=== PATIENT | female | born 1975 | race Caucasian/White ===

== ENCOUNTER → 2018-01-11 12:01 | Outpatient (REF) | payer MEDICAID, SELFPAY ==
[2018-01-11 17:59] LABS: Basophils % 0.4 % (0.1-2.0); Eosinophils # 0.1 K/mm3 (0.0-0.4); Eosinophils % 1.4 % (0.1-12.0); Hemoglobin 12.2 g/dL (12.2-16.2); Lymphocytes # 2.8 K/mm3 (0.7-4.5); Lymphocytes % 34.8 K/mm3 (10-50); Mean Corpuscular HGB Conc 31.4 g/dL (31.8-35.4); Mean Corpuscular Hemoglobin 28.7 pg (27.0-31.2); Mean Corpuscular Volume 91.4 fl (81-99); Mean Platelet Volume 9.5 fl (7.4-10.4); Monocytes # 0.4 K/mm3 (0.1-1.0); Monocytes % 4.5 % (1.7-9.3); Neutrophils # 4.8 K/mm3 (1.8-7.8); Platelet Count 293 K/mm3 (142-424); Red Blood Count 4.26 M/mm3 (4.20-5.40); Red Cell Distribution Width 12.8 % (11.5-17.5); White Blood Count 8.1 K/mm3 (4.8-10.8)
[2018-01-11 19:20] LABS: Alanine Aminotransferase 18 U/L (12-78); Albumin Level 3.9 gm/dL (3.4-5.0); Albumin/Globulin Ratio 1.2 (1.1-1.8); Alkaline Phosphatase 91 U/L (46-116); Anion Gap 12.3 mEq/L (5-15); Aspartate Amino Transferase 7 U/L (15-37); Bilirubin,Total 0.1 mg/dL (0.2-1.0); Blood Urea Nitrogen 18 mg/dL (7-18); Calcium 9.1 mg/dL (8.5-10.1); Carbon Dioxide 27 mmol/L (21.0-32.0); Chloride 105 mmol/L (98-107); Cholesterol 160 mg/dL (140-200); Creatinine,Serum 1.02 mg/dL (0.55-1.02); Estimated Glomerular Filt Rate 60 ml/min (>60); Free T4 (Free Thyroxine) 0.92 ng/dl (0.76-1.46); GFR (African American) 73 ML/MIN (>60); Globulin 3.3 gm/dl (1.3-3.2); Glucose 83 mg/dL (74-106); HDL Cholesterol 40 mg/dL (29-89); LDL Cholesterol 86 mg/dL (0-130); Potassium 4.3 mmoL/L (3.5-5.1); Sodium 140 mmol/L (136-145); Thyroid Stimulating Hormone 2.49 uIU/ml (0.358-3.740); Total Protein,Serum 7.2 gm/dL (6.4-8.2); Triglycerides 172 mg/dL (30-200); VLDL Cholesterol 34 mg/dL (0-40)
[2018-01-14 11:57] LABS: Vitamin D 25 Hydroxy 20.9 ng/mL (30.0-100.0)
== END ==
LOC: LAB 12:01
PROVIDERS: Visit Provider Emergency Medicine
DX: I10 Essential (primary) hypertension (principal)
CPT/HCPCS: 80053; 80061; 82652; 84439; 84443; 85025

== ENCOUNTER → 2018-04-18 08:48 | Outpatient (REF) | payer MEDICAID, SELFPAY ==
[2018-04-18 14:46] LABS: Amphetamine/Metha Screen,Urine Negative ng/mL (<1000); Barbiturates Screen,Urine Negative ng/mL (<200); Benzodiazepines Screen,Urine Negative ng/mL (<200); Cannabinoid Screen,Urine Positive ng/mL (<50); Cocaine Screen,Urine Negative ng/mL (<300); Methadone Screen,Urine Negative ng/mL (<300); Opiate Screen,Urine Negative ng/mL (<300); Phencyclidine Screen,Urine Negative ng/mL (<25)
== END ==
LOC: LAB 08:48
PROVIDERS: Visit Provider Nurse Practitioner Family
DX: Z79.899 Other long term (current) drug therapy (principal)
CPT/HCPCS: 80305

== ENCOUNTER → 2018-07-15 14:05 | Outpatient (CLI) | payer MEDICAID, SELFPAY ==
[2018-07-15 14:49] LABS: Amphetamine/Metha Screen,Urine Negative ng/mL (<1000); Barbiturates Screen,Urine Negative ng/mL (<200); Benzodiazepines Screen,Urine Negative ng/mL (<200); Cannabinoid Screen,Urine Positive ng/mL (<50); Cocaine Screen,Urine Negative ng/mL (<300); Methadone Screen,Urine Negative ng/mL (<300); Opiate Screen,Urine Positive ng/mL (<300); Phencyclidine Screen,Urine Negative ng/mL (<25)
[2018-07-22 12:20] LABS: Codeine Negative (Cutoff=100); Hydrocodone Positive (.); Hydromorphone Positive (.); Morphine Negative (Cutoff=100)
[2018-07-22 17:12] LABS: Hydrocodone Confirm 1539 ng/mL (Cutoff=100); Hydromorphone Confirm 130 ng/mL (Cutoff=100); Opiates Positive (.)
== END ==
PROVIDERS: Visit Provider Nurse Practitioner Family
DX: Z79.899 Other long term (current) drug therapy (principal)
CPT/HCPCS: 80305; 80361; G0480

== ENCOUNTER → 2019-01-23 16:56 | Outpatient (CLI) | payer MEDICAID, SELFPAY ==
[2019-01-23 18:04] LABS: Amphetamine/Metha Screen,Urine Negative ng/mL (<1000); Barbiturates Screen,Urine Negative ng/mL (<200); Benzodiazepines Screen,Urine Negative ng/mL (<200); Cannabinoid Screen,Urine Positive ng/mL (<50); Cocaine Screen,Urine Negative ng/mL (<300); Methadone Screen,Urine Negative ng/mL (<300); Opiate Screen,Urine Negative ng/mL (<300); Phencyclidine Screen,Urine Negative ng/mL (<25)
== END ==
PROVIDERS: Visit Provider Emergency Medicine
DX: Z79.899 Other long term (current) drug therapy (principal)
CPT/HCPCS: 80305

== ENCOUNTER → 2019-07-10 12:48 | Outpatient (CLI) | payer MEDICAID, SELFPAY ==
[2019-07-10 13:50] VITALS: PULSE 72; PULSE 77
== END ==
PROVIDERS: PCP Emergency Medicine; Visit Provider Emergency Medicine
DX: R06.02 Shortness of breath (principal)
CPT/HCPCS: 94060; 94618; 94640; 94726; 94729

== ENCOUNTER → 2020-01-19 16:46 | Outpatient (CLI) | payer MEDICAID, SELFPAY ==
[2020-01-19 17:01] LABS: Basophils % 0.4 % (0.1-2.0); Eosinophils # 0.2 K/mm3 (0.0-0.4); Hematocrit 39.5 % (37.0-47.0); Hemoglobin 13.1 g/dL (12.2-16.2); Lymphocytes % 26.9 % (10-50); Mean Corpuscular HGB Conc 33.3 g/dL (31.8-35.4); Mean Corpuscular Hemoglobin 30.6 pg (27.0-31.2); Mean Corpuscular Volume 91.8 fl (81-99); Mean Platelet Volume 9.2 fl (7.4-10.4); Monocytes # 0.5 K/mm3 (0.1-1.0); Monocytes % 6.8 % (1.7-9.3); Neutrophils # 4.7 K/mm3 (1.8-7.8); Neutrophils % 63.9 % (37.0-80.0); Platelet Count 309 K/mm3 (142-424); Red Cell Distribution Width 13.4 % (11.5-17.5); White Blood Count 7.3 K/mm3 (4.8-10.8)
[2020-01-19 18:52] LABS: Alanine Aminotransferase 18 U/L (12-78); Albumin Level 4.6 g/dl (3.5-5.0); Albumin/Globulin Ratio 1.5 (1.1-1.8); Alkaline Phosphatase 101 U/L (38-126); Anion Gap 16.7 mEq/L (5-15); Aspartate Amino Transferase 31 U/L (14-36); Bilirubin,Total 0.5 mg/dl (0.2-1.3); Blood Urea Nitrogen 30 mg/dl (7-17); Calcium 9.8 mg/dl (8.4-10.2); Carbon Dioxide 23 mmol/L (22.0-30.0); Chloride 103 mmol/L (98-107); Chol/HDL Ratio 3.7 (1-3.5); Cholesterol 190 mg/dl (140-200); Estimated Glomerular Filt Rate 45 ml/min (>60); GFR (African American) 54 ML/MIN (>60); Glucose 113 mg/dl (74-100); HDL Cholesterol 52 mg/dl (40-60); Potassium 3.7 mmoL/L (3.5-5.1); Sodium 139 mmol/L (136-145); Total Protein,Serum 7.6 g/dl (6.3-8.2); Triglycerides 97 mg/dl (30-150); VLDL Cholesterol 19 mg/dL (0-40)
[2020-01-19 19:04] LABS: Direct LDL Cholesterol 120.65 mg/dL (100-129)
[2020-01-19 19:11] LABS: T4 (Thyroxine) 11.9 ug/dl (5.53-11.0)
[2020-01-19 19:15] LABS: 25-OH Vitamin D, Total 28.4 ng/mL (30-100)
[2020-01-19 19:25] LABS: Thyroid Stimulating Hormone 2.91 uIU/mL (0.465-4.68)
== END ==
PROVIDERS: Visit Provider Emergency Medicine
DX: M79.2 Neuralgia and neuritis, unspecified (principal); E55.9 Vitamin D deficiency, unspecified; Z79.899 Other long term (current) drug therapy
CPT/HCPCS: 80053; 80061; 82306; 84436; 84443; 85025

== ENCOUNTER → 2020-02-02 10:15 | Outpatient (CLI) | payer MEDICAID, SELFPAY ==
--- NOTE | 2020-02-02 10:15 | MM_ITS ---
PROCEDURE: MM DIG SCREENING MAMM BI W/CAD Digital Breast Tomosynthesis Included CLINICAL INDICATION: screening There is no personal or family history of breast cancer. COMPARISON: This is a baseline screening exam TECHNIQUE: Standard CC and MLO images and 3D Tomosynthesis was obtained. R2 CAD reviewed. FINDINGS: Moderate scattered fibroglandular densities are seen throughout both breasts. There is a asymmetric benign-appearing nodular density subareolar region left breast. This likely is a small cyst or possibly fibroadenoma however since this is a baseline study recommend the patient return for ultrasound left breast for baseline evaluation. There are no suspicious microcalcifications. IMPRESSION: Fibrofatty parenchyma with benign-appearing asymmetric density left breast BI-RAD Category: 0 Need Additional Imaging Evaluation FOLLOW-UP: IMM Immediate Follow-up Recommended (A letter has been sent to the patient regarding results of the study.) Dictated Dr. Matthieu Fallon MD 02/05/2020 08:54 Dr. Matthieu Aguirre MD in [place] 02/05/2020 08:54
== END ==
PROVIDERS: PCP Emergency Medicine; Visit Provider Emergency Medicine
DX: Z12.31 Encounter for screening mammogram for malignant neoplasm of breast (principal)
CPT/HCPCS: 77063; 77067

== ENCOUNTER → 2020-02-02 11:25 | Outpatient (CLI) | payer MEDICAID, SELFPAY ==
[2020-02-02 12:08] LABS: Hemoglobin A1C 5.3 % (4.0-6.0)
== END ==
PROVIDERS: Visit Provider Emergency Medicine
DX: R73.9 Hyperglycemia, unspecified (principal)
CPT/HCPCS: 36415; 83036

== ENCOUNTER → 2020-04-23 17:00 | Outpatient (CLI) | payer MEDICAID, SELFPAY ==
[2020-04-23 17:39] LABS: Anion Gap 15.2 mEq/L (5-15); Blood Urea Nitrogen 15 mg/dl (7-17); Carbon Dioxide 25 mmol/L (22.0-30.0); Chloride 105 mmol/L (98-107); Estimated Glomerular Filt Rate 61 ml/min (>60); GFR (African American) 74 ML/MIN (>60); Glucose 116 mg/dl (74-100); Potassium 4.2 mmoL/L (3.5-5.1); Sodium 141 mmol/L (136-145)
[2020-04-23 19:34] LABS: Free T4 (Free Thyroxine) 1.61 ng/dl (0.78-2.19)
[2020-04-23 19:49] LABS: Thyroid Stimulating Hormone 2.42 uIU/mL (0.465-4.68)
== END ==
PROVIDERS: Visit Provider Emergency Medicine
DX: E66.3 Overweight (principal); I10 Essential (primary) hypertension; M79.2 Neuralgia and neuritis, unspecified; Z72.0 Tobacco use; Z68.25 Body mass index [BMI] 25.0-25.9, adult
CPT/HCPCS: 80048; 84439; 84443

== ENCOUNTER → 2020-11-01 10:40 | Outpatient (CLI) | payer MEDICAID, SELFPAY ==
--- NOTE | 2020-11-01 10:40 | US_ITS ---
PROCEDURE: US TRANSVAGINAL CLINICAL INDICATION: pelvic pain COMPARISON: No exams were available for comparison FINDINGS: UTERUS: 10cm x 5cmx 4cm with a combined endometrial thickness of 8.3mm. Small area of decreased echogenicity is present within the uterus on the left measuring 1.3 cm consistent with a small fibroid. scar is noted anteriorly. LEFT OVARY: [id number] with a volume of 21.1ml. RIGHT OVARY: [id number] with a volume of 2.7ml. There is a 3 cm benign-appearing left ovarian cyst. No cul-de-sac fluid. IMPRESSION: Enlarged uterus with small fibroid. 3 cm left ovarian cyst Dictated by: Ramana Dominguez MD 11/01/2020 17:22 Ramana Dominguez MD in [place] 11/01/2020 17:22
--- NOTE | 2020-11-01 11:10 | US_ITS ---
Accession No. : [id number] Patient Name / ID : Odessa Peirce / [id number] Exam Date : 11/01/2020 11:10:55 ( Addendum_Approved ) PROCEDURE: MM DIG MAMM DX UNILAT LT CAD Digital Breast Tomosynthesis Included Left breast ultrasound complete CLINICAL INDICATION: abnormal mammogram COMPARISON: MG MM DIG SCREENING MAMM BI W/CAD from 02/02/2020 US US BREAST LT COMPLETE from 11/01/2020 TECHNIQUE: Problem solving views performed of the left breast along left breast. FINDINGS: There is average fibroglandular tissue. The previously noted nodular opacity in the medial aspect of the left breast is once again noted measuring approximately 4 mm not significantly changed. Left breast ultrasound: 4 x 2 mm hypoechoic nodule 1 o'clock, 5 x 4 mm complex hypoechoic nodule at 2 o'clock with internal septations and may represent a complicated cyst. 4 mm hypoechoic nodule at 9 o'clock, 5 mm hypoechoic nodule at 10 o'clock. IMPRESSION: Previously noted nodular density in the medial aspect of the left breast is once again noted and not significantly changed. There are multiple hypoechoic nodules noted on the ultrasound 1 of which at the tear o'clock region may correspond to the nodule. Probably benign findings. Recommend 3 follow-up to confirm 1 year stability and to get patient back on schedule for the right breast.. BI-RAD Category: 3 Probably Benign Finding Short Term Follow-up FOLLOW-UP: 3M 3Month Follow-up (A letter has been sent to the patient regarding results of the study.) Dictated by: Ramana Dominguez MD 11/03/2020 06:52 Ramana Dominguez MD in [place] 11/03/2020 06:52 [ Addendum Report Added by Ramana Dominguez MD at 11/03/2020 06:52:24 ] [facility]
--- NOTE | 2020-11-01 11:45 | MM_ITS ---
PROCEDURE: MM DIG MAMM DX UNILAT LT CAD Digital Breast Tomosynthesis Included CLINICAL INDICATION: abnormal mammogram COMPARISON: No exams were available for comparison TECHNIQUE: Standard CC and MLO images and 3D Tomosynthesis was obtained. R2 CAD reviewed. FINDINGS: IMPRESSION: BI-RAD Category: FOLLOW-UP: (A letter has been sent to the patient regarding results of the study.) Dictated by: Ramana Dominguez MD 11/02/2020 11:19 Ramana Dominguez MD in [place] 11/02/2020 11:19
== END ==
PROVIDERS: PCP Emergency Medicine; Visit Provider Obstetrics & Gynecology
DX: R10.2 Pelvic and perineal pain (principal); R92.8 Other abnormal and inconclusive findings on diagnostic imaging of breast; N63.20 Unspecified lump in the left breast, unspecified quadrant
CPT/HCPCS: 76641; 76830; 77061; 77065; G0279

== ENCOUNTER 2020-12-19 00:26 | Emergency (ER) | payer MEDICAID, SELFPAY ==
[2020-12-19 00:28] VITALS: BP 122/106; PULSE 93; RESP 20; TEMP 36.7; O2SAT 98; BMI 24.9
[2020-12-19 00:46] VITALS: BP 122/106; PULSE 78; RESP 18; TEMP 36.7; O2SAT 98
--- NOTE | 2020-12-19 01:11 | HMH.EDGENADL ---
ED Disposition Clinical Impression: Abnormal uterine bleeding Disposition: Home, Self-Care Condition on Discharge: Fair Additional Instructions: May take tylenol and ibuprofen as needed for pain relief. please follow up with the injection press operator for further evaluation If you soak through more than 1 pad an hour, please return to the ED for further evaluation. Prescriptions: Acetaminophen [Tylenol 500mg tablet] 1,000 mg PO Q6H PRN 5 Days #40 tab PRN Reason: Mild To Moderate Pain Prescription Printed Referrals: Nilo Osorio MD [Primary Care Provider] - Ally Horta MD [Staff Physician] - Forms: Work/School Release - Critical Care Critical Care Time: No Attestation: On 12/19/20, the high probability of a clinically significant, sudden or life threatening deterioration of the following system(s) required my full and direct attention, intervention and personal management. The time I documented below is in addition to time spent performing reported procedures but includes the following listed in this critical care notation. Medical Decision Making - Medical Records Medical records reviewed: Yes: I reviewed the patient's medical records. - Fernando Inquiry Pt receiving controlled substance: No Vital Signs: 12/19/20 00:28 12/19/20 00:46 12/19/20 02:04 Temperature 98.0 F 98.0 F Temperature Source Oral Oral Pulse Rate 78 Pulse Rate [Right] 93 H Respiratory Rate 20 18 Blood Pressure 122/106 H Blood Pressure [Right Arm] 122/106 H Blood Pressure Mean [Right Arm] 111 Blood Pressure Source Automatic Cuff Blood Pressure Source [Right Arm] Automatic Cuff Blood Pressure Position Sitting Blood Pressure Position [Right Arm] Sitting 02 Sat by Pulse Oximetry 98 98 Oxygen Delivery Method Room Air Room Air Room Air - Lab Data Lab Results 12/19/20 00:27: Urine Color Red, Urine Appearance Sl cloudy, Urine pH 7.0, Ur Specific Dalton 1.015, Urine Protein Negative, Urine Glucose (UA) Negative, Urine Ketones Negative, Urine Blood 3+, Urine Nitrate Negative, Urine Bilirubin Negative, Urine Urobilinogen 0.2, Ur Leukocyte Esterase Trace, Urine RBC Tntc, Urine WBC 3-5, Urine Bacteria 1+ Orders (Tests/Meds): ED MEDICATIONS Discontinued Medications Generic Name Dose Route Start Last Admin Trade Name Freq PRN Reason Stop Dose Admin Acetaminophen 1,000 mg 12/19/20 01:22 12/19/20 01:25 Acetaminophen 500mg Tab PO 12/19/20 01:23 1,000 mg ONCE ONE Administration Ibuprofen 600 mg 12/19/20 01:22 12/19/20 01:25 Ibuprofen 600 Mg Tablet PO 12/19/20 01:23 600 mg ONCE ONE Administration ORDERS Category Date Time Status US transvaginal Stat Exams 12/19/20 01:48 Taken Medical Decision Narrative: Patient patient is hemodynamically stable and nontoxic-appearing. Patient presents with vaginal bleeding after fall onto her vulva. Differential diagnosis includes but not limited to abnormal uterine bleeding secondary to premenopause state, vaginal trauma from fall, hematuria from urethral injury. UA obtained. On speculum exam, patient does not have any signs of trauma to the vulva or vagina. Patient's bleeding appears to be coming from the cervix. Transvaginal ultrasound was obtained. She was discharged stable condition to follow-up with gynecology tomorrow. General Adult HPI - General Chief complaint: Fall Stated complaint: AO 12/18/20 fell down steps now has vaginal bleedi Time Seen by Provider: 12/19/20 00:45 Mode of Arrival: Family Vehicle Source of Information: Patient Limitations: No Limitations Description of Symptoms (Recalled from ER Triage Doc. by RN): Pt fell down her stairs this am, 3-6 steps that pt recalls. She c/o of falling on her left knee and left hip/side. She denies any LOC, headache, dizziness, nausea, or open areas to skin. She states that within 10min of falling, she noticied bright red vaginal bleeding with small clots. Pt states it is similar to a
[2020-12-19 01:15] LABS: Microscopic, Urine URINE MICROSCOPIC (MICROSCOPIC)
[2020-12-19 01:18] LABS: Appearance,Urine SL CLOUDY (Clear); Bilirubin,Urine Negative (Negative); Blood, Urine 3+ (Negative); Color,Urine RED (Yellow); Glucose,Urine (UA) Negative (Negative); Ketones,Urine Negative (Negative); Leukocyte Esterase,Urine TRACE (Negative); Nitrate,Urine Negative (Negative); Protein,Urine Negative (Negative); Specific Gravity, Urine 1.015 (1.005-1.030); Urobilinogen,Urine 0.2 EU/dl (0.2)
[2020-12-19 01:25] LABS: Bacteria,Urine 1+ /lpf; RBC,Urine TNTC #/hpf (0-3)
--- NOTE | 2020-12-19 01:30 | PC.NURSE ---
This RN assisted Dr. Phillips with pelvic exam.
--- NOTE | 2020-12-19 01:48 | US_ITS ---
PROCEDURE INFORMATION: Exam: US Pelvis, Transvaginal Exam date and time: 12/19/2020 1:48 AM Age: 45 years old Clinical indication: Vaginal pain; Prior surgery; Surgery date: 6+ months; Surgery type: 2 c sections; Patient HX: PT fell yesterday and legs split apart on landing. Then she stated having some vaginal bleeding. Lmp was December 10 2020; Additional info: Abnormal uterine bleeding TECHNIQUE: Imaging protocol: Real-time transvaginal pelvic ultrasound with image documentation. Transvaginal imaging was used for better evaluation of the endometrium, adnexa, and/or cervix. COMPARISON: 1. US TRANSVAGINAL 11/01/2020 10:57 AM 2. VENOUS LOWER EXT LT 02/02/2017 11:34 AM FINDINGS: Uterus/cervix: The cervix is closed and appears normal. The uterus has normal homogeneous echotexture and measures 8.4 x 4.0 x 4.5 cm. The endometrium measures roughly 3 mm. Right adnexa: The right ovary measures 2.4 x 1.8 x 2.8 cm and contains small follicles. In addition, there is a dominant 1.3 cm right ovarian cyst. Doppler evaluation of the right ovary demonstrates normal color flow and spectral analysis. Left adnexa: The left ovary measures 2.1 x 1.9 x 1.9 cm and contains small follicles. Doppler evaluation of the left ovary demonstrates normal color flow and spectral analysis. Intraperitoneal space: There is a trace amount of free fluid in the pelvic cul-de-sac which may be physiologic. IMPRESSION: 1. Right ovarian cyst. 2. No ovarian torsion. 3. Sonographically normal uterus. 4. Small amount of nonspecific free fluid within the pelvic cul-de-sac which may be physiologic.
[2020-12-19 02:33] VITALS: BP 111/78; PULSE 80; RESP 20; TEMP 36.7; O2SAT 100
== END 2020-12-19 02:39 | disposition home or self-care (01) ==
PROVIDERS: Emergency Provider Emergency Medicine; PCP Emergency Medicine
DX: J44.9 Chronic obstructive pulmonary disease, unspecified; I10 Essential (primary) hypertension; F17.210 Nicotine dependence, cigarettes, uncomplicated; Z88.0 Allergy status to penicillin
CPT/HCPCS: 76830; 81001; 99282

== ENCOUNTER 2021-07-06 23:55 | Emergency (ER) | payer MEDICAID, SELFPAY ==
[2021-07-06 23:57] VITALS: BP 140/85; PULSE 84; RESP 20; TEMP 36.8; O2SAT 99; BMI 25.3
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
[2021-07-07 01:01] VITALS: BP 124/81; PULSE 98; RESP 20; TEMP 36.9; O2SAT 99
== END 2021-07-07 01:36 | disposition home or self-care (01) ==
PROVIDERS: Emergency Provider Emergency Medicine; PCP Emergency Medicine
DX: T23.252A Burn of second degree of left palm, initial encounter (principal); Y27.3XXA Contact with hot household appliance, undetermined intent, initial encounter; Y92.010 Kitchen of single-family (private) house as the place of occurrence of the external cause; I10 Essential (primary) hypertension; J45.909 Unspecified asthma, uncomplicated; J44.9 Chronic obstructive pulmonary disease, unspecified; F17.210 Nicotine dependence, cigarettes, uncomplicated
CPT/HCPCS: 99281

== ENCOUNTER → 2021-07-10 16:32 | Outpatient (CLI) | payer MEDICAID, SELFPAY ==
[2021-07-14 15:33] LABS: Neisseria gonorrhoeae, NAA Negative (Negative)
== END ==
PROVIDERS: Visit Provider Obstetrics & Gynecology
DX: N92.6 Irregular menstruation, unspecified (principal)
CPT/HCPCS: 87491; 87591

== ENCOUNTER → 2021-07-15 14:18 | Outpatient (CLI) | payer MEDICAID, SELFPAY ==
--- NOTE | 2021-07-15 14:22 | US_ITS ---
FINAL REPORT CLINICAL HISTORY: DUB COMPARISON: November 01, 2020 FINDINGS: Transvaginal sonographic images of the pelvis were obtained. The uterus measures 9.2 x 3.7 x 5.6 cm which is at the upper limits of normal. The endometrium measures 11 mm, which is within normal limits. There is a possible small anterior fibroid. The right ovary measures 2.8 cm in length and left ovary measures 3.4 cm in length. Normal blood flow seen to the ovaries. There is a 10 mm left ovarian follicle. There is no evidence of free fluid. IMPRESSION: possible small anterior uterine fibroid. 10 mm left ovarian follicle. Reviewed, Interpreted and Dictated by Robby Claros III, MD Transcribed by Alysha Marino Authenticated by Robby Claros III, MD on 07/15/2021 04:47:01 PM [facility]
== END ==
PROVIDERS: PCP Emergency Medicine; Visit Provider Obstetrics & Gynecology
DX: N93.8 Other specified abnormal uterine and vaginal bleeding (principal)
CPT/HCPCS: 76830

== ENCOUNTER 2022-01-08 17:03 | Emergency (ER) | payer MEDICAID, SELFPAY ==
--- NOTE | 2022-01-08 17:03 | ECG_ITS ---
APPROVED REPORT Exam: Resting ECG HR:94 bpm ECG Measurements Heart Rate 94 AXES AL 145 P 30 QRSd 84 QRS 72 QT 334 T 47 QTc 386 Conclusion SINUS RHYTHM POSSIBLE RIGHT VENTRICULAR CONDUCTION DELAY [RSR (QR) IN V1/V2] BORDERLINE ECG UNCONFIRMED REPORT Electronically signed by : Mike Rodrigues MD 01/11/2022 16:29:58
[2022-01-08 17:30] VITALS: BP 170/90; PULSE 83; RESP 16; O2SAT 98
[2022-01-08 17:32] VITALS: BP 146/91; PULSE 91; RESP 18; TEMP 36.8; O2SAT 99; BMI 26.5
--- NOTE | 2022-01-08 17:40 | HMH.EDCP ---
ED Disposition Clinical Impression: Chest wall pain, Costochondral chest pain Disposition: Home, Self-Care Condition on Discharge: Good Instructions: Costochondritis Referrals: Provider,Referral, [Referring] - Time of Disposition: 19:53 - Critical Care Critical Care Time: No Attestation: On 01/08/22, the high probability of a clinically significant, sudden or life threatening deterioration of the following system(s) required my full and direct attention, intervention and personal management. The time I documented below is in addition to time spent performing reported procedures but includes the following listed in this critical care notation. Medical Decision Making - Medical Records Medical records reviewed: Yes: I reviewed the patient's medical records. - Fernando Inquiry Pt receiving controlled substance: No Vital Signs: 01/08/22 17:30 01/08/22 17:32 01/08/22 18:30 Temperature 98.3 F Temperature Source Oral Pulse Rate 83 90 Pulse Rate [Left Radial] 91 H Respiratory Rate 16 18 17 Blood Pressure 170/90 H 137/93 H Blood Pressure [Right Arm] 146/91 H Blood Pressure Mean 116 Blood Pressure Mean [Right Arm] 109 02 Sat by Pulse Oximetry 98 99 100 Oxygen Delivery Method Room Air - Lab Data Lab results reviewed: Yes: I reviewed the patient's lab results. Lab Results 01/08/22 19:10: WBC 9.6, RBC 4.02 L, Hgb 12.0 L, Hct 37.7, MCV 93.7, MCH 29.9, MCHC 31.9, RDW 14.6, Plt Count 293, MPV 9.2, Neut % (Auto) 68.4, Lymph % (Auto) 23.4, [place] % (Auto) 3.9, Eos % (Auto) 2.7, Baso % (Auto) 1.6, Neut # (Auto) 6.6, Lymph # (Auto) 2.3, [place] # (Auto) 0.4, Eos # (Auto) 0.3, Baso # (Auto) 0.2 01/08/22 19:10: Sodium 138, Potassium 3.8, Chloride 105, Carbon Dioxide 25, Anion Gap 11.8, BUN 22 H, Creatinine 0.90, Estimated Creat Clear 86, Estimated GFR 68, Est GFR ( Amer) 82, Glucose 105 H, Calcium 9.7, Total Bilirubin 0.3, AST 23, ALT 18, Alkaline Phosphatase 76, Troponin I < 0.01, Total Protein 7.7, Albumin 4.6, Globulin 3.1, Albumin/Globulin Ratio 1.5 01/08/22 19:10: SARS-CoV-2 (PCR) Not detected, Influenza A Untype (PCR) Not detected, Influenza Type B (PCR) Not detected Result diagrams: 01/08/22 19:10 01/08/22 19:10 - ECG Data Tracing #1 Normal sinus rhythm at a rate of 94 Normal axis IL 145 QRS [address]/T wave changes Chest Pain HPI - General Stated Complaint: pain Time Seen by Provider: 01/08/22 17:40 Mode of Arrival: Ambulatory Source of Information: Patient Limitations: No Limitations - History of Present Illness HPI narrative: 46-year-old female, denies any significant past medical history, specifically no cardiac history. Presents with about 1 week of right upper chest wall pain, worse with movement or palpation of the area, states it feels like there is a knot in the subclavicular region. Denies any shortness of breath, leg swelling, palpitations, denies any history of DVT or PE. No nausea, vomiting, or diaphoresis. She has not attempted any treatments thus far for this - Related Data Previous Rx's Medication Instructions Recorded umeclidinium 62.5 mcg-vilanterol See Rx Instructions .ROUTE 01/08/21 25 mcg/actuation powdr for .COMPLEX #60 each inhalation ergocalciferol (vitamin D2) 1,250 See Rx Instructions .ROUTE 03/17/21 mcg (50,000 unit) capsule .COMPLEX #12 cap albuterol sulfate 90 mcg/actuation 2 puff INHALATION Q6H PRN #8.5 g 07/02/21 aerosol inhaler lisinopril 10 See Rx Instructions .ROUTE 10/02/21 mg-hydrochlorothiazide 12.5 mg .COMPLEX #90 tab tablet cyclobenzaprine 10 mg tablet See Rx Instructions .ROUTE 11/20/21 .COMPLEX #180 tab ibuprofen 800 mg tablet See Rx Instructions .ROUTE 12/18/21 .COMPLEX #30 tab Allergies Allergy/AdvReac Type Severity Reaction Status Date / Time codeine Allergy Intermediate SOB Verified 10/22/21 16:08 aspirin Allergy Mild Hives Verified 10/22/21 16:08 Penicillins Allergy Unknown Hives Verified
--- NOTE | 2022-01-08 18:25 | PC.NURSE ---
checked on room 4 was able to get her something to drink
[2022-01-08 18:30] VITALS: BP 137/93; PULSE 90; RESP 17; O2SAT 100
--- NOTE | 2022-01-08 18:55 | XR_ITS ---
PROCEDURE INFORMATION: Exam: XR Chest Exam date and time: 01/08/2022 7:17 PM Age: 46 years old Clinical indication: Right-sided; Patient HX: Pain over right proximal clavicle. No known injury. Smoker. ; Additional info: Sob/cp TECHNIQUE: Imaging protocol: Radiologic exam of the chest. Views: 1 view. COMPARISON: No relevant prior studies available. FINDINGS: Lungs: Unremarkable. No consolidation. Pleural spaces: Unremarkable. No pleural effusion. No pneumothorax. Heart/Mediastinum: Unremarkable. No cardiomegaly. Bones/joints: Unremarkable. IMPRESSION: No acute findings.
[2022-01-08 19:14] LABS: Coronavirus 19, PCR Not Detected (NotDetected); Influenza A, PCR Not Detected (NotDetected); Influenza B, PCR Not Detected (NotDetected)
[2022-01-08 19:18] LABS: Basophils # 0.2 K/mm3 (0-0.2); Basophils % 1.6 % (0.1-2.0); Eosinophils # 0.3 K/mm3 (0.0-0.4); Eosinophils % 2.7 % (0.1-12.0); Hematocrit 37.7 % (37.0-47.0); Lymphocytes # 2.3 K/mm3 (0.7-4.5); Lymphocytes % 23.4 % (10-50); Mean Corpuscular HGB Conc 31.9 g/dL (31.8-35.4); Mean Corpuscular Hemoglobin 29.9 pg (27.0-31.2); Mean Corpuscular Volume 93.7 fl (81-99); Mean Platelet Volume 9.2 fl (7.4-10.4); Monocytes # 0.4 K/mm3 (0.1-1.0); Monocytes % 3.9 % (1.7-9.3); Neutrophils # 6.6 K/mm3 (1.8-7.8); Neutrophils % 68.4 % (37.0-80.0); Platelet Count 293 K/mm3 (142-424); Red Blood Count 4.02 M/mm3 (4.20-5.40); Red Cell Distribution Width 14.6 % (11.5-17.5); White Blood Count 9.6 K/mm3 (4.8-10.8)
[2022-01-08 19:23] LABS: Chloride 105 mmol/L (98-107); Potassium 3.8 mmoL/L (3.5-5.1); Sodium 138 mmol/L (136-145)
[2022-01-08 19:25] LABS: Blood Urea Nitrogen 22 mg/dl (7-17); Creatinine Clearance Estimated 86 mL/min (50-200); Estimated Glomerular Filt Rate 68 ml/min (>60); GFR (African American) 82 ML/MIN (>60)
[2022-01-08 19:26] LABS: Alanine Aminotransferase 18 U/L (12-78); Albumin Level 4.6 g/dl (3.5-5.0); Albumin/Globulin Ratio 1.5 (1.1-1.8); Alkaline Phosphatase 76 U/L (38-126); Anion Gap 11.8 mEq/L (5-15); Aspartate Amino Transferase 23 U/L (14-36); Bilirubin,Total 0.3 mg/dl (0.2-1.3); Calcium 9.7 mg/dl (8.4-10.2); Carbon Dioxide 25 mmol/L (22.0-30.0); Globulin 3.1 g/dL (1.3-3.2); Glucose 105 mg/dl (74-100); Total Protein,Serum 7.7 g/dl (6.3-8.2)
[2022-01-08 19:38] LABS: Troponin I < 0.01 ng/ml (0.00-0.034)
[2022-01-08 20:22] VITALS: BP 124/74; PULSE 90; RESP 16; TEMP 36.8; O2SAT 97
== END 2022-01-08 20:22 | disposition home or self-care (01) ==
PROVIDERS: Emergency Provider Emergency Medicine; PCP Nurse Practitioner Family
DX: R07.89 Other chest pain (principal); M94.0 Chondrocostal junction syndrome [Tietze]; F17.210 Nicotine dependence, cigarettes, uncomplicated; J44.9 Chronic obstructive pulmonary disease, unspecified; I10 Essential (primary) hypertension
CPT/HCPCS: 71045; 80053; 84484; 85025; 93005; 96374; 99284; C9803; U0003; U0005

== ENCOUNTER → 2022-01-09 13:05 | Outpatient (CLI) | payer MEDICAID, SELFPAY ==
[2022-01-09 13:49] LABS: Alanine Aminotransferase 15 U/L (12-78); Albumin Level 4.4 g/dl (3.5-5.0); Albumin/Globulin Ratio 1.6 (1.1-1.8); Alkaline Phosphatase 77 U/L (38-126); Anion Gap 12.1 mEq/L (5-15); Aspartate Amino Transferase 19 U/L (14-36); Blood Urea Nitrogen 19 mg/dl (7-17); Calcium 9.6 mg/dl (8.4-10.2); Carbon Dioxide 28 mmol/L (22.0-30.0); Chloride 106 mmol/L (98-107); Chol/HDL Ratio 2.9 (1-3.5); Cholesterol 171 mg/dl (140-200); Estimated Glomerular Filt Rate 68 ml/min (>60); GFR (African American) 82 ML/MIN (>60); Globulin 2.7 g/dL (1.3-3.2); Glucose 102 mg/dl (74-100); HDL Cholesterol 60 mg/dl (40-60); Potassium 5.1 mmoL/L (3.5-5.1); Sodium 141 mmol/L (136-145); Total Protein,Serum 7.1 g/dl (6.3-8.2); Triglycerides 75 mg/dl (30-150); VLDL Cholesterol 15 mg/dL (0-40)
[2022-01-09 13:52] LABS: Bilirubin,Total < 0.1 mg/dl (0.2-1.3)
[2022-01-09 14:00] LABS: Direct LDL Cholesterol 80.47 mg/dL (100-129)
== END ==
PROVIDERS: PCP Nurse Practitioner Family; Visit Provider Nurse Practitioner Family
DX: Z00.00 Encounter for general adult medical examination without abnormal findings (principal); I10 Essential (primary) hypertension
CPT/HCPCS: 36415; 80053; 80061

== ENCOUNTER → 2022-02-04 16:43 | Outpatient (CLI) | payer MEDICAID, SELFPAY ==
--- NOTE | 2022-02-04 16:48 | MM_ITS ---
PROCEDURE INFORMATION: Exam: MG Bilateral Screening 3D Mammography Exam date and time: 02/04/2022 4:42 PM Age: 46 years old Clinical indication: Screening examination TECHNIQUE: Imaging protocol: Bilateral Screening tomosynthesis and 2D mammography including computer-aided detection (CAD) when performed. COMPARISON: 1. MG MM DIG MAMM DX UNILAT LT CAD 11/01/2020 11:36 AM 2. MG MM DIG SCREENING MAMM BI W/CAD 02/02/2020 10:46 AM FINDINGS: MAMMOGRAPHY: Breast composition: There are scattered areas of fibroglandular density. Mass: 0.7 cm mass in the posterior third of the right upper inner quadrant Architectural distortion: None. Calcifications: No suspicious calcifications. Asymmetric density: None. Skin thickening: None. Axillary adenopathy: None. IMPRESSION: Patient to be recalled for right breast ultrasound for further evaluation of a right breast mass. ASSESSMENT: BI-RADS Category 0: Incomplete- Need Additional Imaging Evaluation and/or Prior Mammograms for Comparison
== END ==
PROVIDERS: PCP Nurse Practitioner Family; Visit Provider Nurse Practitioner Family
DX: Z12.31 Encounter for screening mammogram for malignant neoplasm of breast (principal)
CPT/HCPCS: 77063; 77067

== ENCOUNTER → 2022-02-23 15:01 | Outpatient (CLI) | payer MEDICAID, SELFPAY ==
--- NOTE | 2022-02-23 15:04 | US_ITS ---
PROCEDURE INFORMATION: Exam: US Right Breast, Complete Exam date and time: 02/23/2022 3:18 PM Age: 46 years old Clinical indication: Patient recalled for further evaluation of a questionable subcentimeter right upper inner quadrant breast mass TECHNIQUE: Imaging protocol: Complete ultrasound of all four quadrants of the Right breast and the retroareolar regions, including ultrasound of the axilla when performed. COMPARISON: MG MM DIG SCREENING MAMM BI W/CAD 02/04/2022 4:42 PM FINDINGS: Breast: Sonographic images of the right breast including the retroareolar region, all 4 quadrants and the axilla do not demonstrate any solid masses. Minimal subcentimeter cystic changes noted in the right 10 o'clock axis. No focal findings in the upper inner quadrant. No architectural distortion or acoustical shadowing. No skin thickening or axillary adenopathy. IMPRESSION: Subcentimeter mass in the posterior third of the right upper inner quadrant on screening mammography is sonographically occult. The finding is probably benign in etiology. A six-month follow-up diagnostic right mammogram is recommended to ensure stability of the parenchymal pattern identified unless otherwise clinically indicated. ASSESSMENT: BI-RADS Category 3: Probably benign
== END ==
PROVIDERS: PCP Nurse Practitioner Family; Visit Provider Nurse Practitioner Family
DX: R92.8 Other abnormal and inconclusive findings on diagnostic imaging of breast (principal)
CPT/HCPCS: 76641

== ENCOUNTER → 2022-03-30 16:50 | Outpatient (CLI) | payer MEDICAID, SELFPAY ==
[2022-03-30 16:58] LABS: Microscopic, Urine URINE MICROSCOPIC (MICROSCOPIC)
[2022-03-30 17:54] LABS: Appearance,Urine SL CLOUDY (Clear); Bilirubin,Urine Negative (Negative); Blood, Urine Negative (Negative); Color,Urine YELLOW (Yellow); Glucose,Urine (UA) Negative (Negative); Ketones,Urine Negative (Negative); Leukocyte Esterase,Urine Negative (Negative); Nitrate,Urine Negative (Negative); PH,Urine 5.5 (5.0-8.5); Protein,Urine Negative (Negative); Specific Gravity, Urine 1.025 (1.005-1.030); Urobilinogen,Urine 0.2 EU/dl (0.2)
[2022-03-30 17:57] LABS: Urine Pregnancy, HCG Qual. Negative (Negative)
[2022-03-30 18:14] LABS: Bacteria,Urine 1+ /lpf; RBC,Urine Occasional #/hpf (0-3)
[2022-03-30 18:23] LABS: Chloride 103 mmol/L (98-107); Potassium 4.8 mmoL/L (3.5-5.1); Sodium 139 mmol/L (136-145)
[2022-03-30 18:26] LABS: Alanine Aminotransferase 15 U/L (12-78); Albumin Level 4.6 g/dl (3.5-5.0); Albumin/Globulin Ratio 1.4 (1.1-1.8); Alkaline Phosphatase 115 U/L (38-126); Anion Gap 12.8 mEq/L (5-15); Aspartate Amino Transferase 23 U/L (14-36); Bilirubin,Total 0.2 mg/dl (0.2-1.3); Blood Urea Nitrogen 13 mg/dl (7-17); Calcium 9.8 mg/dl (8.4-10.2); Carbon Dioxide 28 mmol/L (22.0-30.0); Estimated Glomerular Filt Rate 78 ml/min (>60); GFR (African American) 94 ML/MIN (>60); Globulin 3.2 g/dL (1.3-3.2); Glucose 75 mg/dl (74-100); Total Protein,Serum 7.8 g/dl (6.3-8.2)
[2022-03-30 18:38] LABS: Basophils # 0.1 K/mm3 (0-0.2); Basophils % 1.7 % (0.1-2.0); Eosinophils # 0.1 K/mm3 (0.0-0.4); Hematocrit 42.4 % (37.0-47.0); Hemoglobin 13.7 g/dL (12.2-16.2); Lymphocytes # 2.2 K/mm3 (0.7-4.5); Lymphocytes % 28.3 % (10-50); Mean Corpuscular HGB Conc 32.4 g/dL (31.8-35.4); Mean Corpuscular Hemoglobin 29.8 pg (27.0-31.2); Mean Corpuscular Volume 92.1 fl (81-99); Mean Platelet Volume 8.9 fl (7.4-10.4); Monocytes # 0.3 K/mm3 (0.1-1.0); Monocytes % 4.4 % (1.7-9.3); Neutrophils # 4.9 K/mm3 (1.8-7.8); Neutrophils % 64.8 % (37.0-80.0); Platelet Count 308 K/mm3 (142-424); Red Cell Distribution Width 14.3 % (11.5-17.5); White Blood Count 7.6 K/mm3 (4.8-10.8)
[2022-03-30 18:57] LABS: Thyroid Stimulating Hormone 3.21 uIU/mL (0.465-4.68)
== END ==
PROVIDERS: PCP Nurse Practitioner Family; Visit Provider Nurse Practitioner Family
DX: R10.30 Lower abdominal pain, unspecified (principal); N91.2 Amenorrhea, unspecified
CPT/HCPCS: 36415; 80053; 81001; 81025; 84443; 85025

== ENCOUNTER → 2022-04-14 14:13 | Outpatient (CLI) | payer MEDICAID, SELFPAY ==
--- NOTE | 2022-04-14 14:16 | US_ITS ---
FINAL REPORT CLINICAL HISTORY: AMENORRHEA COMPARISON: 07/15/2021 FINDINGS: Transvaginal sonographic images of the pelvis were obtained. The uterus measures 9.3 x 4.1 x 4.9 cm. The endometrium measures 14 mm, which is somewhat thickened. No uterine mass is identified. The right ovary measures 3.19 cm in length and left ovary measures 3.7 seconds cm in length. Normal blood flow seen to the ovaries. There is a right ovarian cyst measuring 1.7 cm. Small amount of free fluid is seen in the cul-de-sac. IMPRESSION: Somewhat thickened endometrium. Right ovarian cyst. Small free fluid in the pelvic cul-de-sac. Reviewed, Interpreted and Dictated by Robby Claros III, MD Transcribed by Maritza Plaza Authenticated and [facility]
== END ==
PROVIDERS: PCP Nurse Practitioner Family; Visit Provider Nurse Practitioner Family
DX: N91.2 Amenorrhea, unspecified (principal)
CPT/HCPCS: 76830

== ENCOUNTER 2022-04-22 16:02 | Emergency (ER) | payer MEDICAID, SELFPAY ==
--- NOTE | 2022-04-22 16:22 | EXP.UTC ---
Discharge Plan Disposition Patient Disposition: Home, Self-Care Condition: Good Prescriptions Prescriptions: New ibuprofen [IBU] 800 mg tablet 800 mg PO Q8HP PRN (Reason: Moderate Pain) Qty: 30 0RF promethazine 25 mg Tablet 25 mg PO Q6H PRN (Reason: Nausea And Vomiting) Qty: 20 0RF No Action Anoro Ellipta 62.5-25 mcg/actuation blister with device See Rx Instructions .ROUTE .COMPLEX Qty: 60 1RF Dose Instruction: 1 PUFF ONCE DAILY Rx Instructions: 1 PUFF ONCE DAILY albuterol sulfate [Proventil HFA] 90 mcg/actuation HFA aerosol inhaler 2 puff INHALATION Q6H PRN (Reason: shortness of breath or wheezing) Qty: 8.5 2RF ergocalciferol (vitamin D2) [Vitamin D2] 1,250 mcg (50,000 unit) capsule See Rx Instructions .ROUTE .COMPLEX Qty: 12 0RF Dose Instruction: TAKE 1 CAPSULE 1 TIME EACH WEEK Rx Instructions: TAKE 1 CAPSULE 1 TIME EACH WEEK lisinopril-hydrochlorothiazide 10-12.5 mg tablet See Rx Instructions .ROUTE .COMPLEX Qty: 90 0RF Dose Instruction: Take 1 tablet by mouth once daily Rx Instructions: Take 1 tablet by mouth once daily cyclobenzaprine 10 mg tablet See Rx Instructions .ROUTE .COMPLEX Qty: 180 0RF Dose Instruction: Take 1 tablet by mouth twice daily Rx Instructions: Take 1 tablet by mouth twice daily ibuprofen 800 mg tablet See Rx Instructions .ROUTE .COMPLEX Qty: 30 0RF Dose Instruction: TAKE 1 TABLET BY MOUTH ONCE DAILY NEEDED FOR PAIN Rx Instructions: TAKE 1 TABLET BY MOUTH ONCE DAILY NEEDED FOR PAIN Referrals Follow up/Referrals: Mike Rodrigues MD [Primary Care Provider] - See instructions Activity Restrictions/Add. Instructions Additional Instructions/Restrictions: Drink plenty of fluids. Take the medications as directed. Follow up with your regular doctor. GO TO THE ER FOR ANY WORSENING SYMPTOMS Clinical Impressions Clinical Impression: Migraine Instructions Patient Instructions: Migraine -- Adult, DI for Migraine Discharge ED Provider: Prem Her [facility] General Stated complaint: headache and vomiting Time Seen by Provider: 04/22/22 16:29 History of Present Illness Provider Complaint: She states that she has a history of migraine headache. She states that for the past 2 days she has had headache that her normal ibuprofen at home has not broke. Related Data Previous Rx's Medication Instructions Recorded umeclidinium 62.5 mcg-vilanterol See Rx Instructions .Route 01/08/21 25 mcg/actuation powdr for .COMPLEX #60 ea inhalation (Anoro Ellipta) ergocalciferol (vitamin D2) 1,250 See Rx Instructions .Route 03/17/21 mcg (50,000 unit) capsule (Vitamin .COMPLEX #12 caps D2) albuterol sulfate 90 mcg/actuation 2 puff inhalation Q6H PRN 07/02/21 aerosol inhaler (Proventil HFA) shortness of breath or wheezing #8.5 grams lisinopril 10 See Rx Instructions .Route 10/02/21 mg-hydrochlorothiazide 12.5 mg .COMPLEX #90 tabs tablet cyclobenzaprine 10 mg tablet See Rx Instructions .Route 11/20/21 .COMPLEX #180 tabs ibuprofen 800 mg tablet See Rx Instructions .Route 12/18/21 .COMPLEX #30 tabs ibuprofen 800 mg tablet (IBU) 800 mg PO Q8HP PRN Moderate Pain 04/22/22 #30 tabs promethazine 25 mg tablet 25 mg PO Q6H PRN Nausea And 04/22/22 Vomiting #20 tabs Allergies Allergy/AdvReac Type Severity Reaction Status Date / Time codeine Allergy Intermediate SOB Verified 10/22/21 16:08 aspirin Allergy Mild Hives Verified 10/22/21 16:08 Penicillins Allergy Unknown Hives Verified 10/22/21 16:08 [facility] Medical History Vitamin D deficiency (~01/23/18) Social History Smoking Status: Current every day smoker tobacco type: cigarettes packs per day: 1 alcohol intake: current substance use type: denies use current occupational status: employed Travel in
[2022-04-22 16:40] VITALS: BP 177/94; PULSE 87; RESP 18; TEMP 36.5; O2SAT 98; BMI 24.7
[2022-04-22 18:32] VITALS: BP 154/78; PULSE 81; RESP 18; TEMP 36.7; O2SAT 99
== END 2022-04-22 18:34 | disposition home or self-care (01) ==
PROVIDERS: Emergency Provider Nurse Practitioner Family; PCP Internal Medicine Adolescent Medicine
DX: G43.909 Migraine, unspecified, not intractable, without status migrainosus (principal)
CPT/HCPCS: 96365; 96375; 99284

== ENCOUNTER → 2022-07-07 13:48 | Outpatient (CLI) | payer MEDICAID, SELFPAY ==
[2022-07-07 14:49] LABS: Basophils # 0.1 K/mm3 (0-0.2); Basophils % 0.9 % (0.1-2.0); Eosinophils # 0.1 K/mm3 (0.0-0.4); Eosinophils % 1.1 % (0.1-12.0); Hematocrit 38.4 % (37.0-47.0); Hemoglobin 12.3 g/dL (12.2-16.2); Lymphocytes # 1.8 K/mm3 (0.7-4.5); Lymphocytes % 24.2 % (10-50); Mean Corpuscular HGB Conc 32.1 g/dL (31.8-35.4); Mean Corpuscular Hemoglobin 30.3 pg (27.0-31.2); Mean Corpuscular Volume 94.6 fl (81-99); Mean Platelet Volume 8.4 fl (7.4-10.4); Monocytes # 0.3 K/mm3 (0.1-1.0); Neutrophils # 5.2 K/mm3 (1.8-7.8); Neutrophils % 69.7 % (37.0-80.0); Platelet Count 312 K/mm3 (142-424); Red Blood Count 4.06 M/mm3 (4.20-5.40); Red Cell Distribution Width 13.6 % (11.5-17.5); White Blood Count 7.4 K/mm3 (4.8-10.8)
[2022-07-07 14:59] LABS: Chloride 106 mmol/L (98-107); Potassium 4.9 mmoL/L (3.5-5.1); Sodium 141 mmol/L (136-145)
[2022-07-07 15:01] LABS: Alanine Aminotransferase 14 U/L (12-78); Aspartate Amino Transferase 19 U/L (14-36); Blood Urea Nitrogen 17 mg/dl (7-17); Estimated Glomerular Filt Rate 68 ml/min (>60); GFR (African American) 82 ML/MIN (>60)
[2022-07-07 15:02] LABS: Albumin Level 4.3 g/dl (3.5-5.0); Albumin/Globulin Ratio 1.5 (1.1-1.8); Alkaline Phosphatase 93 U/L (38-126); Anion Gap 13.9 mEq/L (5-15); Bilirubin,Total 0.2 mg/dl (0.2-1.3); Calcium 9.4 mg/dl (8.4-10.2); Carbon Dioxide 26 mmol/L (22.0-30.0); Globulin 2.9 g/dL (1.3-3.2); Glucose 112 mg/dl (74-100); Total Protein,Serum 7.2 g/dl (6.3-8.2)
[2022-07-07 15:42] LABS: HCG,Quantitative < 2 mIU/ml (0-5.42)
== END ==
PROVIDERS: PCP Internal Medicine Adolescent Medicine; Visit Provider Obstetrics & Gynecology
DX: Z01.812 Encounter for preprocedural laboratory examination (principal); N92.1 Excessive and frequent menstruation with irregular cycle
CPT/HCPCS: 36415; 80053; 84702; 85025

== ENCOUNTER 2022-07-13 06:01 | Day surgery (SDC) | payer MEDICAID, SELFPAY ==
[2022-07-13 06:40] VITALS: BP 123/88; PULSE 82; RESP 20; TEMP 36.6; O2SAT 100; BMI 29.0
--- NOTE | 2022-07-13 07:20 | EXP.ANES.CKL ---
[facility] Disclaimer: The information contained in this section may have been updated after the patient was seen, as this information can be updated by other users. Medical History History of chlamydia Hypertension Menorrhagia with irregular cycle Neuropathic pain Tobacco use Trichomonal vaginitis Vitamin D deficiency (~01/23/18) Surgical History History of dental surgery History of tubal ligation Hx of section Family History Other Family history of COPD (chronic obstructive pulmonary disease) Family history of cancer Family history of diabetes mellitus type II Family history of myocardial infarction Social History Smoking Status: Current every day smoker tobacco type: cigarettes packs per day: 1 years smoked: 30 alcohol intake: never substance use type: former substance user current occupational status: unemployed Travel in the last 8 weeks: None household members: significant other housing: apartment marital status: single caffeine: Yes special sharron needs: No agree to transfusion: No do you feel safe at home: Yes victim of physical abuse: No victim of emotional abuse: No victim of sexual abuse: No would you like helpful sources: No [facility] Anesthesia Checklist Patient Identification Patient Identification: Arm Band and Verbal (Name & ) Structural Data Admitted From: Home Planned Operative Procedure/s: Hyst/D& C/Novasure Consent for Planned Operative Procedure(s) Verified: Yes NPO Status Verified Time NPO: 00:00 Chart Verification Results Verified: CBC and BMP Additional verifications Anesthesia Reactions: No Hx Blood Transfusions: No Blood Transfusion Reaction: No Airway Assessment C-Spine Mobility Assessed: Yes TMJ Mobility Assessed: Yes Dentition: Dentures-good fit Neurological Assessment Level of Consciousness: Awake Hx Seizures: No Numbness or tingling in extremities: No Anesthesia Plan Anesthesia Risk discussed: Yes Anesthesia Plan: Verified ASA Class: II Anesthesia Type: MAC
[2022-07-13 09:00] VITALS: BP 132/90; PULSE 65; RESP 17; TEMP 36.3; O2SAT 96
[2022-07-13 09:10] VITALS: BP 123/86; PULSE 79; RESP 16; O2SAT 95
[2022-07-13 09:20] VITALS: BP 136/80; PULSE 74; RESP 16; O2SAT 96
[2022-07-13 09:24] VITALS: RESP 16
--- NOTE | 2022-07-13 09:26 | EXP.OP.NOTE ---
Date of procedure: 07/13/22 Pre-op Diagnosis:: 1. Heavy Menstrual Bleeding 2. Dysfunctional Uterine Bleeding 3. Pelvic Pain 4. History of Cervicitis Post-op Diagnosis:: 1. Heavy Menstrual Bleeding 2. Dysfunctional Uterine Bleeding 3. Pelvic Pain 4. History of Cervicitis 5. Cervical Stenosis Procedure performed:: 1. Cervical Dilation 2. Diagnostic Hysteroscopy Surgeon:: Ally Horta MD MOTION PICTURE OPERATOR:: Cody Raymond Anesthesia: MAC Estimated blood loss (mL): 5 Operative findings:: Extensive scarring and stenosis of cervix Operative note:: The patient was taken to the OR and general anesthesia administered without difficulty. She was prepped/draped in lithotomy position. Nelson retractors were used to visualize the cervix and a single tooth tenaculum was placed on the anterior lip of the cervix. The cervix was scarred extensively and the regular sized dilators would not pass. Pediatric dilators were also unsuccessful at dilation. Lacrimal duct probes were used to dilate the cervix, which also did not pass easily. The hysteroscope was used for attempted hydrodilation of the cervical canal, but the anatomic location of the hysteroscope was unclear in terms of the endometrial cavity versus a false passage into myometrium. Tubal ostia were not visualized for reference points. Tissue sampling was not performed because the anatomic location could not be verified. The hysteroscope and all instruments were removed from her vagina. She was taken out of lithotomy position, awakened from anesthesia and taken to the PACU in stable condition. All sponge, needle & instrument counts correct. EBL 5cc. Condition: stable Disposition: PACU Specimens:: None Complications:: None
[2022-07-13 09:55] VITALS: BP 146/65; PULSE 76; RESP 17; O2SAT 96
== END 2022-07-13 09:55 | disposition home or self-care (01) ==
PROVIDERS: PCP Internal Medicine Adolescent Medicine; Visit Provider Obstetrics & Gynecology
PROC: (CPT 57800; principal; 2022-07-13 07:30)
DX: N93.8 Other specified abnormal uterine and vaginal bleeding (principal); N92.0 Excessive and frequent menstruation with regular cycle; R10.2 Pelvic and perineal pain; N88.2 Stricture and stenosis of cervix uteri; Z72.0 Tobacco use
CPT/HCPCS: 57800; 58555; 96374; J2405

== ENCOUNTER → 2022-08-14 15:25 | Outpatient (CLI) | payer MEDICAID, SELFPAY ==
--- NOTE | 2022-08-14 15:25 | US_ITS ---
FINAL REPORT CLINICAL HISTORY: pelvic pain FINDINGS: Transvaginal sonographic images of the pelvis were obtained. The uterus measures 9.7 x 4.9 x 3.4 cm. The endometrium measures 7 mm, which is within normal limits. No uterine mass is identified. The right ovary measures 2.3 cm in length and left ovary measures 3.3 cm in length. Normal blood flow seen to the ovaries. Small follicles or cysts are present in both ovaries. There is a small amount of free fluid in the cul-de-sac which may be physiologic or reactive. IMPRESSION: Small amount of free fluid in the cul-de-sac, may be physiologic or reactive. Reviewed, Interpreted and Dictated by Robby Claros III, MD Transcribed by Alysha Marino Authenticated and . [facility]
== END ==
PROVIDERS: PCP Internal Medicine Adolescent Medicine; Visit Provider Obstetrics & Gynecology
DX: R10.2 Pelvic and perineal pain (principal)
CPT/HCPCS: 76830

== ENCOUNTER 2022-12-01 00:06 | Emergency (ER) | payer MEDICAID, SELFPAY ==
[2022-12-01] VITALS (7 sets, daily range): BP systolic 138–173; BP diastolic 76–102; PULSE 69–89; RESP 17–18; TEMP 36.8; O2SAT 96–100; BMI 28.7
--- NOTE | 2022-12-01 00:22 | CT_ITS ---
PROCEDURE INFORMATION: Exam: CT Right Lower Extremity With Contrast, Hip Exam date and time: 12/01/2022 12:47 AM Age: 46 years old Clinical indication: Patient HX: C/O right hip pain for a couple weeks; Additional info: Hip pain, unknown etiology TECHNIQUE: Imaging protocol: CT of the right lower extremity with intravenous contrast was performed. Exam focused on the hip. Radiation optimization: All CT scans at this facility use at least one of these dose optimization techniques: automated exposure control; mA and/or kV adjustment per patient size (includes targeted exams where dose is matched to clinical indication); or iterative reconstruction. Contrast material: ISOVUE; Contrast volume: 75 ml; Contrast route: IV; REPORTING DATA: Count of CT and Cardiac NM exams in prior 12 months: This patient has received 0 known CTs and 0 known cardiac nuclear medicine studies in the 12 months prior to the current study. COMPARISON: US TRANSVAGINAL 08/14/2022 3:46 PM FINDINGS: Bones/joints: Subtle right sacroiliac joint degeneration. Soft tissues: Normal. Vasculature: No evidence of arterial or venous abnormality. No suspected venous thrombosis. Intraperitoneal space: A small volume of free pelvic fluid is nonspecific but likely physiologic. Reproductive: Collapsing right ovarian physiologic follicle suspected. Other findings: Urinary contrast material present at the time of imaging. Incidental pelvic phlebolith formation. IMPRESSION: 1. No apparent musculoskeletal abnormality to explain right hip pain. If symptoms persist over time, consider followup MRI to further evaluate. 2. Collapsing right ovarian physiologic follicle suspected. no follow-up imaging is recommended. 3. A small volume of free pelvic fluid is nonspecific but likely physiologic.
--- NOTE | 2022-12-01 00:28 | PC.NURSE ---
rounded on patient. patient was given a pillow at this time.
[2022-12-01 00:30] LABS: Basophils % 0.4 % (0.1-2.0); Eosinophils # 0.2 K/mm3 (0.0-0.4); Eosinophils % 1.7 % (0.1-12.0); Hematocrit 35.4 % (37.0-47.0); Hemoglobin 11.5 g/dL (12.2-16.2); Lymphocytes # 2.5 K/mm3 (0.7-4.5); Lymphocytes % 28.4 % (10-50); Mean Corpuscular HGB Conc 32.4 g/dL (31.8-35.4); Mean Corpuscular Hemoglobin 29.2 pg (27.0-31.2); Mean Platelet Volume 7.8 fl (7.4-10.4); Monocytes # 0.5 K/mm3 (0.1-1.0); Monocytes % 5.2 % (1.7-9.3); Neutrophils # 5.6 K/mm3 (1.8-7.8); Neutrophils % 64.3 % (37.0-80.0); Platelet Count 303 K/mm3 (142-424); Red Blood Count 3.93 M/mm3 (4.20-5.40); Red Cell Distribution Width 14.1 % (11.5-17.5); White Blood Count 8.8 K/mm3 (4.8-10.8)
[2022-12-01 00:36] LABS: Alanine Aminotransferase 19 U/L (12-78); Albumin Level 4.3 g/dl (3.5-5.0); Albumin/Globulin Ratio 1.3 (1.1-1.8); Alkaline Phosphatase 98 U/L (38-126); Anion Gap 14.6 mEq/L (5-15); Aspartate Amino Transferase 23 U/L (14-36); Blood Urea Nitrogen 17 mg/dl (7-17); Calcium 8.7 mg/dl (8.4-10.2); Carbon Dioxide 25 mmol/L (22.0-30.0); Chloride 106 mmol/L (98-107); Creatinine Clearance Estimated 93 mL/min (50-200); Estimated Glomerular Filt Rate 68 ml/min (>60); GFR (African American) 82 ML/MIN (>60); Globulin 3.2 g/dL (1.3-3.2); Glucose 97 mg/dl (74-100); Potassium 3.6 mmoL/L (3.5-5.1); Sodium 142 mmol/L (136-145); Total Protein,Serum 7.5 g/dl (6.3-8.2)
[2022-12-01 00:39] LABS: Bilirubin,Total 0.1 mg/dl (0.2-1.3)
--- NOTE | 2022-12-01 00:39 | HMH.EDGENADL ---
Discharge Plan Disposition Patient Disposition: Home, Self-Care Prescriptions Prescriptions: New prednisone [prednisone] 20 mg tablet 20 mg PO BID Qty: 10 0RF No Action propranolol 10 mg tablet 10 mg PO DAILY albuterol sulfate [Proventil HFA] 90 mcg/actuation HFA aerosol inhaler 2 puff INHALATION Q6H PRN (Reason: shortness of breath or wheezing) Qty: 8.5 2RF promethazine 25 mg Tablet 25 mg PO Q6H PRN (Reason: Nausea And Vomiting) Qty: 20 0RF cyclobenzaprine 10 mg tablet See Rx Instructions .ROUTE .COMPLEX Rx Instructions: Take 1 tablet by mouth twice daily ibuprofen 800 mg tablet See Rx Instructions .ROUTE .COMPLEX Rx Instructions: TAKE 1 TABLET BY MOUTH ONCE DAILY NEEDED FOR PAIN Anoro Ellipta 62.5-25 mcg/actuation blister with device See Rx Instructions .ROUTE .COMPLEX Rx Instructions: 1 PUFF ONCE DAILY Referrals Follow up/Referrals: Mike Rodrigues MD [Primary Care Provider] - See instructions Clinical Impressions Clinical Impression: Acute hip pain Instructions Patient Instructions: DI for Hip Pain Discharge ED Provider: Devon (ED)Nlio General Adult HPI General Chief complaint: PAIN Stated complaint: Right Hip Pain,no injury Time Seen by Provider: 12/01/22 00:10 Mode of Arrival: Family Vehicle Source of Information: Patient and Medical Record Limitations: No Limitations Description of Symptoms (Recalled from ER Triage Doc. by RN): 46 yo female presents with CC OF RT HIP PAIN X 2-3 WEEKS. According to the patient, she has seen Dr Rodrigues for the pain, and they are trying to get a CT scan ordered. Denies any injury. States she has attempted different forms of exercise therapy, hot/cold compresses and OTC meds without relief. No redness noted to area. States she 'feels like there is a 'knot'' in the area. History of Present Illness HPI narrative: progressive pain rt hip area over the last few weeks w/o fever/rash or trauma - has seen pcp - pain with rom - Onset (ago): week(s) Location: right and lower extremity Severity: moderate Associated symptoms: denies other symptoms Related Data Home Medications Medication Instructions Recorded Confirmed propranolol 10 mg tablet 10 mg PO DAILY HTN 04/30/22 07/27/22 cyclobenzaprine 10 mg tablet See Rx Instructions .Route 07/09/22 07/27/22 .COMPLEX migrianes ibuprofen 800 mg tablet See Rx Instructions .Route 07/09/22 07/27/22 .COMPLEX migrianes umeclidinium 62.5 mcg-vilanterol See Rx Instructions .Route 07/09/22 07/27/22 25 mcg/actuation powdr for .COMPLEX Asthma inhalation (Anoro Ellipta) Previous Rx's Medication Instructions Recorded albuterol sulfate 90 mcg/actuation 2 puff inhalation Q6H PRN 07/02/21 aerosol inhaler (Proventil HFA) shortness of breath or wheezing #8.5 grams promethazine 25 mg tablet 25 mg PO Q6H PRN Nausea And 04/22/22 Vomiting #20 tabs prednisone 20 mg tablet 20 mg PO BID #10 tabs 12/01/22 Allergies Allergy/AdvReac Type Severity Reaction Status Date / Time codeine Allergy Intermediate SOB Verified 07/27/22 14:23 aspirin Allergy Mild Hives Verified 07/27/22 14:23 Penicillins Allergy Unknown Hives Verified 07/27/22 14:23 [facility] Disclaimer: The information contained in this section may have been updated after the patient was seen, as this information can be updated by other users. Medical History (Updated 12/01/22 @ 01:38 by Nilo Osorio (SEYMOUR)MD) History of chlamydia Hypertension Menorrhagia with irregular cycle Neuropathic pain Stenosis of cervix Tobacco use Trichomonal vaginitis Vitamin D deficiency (~01/23/18) Surgical History History of dental surgery History of tubal ligation Hx of section Family History Other Family history of COPD (chronic obstructive pulmonary disease) Family history of cancer
[2022-12-01 00:41] LABS: C-Reactive Protein 10.7 mg/L (0-4)
--- NOTE | 2022-12-01 00:51 | PC.NURSE ---
patient back in room from [facility] at this time.
[2022-12-01 01:08] LABS: Erythrocyte Sedimentation Rate 89 mm/hr (0-20)
== END 2022-12-01 03:00 | disposition home or self-care (01) ==
PROVIDERS: Emergency Provider Emergency Medicine; PCP Internal Medicine Adolescent Medicine
DX: I10 Essential (primary) hypertension; F17.210 Nicotine dependence, cigarettes, uncomplicated; M25.551 Pain in right hip
CPT/HCPCS: 73701; 80053; 85025; 85651; 86140; 96374; 96375; 99284; 99285; Q9967

== ENCOUNTER 2023-02-07 18:34 | Emergency (ER) | payer MEDICAID, SELFPAY ==
[2023-02-07 19:00] VITALS: BP 155/85; PULSE 89; RESP 20; TEMP 36.6; O2SAT 99; BMI 28.3
--- NOTE | 2023-02-07 19:01 | EXP.UTC ---
Discharge Plan Disposition Patient Disposition: Home, Self-Care Condition: Good Prescriptions Prescriptions: New methylprednisolone 4 mg Tablets,Dose Pack 4 mg PO DIRECTED Qty: 21 0RF cyclobenzaprine 10 mg Tablet 10 mg PO BID PRN (Reason: Muscle Spasm) Qty: 20 0RF No Action propranolol 10 mg tablet 10 mg PO DAILY albuterol sulfate [Proventil HFA] 90 mcg/actuation HFA aerosol inhaler 2 puff INHALATION Q6H PRN (Reason: shortness of breath or wheezing) Qty: 8.5 2RF prednisone [prednisone] 20 mg tablet 20 mg PO BID Qty: 10 0RF promethazine 25 mg Tablet 25 mg PO Q6H PRN (Reason: Nausea And Vomiting) Qty: 20 0RF cyclobenzaprine 10 mg tablet See Rx Instructions .ROUTE .COMPLEX Rx Instructions: Take 1 tablet by mouth twice daily ibuprofen 800 mg tablet See Rx Instructions .ROUTE .COMPLEX Rx Instructions: TAKE 1 TABLET BY MOUTH ONCE DAILY NEEDED FOR PAIN Anoro Ellipta 62.5-25 mcg/actuation blister with device See Rx Instructions .ROUTE .COMPLEX Rx Instructions: 1 PUFF ONCE DAILY Referrals Follow up/Referrals: Chava Heredia DO [Staff Physician] - See instructions Mike Rodrigues MD [Primary Care Provider] - See instructions Activity Restrictions/Add. Instructions Additional Instructions/Restrictions: Rest the extremity for the next couple of days. Take the medications as directed. The muscle relaxer (cyclobenzaprine--Flexeril) will make you drowsy, so don't drive or operate heavy machinery after taking it. Follow up with Dr. Heredia (orthopedics). I put in a referral but you need to call his office and schedule an appointment. Follow up with your regular doctor. GO TO THE ER FOR ANY WORSENING SYMPTOMS Clinical Impressions Clinical Impression: Acute pain of right hip Stand Alone Forms Stand Alone Forms: Work/School Release Discharge ED Provider: Prem Her [facility] General Stated complaint: Right Hip Pain - NO known accident Time Seen by Provider: 02/07/23 19:01 History of Present Illness Provider Complaint: She has had a history of having right hip pain, but today she was playing volleyball when she felt a pop in the hip. Since then she has had right hip pain that radiates down her right leg. She denies any fall or other injury. Related Data Home Medications Medication Instructions Recorded Confirmed propranolol 10 mg tablet 10 mg PO DAILY HTN 04/30/22 07/27/22 cyclobenzaprine 10 mg tablet See Rx Instructions .Route 07/09/22 07/27/22 .COMPLEX migrianes ibuprofen 800 mg tablet See Rx Instructions .Route 07/09/22 07/27/22 .COMPLEX migrianes umeclidinium 62.5 mcg-vilanterol See Rx Instructions .Route 07/09/22 07/27/22 25 mcg/actuation powdr for .COMPLEX Asthma inhalation (Anoro Ellipta) Previous Rx's Medication Instructions Recorded albuterol sulfate 90 mcg/actuation 2 puff inhalation Q6H PRN 07/02/21 aerosol inhaler (Proventil HFA) shortness of breath or wheezing #8.5 grams promethazine 25 mg tablet 25 mg PO Q6H PRN Nausea And 04/22/22 Vomiting #20 tabs prednisone 20 mg tablet 20 mg PO BID #10 tabs 12/01/22 cyclobenzaprine 10 mg tablet 10 mg PO BID PRN Muscle Spasm #20 02/07/23 tabs methylprednisolone 4 mg tablets in 4 mg PO DIRECTED #21 tabs 02/07/23 a dose pack Allergies Allergy/AdvReac Type Severity Reaction Status Date / Time codeine Allergy Intermediate SOB Verified 07/27/22 14:23 aspirin Allergy Mild Hives Verified 07/27/22 14:23 Penicillins Allergy Unknown Hives Verified 07/27/22 14:23 PFSH PFSH Disclaimer: The information contained in this section may have been updated after the patient was seen, as this information can be updated by other users. Medical History (Updated 02/07/23 @ 19:13 by Prem Her APRN) History of chlamydia Hypertension Menorrhagia with irregular cycle Neuropathic pain Stenosis of cervix Tobacco use Trichomonal vaginitis Vitamin D
[2023-02-07 19:16] VITALS: BP 155/85; PULSE 89; RESP 20; TEMP 36.6; O2SAT 99
== END 2023-02-07 19:41 | disposition home or self-care (01) ==
PROVIDERS: Emergency Provider Nurse Practitioner Family; PCP Internal Medicine Adolescent Medicine
DX: M25.551 Pain in right hip (principal); F17.210 Nicotine dependence, cigarettes, uncomplicated; I10 Essential (primary) hypertension; E55.9 Vitamin D deficiency, unspecified
CPT/HCPCS: 99212; 99214; G0463

== ENCOUNTER 2023-02-16 16:30 | Outpatient (RCR) | payer MEDICAID, SELFPAY ==
--- NOTE | 2023-01-06 08:45 | HMH.PTOPEV ---
PT Outpatient Evaluation Rehab PT Outpatient Evaluation Start: 01/06/23 07:54 Freq: Status: Active Protocol: Document 01/06/23 07:54 MAGGIE (Rec: 01/06/23 08:44 MAGGIE [id number]) E-signed By Jacquelyn Mcneill, PT Outpatient Therapy Subjective History Subjective History Pt is a 47 y/o female who reports onset of R lateral hip pain about 1 month ago. Pt reports she was helping her neighbor pick up worker wood which may have caused onset of pain. Pt reports worsening of symptoms a couple weeks ago leading her to go to the ER. Pt had a hip CT with contrast on 12/01/22 at the ER with impression of No apparent musculoskeletal abnormality to explain right hip pain. Pt reports she was told she has degenerative disc disease. Pt denies paresthesia or distal symptoms of the RLE. Pt reports pain is aggravated by sitting for a prolonged period and performing sit to stand after sitting. Pt denies pain with walking, stairs or inclined surfaces. Pt reports she is taking an anti- inflammatory medication that was prescribed which doesn't help much. Medical History: History of chlamydia, Hypertension, Menorrhagia with irregular cycle, Neuropathic pain, Stenosis of cervix, Tobacco use, Trichomonal vaginitis, Vitamin D deficiency Chief Complaint Pain,Stiff,Catches/Locks Symptom Type Ache,Dull Symptoms Relieved By Rest/Positioning Prior Functional Limitations None Current Functional Limitations Sleeping,Sitting Symptom Description Intermittent Level of pain today (0-10) 0 Pain scale - at its best (0-10) 0 Pain scale - at its worst (0-10) 7 Lumbopelvic Eval Accessory Movement L-spine Vertebrae Accessory Movements [facility] [place] that Elicit Symptoms L4 bilateral L5 bilateral Range of
--- NOTE | 2023-02-08 18:28 | HMH.RHREAS ---
Rehab Reassessment Rehab OP Re-assessment Start: 01/06/23 07:54 Freq: Status: Active Protocol: Document 02/08/23 17:05 MAGGIE (Rec: 02/08/23 18:28 MAGGIE [id number]) E-signed By Jacquelyn Mcneill PT Rehab Re-assessment Subjective Subjective Pt reports she was playing tennis with her family yesterday and went to hit the ball and twisted her R hip. Pt reports she heard a pop and her right leg went numb for a couple minutes and she fell straight down to the ground. Pt reports she went to the ER but they did not take imaging and her doctor prescribed her lidocaine patches today. Pt reports 02/04 current low back and R hip pain. Pt reports she is scheduled to see Dr. Heredia on the . Pt reports she has not been compliant with her HEP and has not noticed much of a difference in her hip pain overall. Objective Objective Notes TTP: R greater trochanter, lumbar SP of L3-L5, piriformis Pt reported comparable sign with mobilization of L5 SP Assessment Progress Assessment Slower Than Expected Assessment Notes Pt has attended 3 PT sessions since the initial PT evaluation performed on . Pt reports she has not been compliant with her HEP and was educated on importance of compliance with PT POC to assist with overall progress. Pt reports she further injured her right hip playing tennis yesterday with comparable sign noted with mobilization of the lower lumbar segments and continued point tenderness to R greater trochanter. Pt would continue to benefit from skilled PT to improve subjective report of pain, hip /lumbar mobility, LE strength,
== END 2023-02-16 16:35 | disposition home or self-care (01) ==
LOC: PT 16:30
PROVIDERS: PCP Internal Medicine Adolescent Medicine; Visit Provider Physician Assistant
DX: M25.551 Pain in right hip (principal)
CPT/HCPCS: 97010; 97014; 97110; 97140; 97163; 97164; 97530; G0283

== ENCOUNTER → 2023-02-18 14:46 | Outpatient (CLI) | payer MEDICAID, SELFPAY ==
--- NOTE | 2023-02-18 14:48 | XR_ITS ---
FINAL REPORT CLINICAL HISTORY: rt hip pain after twisting and hearing a pop 2 weeks ago COMPARISON: None FINDINGS: RIGHT HIP Two views of the right hip demonstrate no acute fracture or dislocation. The joint spaces appear normal. The visualized bony structures are well aligned. No soft tissue abnormality is seen. IMPRESSION: No acute bony abnormality. Reviewed, Interpreted and Dictated by Wilian Esquivel MD Transcribed by April Perez Authenticated and [facility]
== END ==
PROVIDERS: PCP Internal Medicine Adolescent Medicine; Visit Provider Orthopaedic Surgery
DX: M25.551 Pain in right hip (principal)
CPT/HCPCS: 73502

== ENCOUNTER → 2023-03-20 10:36 | Outpatient (CLI) | payer MEDICAID, SELFPAY ==
--- NOTE | 2023-03-20 10:45 | XR_ITS ---
PROCEDURE INFORMATION: Exam: XR Chest Exam date and time: 03/20/2023 10:46 AM Age: 47 years old Clinical indication: Shortness of breath; Additional info: Copd, SOB TECHNIQUE: Imaging protocol: Radiologic exam of the chest. Views: 2 views. COMPARISON: CR XR CHEST PORTABLE 01/08/2022 7:17 PM FINDINGS: Lungs: Unremarkable. No consolidation. Pleural spaces: Unremarkable. No pleural effusion. No pneumothorax. Heart/Mediastinum: Unremarkable. No cardiomegaly. Bones/joints: Unremarkable. IMPRESSION: No acute findings.
== END ==
PROVIDERS: PCP Internal Medicine Adolescent Medicine; Visit Provider Internal Medicine Adolescent Medicine
DX: R06.09 Other forms of dyspnea (principal); J44.9 Chronic obstructive pulmonary disease, unspecified
CPT/HCPCS: 71046

== ENCOUNTER 2023-04-23 17:30 | Outpatient (RCR) | payer MEDICAID, SELFPAY ==
--- NOTE | 2023-03-17 09:39 | HMH.PTOPEV ---
PT Outpatient Evaluation Rehab PT Outpatient Evaluation Start: 03/17/23 08:44 Freq: Status: Active Protocol: Document 03/17/23 08:45 ESTIVEN (Rec: 03/17/23 09:39 ESTIVEN [id number]) E-signed By Juan Jackman, PT Outpatient Therapy Subjective History Subjective History Patient is a 47 year old female presenting to outpatient PT with reports of sub-acute radiates to R hip with intermittent radicular symptoms to R foot. 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 Most recent imaging negative for any bony abnormalities of the R hip. SI special tests indicate L upslip of the innominant. Relief noted with lumbar extension. Comorbidities include hx of LLE nerve pain and HTN. New diagnosis of cancer in past 12 No months? Chief Complaint Pain,Spasms,Stiff,Paresthesia Symptom Type Ache,Throb,Sharp Symptoms Relieved By Rest/Positioning,Heat,OTC Meds Symptoms Aggravated By Standing,Bending/Stooping, Physical Activity,Walking, Lifting Prior Functional Limitations None Current Functional Limitations Lifting,Housework,Standing, Walking,Stairs,Bending/ Stooping Symptom Description Intermittent Level of pain today (0-10) 0 Pain scale - at its best (0-10) 0 Pain scale - at its worst (0-10) 8 Lumbopelvic Eval Posture Thoracic Spine Posture Standing Position Increased Kyphosis Lumbar Spine Posture Standing Position Increased Lordosis Assistive device Assistive Devices None / NA Palapation tenderness right Lumbar/Sacral Palpation Findings Tenderness Lumbar/Sacral Palpation Overall Comment R SIJ 3/4 Accessory Movement L4 bilateral L5 bilateral S1 bilateral Range of Motion Lumbar Spine Active Flexion Range of 82 Motion (degrees) Lumbar Spine Active Extension Range of 8 Motion (degrees) Left Lumbar Spine Lateral Flexion Active 16 Range of Motion (degrees) Right Lumbar Spine Lateral Flexion 15 Active Range of Motion (degrees) Lumbar Spine
--- NOTE | 2023-04-15 09:38 | HMH.RHREAS ---
Rehab Reassessment Rehab OP Re-assessment Start: 03/17/23 08:44 Freq: Status: Active Protocol: Document 04/15/23 09:25 ESTIVEN (Rec: 04/15/23 09:38 ESTIVEN [id number]) E-signed By Juan Jackman, PT Oswestry Index Section 1 Pain Intensity The pain is moderate and does not vary much Section 2 Personal Care (Washing,Dresing) my way of washing or dressing even though it causes some pain Section 3 Lifting lifting heavy weights off the floor, but I can manage if they are Section 4 Walking I have some pain when walking but it does not increase with distance Section 5 Sitting Pain prevents me from sitting for more than one hour Section 6 Standing I cannot stand more than 1 hour without increasing pain Section 7 Sleeping Because of my pain, my normal night's sleep is less than 6 hours sleep Section 8 Social Life My social life is normal but increases the degree of pain Section 9 Traveling I get some pain when traveling , but none of my usual forms of travel m Section 10 Changing Degreee of Pain My pain seems to be getting better, but improvement is slow Score and Risk Level Oswestry Sc 18 Oswestry Risk Level Moderate Disability Rehab Re-assessment Subjective Subjective Patient reports 70% improvement since start of care. Objective Objective Notes AROM: flx WNl; ext 14; SBr 1; SBl 12 MMT: WNL all myotomes Pain: 4/10 today; 5/10 at worst over past week Neuro: no reports of neurological symptoms. Assessment Progress Assessment Progressing as Expected Assessment Notes Patient would benefit from continuing with skilled PT services in order to address functional limitations with prolonged standing, walking, bending and lifting activities .
== END 2023-04-23 18:30 | disposition home or self-care (01) ==
LOC: PT 17:30
PROVIDERS: PCP Internal Medicine Adolescent Medicine; Visit Provider Internal Medicine Adolescent Medicine
DX: M25.551 Pain in right hip (principal)
CPT/HCPCS: 97010; 97014; 97110; 97163; 97164; 97535; G0283

== ENCOUNTER → 2023-05-13 14:48 | Outpatient (CLI) | payer MEDICAID, SELFPAY ==
[2023-05-13 16:39] LABS: Alanine Aminotransferase 17 U/L (12-78); Albumin Level 4.5 g/dl (3.5-5.0); Albumin/Globulin Ratio 1.4 (1.1-1.8); Alkaline Phosphatase 98 U/L (38-126); Anion Gap 15.4 mEq/L (5-15); Aspartate Amino Transferase 31 U/L (14-36); Bilirubin,Total 0.4 mg/dl (0.2-1.3); Blood Urea Nitrogen 24 mg/dl (7-17); Calcium 9.5 mg/dl (8.4-10.2); Carbon Dioxide 24 mmol/L (22.0-30.0); Chloride 103 mmol/L (98-107); Estimated Glomerular Filt Rate 60 ml/min (>60); GFR (African American) 73 ML/MIN (>60); Globulin 3.2 g/dL (1.3-3.2); Glucose 97 mg/dl (74-100); Potassium 4.4 mmoL/L (3.5-5.1); Sodium 138 mmol/L (136-145); Total Protein,Serum 7.7 g/dl (6.3-8.2)
== END ==
PROVIDERS: PCP Internal Medicine Adolescent Medicine; Visit Provider Obstetrics & Gynecology
DX: Z13.1 Encounter for screening for diabetes mellitus (principal)
CPT/HCPCS: 36415; 80053

== ENCOUNTER → 2023-05-18 16:30 | Outpatient (CLI) | payer MEDICAID, SELFPAY ==
[2023-05-18 17:51] LABS: Hemoglobin A1C 5.4 % (4.0-6.0)
== END ==
LOC: LAB 16:31
PROVIDERS: PCP Internal Medicine Adolescent Medicine; Visit Provider Obstetrics & Gynecology
DX: Z13.1 Encounter for screening for diabetes mellitus (principal)
CPT/HCPCS: 36415; 83036

== ENCOUNTER 2023-05-25 10:16 | Day surgery (SDC) | payer MEDICAID, SELFPAY ==
[2023-05-19 14:11] VITALS: BMI 29.2
--- NOTE | 2023-05-25 10:31 | P.PCN_ITS ---
Procedure: Date: 05/25/23 Patient Date of :: 1975 Procedure Performed:: Colonoscopy Indications:: Screening Performing Provider:: Jung Banegas MD Referring Provider:: . Sedation:: Monitored anesthesia care Procedure:: After informed consent was obtained the patient was taken to the endoscopy suite. Sedation ensued after the patient was transferred to the left lateral decubitus position. Pulse, blood pressure, and oxygen saturation were monitored throughout the procedure. Digital rectal exam revealed no significant abnormality. The colonoscope was placed in position. The entire colon was eval uated. The colonoscope was carefully removed and the patient was transferred to recovery in stable condition. Please see findings and specimens below for detail. Findings:: Bowel preparation fair Fairly profound spasticity/lack of relaxation (particularly sigmoid colon) 8 mm sessile polyp at 50 cm Specimens:: 8 mm sessile polyp at 50 cm (cold snare) Recommendations:: Timing of repeat colonoscopy is pending pathology will likely be around 2-3 y ears secondary to size/nature of polyp and spasticity/lack of relaxation. Complications:: No immediate Estimated blood obtained (mL): 1 Colonoscopy Component Colonoscopy Component Was a colonoscopy performed during today's procedure?: Yes Recommended follow up colonoscopy of at least 10 years?: No If no, follow up colonoscopy recommended in ___ years?: (See above) Reason for not recommending >/= 10 yr follow-up interval?: (See above)
[2023-05-25 10:36] VITALS: BP 154/95; PULSE 94; RESP 18; TEMP 36.8; O2SAT 97
[2023-05-25 10:39] LABS: Urine Pregnancy, HCG Qual. Negative (Negative)
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
[2023-05-25 10:57] VITALS: O2SAT 99
[2023-05-25 11:19] VITALS: BP 122/76; PULSE 82; RESP 15; TEMP 36.4; O2SAT 97
[2023-05-25 11:29] VITALS: BP 126/81; PULSE 91; RESP 17; O2SAT 97
[2023-05-25 11:39] VITALS: BP 143/78; PULSE 82; RESP 17; O2SAT 100
[2023-05-25 11:49] VITALS: BP 120/73; PULSE 79; RESP 18; O2SAT 99
== END 2023-05-25 11:55 | disposition home or self-care (01) ==
PROVIDERS: PCP Internal Medicine Adolescent Medicine; Visit Provider Surgery
PROC: 0DJD8ZZ Inspection of Lower Intestinal Tract, Via Natural or Artificial Opening Endoscopic (ICD-10-PCS; CPT 45385; principal; 2023-05-25 11:30)
DX: Z12.11 Encounter for screening for malignant neoplasm of colon (principal); D12.5 Benign neoplasm of sigmoid colon
CPT/HCPCS: 45385; 81025

== ENCOUNTER → 2023-06-02 16:49 | Outpatient (CLI) | payer MEDICAID, SELFPAY ==
--- NOTE | 2023-06-02 16:52 | MM_ITS ---
PROCEDURE INFORMATION: Exam: MG Bilateral Diagnostic Breast Tomosynthesis Exam date and time: 06/02/2023 4:39 PM Age: 47 years old Clinical indication: Screening - recommended for six-month follow-up for sub cm mass in the posterior 3rd of the right upper inner quadrant o'clock from 02/04/2022. No family history of breast cancer. TECHNIQUE: Imaging protocol: Bilateral Diagnostic tomosynthesis and 2D mammography including computer-aided detection (CAD) when performed. Unilateral or bilateral exam. COMPARISON: 1. MG MM DIG SCREENING MAMM BI W/CAD 02/04/2022 4:42 PM 2. MG MM DIG MAMM DX UNILAT LT CAD 11/01/2020 11:36 AM 3. MG MM DIG SCREENING MAMM BI W/CAD 02/02/2020 10:46 AM 4. US BREAST RT COMPLETE 02/23/2022 3:18 PM FINDINGS: MAMMOGRAPHY: Breast composition: There are scattered areas of fibroglandular density. Mass: Oval sub cm mass/asymmetry with interspersed fat in the right upper inner quadrant posterior 3rd appears stable since 02/04/2022. Architectural distortion: None. Calcifications: No suspicious calcifications. Asymmetric density: None. Skin thickening: None. Axillary adenopathy: None. IMPRESSION: Stable probably benign oval mass in the right upper inner quadrant since 02/04/2022, suggest continued six-month follow-up right diagnostic mammography unless otherwise clinically indicated. ASSESSMENT: BI-RADS Category 3: Probably benign
== END ==
PROVIDERS: PCP Internal Medicine Adolescent Medicine; Visit Provider Obstetrics & Gynecology
DX: Z12.31 Encounter for screening mammogram for malignant neoplasm of breast (principal)
CPT/HCPCS: 77063; 77067

== ENCOUNTER 2023-06-22 16:39 | Emergency (ER) | payer MEDICAID, SELFPAY ==
[2023-06-22 17:09] VITALS: BP 166/105; PULSE 84; RESP 16; TEMP 36.6; O2SAT 99; BMI 28.7
--- NOTE | 2023-06-22 17:09 | XR_ITS ---
PROCEDURE INFORMATION: Exam: XR Chest Exam date and time: 06/22/2023 5:39 PM Age: 47 years old Clinical indication: Injury or trauma; Fall; Cough; Blunt trauma (contusions or hematomas) TECHNIQUE: Imaging protocol: Radiologic exam of the chest. Views: 2 views. COMPARISON: No relevant prior studies available. FINDINGS: Lungs: No evidence of acute pulmonary disease or infiltrates; lung lacey appear clear. Pleural spaces: No evidence of pleural effusion, pneumothorax, or pleural thickening in the visualized pleural spaces. Heart/Mediastinum: No evidence of mediastinal widening or cardiac silhouette enlargement; the mediastinum and heart appear within normal limits for contour and size. Bones/joints: No evidence of acute osseous abnormalities within the visualized portions of the thoracic spine and ribs. Osseous structures appear appropriate for patient age. IMPRESSION: Negative study. No acute cardiopulmonary abnormalities identified.
--- NOTE | 2023-06-22 17:12 | ED_ITS ---
Discharge Plan Disposition Patient Disposition: Home, Self-Care Condition: Good Prescriptions Prescriptions: New methylprednisolone 4 mg Tablets,Dose Pack 4 mg PO DIRECTED 6 Days Qty: 21 0RF Rx Instructions: Take 1 pack as directed for 6 days benzonatate [benzonatate] 100 mg capsule 100 mg PO TIDP PRN (Reason: Cough) Qty: 30 0RF azithromycin [Zithromax] 250 mg tablet 250 mg PO UD DOSE PK Qty: 6 0RF Rx Instructions: Take two (2) tablets today, then one (1) tablet days #2 thru #5 cyclobenzaprine 10 mg Tablet 10 mg PO BID PRN (Reason: Muscle Spasm) Qty: 20 0RF No Action diclofenac sodium 75 mg tablet,delayed release (DR/EC) PO Patient Comments: TAKE 1 TABLET BY MOUTH TWICE DAILY albuterol sulfate [Proventil HFA] 90 mcg/actuation HFA aerosol inhaler 2 puff INHALATION Q6H PRN (Reason: shortness of breath or wheezing) Qty: 8.5 2RF propranolol 20 mg tablet 20 mg PO DAILY lidocaine [Lidoderm] 5 % adhesive patch,medicated 1 patch topical DAILY paroxetine HCl [Paxil] 10 mg tablet 10 mg PO DAILY Qty: 30 2RF ibuprofen 800 mg tablet See Rx Instructions .ROUTE .COMPLEX Rx Instructions: TAKE 1 TABLET BY MOUTH ONCE DAILY NEEDED FOR PAIN Anoro Ellipta 62.5-25 mcg/actuation blister with device See Rx Instructions .ROUTE .COMPLEX Rx Instructions: 1 PUFF ONCE DAILY cyclobenzaprine 10 mg Tablet 10 mg PO BID PRN (Reason: Muscle Spasm) Qty: 20 0RF Referrals Follow up/Referrals: Mike Rodrigues MD [Primary Care Provider] - See instructions Activity Restrictions/Add. Instructions Additional Instructions/Restrictions: Go home and rest. It would be best if you rested tomorrow too. No heavy lifting and No twisting for the next few days. Take the medications as directed. The muscle relaxer (cyclobenzaprine--Flexeril) will make you drowsy, so don't drive or operate heavy machinery after taking it. Follow up with your regular doctor. GO TO THE ER FOR ANY WORSENING SYMPTOMS OR CONCERN, ESPECIALLY BOWEL OR BLADDER ISSUES, SADDLE AREA NUMBNESS, FEVER, ETC Clinical Impressions Clinical Impression: Pulled muscle, Bronchitis, Rib pain Stand Alone Forms Stand Alone Forms: Work/School Release Instructions Patient Instructions: Muscle Strain, DI for Acute Bronchitis, DI for Rib Contusion Discharge ED Provider: Prem Her [facility] General Stated complaint: chest pain poss. pulled muscles Time Seen by Provider: 06/22/23 17:12 History of Present Illness Provider Complaint: She states that she fell yesterday at work and came down on her chest/abdomen. She caught herself with her arms, but she states that she has pulled muscles in her chest because she has had pain with movement since then. Her pain is worse when she coughs. Related Data Home Medications Medication Instructions Recorded Confirmed ibuprofen 800 mg tablet See Rx Instructions .Route 07/09/22 06/14/23 .COMPLEX migrianes umeclidinium 62.5 mcg-vilanterol See Rx Instructions .Route 07/09/22 06/14/23 25 mcg/actuation powdr for .COMPLEX Asthma inhalation (Anoro Ellipta) lidocaine 5 % topical patch 1 patch topical DAILY 02/18/23 06/14/23 (Lidoderm) propranolol 20 mg tablet 20 mg PO DAILY 02/18/23 06/14/23 diclofenac sodium 75 mg mg PO 06/02/23 06/14/23 tablet,delayed release Previous Rx's Medication Instructions Recorded albuterol sulfate 90 mcg/actuation 2 puff inhalation Q6H PRN 07/02/21 aerosol inhaler (Proventil HFA) shortness of breath or wheezing #8.5 grams cyclobenzaprine 10 mg tablet 10 mg PO BID PRN Muscle Spasm #20 02/07/23 tabs paroxetine HCl 10 mg tablet (Paxil) 10 mg PO DAILY #30 tabs 03/24/23 azithromycin 250 mg tablet 250 mg PO UD DOSE PK #6 tabs 06/22/23 (Zithromax) benzonatate 100 mg capsule 100 mg PO TIDP PRN Cough #30 caps 06/22/23 cyclobenzaprine 10 mg tablet 10 mg PO BID PRN Muscle Spasm #20 06/22/23 tabs methylprednisolone 4 mg tablets in 4 mg PO DIRECTED 6 days #21 tabs 06/22/23 a dose pack Allergies Allergy/AdvReac Type Severity Reaction Status Date / Time codeine Allergy Intermediate SOB Verified 06/14/23 09:21 aspirin Allergy Mild Hives Verified 06/14/23 09:21 Penicillins Allergy Unknown Hives Verified 06/14/23 09:21 [facility] Disclaimer: The information contained in this section may have been updated after the patient was seen, as this information can be updated by other users. Medical History Costochondral chest pain History of chlamydia Hypertension Leg pain Menorrhagia with irregular cycle Migraine Neuropathic pain Second degree burn Stenosis of cervix Tobacco use Trichomonal vaginitis Vitamin D deficiency (~01/23/18) Surgical History History of colonoscopy History of dental surgery History of tubal ligation Hx of section Family History Other Family history of COPD (chronic obstructive pulmonary disease) Family history of cancer Family history of diabetes mellitus type II Family history of myocardial infarction Social History Smoking Status: Current every day smoker tobacco type: cigarettes packs per day: 1 years smoked: 30 alcohol intake: never substance use type: former substance user current occupational status: unemployed Travel in the last 8 weeks: None household members: significant other housing: apartment marital status: single caffeine: Yes special sharron needs: No agree to transfusion: No do you feel safe at home: Yes victim of physical abuse: No victim of emotional abuse: No victim of sexual abuse: No would you like helpful sources: No ROS Obtained: Yes All systems reviewed & no additional complaints except as documented Constitutional Constitutional: Denies chills and Denies fever(s) Eyes Eyes: Denies eye discharge ENT Ears, Nose, Mouth, and Throat: Denies dizziness, Denies otalgia and Denies sore throat Cardiovascular Cardiovascular: Denies chest pain Respiratory Respiratory: Denies shortness of breath, Denies chest congestion, Denies cough, Denies stridor and Denies wheezing Gastrointestinal Gastrointestingal: Denies nausea or vomiting Musculoskeletal Musculoskeletal: Reports as per HPI Integumentary/Breasts Skin/Breast: Denies rash Neurologic Neurologic: Denies dizziness and Denies paresthesias Allergic/Immunologic Allergic/Immunologic: Denies wheezing Physical Exam General General appearance: alert and in no apparent distress Head Head exam: atraumatic, normocephalic and normal inspection Eye Eye exam: Present normal appearance, PERRL and EOMI ENT ENT exam: Present normal exam, normal oropharynx, mucous membranes moist, TM's normal bilaterally and normal external ear exam Neck Neck exam: Present normal inspection, full ROM and trachea midline; Absent meningismus or lymphadenopathy Chest Chest inspection: Present normal inspection and symmetric chest wall rise; Absent tenderness Respiratory Respiratory exam: Present normal lung sounds bilaterally; Absent respiratory distress Cardiovascular Cardiovascular exam: Present regular rate and normal rhythm; Absent JVD Abdominal Exam Abdominal exam: Present soft and normal bowel sounds; Absent distention, tenderness or guarding Extremities Exam Extremities exam: Present normal inspection, full ROM and normal capillary refill; Absent calf tenderness Back Exam Back exam: Present normal inspection; Absent tenderness Neurological Exam Neurological exam: Present alert and oriented X3 Psychiatric Psychiatric exam: Present normal affect and normal mood Skin Skin exam: Present warm, dry, intact and normal color Lymphatic Lymphatic Findings: no adenopathy Medical Decision Making Medical Records Medical records reviewed: No I reviewed the patient's medical records. Fernando Inquiry Pt receiving controlled substance: No Orders (Tests/Meds): ORDERS Category Date Time Status Chest XR 2 view (NOT portable) [XR chest 2V] Stat Exams 06/22/23 17:09 Ordered Radiology Data #1: Image(s): Chest Image Reviewed: Yes I reviewed the patient's radiology image and Yes I have reviewed radiologist's interpretation Preliminary Findings: Normal/NAD and No Fracture Seen PROCEDURE INFORMATION: Exam: XR Chest Exam date and time: 06/22/2023 5:39 PM Age: 47 years old Clinical indication: Injury or trauma; Fall; Cough; Blunt trauma (contusions or hematomas) TECHNIQUE: Imaging protocol: Radiologic exam of the chest. Views: 2 views. COMPARISON: No relevant prior studies available. FINDINGS: Lungs: No evidence of acute pulmonary disease or infiltrates; lung lacey appear clear. Pleural spaces: No evidence of pleural effusion, pneumothorax, or pleural thickening in the visualized pleural spaces. Heart/Mediastinum: No evidence of mediastinal widening or cardiac silhouette enlargement; the mediastinum and heart appear within normal limits for contour and size. Bones/joints: No evidence of acute osseous abnormalities within the visualized portions of the thoracic spine and ribs. Osseous structures appear appropriate for patient age. IMPRESSION: Negative study. No acute cardiopulmonary abnormalities identified.
[2023-06-22 18:19] VITALS: BP 166/105; PULSE 84; RESP 16; TEMP 36.6; O2SAT 99
== END 2023-06-22 18:24 | disposition home or self-care (01) ==
PROVIDERS: Emergency Provider Nurse Practitioner Family; PCP Internal Medicine Adolescent Medicine
DX: J20.9 Acute bronchitis, unspecified (principal); R07.81 Pleurodynia; S29.011A Strain of muscle and tendon of front wall of thorax, initial encounter; W19.XXXA Unspecified fall, initial encounter; F17.210 Nicotine dependence, cigarettes, uncomplicated; I10 Essential (primary) hypertension
CPT/HCPCS: 71046; 99212; 99214; G0463

== ENCOUNTER 2023-07-05 09:51 | Emergency (ER) | payer MEDICAID, SELFPAY ==
[2023-07-05 10:15] VITALS: BP 154/95; PULSE 106; RESP 18; TEMP 37.1; O2SAT 99; BMI 28.7
--- NOTE | 2023-07-05 10:35 | EXP.UTC ---
Discharge Plan Disposition Patient Disposition: Home, Self-Care Condition: Good Prescriptions Prescriptions: New prednisone [prednisone] 20 mg tablet 20 mg PO BID 4 Days Qty: 8 0RF benzonatate [benzonatate] 100 mg capsule 100 mg PO TIDP PRN (Reason: Cough) Qty: 30 0RF cefdinir 300 mg capsule 300 mg PO BID Qty: 20 0RF No Action albuterol sulfate [Proventil HFA] 90 mcg/actuation HFA aerosol inhaler 2 puff INHALATION Q6H PRN (Reason: shortness of breath or wheezing) Qty: 8.5 2RF propranolol 20 mg tablet 20 mg PO DAILY paroxetine HCl [Paxil] 10 mg tablet 10 mg PO DAILY Qty: 30 2RF Anoro Ellipta 62.5-25 mcg/actuation blister with device See Rx Instructions .ROUTE .COMPLEX Rx Instructions: 1 PUFF ONCE DAILY benzonatate [benzonatate] 100 mg capsule 100 mg PO TIDP PRN (Reason: Cough) Qty: 30 0RF cyclobenzaprine 10 mg Tablet 10 mg PO BID PRN (Reason: Muscle Spasm) Qty: 20 0RF pantoprazole 40 mg tablet,delayed release (DR/EC) 40 mg PO DAILY Patient Comments: TAKE 1 TABLET BY MOUTH EVERY DAY Referrals Follow up/Referrals: Mike Rodrigues MD [Primary Care Provider] - See instructions Activity Restrictions/Add. Instructions Additional Instructions/Restrictions: Drink plenty of fluids. Take tylenol or ibuprofen for pain or fever. Take the medications as directed. Follow up with your regular doctor. GO TO THE ER FOR ANY WORSENING SYMPTOMS Don't start the oral steroids until tomorrow, since you had the shot here today. Clinical Impressions Clinical Impression: COPD exacerbation, Acute viral syndrome Stand Alone Forms Stand Alone Forms: Work/School Release Instructions Patient Instructions: DI for Chronic Obstructive Pulmonary Disease, Methylprednisolone Injection Discharge ED Provider: Prem Her [facility] [place] General Stated complaint: cough, soa, congestion, givens Time Seen by Provider: 07/05/23 10:35 History of Present Illness Provider Complaint: She states that she has had chest and sinus congestion for the past 4 days. She has chills and malaise, but no documented fever. Her son has similar symptoms. Related Data Home Medications Medication Instructions Recorded Confirmed umeclidinium 62.5 mcg-vilanterol See Rx Instructions .Route 07/09/22 07/05/23 25 mcg/actuation powdr for .COMPLEX Asthma inhalation (Anoro Ellipta) propranolol 20 mg tablet 20 mg PO DAILY 02/18/23 07/05/23 pantoprazole 40 mg tablet,delayed 40 mg PO DAILY 07/05/23 07/05/23 release Previous Rx's Medication Instructions Recorded albuterol sulfate 90 mcg/actuation 2 puff inhalation Q6H PRN 07/02/21 aerosol inhaler (Proventil HFA) shortness of breath or wheezing #8.5 grams paroxetine HCl 10 mg tablet (Paxil) 10 mg PO DAILY #30 tabs 03/24/23 benzonatate 100 mg capsule 100 mg PO TIDP PRN Cough #30 caps 06/22/23 cyclobenzaprine 10 mg tablet 10 mg PO BID PRN Muscle Spasm #20 06/22/23 tabs benzonatate 100 mg capsule 100 mg PO TIDP PRN Cough #30 caps 07/05/23 cefdinir 300 mg capsule 300 mg PO BID #20 caps 07/05/23 prednisone 20 mg tablet 20 mg PO BID 4 days #8 tabs 07/05/23 Allergies Allergy/AdvReac Type Severity Reaction Status Date / Time codeine Allergy Intermediate SOB Verified 07/05/23 10:50 aspirin Allergy Mild Hives Verified 07/05/23 10:50 Penicillins Allergy Unknown Hives Verified 07/05/23 10:50 PFSH PFS Disclaimer: The information contained in this section may have been updated after the patient was seen, as this information can be updated by other users. Medical History Costochondral chest pain History of chlamydia Hypertension Leg pain Menorrhagia with irregular cycle Migraine Neuropathic pain Second degree burn Stenosis of cervix Tobacco use Trichomonal vaginitis Vitamin D deficiency (~01/23/18) Surgical History History of colonoscopy History of dental surgery History of tubal ligation Hx of section Family History Other Family history of COPD (chronic obstructive pulmonary disease) Family history of cancer Family history of diabetes mellitus type II Family history of myocardial infarction Social History Smoking Status: Current every day smoker tobacco type: cigarettes packs per day: 1 years smoked: 30 alcohol intake: never substance use type: former substance user current occupational status: unemployed Travel in the last 8 weeks: None household members: significant other housing: apartment marital status: single caffeine: Yes special sharron needs: No agree to transfusion: No do you feel safe at home: Yes victim of physical abuse: No victim of emotional abuse: No victim of sexual abuse: No would you like helpful sources: No ROS Obtained: Yes All systems reviewed & no additional complaints except as documented Constitutional Constitutional: Reports chills and Denies fever(s) Eyes Eyes: Denies eye discharge ENT Ears, Nose, Mouth, and Throat: Reports as per HPI Cardiovascular Cardiovascular: Denies chest pain Respiratory Respiratory: Denies chest congestion and Reports cough Gastrointestinal Gastrointestingal: Reports nausea; Denies abdominal pain, constipation, cramping, diarrhea or vomiting Musculoskeletal Musculoskeletal: Denies arthralgias Integumentary/Breasts Skin/Breast: Denies rash Neurologic Neurologic: Denies paresthesias Physical Exam General General appearance: alert and in no apparent distress Eye Eye exam: Present normal appearance, PERRL and EOMI ENT ENT exam: Present mucous membranes moist and normal external ear exam Expanded ENT Exam External ear exam: Present normal external inspection TM/Canal exam: Bilateral TM: erythema and bulging Nose exam: Absent sinus tenderness Nasal speculum exam: Bilateral: normal Mouth exam: Present normal external inspection; Absent drooling Teeth exam: Present normal inspection Throat exam: Present tonsillar erythema and tonsillomegaly Neck Neck exam: Present normal inspection, full ROM and trachea midline; Absent tenderness, lymphadenopathy or thyromegaly Chest Chest inspection: Present normal inspection and symmetric chest wall rise; Absent tenderness or rash Respiratory Respiratory exam: Present normal lung sounds bilaterally; Absent respiratory distress, wheezes, stridor or accessory muscle use Cardiovascular Cardiovascular exam: Present regular rate, normal rhythm and normal heart sounds Abdominal Exam Abdominal exam: Present soft; Absent distention, tenderness, guarding, rebound or rigidity Extremities Exam Extremities exam: Present normal inspection, full ROM and normal capillary refill; Absent tenderness or calf tenderness Back Exam Back exam: Present normal inspection and full ROM; Absent tenderness Neurological Exam Neurological exam: Present alert and oriented X3 Psychiatric Psychiatric exam: Present normal affect and normal mood Skin Skin exam: Present warm, dry, intact and normal color Lymphatic Lymphatic Findings: no adenopathy Medical Decision Making Medical Records Medical records reviewed: No I reviewed the patient's medical records. Fernando Inquiry Pt receiving controlled substance: No
--- NOTE | 2023-07-05 10:53 | XR_ITS ---
FINAL REPORT CLINICAL HISTORY: cough, congestion COMPARISON: 06/22/2023 FINDINGS: 2 views of the chest were obtained . The heart is normal in size. The mediastinum is within normal limits. The lungs are clear. There is no pneumothorax. Osseous structures are unremarkable. IMPRESSION: No acute cardiopulmonary process. Reviewed, Interpreted and Dictated by Robby Claros III, MD Transcribed by Maritza Plaza Authenticated and [facility]
[2023-07-05] MEDS: METHYLPREDNISOLONE SOD SUCC 125MG VIAL 125 MG IM (12:13)
[2023-07-05 12:43] VITALS: BP 154/95; PULSE 106; RESP 18; TEMP 37.1; O2SAT 99
[2023-07-05 12:43] LABS: UTC Influenza A Antigen Negative (Negative)
[2023-07-05 12:44] LABS: UTC Influenza B Antigen Negative (Negative)
== END 2023-07-05 12:35 | disposition home or self-care (01) ==
PROVIDERS: Emergency Provider Nurse Practitioner Family; PCP Internal Medicine Adolescent Medicine
DX: J44.1 Chronic obstructive pulmonary disease with (acute) exacerbation (principal); R06.02 Shortness of breath; R51.9 Headache, unspecified; R05.9 Cough, unspecified; R09.81 Nasal congestion; R09.89 Other specified symptoms and signs involving the circulatory and respiratory systems; R53.81 Other malaise; R68.83 Chills (without fever); F17.210 Nicotine dependence, cigarettes, uncomplicated; I10 Essential (primary) hypertension
CPT/HCPCS: 71046; 87635; 87804; 96372; 99212; 99214; G0463

== ENCOUNTER 2023-07-27 13:18 | Emergency (ER) | payer MEDICAID, SELFPAY ==
[2023-07-27] VITALS (7 sets, daily range): BP systolic 146–180; BP diastolic 62–112; PULSE 77–92; RESP 17–20; TEMP 36.7–37.1; O2SAT 98–100; BMI 28.2; BMI 29.5
--- NOTE | 2023-07-27 14:17 | EXP.UTC ---
Discharge Plan Disposition Patient Disposition: Still a Patient Condition: Good Prescriptions Prescriptions: No Action albuterol sulfate [Proventil HFA] 90 mcg/actuation HFA aerosol inhaler 2 puff INHALATION Q6H PRN (Reason: shortness of breath or wheezing) Qty: 8.5 2RF propranolol 20 mg tablet 20 mg PO DAILY paroxetine HCl [Paxil] 10 mg tablet 10 mg PO DAILY Qty: 30 2RF Anoro Ellipta 62.5-25 mcg/actuation blister with device See Rx Instructions .ROUTE .COMPLEX Rx Instructions: 1 PUFF ONCE DAILY benzonatate [benzonatate] 100 mg capsule 100 mg PO TIDP PRN (Reason: Cough) Qty: 30 0RF cyclobenzaprine 10 mg Tablet 10 mg PO BID PRN (Reason: Muscle Spasm) Qty: 20 0RF pantoprazole 40 mg tablet,delayed release (DR/EC) 40 mg PO DAILY Patient Comments: TAKE 1 TABLET BY MOUTH EVERY DAY prednisone [prednisone] 20 mg tablet 20 mg PO BID 4 Days Qty: 8 0RF benzonatate [benzonatate] 100 mg capsule 100 mg PO TIDP PRN (Reason: Cough) Qty: 30 0RF cefdinir 300 mg capsule 300 mg PO BID Qty: 20 0RF Referrals Follow up/Referrals: Mike Rodrigues MD [Primary Care Provider] - See instructions Clinical Impressions Clinical Impression: Abnormal uterine bleeding Instructions Patient Instructions: DI for Vaginal Bleeding Discharge ED Provider: Silverio Gale [facility] General Chief complaint: Vaginal Bleeding Stated complaint: heavy period Mode of Arrival: Ambulatory Source of Information: Patient Limitations: No Limitations Time Seen by Provider: 07/27/23 14:17 Description of Symptoms (Recalled from Triage Doc. by RN): PATIENT C/O PELVIC PAIN AND HEAVY VAGINAL BLEEDING SINCE YESTERDAY. HEENT Symptoms (Recalled from RN notes): No Resp Symptoms (Recalled from RN notes): No Skin Symptoms (Recalled from RN notes): No MS Symptoms (Recalled from RN notes): No Functional Status (Recalled from RN notes): WNL History of Present Illness Provider Complaint: Patient states that she hasnt had a period in over a year and woke up yesterday with pelvic pain and vaginal bleeding that continued to get worse States that she woke up this morning and she and her bed was covered States that she tried to go to work but she has continued to bleed heavily and already bleed through 4-5 large pads and still having the pain in her lower abdomen/pelvic area States that she has appointment with OBGYN tomorrow but when she was still bleeding heavily and having the pain she came in Related Data Home Medications Medication Instructions Recorded Confirmed umeclidinium 62.5 mcg-vilanterol See Rx Instructions .Route 07/09/22 07/05/23 25 mcg/actuation powdr for .COMPLEX Asthma inhalation (Anoro Ellipta) propranolol 20 mg tablet 20 mg PO DAILY 02/18/23 07/05/23 pantoprazole 40 mg tablet,delayed 40 mg PO DAILY 07/05/23 07/05/23 release Previous Rx's Medication Instructions Recorded albuterol sulfate 90 mcg/actuation 2 puff inhalation Q6H PRN 07/02/21 aerosol inhaler (Proventil HFA) shortness of breath or wheezing #8.5 grams paroxetine HCl 10 mg tablet (Paxil) 10 mg PO DAILY #30 tabs 03/24/23 benzonatate 100 mg capsule 100 mg PO TIDP PRN Cough #30 caps 06/22/23 cyclobenzaprine 10 mg tablet 10 mg PO BID PRN Muscle Spasm #20 06/22/23 tabs benzonatate 100 mg capsule 100 mg PO TIDP PRN Cough #30 caps 07/05/23 cefdinir 300 mg capsule 300 mg PO BID #20 caps 07/05/23 prednisone 20 mg tablet 20 mg PO BID 4 days #8 tabs 07/05/23 Allergies Allergy/AdvReac Type Severity Reaction Status Date / Time codeine Allergy Intermediate SOB Verified 07/05/23 10:50 aspirin Allergy Mild Hives Verified 07/05/23 10:50 Penicillins Allergy Unknown Hives Verified 07/05/23 10:50 Worker's Comp Is this a Worker's Comp case?: No [facility] Disclaimer: The information contained in this section may have been updated after the patient was seen, as this information can be updated by other users. Medical History Costochondral chest pain History of chlamydia Hypertension Leg pain Menorrhagia with irregular cycle Migraine Neuropathic pain Second degree burn Stenosis of cervix Tobacco use Trichomonal vaginitis Vitamin D deficiency (~07/29/18) Surgical History History of colonoscopy History of dental surgery History of tubal ligation Hx of section Family History Other Family history of COPD (chronic obstructive pulmonary disease) Family history of cancer Family history of diabetes mellitus type II Family history of myocardial infarction Social History Smoking Status: Current every day smoker tobacco type: cigarettes packs per day: 1 years smoked: 30 alcohol intake: never substance use type: former substance user current occupational status: unemployed Travel in the last 8 weeks: None household members: significant other housing: apartment marital status: single caffeine: Yes special sharron needs: No agree to transfusion: No do you feel safe at home: Yes victim of physical abuse: No victim of emotional abuse: No victim of sexual abuse: No would you like helpful sources: No ROS Obtained: Yes All systems reviewed & no additional complaints except as documented and Yes Systems reviewed as appropriate & no additional complaints except as documented Constitutional Constitutional: Reports system reviewed and no additional complaints, except as documented and Reports as per HPI ENT Ears, Nose, Mouth, and Throat: Reports system reviewed and no additional complaints, except as documented and Reports as per HPI Cardiovascular Cardiovascular: Reports system reviewed and no additional complaints, except as documented and Reports as per HPI Respiratory Respiratory: Reports system reviewed and no additional complaints, except as documented and Reports as per HPI Gastrointestinal Gastrointestingal: Reports system reviewed and no additional complaints, except as documented, as per HPI and abdominal pain (lower abdomen/pelvic area) Genitourinary Female Genitourinary: Reports system reviewed and no additional complaints, except as documented, Reports as per HPI, Reports abnormal menses, Reports abnormal vaginal bleeding and Reports pelvic pain Musculoskeletal Musculoskeletal: Reports system reviewed and no additional complaints, except as documented and Reports as per HPI Physical Exam General General appearance: alert and in no apparent distress Respiratory Respiratory exam: Present normal lung sounds bilaterally; Absent respiratory distress or wheezes Cardiovascular Cardiovascular exam: Present regular rate, normal rhythm and normal heart sounds Abdominal Exam Abdominal exam: Present soft and tenderness (reports tenderness with palpation in lower abdomen/suprapubic area) Neurological Exam Neurological exam: Present alert, oriented X3 and normal gait Medical Decision Making Fernando Inquiry Pt receiving controlled substance: No Fernando was queried for this patient: No Vital Signs: 07/27/23 14:05 Temperature 98.1 F Temperature Source Oral Pulse Rate [Right Brachial] 81 Respiratory Rate 17 Blood Pressure [Right Arm] 146/96 H Blood Pressure Mean [Right Arm] 112 Blood Pressure Source [Right Arm] Automatic Cuff Blood Pressure Position [Right Arm] Sitting 02 Sat by Pulse Oximetry 98 Oxygen Delivery Method Room Air Lab Data 07/27/23 14:33 Medical Decision Narrative: Patient states that she is having pelvic pain/discomfort and abnormal heavy vaginal bleeding after not having a period for over a year and has bleed through 4-5 large pads since around 7am this morning Spoke with OBGYN clinic and informed them that patient was in the UTC and her complaints of bleeding through 4-5 pads since this am and recommended transfer to the ED for further work up and testing Discussed with patient and will transfer to the ED for further work up and evaluation and patient agreed Called ED and patient was moved to ED for further work up and evaluation
--- NOTE | 2023-07-27 14:25 | PC.NURSE ---
PT ARRIVED TO ED FROM [facility]
--- NOTE | 2023-07-27 14:29 | US_ITS ---
PROCEDURE INFORMATION: Exam: US Pelvis, Transvaginal Exam date and time: 07/27/2023 4:00 PM Age: 47 years old Clinical indication: Other: Vaginal bleeding; Additional info: Heavy vaginal bleeding TECHNIQUE: Imaging protocol: Real-time transvaginal pelvic ultrasound with image documentation. Transvaginal imaging was used for better evaluation of the endometrium, adnexa, and/or cervix. COMPARISON: US TRANSVAGINAL 08/14/2022 3:46 PM FINDINGS: Uterus: Uterus measures 9.45 cm x 4.94 cm x 4.53 cm. Anterior fibroid measures 1.5 x 1.7 x 2.0 cm. Endometrium 1 cm. Right ovary/adnexa: Right ovary measures 2.98 cm x 1.71 cm x 1.89 cm. Right ovarian volume is 5.04 mL. Left ovary/adnexa: Left ovary measures 1.76 cm x 2.19 cm x 2.76 cm. Left ovarian volume is 5.57 mL. Intraperitoneal space: No free fluid. IMPRESSION: Small uterine fibroid. Otherwise normal pelvic sonogram.
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
[2023-07-27] MEDS: KETOROLAC 30MG/ML VIAL 15 MG IV (14:38)
[2023-07-27] MEDS: ACETAMINOPHEN 500MG TAB 1000 MG PO (14:38)
[2023-07-27 14:39] LABS: Microscopic, Urine URINE MICROSCOPIC (MICROSCOPIC)
[2023-07-27] MEDS: LACTATED RINGERS 1000ML 1,000 ML 999 ML IV (14:39)
[2023-07-27 14:44] LABS: Basophils # 0.1 K/mm3 (0-0.2); Basophils % 0.7 % (0.1-2.0); Eosinophils # 0.1 K/mm3 (0.0-0.4); Eosinophils % 1.7 % (0.1-12.0); Hematocrit 33.7 % (37.0-47.0); Hemoglobin 13.2 g/dL (12.2-16.2); Lymphocytes % 29.7 % (10-50); Mean Corpuscular HGB Conc 39.2 g/dL (31.8-35.4); Mean Corpuscular Hemoglobin 35.8 pg (27.0-31.2); Mean Corpuscular Volume 91.3 fl (81-99); Mean Platelet Volume 8.5 fl (7.4-10.4); Monocytes # 0.3 K/mm3 (0.1-1.0); Monocytes % 4.4 % (1.7-9.3); Neutrophils # 4.4 K/mm3 (1.8-7.8); Neutrophils % 63.5 % (37.0-80.0); Platelet Count 257 K/mm3 (142-424); Red Cell Distribution Width 14.5 % (11.5-17.5); White Blood Count 6.9 K/mm3 (4.8-10.8)
[2023-07-27 14:45] LABS: Appearance,Urine CLEAR (Clear); Bilirubin,Urine Negative (Negative); Blood, Urine 3+ (Negative); Color,Urine YELLOW (Yellow); Glucose,Urine (UA) Negative (Negative); Ketones,Urine Negative (Negative); Leukocyte Esterase,Urine Negative (Negative); Nitrate,Urine Negative (Negative); Protein,Urine Negative (Negative); Specific Gravity, Urine >= 1.030 (1.005-1.030); Urobilinogen,Urine 0.2 EU/dl (0.2)
[2023-07-27 14:55] LABS: Chloride 106 mmol/L (98-107)
[2023-07-27 14:56] LABS: Potassium 4.3 mmoL/L (3.5-5.1); Sodium 139 mmol/L (136-145)
[2023-07-27 14:57] LABS: Apearance,Urine Clear (Clear); Bilirubin,Urine Negative (Negative); Blood, Urine 3+ (Negative); Color,Urine Red (Yellow); Glucose,Urine (UA) Negative (Negative); Ketones,Urine Negative (Negative); PH,Urine 5.5 (5.0-8.5); Protein,Urine Negative (Negative); Specific Gravity, Urine 1.025 (1.005-1.030); UTC Leukocyte Esterase,Urine Negative (Negative); UTC Nitrate,Urine Negative (Negative); UTC Pregnancy Test, Urine Negative (Negative); Urobilinogen,Urine 0.2 EU/dl (0.2)
[2023-07-27 14:58] LABS: Alanine Aminotransferase 16 U/L (12-78); Aspartate Amino Transferase 23 U/L (14-36); Blood Urea Nitrogen 18 mg/dl (7-17); Creatinine Clearance Estimated 85 mL/min (50-200); Estimated Glomerular Filt Rate 60 ml/min (>60); GFR (African American) 73 ML/MIN (>60)
[2023-07-27 14:59] LABS: Albumin Level 4.2 g/dl (3.5-5.0); Albumin/Globulin Ratio 1.2 (1.1-1.8); Alkaline Phosphatase 113 U/L (38-126); Anion Gap 9.3 mEq/L (5-15); Bilirubin,Total 0.5 mg/dl (0.2-1.3); Calcium 8.9 mg/dl (8.4-10.2); Carbon Dioxide 28 mmol/L (22.0-30.0); Globulin 3.4 g/dL (1.3-3.2); Glucose 90 mg/dl (74-100); Total Protein,Serum 7.6 g/dl (6.3-8.2)
[2023-07-27 15:02] LABS: RBC,Urine TNTC #/hpf (0-3); Squamous Epithelial Cell,Urine Occasional #/hpf (0-5)
[2023-07-27 15:26] LABS: Lactic Acid < 0.5 mmol/L (0.7-2.1)
[2023-07-27 15:30] LABS: HCG Qualitative, Serum Negative (Negative)
--- NOTE | 2023-07-27 15:49 | PC.NURSE ---
PT to ultrasound at this time
--- NOTE | 2023-07-27 16:28 | PC.NURSE ---
Patient back from ultrasound
== END 2023-07-27 17:18 | disposition home or self-care (01) ==
LOC: UTC 14:22 → ER 14:22
PROVIDERS: Nurse Practitioner; Emergency Provider Emergency Medicine; PCP Internal Medicine Adolescent Medicine
DX: N93.9 Abnormal uterine and vaginal bleeding, unspecified (principal); R10.2 Pelvic and perineal pain; D25.9 Leiomyoma of uterus, unspecified; I10 Essential (primary) hypertension; F17.210 Nicotine dependence, cigarettes, uncomplicated
CPT/HCPCS: 76830; 80053; 81001; 81003; 81025; 83605; 84703; 85025; 99285

== ENCOUNTER 2023-08-23 11:06 | Emergency (ER) | payer MEDICAID, SELFPAY ==
[2023-08-23 11:07] VITALS: BP 155/104; PULSE 76; RESP 15; TEMP 36.7; O2SAT 98; BMI 30.1
--- NOTE | 2023-08-23 11:15 | HMH.EDGENADL ---
Discharge Plan Prescriptions Prescriptions: No Action misoprostol 200 mcg tablet 600 mcg PO .q8 Rx Instructions: Please take three tablets (600mcg total) every 8hours for the 24 hours prior to your surgery on . You last dose should be taken a minimum of 6hours prior to procedure paroxetine HCl 10 mg tablet 10 mg PO DAILY ibuprofen 800 mg tablet 800 mg PO BID albuterol sulfate [Proventil HFA] 90 mcg/actuation HFA aerosol inhaler 2 puff INHALATION Q6H PRN (Reason: shortness of breath or wheezing) Qty: 8.5 2RF propranolol 20 mg tablet 20 mg PO DAILY Anoro Ellipta 62.5-25 mcg/actuation blister with device See Rx Instructions .ROUTE .COMPLEX Rx Instructions: 1 PUFF ONCE DAILY cyclobenzaprine 10 mg Tablet 10 mg PO BID PRN (Reason: Muscle Spasm) Qty: 20 0RF pantoprazole 40 mg tablet,delayed release (DR/EC) 40 mg PO DAILY Patient Comments: TAKE 1 TABLET BY MOUTH EVERY DAY Referrals Follow up/Referrals: Mike Rodrigues MD [Primary Care Provider] - See instructions Discharge ED Provider: Bakari López Adult HPI General Stated complaint: pain in Lt hip, no accident Time Seen by Provider: 08/23/23 11:12 Related Data Home Medications Medication Instructions Recorded Confirmed umeclidinium 62.5 mcg-vilanterol See Rx Instructions .Route 07/09/22 08/04/23 25 mcg/actuation powdr for .COMPLEX Asthma inhalation (Anoro Ellipta) propranolol 20 mg tablet 20 mg PO DAILY 02/18/23 08/04/23 pantoprazole 40 mg tablet,delayed 40 mg PO DAILY 07/05/23 08/04/23 release ibuprofen 800 mg tablet 800 mg PO BID 07/28/23 08/04/23 misoprostol 200 mcg tablet 600 mcg PO .q8 08/04/23 paroxetine HCl 10 mg tablet 10 mg PO DAILY 08/04/23 08/04/23 Previous Rx's Medication Instructions Recorded albuterol sulfate 90 mcg/actuation 2 puff inhalation Q6H PRN 07/02/21 aerosol inhaler (Proventil HFA) shortness of breath or wheezing #8.5 grams cyclobenzaprine 10 mg tablet 10 mg PO BID PRN Muscle Spasm #20 06/22/23 tabs Allergies Allergy/AdvReac Type Severity Reaction Status Date / Time codeine Allergy Intermediate SOB Verified 08/04/23 13:51 aspirin Allergy Mild Hives Verified 08/04/23 13:51 Penicillins Allergy Unknown Hives Verified 08/04/23 13:51 PFSH [facility] Disclaimer: The information contained in this section may have been updated after the patient was seen, as this information can be updated by other users. Medical History Costochondral chest pain History of chlamydia Hypertension Leg pain Menorrhagia with irregular cycle Migraine Neuropathic pain Second degree burn Stenosis of cervix Tobacco use Trichomonal vaginitis Vitamin D deficiency (~01/23/18) Surgical History History of colonoscopy History of dental surgery History of tubal ligation Hx of section Family History (Updated 08/04/23 @ 14:18 by Judie Quinones) Other Asthma Cancer Coronary artery disease Family history of COPD (chronic obstructive pulmonary disease) Family history of cancer Family history of diabetes mellitus type II Family history of myocardial infarction Heart attack Hyperlipidemia Hypertension Social History (Updated 08/04/23 @ 14:20 by Judie Quinones) Smoking Status: Current every day smoker tobacco type: cigarettes packs per day: 1 years smoked: 30 alcohol intake: former substance use type: former substance user and painkillers current occupational status: employed Travel in the last 8 weeks: None household members: significant other housing: house marital status: single number of children: 3 caffeine: Yes special sharron needs: No agree to transfusion: No do you feel safe at home: Yes victim of physical abuse: No victim of emotional abuse: No victim of sexual abuse: No would you like helpful sources: No ROS Obtained: Yes Systems reviewed as appropriate & no additional complaints except as documented As per HPI Physical Exam General General appearance: alert and in no apparent distress Head Head exam: atraumatic and normocephalic Eye Eye exam: Present normal appearance Neck Neck exam: Present normal inspection Chest Chest inspection: Present normal inspection and symmetric chest wall rise Respiratory Respiratory exam: Present normal lung sounds bilaterally; Absent respiratory distress Cardiovascular Cardiovascular exam: Present regular rate and normal rhythm Abdominal Exam Abdominal exam: Present soft Neurological Exam Neurological exam: Present alert and oriented X3 Psychiatric Psychiatric exam: Present normal affect and normal mood Skin Skin exam: Present warm and dry Medical Decision Making Medical Records Medical records reviewed: Yes I reviewed the patient's medical records. Fernando Inquiry Pt receiving controlled substance: No Medical Decision Narrative: Patient with history and exam per above presenting for evaluation of Diagnoses considered include ED workup and treatment included: Labs were independently interpreted by me, significant for Imaging was independently visualized and interpreted by me, significant for . Please refer to radiology report for full details. My clinical impression at this time is most consistent with I discussed my clinical impression with patient and answered all questions. At this time, the evidence for any other entities in the differential is insufficient to warrant any further testing or ED observation. This was explained to the patient. The patient was advised that persistent or worsening symptoms require further evaluation. I confirmed the patient's understanding of this discussion. Critical Care Critical Care Time Critical Care Time: No
[2023-08-23 11:24] VITALS: BP 189/99; PULSE 86; RESP 18; O2SAT 100
--- NOTE | 2023-08-23 12:00 | PC.NURSE ---
TAlked with pt who wanted to leave, wondering how much longer before a provider will be to see her, explained that he will be to see her as soon as he is available. Discussed symptoms with who at this time time gave medicine orders (see MAR) to be given to pt.
[2023-08-23] MEDS: METHOCARBAMOL 500MG TABLET 1000 MG PO (12:10)
[2023-08-23] MEDS: KETOROLAC 30MG/ML VIAL 30 MG IM (12:14)
--- NOTE | 2023-08-23 14:03 | PC.NURSE ---
MD aware that pt wants to sign out AMA, PT states that she will go see her PCP .
[2023-08-23 14:04] VITALS: BP 167/100; PULSE 85; RESP 19; TEMP 36.7; O2SAT 100
--- NOTE | 2023-08-24 09:28 | HMH.EDGENADL ---
Discharge Plan Disposition Patient Disposition: Left Without Being Seen Clinical Impressions Clinical Impression: Pain Discharge ED Provider: Bakari López General Adult HPI General Chief complaint: PAIN Stated complaint: pain in Lt hip, no accident Time Seen by Provider: 08/23/23 11:12 Mode of Arrival: Ambulatory Source of Information: Patient Limitations: No Limitations Description of Symptoms (Recalled from ER Triage Doc. by RN): pt reports to ED with c/o left hip pain. pt rpeorts pain intermittent over the past year and has seen her pcp for issue. pt reports she has been to PT. pain worsening yesterday. History of Present Illness HPI narrative: Patient left without being seen. I was therefore unable to assess patient and form a clinical impression. Please note that first provider time was documented solely for the purposes of chart completion. Electronic medical record will not allow me to file a note for the purposes of documenting this encounter in the emergency department without first provider time but again, I did not evaluate the patient. Related Data Home Medications Medication Instructions Recorded Confirmed umeclidinium 62.5 mcg-vilanterol See Rx Instructions .Route 07/09/22 08/04/23 25 mcg/actuation powdr for .COMPLEX Asthma inhalation (Anoro Ellipta) propranolol 20 mg tablet 20 mg PO DAILY 02/18/23 08/04/23 pantoprazole 40 mg tablet,delayed 40 mg PO DAILY 07/05/23 08/04/23 release ibuprofen 800 mg tablet 800 mg PO BID 07/28/23 08/04/23 misoprostol 200 mcg tablet 600 mcg PO .q8 08/04/23 paroxetine HCl 10 mg tablet 10 mg PO DAILY 08/04/23 08/04/23 Previous Rx's Medication Instructions Recorded albuterol sulfate 90 mcg/actuation 2 puff inhalation Q6H PRN 07/02/21 aerosol inhaler (Proventil HFA) shortness of breath or wheezing #8.5 grams cyclobenzaprine 10 mg tablet 10 mg PO BID PRN Muscle Spasm #20 06/22/23 tabs Allergies Allergy/AdvReac Type Severity Reaction Status Date / Time codeine Allergy Intermediate SOB Verified 08/04/23 13:51 aspirin Allergy Mild Hives Verified 08/04/23 13:51 Penicillins Allergy Unknown Hives Verified 08/04/23 13:51 PFSH [facility] Disclaimer: The information contained in this section may have been updated after the patient was seen, as this information can be updated by other users. Medical History Costochondral chest pain History of chlamydia Hypertension Leg pain Menorrhagia with irregular cycle Migraine Neuropathic pain Second degree burn Stenosis of cervix Tobacco use Trichomonal vaginitis Vitamin D deficiency (~01/23/18) Surgical History History of colonoscopy History of dental surgery History of tubal ligation Hx of section Family History (Updated 08/04/23 @ 14:18 by Judie Quinones) Other Asthma Cancer Coronary artery disease Family history of COPD (chronic obstructive pulmonary disease) Family history of cancer Family history of diabetes mellitus type II Family history of myocardial infarction Heart attack Hyperlipidemia Hypertension Social History (Updated 08/04/23 @ 14:20 by Judie Quinones) Smoking Status: Current every day smoker tobacco type: cigarettes packs per day: 1 years smoked: 30 alcohol intake: former substance use type: former substance user and painkillers current occupational status: employed Travel in the last 8 weeks: None household members: significant other housing: house marital status: single number of children: 3 caffeine: Yes special sharron needs: No agree to transfusion: No do you feel safe at home: Yes victim of physical abuse: No victim of emotional abuse: No victim of sexual abuse: No would you like helpful sources: No ROS Obtained: Yes other (Unobtainable) Physical Exam General General appearance: other (Unobtainable) Head Head exam: other (Unobtainable) ENT ENT exam: Present other (Unobtainable) Neck Neck exam: Present other (Unobtainable) Chest Chest inspection: Present other (Unobtainable) Respiratory Respiratory exam: Present other (Unobtainable) Cardiovascular Cardiovascular exam: Present other (Unobtainable) Abdominal Exam Abdominal exam: Present other (Unobtainable) Extremities Exam Extremities exam: Present other (Unobtainable) Back Exam Back exam: Present other (Unobtainable) Neurological Exam Neurological exam: Present other (Unobtainable) Psychiatric Psychiatric exam: Present other (Unobtainable) Medical Decision Making Fernando Inquiry Pt receiving controlled substance: No Vital Signs: 08/23/23 11:07 08/23/23 11:24 08/23/23 14:04 Temperature 98.1 F 98.1 F Temperature Source Oral Pulse Rate 86 85 Pulse Rate [Left Radial] 76 Respiratory Rate 15 18 19 Blood Pressure 189/99 H 167/100 H Blood Pressure [Right Arm] 155/104 H Blood Pressure Mean [Right Arm] 121 02 Sat by Pulse Oximetry 98 100 Oxygen Delivery Method Room Air Room Air Room Air Orders (Tests/Meds): ED MEDICATIONS Discontinued Medications Generic Name Dose Route Start Last Admin Trade Name Freq PRN Reason Stop Dose Admin Ketorolac Tromethamine 15 mg 08/23/23 12:01 08/23/23 12:14 Ketorolac 30mg/Ml Vial IV 08/23/23 12:02 Not Given ONCE ONE Ketorolac Tromethamine 30 mg 08/23/23 12:13 08/23/23 12:14 Ketorolac 30mg/Ml Vial IM 08/23/23 12:14 30 mg ONCE ONE Administration Methocarbamol 1,000 mg 08/23/23 12:15 Methocarbamol 500mg Tablet PO 09/22/23 12:14 BID SIRISHA Methocarbamol 1,000 mg 08/23/23 12:03 08/23/23 12:10 Methocarbamol 500mg Tablet PO 08/23/23 12:04 1,000 mg ONCE ONE Administration Medical Decision Narrative: Patient left without being seen. I was therefore unable to assess patient and form a clinical impression.Please note that first provider time was documented solely for the purposes of chart completion.Electronic medical record will not allow me to file a note for the purposes of documenting this encounter in the emergency department without first provider time but again I did not see patient. Critical Care Critical Care Time Critical Care Time: No
== END 2023-08-23 14:07 | disposition left against medical advice (07) ==
PROVIDERS: Emergency Provider Emergency Medicine; PCP Internal Medicine Adolescent Medicine
DX: Z53.21 Procedure and treatment not carried out due to patient leaving prior to being seen by health care provider (principal)
CPT/HCPCS: 99211

== ENCOUNTER 2023-08-26 07:17 | Day surgery (SDC) | payer MEDICAID, SELFPAY ==
[2023-08-24 15:30] VITALS: BMI 30.1
[2023-08-26] VITALS (9 sets, daily range): BP systolic 139–183; BP diastolic 81–92; PULSE 77–93; RESP 16–20; TEMP 36.3–36.7; O2SAT 95–98
[2023-08-26] MEDS: LACTATED RINGERS 1000ML 1,000 ML 25 ML IV (07:44)
[2023-08-26 07:52] LABS: Urine Pregnancy, HCG Qual. Negative (Negative)
--- NOTE | 2023-08-26 08:05 | P.PNANES_ITS ---
[facility] Disclaimer: The information contained in this section may have been updated after the patient was seen, as this information can be updated by other users. Medical History Costochondral chest pain History of chlamydia Hypertension Leg pain Menorrhagia with irregular cycle Migraine Neuropathic pain Second degree burn Stenosis of cervix Tobacco use Trichomonal vaginitis Vitamin D deficiency (~01/23/18) Surgical History History of colonoscopy History of dental surgery History of tubal ligation Hx of section Family History Other Asthma Cancer Coronary artery disease Family history of COPD (chronic obstructive pulmonary disease) Family history of cancer Family history of diabetes mellitus type II Family history of myocardial infarction Heart attack Hyperlipidemia Hypertension Social History Smoking Status: Current every day smoker tobacco type: cigarettes packs per day: 1 years smoked: 30 alcohol intake: former substance use type: former substance user and painkillers current occupational status: employed Travel in the last 8 weeks: None household members: significant other housing: house marital status: single number of children: 3 caffeine: Yes special sharron needs: No agree to transfusion: No do you feel safe at home: Yes victim of physical abuse: No victim of emotional abuse: No victim of sexual abuse: No would you like helpful sources: No [facility] Anesthesia Checklist Patient Identification Patient Identification: Verbal (Name & ) Structural Data Admitted From: Home Planned Operative Procedure/s: d/c hyst Consent for Planned Operative Procedure(s) Verified: Yes NPO Status Verified Time NPO: 00:00 Additional verifications Anesthesia Reactions: No Hx Blood Transfusions: No Blood Transfusion Reaction: No Airway Assessment Mallampati Score:: Class III C-Spine Mobility Assessed: Yes TMJ Mobility Assessed: Yes Dentition: Partials Neurological Assessment Level of Consciousness: Awake, Alert and Appropriate Anesthesia Plan Anesthesia Risk discussed: Yes Anesthesia Plan: Verified ASA Class: II Anesthesia Type: General
[2023-08-26 08:21] LABS: Alanine Aminotransferase 18 U/L (12-78); Albumin Level 4.1 g/dl (3.5-5.0); Albumin/Globulin Ratio 1.4 (1.1-1.8); Alkaline Phosphatase 101 U/L (38-126); Aspartate Amino Transferase 23 U/L (14-36); Bilirubin,Total 0.3 mg/dl (0.2-1.3); Blood Urea Nitrogen 17 mg/dl (7-17); Calcium 8.8 mg/dl (8.4-10.2); Carbon Dioxide 25 mmol/L (22.0-30.0); Chloride 107 mmol/L (98-107); Creatinine Clearance Estimated 96 mL/min (50-200); Estimated Glomerular Filt Rate 68 ml/min (>60); GFR (African American) 82 ML/MIN (>60); Globulin 2.9 g/dL (1.3-3.2); Glucose 91 mg/dl (74-100); Sodium 137 mmol/L (136-145)
[2023-08-26 08:25] LABS: Basophils # 0.1 K/mm3 (0-0.2); Basophils % 0.5 % (0.1-2.0); Eosinophils # 0.1 K/mm3 (0.0-0.4); Eosinophils % 0.7 % (0.1-12.0); Hematocrit 38.6 % (37.0-47.0); Hemoglobin 12.8 g/dL (12.2-16.2); Lymphocytes # 3.1 K/mm3 (0.7-4.5); Lymphocytes % 31.2 % (10-50); Mean Corpuscular Hemoglobin 31.7 pg (27.0-31.2); Mean Corpuscular Volume 96.1 fl (81-99); Mean Platelet Volume 7.7 fl (7.4-10.4); Monocytes # 0.4 K/mm3 (0.1-1.0); Neutrophils # 6.2 K/mm3 (1.8-7.8); Neutrophils % 63.5 % (37.0-80.0); Platelet Count 302 K/mm3 (142-424); Red Blood Count 4.02 M/mm3 (4.20-5.40); Red Cell Distribution Width 14.1 % (11.5-17.5); White Blood Count 9.8 K/mm3 (4.8-10.8)
--- NOTE | 2023-08-26 10:54 | EXP.ANES.I ---
[facility] Anesthesia Record Part I Anesthesia Record I Intake, IV Amount: 1,000 Hydration: Adequate Estimated blood loss (mL): 5 Urine output (mL): 150 Blood Products used (#): none Blood Pressure: 144/88 SaO2: 95 Pulse Rate: 77 Airway Patency: Patent Respiratory Rate: 16 Temperature: 97.6 F Patient is:: Drowsy and Stable Stable to PACU at:: 10:55
[2023-08-26] MEDS: HYDROMORPHONE 2MG/ML SYRINGE 0.5 MG IV ×2 (11:10→11:15)
--- NOTE | 2023-08-26 11:16 | EXP.OP.NOTE ---
Date of procedure: 08/26/23 Pre-op Diagnosis:: 1. Abnormal uterine bleeding 2. Heavy uterine bleeding 3. Fibroid uterus Post-op Diagnosis:: 1. Abnormal uterine bleeding 2. Heavy uterine bleeding 3. Fibroid uterus Procedure performed:: Hysteroscopy, dilation, and MyoSure polypectomy and NovaSure endometrial ablation Surgeon:: Regi Martinez DO INSTRUMENT LENS GENERATOR:: Parviz Cunha Anesthesia: GETA Estimated blood loss (mL): 10 Operative findings:: Findings: -EUA revealed an 8-week anteverted uterus with regular contour. Normal vaginal introidus. no significant prolapse or support defects noted. Very well supported vaginal apex/cervix -Hysteroscopy revealed thin normal endometrial lining. Well-visualized tubal ostia Operative note:: The patient was taken back to the OR where general anesthesia was obtained.? She was placed in the dorsal lithotomy position using yellow fin stirrups and sterilely prepped and draped in the usual fashion.? A weighted speculum was used to visualize this cervix, a single-tooth tenaculum was applied to the anterior lip of the cervix. The cervix was only slightly dilated to allow entry to the ectocervix and hydrodisection was used to get the scope the rest of the way into the cavity. The hysterscope was inserted images were obtained of the above described uterine lining. Decision was made to proceed with the MyoSure to collect endometrial curettings. Device set up, primed and zeroed. Device inserted to the fundus and used to curette the outer gonzalez of the endometrium. The uterus sounded to 7.5cm, with a cervical length, 3cm. The Novasure device was opened, deployed, and noted to be functioning properly. The device was inserted to the fundus, set to a length of 4.5cm, and deployed to a width of 3.5cm. Cavity integrity was assessed and adequate. The ablation was started and a power of 87W was noted. Total ablation time was 1:00 minutes. The Novasure device was removed from the cervical os and the hysterscope was reinserted. The endometrium was noted to be successfully ablated. All instruments were removed from the vagina. Hemostasis was noted at the tenaculum sites. All counts were correct, per nursing. This concluded the procedure, the pt was awakened from anesthesia and transferred to the PACU in stable condition. At the conclusion of the procedure there was a fluid deficit of 125mLs. Total myosure cutting time was 5minutes 20seconds. The single-tooth tenaculum was removed and hemostasis was noted at the tenaculum sites.? All instruments were removed from the vagina.? All counts were correct, per nursing.? This concluded the procedure, the patient was awakened from anesthesia, and transferred to the PACU in stable condition. The pt will be given 30mg IV Toradol postoperatively for pain control. Follow-up in 2 weeks Condition: stable Disposition: PACU Specimens:: Endometrial curettings Complications:: None
--- NOTE | 2023-08-27 10:08 | P.PNANES_ITS ---
[facility] Anesthesia Record Part II Anesthesia Record Part II Discharge Time: 11:26 Destination: Surgical Day Care (OP Surgery) PACU nurse assessment reviewed?: Yes Patient Condition:: Good Anesthesia Complications:: None Swallowing reflex intact?: Yes Airway Patency: Patent Cyanosis?: No Blood Pressure: 155/92 SaO2: 98 Respiratory Rate: 20 Pulse Rate: 80 Temperature: 97.4 F Mental Status: Alert & Oriented Pain level:: 3 Nausea and/or vomitting:: None Intake, IV Amount: 0 Hydration: Adequate
[2023-08-27 10:10] VITALS: BP 155/92; PULSE 80; RESP 20; TEMP 36.3; O2SAT 98
== END 2023-08-26 11:55 | disposition home or self-care (01) ==
PROVIDERS: PCP Internal Medicine Adolescent Medicine; Visit Provider Obstetrics & Gynecology
PROC: (CPT 58563; principal; 2023-08-26 08:45)
DX: N93.9 Abnormal uterine and vaginal bleeding, unspecified (principal); D25.9 Leiomyoma of uterus, unspecified
CPT/HCPCS: 58563; 36415; 80053; 81025; 85025; J2405

== ENCOUNTER 2023-09-02 16:44 | Outpatient (CLI) | payer MEDICAID, SELFPAY ==
--- NOTE | 2023-09-02 16:50 | XR_ITS ---
PROCEDURE INFORMATION: Exam: XR Bilateral Sacroiliac Joints Exam date and time: 09/02/2023 4:59 PM Age: 47 years old Clinical indication: Pain; Lumbago; With sciatica; Bilateral; Additional info: Left hip pain TECHNIQUE: Imaging protocol: XR bilateral XR of the sacroiliac joints. Views: 3 or more views. COMPARISON: CR XR HIP LT 2-3V W/PELVIS 09/02/2023 4:59 PM FINDINGS: Bones/joints: The sacroiliac joints appear overall within range of normal. No evidence for significant sclerosis. No ankylosis or bony erosive change. Para no evidence for acute fracture. Remaining visualized osseous structures are within range of normal. Soft tissues: A few phleboliths are present in the pelvis. IMPRESSION: No acute findings.
--- NOTE | 2023-09-02 16:50 | XR_ITS ---
PROCEDURE INFORMATION: Exam: XR Left Hip Exam date and time: 09/02/2023 4:59 PM Age: 47 years old Clinical indication: Hip pain; Left hip; Additional info: Left hip pain TECHNIQUE: Imaging protocol: Radiologic exam of the left hip. Views: 2 or 3 views hip with pelvis when performed. COMPARISON: CR XR LUMBAR SPINE MIN 4V 09/02/2023 4:59 PM FINDINGS: Bones/joints: There is no evidence of acute fracture or dislocation. Joint spaces appear preserved. Soft tissues: No significant soft tissue edema. No subcutaneous emphysema or radiopaque foreign bodies. IMPRESSION: No acute posttraumatic osseous injury.
--- NOTE | 2023-09-02 16:50 | XR_ITS ---
PROCEDURE INFORMATION: Exam: XR Lumbosacral Spine Exam date and time: 09/02/2023 4:59 PM Age: 47 years old Clinical indication: Low back pain; Additional info: Left hip pain TECHNIQUE: Imaging protocol: Radiologic exam of the lumbosacral spine. Views: 4 or 5 views. COMPARISON: CR XR HIP LT 2-3V W/PELVIS 09/02/2023 4:59 PM FINDINGS: Bones/joints: Vertebral body heights appear preserved without compression fractures. The pedicles are intact. No acute fracture. There is very slight retrolisthesis of L5 on S1. Alignment is otherwise within range of normal. No significant intervertebral disc space narrowing. No significant degenerative changes. Soft tissues: Paraspinal soft tissues are within range of normal. IMPRESSION: 1. No acute findings. 2. Minimal retrolisthesis of L5 on S1.
== END 2023-09-02 23:59 ==
LOC: RAD 16:44
PROVIDERS: PCP Internal Medicine Adolescent Medicine; Visit Provider Physician Assistant
DX: M54.50 Low back pain, unspecified (principal); M53.3 Sacrococcygeal disorders, not elsewhere classified; M25.552 Pain in left hip
CPT/HCPCS: 72110; 72202; 73502

== ENCOUNTER 2023-09-06 12:49 | Outpatient (POV) | payer MEDICAID, SELFPAY ==
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
[2023-09-06 13:19] VITALS: BP 168/92; PULSE 88; BMI 37.2
== END 2023-09-06 23:59 ==
LOC: SC.PAIN 12:49
PROVIDERS: PCP Internal Medicine Adolescent Medicine; Visit Provider Nurse Practitioner Family
DX: M54.42 Lumbago with sciatica, left side (principal); G89.29 Other chronic pain; M25.552 Pain in left hip; M46.1 Sacroiliitis, not elsewhere classified
CPT/HCPCS: 99202; G0463

== ENCOUNTER 2023-10-29 15:33 | Outpatient (CLI) | payer MEDICAID, SELFPAY | END 2023-10-29 23:59 | disposition home or self-care (01) | LOC: LAB 15:35 | PROVIDERS: PCP Physician Assistant; Visit Provider Physician Assistant | DX: I10 Essential (primary) hypertension (principal) | CPT/HCPCS: 36415 ==

== ENCOUNTER 2023-11-04 14:58 | Outpatient (CLI) | payer MEDICAID, SELFPAY ==
[2023-11-04 16:26] LABS: Chloride 105 mmol/L (98-107); Sodium 140 mmol/L (136-145)
[2023-11-04 16:29] LABS: Blood Urea Nitrogen 29 mg/dl (7-17); Calcium 9.9 mg/dl (8.4-10.2); Carbon Dioxide 26 mmol/L (22.0-30.0); Estimated Glomerular Filt Rate 41 ml/min (>60); GFR (African American) 49 ML/MIN (>60); Glucose 58 mg/dl (74-100)
== END 2023-11-04 23:59 | disposition home or self-care (01) ==
LOC: LAB 14:58
PROVIDERS: PCP Internal Medicine Adolescent Medicine; Visit Provider Physician Assistant
DX: I10 Essential (primary) hypertension (principal)
CPT/HCPCS: 36415; 80048

== ENCOUNTER 2023-11-11 15:10 | Emergency (ER) | payer MEDICAID, SELFPAY ==
[2023-11-11 15:30] VITALS: BP 150/90; PULSE 83; RESP 18; TEMP 36.8; O2SAT 98; BMI 30.7
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
--- NOTE | 2023-11-11 15:52 | XR_ITS ---
FINAL REPORT CLINICAL HISTORY: pain with deep breath and movement FINDINGS: LEFT RIBS WITH CHEST A single PA view of the chest and three views of the left ribs were obtained. The heart and mediastinum within normal limits. The lungs are clear. There is no pneumothorax. There is no acute displaced rib fracture. IMPRESSION: No acute cardiopulmonary process or displaced rib fracture. Reviewed, Interpreted and Dictated by Robby Claros III, MD Transcribed by Vida Tirado Authenticated and [facility]
[2023-11-11 17:13] VITALS: BP 150/90; PULSE 83; RESP 18; TEMP 36.8; O2SAT 98
== END 2023-11-11 17:18 | disposition home or self-care (01) ==
PROVIDERS: Emergency Provider Nurse Practitioner; PCP Internal Medicine Adolescent Medicine
DX: R07.1 Chest pain on breathing (principal); R07.81 Pleurodynia; F17.210 Nicotine dependence, cigarettes, uncomplicated
CPT/HCPCS: 71101; 99212; 99214; G0463

== ENCOUNTER 2023-11-17 15:00 | Outpatient (CLI) | payer MEDICAID, SELFPAY ==
--- NOTE | 2023-11-17 15:04 | CA_ITS ---
APPROVED REPORT EXAM: Comprehensive 2D, Doppler, and color-flow Echocardiogram [employer]ge: Bernarda Santos RVT Ht: 5 ft 3 in Wt: 174lbs BSA: 1.82 BP: 150/90 mmHg Indications: MURMUR,MIGUE,HTN,SMOKER 2D Dimensions LA Volume 49.00 mL LA Volume Index 26.92 mL/m2 (M/F) 16-34 M-Mode Dimensions RVDd 3.19 cm (0.9-2.6) LA Diam 3.68 cm (1.9-4.0) LVDd 3.72 cm (3.5-5.7) LVDs 2.50 cm (3.5-5.7) IVSd 1.06 cm (0.6-1.1) PWd 0.95 cm (0.6-1.1) EF (Teich) 62.10% FS 32.80% EDV (Teich) 58.90 mL TAPSE 2.46 (<1.7) ESV (Teich) 22.30 mL LV Diastology E Decel Time 150 (160-240 msec) E/A Ratio 1.7 Aortic Valve JANESSA Index 1.34 cm2/m2 AoV Peak Giancarlo. 164.0 (50-130 cm/s) AI PHT 346.00 ms AO Peak GR. 10.70 mmHg AO Mean GR. 5.80 (<5 mmHg) AO VTI 30.9 (18-25 cm) JANESSA (VTI) 2.50 (2.5-4.5 cm2) Mitral Valve MV E Max Giancarlo. 114.0 (40-130 cm/s) MV A Velocity 69.0 (40-130 cm/s) E/A Ratio 1.66 MV PHT 44.0 ms Pulmonary Valve PV Peak Velocity 113.0 (50-150 cm/s) Tricuspid Valve TR P. Velocity 327.00 cm/s RAP Estimate 10.00 mmHg RVSP 52.80 mmHg Left Ventricle The left ventricle is normal size. The left ventricular systolic function is normal. The left ventricular ejection fraction is within the normal range. There is increased LV wall thickness. There is normal LV segmental wall motion. The left ventricular diastolic function is normal. LVEF is 60%. Right Ventricle The right ventricle is normal size. The right ventricular systolic function is normal. Atria The left atrium is mildly dilated. The right atrium size is normal. There is no Doppler evidence of interatrial shunt. Aortic Valve The aortic valve is mildly thickened. There is no aortic valvular stenosis. Mild aortic regurgitation. Mitral Valve The mitral valve is normal in structure. No evidence of mitral valve stenosis. Mild mitral regurgitation. Tricuspid Valve The tricuspid valve leaflets are thin and pliable. Mild tricuspid regurgitation. RVSP is 30-35 mmHg. Pulmonic Valve The pulmonary valve is normal in structure. Trace pulmonic regurgitation. Great Vessels The aortic root is normal in size. The ascending aorta is not well visualized. IVC is normal in size and collapses >50% with inspiration. Pericardium There is no pericardial effusion. Other Information Study Quality: Fair Conclusion Normal biventricular systolic function. Mild LA dilation. Mild AI, mild MR, mild TR. RVSP 30-35 mmHg. Electronically signed by : Sonja Clifford MD 11/17/2023 23:17:43
== END 2023-11-17 23:59 | disposition home or self-care (01) ==
LOC: RT 15:00
PROVIDERS: PCP Internal Medicine Adolescent Medicine; Visit Provider Physician Assistant
DX: R06.09 Other forms of dyspnea (principal); R01.1 Cardiac murmur, unspecified; I10 Essential (primary) hypertension
CPT/HCPCS: 93306

== ENCOUNTER 2023-11-17 16:00 | Outpatient (RCR) | payer MEDICAID, SELFPAY | END 2023-11-17 17:30 | disposition home or self-care (01) | LOC: PT 16:00 | PROVIDERS: Visit Provider Physician Assistant | DX: M54.42 Lumbago with sciatica, left side (principal) | CPT/HCPCS: 97010; 97012; 97014; 97035; 97110; 97112; 97163; 97164; G0283 ==

== ENCOUNTER 2023-11-29 12:06 | Emergency (ER) | payer MEDICAID, SELFPAY ==
[2023-11-29 12:35] VITALS: BP 155/106; PULSE 97; RESP 23; TEMP 36.6; O2SAT 98; BMI 30.6
--- NOTE | 2023-11-29 12:50 | XR_ITS ---
FINAL REPORT CLINICAL HISTORY: COUGH, SOA x 3 days smoker x 20+ yrs COMPARISON: 07/05/2023 FINDINGS: 2 views of the chest were obtained . The heart is normal in size. The mediastinum is within normal limits. There are right midlung opacities worrisome for pneumonia. There is no pneumothorax. Osseous structures are unremarkable. IMPRESSION: Right midlung opacities worrisome for pneumonia. Reviewed, Interpreted and Dictated by Robby Claros III, MD Transcribed by Maritza Plaza Authenticated and [facility]
--- NOTE | 2023-11-29 13:51 | ED_ITS ---
Discharge Plan Disposition Patient Disposition: Home, Self-Care Condition: Good Prescriptions Prescriptions: New albuterol sulfate 1.25 mg/3 mL solution for nebulization 1.25 mg inhalation QID PRN (Reason: shortness of breath or wheezing) Qty: 90 0RF benzonatate 100 mg capsule 100 mg PO TID PRN (Reason: cough) Qty: 30 0RF azithromycin 250 mg tablet See Rx Instructions .ROUTE .COMPLEX Qty: 6 0RF Rx Instructions: For 250 mg dose pack: take 500 mg today (day 1), then 250 mg for 4 days (days 2-5). Stop cholesterol medication while taking this antibiotic. methylprednisolone [Medrol (Obdulio)] 4 mg tablets,dose pack See Rx Instructions .ROUTE .COMPLEX 6 Days Qty: 21 0RF Rx Instructions: 4 mg orally ;Medrol dose taper obdulio No Action paroxetine HCl 10 mg tablet 10 mg PO DAILY oxybutynin chloride 10 mg tablet extended release 24hr 10 mg PO DAILY Patient Comments: TAKE 1 TABLET BY MOUTH DAILY losartan 100 mg tablet 100 mg PO DAILY nifedipine [Procardia XL] 30 mg tablet extended release 24hr 30 mg PO DAILY albuterol sulfate [Proventil HFA] 90 mcg/actuation HFA aerosol inhaler 2 puff INHALATION Q6H PRN (Reason: shortness of breath or wheezing) Qty: 8.5 2RF propranolol 20 mg tablet 20 mg PO DAILY Anoro Ellipta 62.5-25 mcg/actuation blister with device See Rx Instructions .ROUTE .COMPLEX Rx Instructions: 1 PUFF ONCE DAILY pantoprazole 40 mg tablet,delayed release (DR/EC) 40 mg PO DAILY Patient Comments: TAKE 1 TABLET BY MOUTH EVERY DAY Referrals Follow up/Referrals: Mike Rodrigues MD [Primary Care Provider] - See instructions Activity Restrictions/Add. Instructions Additional Instructions/Restrictions: Make follow up appointment with primary care provider. Clinical Impressions Clinical Impression: Right middle lobe pneumonia Qualifiers: Pneumonia type: due to unspecified organism Qualified Code(s): J18.9 - Pn eumonia, unspecified organism Stand Alone Forms Stand Alone Forms: Work/School Release Instructions Patient Instructions: Pneumonia-Adult Discharge ED Provider: Sera Montes De [facility] General Stated complaint: possible inhaled a chemical in lungs Mode of Arrival: Ambulatory Source of Information: Patient Limitations: No Limitations Time Seen by Provider: 11/29/23 12:42 Description of Symptoms (Recalled from Triage Doc. 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 SHE REPORTS HAVING A SCRATCHY THROAT A FEW DAYS PRIOR. 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 Pt reports that the scratchy throa t started a few days prior. Pt states that she had to use her nebulizer on Wednesday and Wednesday night for relief of chest tightness/cough. Related Data Home Medications Medication Instructions Recorded Confirmed umeclidinium 62.5 mcg-vilanterol See Rx Instructions .Route 07/09/22 11/29/23 25 mcg/actuation powdr for .COMPLEX Asthma inhalation (Anoro Ellipta) propranolol 20 mg tablet 20 mg PO DAILY 02/18/23 11/29/23 pantoprazole 40 mg tablet,delayed 40 mg PO DAILY 07/05/23 11/29/23 release paroxetine HCl 10 mg tablet 10 mg PO DAILY 08/31/23 11/29/23 losartan 100 mg tablet 100 mg PO DAILY 11/11/23 11/29/23 nifedipine 30 mg tablet,extended 30 mg PO DAILY 11/11/23 11/29/23 release 24 hr (Procardia XL) oxybutynin chloride 10 mg 10 mg PO DAILY 11/11/23 11/29/23 tablet,extended release 24 hr Previous Rx's Medication Instructions Recorded albuterol sulfate 90 mcg/actuation 2 puff inhalation Q6H PRN 07/02/21 aerosol inhaler (Proventil HFA) shortness of breath or wheezing #8.5 grams albuterol sulfate 1.25 mg/3 mL 1.25 mg (3 mL) inhalation QID PRN 11/29/23 solution for nebulization shortness of breath or wheezing #90 mL azithromycin 250 mg tablet See Rx Instructions PO .COMPLEX #6 11/29/23 tabs benzonatate 100 mg capsule 100 mg PO TID PRN cough #30 caps 11/29/23 methylprednisolone 4 mg tablets in See Rx Instructions .Route 11/29/23 a dose pack (Medrol (Obdulio)) .COMPLEX 6 days #21 tabs Allergies Allergy/AdvReac Type Severity Reaction Status Date / Time codeine Allergy Intermediate SOB Verified 08/31/23 15:07 aspirin Allergy Mild Hives Verified 08/31/23 15:07 Penicillins Allergy Unknown Hives Verified 08/31/23 15:07 Worker's Comp Is this a Worker's Comp case?: No PFS PFS Disclaimer: The information contained in this section may have been updated after the patient was seen, as this information can be updated by other users. Medical History MIGUE (obstructive sleep apnea) Stenosis of cervix Menorrhagia with irregular cycle Migraine Costochondral chest pain Second degree burn Trichomonal vaginitis History of chlamydia Neuropathic pain Tobacco use Vitamin D deficiency (~01/23/18) Leg pain Hypertension Surgical History History of endometrial ablation H/O cervical polypectomy History of hysteroscopy History of colonoscopy History of dental surgery Hx of section History of tubal ligation Family History Other Asthma Cancer Coronary artery disease Family history of COPD (chronic obstructive pulmonary disease) Family history of cancer Family history of diabetes mellitus type II Family history of myocardial infarction Heart attack Hyperlipidemia Hypertension Social History Smoking Status: Current every day smoker tobacco type: cigarettes packs per day: 1 years smoked: 30 alcohol intake: former substance use type: former substance user and painkillers current occupational status: other Travel in the last 8 weeks: None household members: significant other housing: house marital status: single number of children: 3 caffeine: Yes special sharron needs: No agree to transfusion: No do you feel safe at home: Yes victim of physical abuse: No victim of emotional abuse: No victim of sexual abuse: No would you like helpful sources: No ROS Obtained: Yes All systems reviewed & no additional complaints except as documented Constitutional Constitutional: Reports system reviewed and no additional complaints, except as documented Eyes Eyes: Reports system reviewed and no additional complaints, except as documented ENT Ears, Nose, Mouth, and Throat: Reports system reviewed and no additional complaints, except as documented Cardiovascular Cardiovascular: Reports system reviewed and no additional complaints, except as documented Respiratory Respiratory: Reports shortness of breath, Reports chest congestion, Reports non- productive cough and Reports wheezing Gastrointestinal Gastrointestingal: Reports system reviewed and no additional complaints, except as documented Genitourinary Female Genitourinary: Reports system reviewed and no additional complaints, except as documented Musculoskeletal Musculoskeletal: Reports system reviewed and no additional complaints, except as documented Integumentary/Breasts Skin/Breast: Reports system reviewed and no additional complaints, except as documented Neurologic Neurologic: Reports system reviewed and no additional complaints, except as documented Endocrine Endocrine: Reports system reviewed and no additional complaints, except as documented Hematologic/Lymphatic Henatologic/Lymphatic: Reports system reviewed and no additional complaints, except as documented Allergic/Immunologic Allergic/Immunologic: Reports system reviewed and no additional complaints, except as documented and Reports wheezing Physical Exam General General appearance: alert and in no apparent distress Head Head exam: atraumatic and normocephalic Eye Eye exam: Present normal appearance ENT ENT exam: Present normal oropharynx and mucous membranes moist Expanded ENT Exam External ear exam: Present normal external inspection Nasal speculum exam: Bilateral: normal Mouth exam: Present normal external inspection Teeth exam: Present normal inspection Throat exam: Present normal inspection Neck Neck exam: Present normal inspection Chest Chest inspection: Present normal inspection and symmetric chest wall rise Respiratory Respiratory exam: Present wheezes Expanded Respiratory Exam Location: Right: wheezes, Upper: wheezes and Lower: wheezes Cardiovascular Cardiovascular exam: Present regular rate and normal rhythm Abdominal Exam Abdominal exam: Present soft and normal bowel sounds Extremities Exam Extremities exam: Present normal inspection Back Exam Back exam: Present normal inspection Neurological Exam Neurological exam: Present alert and oriented X3 Psychiatric Psychiatric exam: Present normal affect and normal mood Skin Skin exam: Present warm, dry and intact Lymphatic Lymphatic Findings: no adenopathy Medical Decision Making Fernando Inquiry Pt receiving controlled substance: No Fernando was queried for this patient: No Vital Signs: 11/29/23 12:35 Temperature 97.9 F Temperature Source Oral Pulse Rate [Left Brachial] 97 H Respiratory Rate 23 Blood Pressure [Left Arm] 155/106 H Blood Pressure Mean [Left Arm] 122 Blood Pressure Source [Left Arm] Automatic Cuff Blood Pressure Position [Left Arm] Sitting 02 Sat by Pulse Oximetry 98 Oxygen Delivery Method Room Air Orders (Tests/Meds): ORDERS Category Date Time Status Chest XR 2 view (NOT portable) [XR chest 2V] Stat Exams 11/29/23 12:50 Taken Radiology Data #1: Image(s): Chest Image Reviewed: Yes I reviewed the patient's radiology results and Yes I have reviewed radiologist's interpretation INDINGS: 2 views of the chest were obtained . The heart is normal in size. The mediastinum is within normal limits. There are right midlung opacities worrisome for pneumonia. There is no pneumothorax. Osseous structures are unremarkable. IMPRESSION: Right midlung opacities worrisome for pneumonia.
[2023-11-29 14:36] VITALS: BP 155/106; PULSE 97; RESP 23; TEMP 36.6; O2SAT 98
[2023-11-29 14:59] LABS: COC Drug Screen Collection Only
== END 2023-11-29 15:00 | disposition home or self-care (01) ==
PROVIDERS: Emergency Provider Nurse Practitioner Family; PCP Internal Medicine Adolescent Medicine
DX: J18.9 Pneumonia, unspecified organism (principal); R06.02 Shortness of breath; R05.9 Cough, unspecified; F17.210 Nicotine dependence, cigarettes, uncomplicated
CPT/HCPCS: 71046; 99212; 99214; G0463

== ENCOUNTER 2023-12-02 14:34 | Outpatient (CLI) | payer MEDICAID, SELFPAY ==
[2023-12-02 15:45] LABS: Anion Gap 15.8 mEq/L (5-15); Blood Urea Nitrogen 18 mg/dl (7-17); Calcium 9.8 mg/dl (8.4-10.2); Carbon Dioxide 26 mmol/L (22.0-30.0); Chloride 102 mmol/L (98-107); Estimated Glomerular Filt Rate 68 ml/min (>60); GFR (African American) 82 ML/MIN (>60); Glucose 85 mg/dl (74-100); Potassium 3.8 mmoL/L (3.5-5.1); Sodium 140 mmol/L (136-145)
== END 2023-12-02 23:59 | disposition home or self-care (01) ==
LOC: LAB 14:36
PROVIDERS: PCP Internal Medicine Adolescent Medicine; Visit Provider Physician Assistant
DX: N17.9 Acute kidney failure, unspecified (principal)
CPT/HCPCS: 36415; 80048

== ENCOUNTER 2023-12-08 14:31 | Outpatient (CLI) | payer MEDICAID, SELFPAY ==
--- NOTE | 2023-12-08 14:36 | MM_ITS ---
PROCEDURE INFORMATION: Exam: MG Right Diagnostic Breast Tomosynthesis Exam date and time: 12/08/2023 2:22 PM Age: 47 years old Clinical indication: Short-term radiographic followup; Right breast TECHNIQUE: Imaging protocol: Right Diagnostic tomosynthesis and 2D mammography including computer-aided detection (CAD) when performed. Unilateral or bilateral exam. COMPARISON: 1. MG MM DIG SCREENING MAMM BI W/CAD 06/02/2023 4:39 PM 2. MG MM DIG SCREENING MAMM BI W/CAD 02/04/2022 4:42 PM FINDINGS: MAMMOGRAPHY: Breast composition: There are scattered areas of fibroglandular density. Breast mammogram findings: There is no stellate mass, architectural distortion or suspicious microcalcifications in either breast to suggest malignancy. No persistent focal suspicious mass on routine or spot compression views of the right upper inner quadrant. No skin thickening or axillary adenopathy. IMPRESSION: No mammographic evidence of malignancy. Annual bilateral mammographic screening is recommended unless otherwise clinically indicated. ASSESSMENT: BI-RADS Category 1: Negative
== END 2023-12-08 23:59 | disposition home or self-care (01) ==
LOC: RAD 14:32
PROVIDERS: PCP Physician Assistant; Visit Provider Obstetrics & Gynecology
DX: N60.11 Diffuse cystic mastopathy of right breast (principal)
CPT/HCPCS: 77061; 77065; G0279

== ENCOUNTER 2023-12-16 18:52 | Emergency (ER) | payer MEDICAID, SELFPAY ==
[2023-12-16 18:53] VITALS: BP 151/101; PULSE 87; RESP 18; TEMP 36.6; O2SAT 100
--- NOTE | 2023-12-16 19:41 | XR_ITS ---
PROCEDURE INFORMATION: Exam: XR Chest Exam date and time: 12/16/2023 8:09 PM Age: 48 years old Clinical indication: Dyspnea TECHNIQUE: Imaging protocol: Radiologic exam of the chest. Views: 1 view. Total images: 1 COMPARISON: CR XR CHEST 2V 11/29/2023 1:01 PM FINDINGS: Lungs: Unremarkable. No consolidation. No pulmonary vascular congestion or edema. Pleural spaces: Unremarkable. No pleural effusion. No pneumothorax. Heart/Mediastinum: Unremarkable. No cardiomegaly. No mediastinal widening or hilar enlargement. Bones/joints: Unremarkable. IMPRESSION: No radiographically acute cardiopulmonary process.
--- NOTE | 2023-12-16 19:43 | HMH.EDGENADL ---
Discharge Plan Disposition Patient Disposition: Home, Self-Care Prescriptions Prescriptions: New clindamycin HCl 150 mg capsule 450 mg PO Q8H 7 Days Qty: 63 0RF No Action paroxetine HCl 10 mg tablet 10 mg PO DAILY oxybutynin chloride 10 mg tablet extended release 24hr 10 mg PO DAILY Patient Comments: TAKE 1 TABLET BY MOUTH DAILY losartan 100 mg tablet 100 mg PO DAILY nifedipine [Procardia XL] 30 mg tablet extended release 24hr 30 mg PO DAILY albuterol sulfate [Proventil HFA] 90 mcg/actuation HFA aerosol inhaler 2 puff INHALATION Q6H PRN (Reason: shortness of breath or wheezing) Qty: 8.5 2RF propranolol 20 mg tablet 20 mg PO DAILY albuterol sulfate 1.25 mg/3 mL solution for nebulization 1.25 mg inhalation QID PRN (Reason: shortness of breath or wheezing) Qty: 90 0RF benzonatate 100 mg capsule 100 mg PO TID PRN (Reason: cough) Qty: 30 0RF azithromycin 250 mg tablet See Rx Instructions .ROUTE .COMPLEX Qty: 6 0RF Rx Instructions: For 250 mg dose pack: take 500 mg today (day 1), then 250 mg for 4 days (days 2-5). Stop cholesterol medication while taking this antibiotic. methylprednisolone [Medrol (Obdulio)] 4 mg tablets,dose pack See Rx Instructions .ROUTE .COMPLEX 6 Days Qty: 21 0RF Rx Instructions: 4 mg orally ;Medrol dose taper obdulio Anoro Ellipta 62.5-25 mcg/actuation blister with device See Rx Instructions .ROUTE .COMPLEX Rx Instructions: 1 PUFF ONCE DAILY pantoprazole 40 mg tablet,delayed release (DR/EC) 40 mg PO DAILY Patient Comments: TAKE 1 TABLET BY MOUTH EVERY DAY Referrals Follow up/Referrals: Mary Walters APRN [Primary Care Provider] - See instructions Activity Restrictions/Add. Instructions Additional Instructions/Restrictions: You have swelling in both of your legs but no evidence of emergent medical condition associated with this today. Your pain and redness and tenderness in your left lower extremity is most likely secondary to a soft tissue infection. Please take antibiotics as prescribed. This should improve in 48 to 72 hours please return with any significant spreading or redness high fevers or other concerns. Clinical Impressions Clinical Impression: Bilateral lower extremity edema, Cellulitis of left leg Discharge ED Provider: Savanah Horta General Adult HPI General Chief complaint: Extremity Problem,Nontraumatic Stated complaint: LT leg swollen Time Seen by Provider: 12/16/23 19:31 Mode of Arrival: Ambulatory Source of Information: Patient Limitations: No Limitations Description of Symptoms (Recalled from ER Triage Doc. by RN): 48 F presents from home with c/o left lower leg pain, tightness, and swelling. She reports this started yesterday after she left work. 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 Patient denies history of this. Ambulatory on arrival. Pulses are intact bilaterally. Patient adds that she is getting over recent pneumonia. History of Present Illness HPI narrative: Patient is a 48-year-old female presents today with left lower extremity swelling. States has been ongoing for the last several days has not noticed the swelling in the other extremity. Also states she has had some shortness of breath and cough no fever and was recently diagnosed with pneumonia regarding that. No history of heart failure that she is aware of. Also states that her left lower extremity has been a little bit more erythematous than normal and is having some pain. Still no fevers or chills. She has a history of COPD states she is having some ongoing shortness of breath but that her symptoms from recent diagnosis of pneumonia have improved. Denies any chest pain right now. Denies any changes in urination kidney failure liver dysfunction etc. Related Data Home Medications Medication Instructions Recorded Confirmed umeclidinium 62.5 mcg-vilanterol See Rx Instructions .Route 07/09/22 11/29/23 25 mcg/actuation powdr for .COMPLEX Asthma inhalation (Anoro Ellipta) propranolol 20 mg tablet 20 mg PO DAILY 02/18/23 11/29/23 pantoprazole 40 mg tablet,delayed 40 mg PO DAILY 07/05/23 11/29/23 release paroxetine HCl 10 mg tablet 10 mg PO DAILY 08/31/23 11/29/23 losartan 100 mg tablet 100 mg PO DAILY 11/11/23 11/29/23 nifedipine 30 mg tablet,extended 30 mg PO DAILY 11/11/23 11/29/23 release 24 hr (Procardia XL) oxybutynin chloride 10 mg 10 mg PO DAILY 11/11/23 11/29/23 tablet,extended release 24 hr Previous Rx's Medication Instructions Recorded albuterol sulfate 90 mcg/actuation 2 puff inhalation Q6H PRN 07/02/21 aerosol inhaler (Proventil HFA) shortness of breath or wheezing #8.5 grams albuterol sulfate 1.25 mg/3 mL 1.25 mg (3 mL) inhalation QID PRN 11/29/23 solution for nebulization shortness of breath or wheezing #90 mL azithromycin 250 mg tablet See Rx Instructions PO .COMPLEX #6 11/29/23 tabs benzonatate 100 mg capsule 100 mg PO TID PRN cough #30 caps 11/29/23 methylprednisolone 4 mg tablets in See Rx Instructions .Route 11/29/23 a dose pack (Medrol (Obdulio)) .COMPLEX 6 days #21 tabs clindamycin HCl 150 mg capsule 450 mg (3 x 150 mg) PO Q8H 7 days 12/16/23 #63 caps Allergies Allergy/AdvReac Type Severity Reaction Status Date / Time codeine Allergy Intermediate SOB Verified 08/31/23 15:07 aspirin Allergy Mild Hives Verified 08/31/23 15:07 Penicillins Allergy Unknown Hives Verified 08/31/23 15:07 PFSH PFS Disclaimer: The information contained in this section may have been updated after the patient was seen, as this information can be updated by other users. Medical History MIGUE (obstructive sleep apnea) Stenosis of cervix Menorrhagia with irregular cycle Migraine Costochondral chest pain Second degree burn Trichomonal vaginitis History of chlamydia Neuropathic pain Tobacco use Vitamin D deficiency (~01/23/18) Leg pain Hypertension Surgical History History of endometrial ablation H/O cervical polypectomy History of hysteroscopy History of colonoscopy History of dental surgery Hx of section History of tubal ligation Family History Other Asthma Cancer Coronary artery disease Family history of COPD (chronic obstructive pulmonary disease) Family history of cancer Family history of diabetes mellitus type II Family history of myocardial infarction Heart attack Hyperlipidemia Hypertension Social History Smoking Status: Current every day smoker tobacco type: cigarettes packs per day: 1 years smoked: 30 alcohol intake: former substance use type: former substance user and painkillers current occupational status: other Travel in the last 8 weeks: None household members: significant other housing: house marital status: single number of children: 3 caffeine: Yes special sharron needs: No agree to transfusion: No do you feel safe at home: Yes victim of physical abuse: No victim of emotional abuse: No victim of sexual abuse: No would you like helpful sources: No ROS Obtained: Yes All systems reviewed & no additional complaints except as documented Physical Exam General General appearance: alert and in no apparent distress Respiratory Respiratory exam: Present normal lung sounds bilaterally Cardiovascular Cardiovascular exam: Present regular rate and normal rhythm Extremities Exam Extremities exam: Present other (2+ bilateral lower extremity edema symmetric there is some erythema and slight tenderness in the left lower extremity but not warm to the touch pulses are good throughout 2+ DP and PT pulses) Neurological Exam Neurological exam: Present alert and oriented X3 Medical Decision Making Fernando Inquiry Pt receiving controlled substance: No Vital Signs: 12/16/23 18:53 Temperature 98 F Temperature Source Oral Pulse Rate [Left] 87 Respiratory Rate 18 Blood Pressure [Right Arm] 151/101 H Blood Pressure Mean [Right Arm] 117 Blood Pressure Source [Right Arm] Automatic Cuff Blood Pressure Position [Right Arm] Sitting 02 Sat by Pulse Oximetry 100 Oxygen Delivery Method Room Air Lab Data Lab results reviewed: Yes I reviewed the patient's lab results. Lab Results 12/16/23 20:25: WBC 8.2, RBC 3.90 L, Hgb 11.7 L, Hct 36.2 L, MCV 92.8, MCH 30.1, MCHC 32.4, RDW 14.7, Plt Count 308, MPV 8.8, Neut % (Auto) 64.8, Lymph % (Auto) 27.5, [place] % (Auto) 5.7, Eos % (Auto) 1.3, Baso % (Auto) 0.6, Neut # (Auto) 5.3, Lymph # (Auto) 2.3, [place] # (Auto) 0.5, Eos # (Auto) 0.1, Baso # (Auto) 0.1, PT 9.8 L, INR 0.90, D-Dimer 0.47, Sodium 140, Potassium 3.9, Chloride 107, Carbon Dioxide 28, Anion Gap 8.9, BUN 20 H, Creatinine 1.30 H, Estimated Creat Clear 68, Estimated GFR 44 L, Est GFR ( Amer) 53 L, Glucose 82, Calcium 9.1, Total Bilirubin 0.2, AST 23, ALT 14, Alkaline Phosphatase 108, Troponin I < 0.01, NT-Pro-B Natriuret Pep 105, Total Protein 7.6, Albumin 4.3, Globulin 3.3 H, Albumin/Globulin Ratio 1.3, Urine Color Yellow, Urine Appearance Clear, Urine pH 6.0, Ur Specific [place] >= 1.030, Urine Protein Negative, Urine Glucose (UA) Negative, Urine Ketones Negative, Urine Blood Negative, Urine Nitrate Negative, Urine Bilirubin Negative, Urine Urobilinogen 0.2, Ur Leukocyte Esterase Negative, Urine RBC None, Urine WBC None, Ur Squamous Epith Cells 3-5, Urine Bacteria None 12/16/23 20:25 12/16/23 20:25 Orders (Tests/Meds): ED MEDICATIONS Generic Name Dose Route Start Last Admin Trade Name Freq PRN Reason Stop Dose Admin Clindamycin HCl 450 mg 12/16/23 21:19 Clindamycin 150mg Capsule PO 12/16/23 21:20 ONCE ONE ORDERS Category Date Time Status CXR --portable [XR chest portable] Stat Exams 12/16/23 19:41 Taken POCUS Point of Care (ER Only) Stat Exams 12/16/23 20:53 Ordered BNP [NT Pro Brain Natriuretic Pep.] Stat Lab 12/16/23 20:25 Completed CBC w/Auto Diff [Complete Blood Count Auto Diff] Stat Lab 12/16/23 20:25 Completed CMP [Comprehensive Metabolic Panel] Stat Lab 12/16/23 20:25 Completed D-Dimer Stat Lab 12/16/23 20:25 Completed PT INR [Prothrombin Time INR] Stat Lab 12/16/23 20:25 Completed Trop I [Troponin I] Stat Lab 12/16/23 20:25 Completed Troponin I Q3H Lab 12/16/23 22:45 Ordered Troponin I Q3H Lab 12/17/23 01:45 Ordered UA [Urinalysis and Microscopic] Stat Lab 12/16/23 20:25 Completed Medical Decision Narrative: 48-year-old female present today with bilateral lower extremity edema she was unaware of the fact that her right leg was also edematous but primarily complained of the left lower extremity. On my exam it is essentially symmetric. There is some erythema and tenderness of left lower extremity she may have a superimposed cellulitis on this but differential is broad including nephrotic syndrome cirrhosis protein-losing enteropathy heart failure DVT etc. Will get a D-dimer basic blood work chest x-ray and reassess. Chest x-ray performed to person interpreted shows no pulmonary edema or other cardiopulmonary emergency labs otherwise unremarkable limited bedside ultrasound from a DVT standpoint was unremarkable there is soft tissue swelling and cobblestoning in the left lower extremity consistent with cellulitis. Patient was given first dose of clindamycin as she has a penicillin allergy and prescription was sent with outpatient follow-up instructions return precautions emphasized. Procedures Miscellaneous Procedure Procedure Performed: Structures identified Common femoral veins and popliteal veins on the left Findings complete compression of bilateral common femoral veins and left popliteal veins with normal augmentation Impression no evidence of left-sided DVT The study was performed by me and I personally interpreted all images and videos based on my clinical judgment these images were adequate and did not necessitate further imaging Limited soft tissue ultrasound Indication: Soft tissue swelling and pain Identified structures: Location: Left lower extremity Findings: Edema tracking consistent with cobblestoning and cellulitis Impression: Left lower extremity cellulitis Images were saved to permanent archive The study was technically adequate Soft Tissue CPT Codes: CPT Lower Extremity: 94760-13 CPT Other Soft Tissue: 33032-30 This study was performed by me, and I personally interpreted all images/videos. Based on my clinical judgement, these images were adequate and did not necessitate further imaging. Critical Care Critical Care Time Critical Care Time: No
--- NOTE | 2023-12-16 20:00 | ECG_ITS ---
APPROVED REPORT Exam: Resting ECG HR:76 bpm ECG Measurements Heart Rate 76 AXES RI 157 P 63 QRSd 89 QRS 48 QT 358 T 70 QTc 388 Conclusion SINUS RHYTHM POSSIBLE RIGHT VENTRICULAR CONDUCTION DELAY [RSR (QR) IN V1/V2] NONSPECIFIC T-WAVE ABNORMALITY BORDERLINE ECG UNCONFIRMED REPORT Electronically signed by : Prem Horta, 12/16/2023 23:15:11
[2023-12-16 20:31] LABS: Microscopic, Urine URINE MICROSCOPIC (MICROSCOPIC)
[2023-12-16 20:32] LABS: Appearance,Urine CLEAR (Clear); Bilirubin,Urine Negative (Negative); Blood, Urine Negative (Negative); Color,Urine YELLOW (Yellow); Glucose,Urine (UA) Negative (Negative); Ketones,Urine Negative (Negative); Leukocyte Esterase,Urine Negative (Negative); Nitrate,Urine Negative (Negative); Protein,Urine Negative (Negative); Specific Gravity, Urine >= 1.030 (1.005-1.030); Urobilinogen,Urine 0.2 EU/dl (0.2)
[2023-12-16 20:35] LABS: Basophils # 0.1 K/mm3 (0-0.2); Basophils % 0.6 % (0.1-2.0); Eosinophils # 0.1 K/mm3 (0.0-0.4); Eosinophils % 1.3 % (0.1-12.0); Hematocrit 36.2 % (37.0-47.0); Hemoglobin 11.7 g/dL (12.2-16.2); Lymphocytes # 2.3 K/mm3 (0.7-4.5); Lymphocytes % 27.5 % (10-50); Mean Corpuscular HGB Conc 32.4 g/dL (31.8-35.4); Mean Corpuscular Hemoglobin 30.1 pg (27.0-31.2); Mean Corpuscular Volume 92.8 fl (81-99); Mean Platelet Volume 8.8 fl (7.4-10.4); Monocytes # 0.5 K/mm3 (0.1-1.0); Monocytes % 5.7 % (1.7-9.3); Neutrophils # 5.3 K/mm3 (1.8-7.8); Neutrophils % 64.8 % (37.0-80.0); Platelet Count 308 K/mm3 (142-424); Red Cell Distribution Width 14.7 % (11.5-17.5); White Blood Count 8.2 K/mm3 (4.8-10.8)
[2023-12-16 20:46] LABS: Chloride 107 mmol/L (98-107); Potassium 3.9 mmoL/L (3.5-5.1); Sodium 140 mmol/L (136-145)
[2023-12-16 20:49] LABS: Alanine Aminotransferase 14 U/L (12-78); Albumin Level 4.3 g/dl (3.5-5.0); Albumin/Globulin Ratio 1.3 (1.1-1.8); Alkaline Phosphatase 108 U/L (38-126); Anion Gap 8.9 mEq/L (5-15); Aspartate Amino Transferase 23 U/L (14-36); Bilirubin,Total 0.2 mg/dl (0.2-1.3); Blood Urea Nitrogen 20 mg/dl (7-17); Carbon Dioxide 28 mmol/L (22.0-30.0); Creatinine Clearance Estimated 68 mL/min (50-200); Estimated Glomerular Filt Rate 44 ml/min (>60); GFR (African American) 53 ML/MIN (>60); Globulin 3.3 g/dL (1.3-3.2); Total Protein,Serum 7.6 g/dl (6.3-8.2)
[2023-12-16 20:50] LABS: Calcium 9.1 mg/dl (8.4-10.2); Glucose 82 mg/dl (74-100); Prothrombin Time 9.8 seconds (10.1-12.5)
--- NOTE | 2023-12-16 20:57 | PC.NURSE ---
Assisted the patient into a gown for further evaluation by Dr. Horta
[2023-12-16 21:01] LABS: NT Pro Brain Natriuretic Pep. 105 pg/mL (0-125)
[2023-12-16 21:04] LABS: Troponin I < 0.01 ng/ml (0.00-0.034)
[2023-12-16 21:08] LABS: D-Dimer 0.47 ug/mL (0.0-0.5)
[2023-12-16] MEDS: CLINDAMYCIN 150MG CAPSULE 450 MG PO (21:28)
[2023-12-16 21:30] VITALS: BP 148/86; PULSE 89; RESP 19; TEMP 36.6; O2SAT 97
== END 2023-12-16 21:30 | disposition home or self-care (01) ==
PROVIDERS: Emergency Provider Student in an Organized Health Care Education/Training Program; PCP Nurse Practitioner Family
DX: L03.116 Cellulitis of left lower limb (principal); R22.43 Localized swelling, mass and lump, lower limb, bilateral; R06.02 Shortness of breath; J44.9 Chronic obstructive pulmonary disease, unspecified; F17.210 Nicotine dependence, cigarettes, uncomplicated; I10 Essential (primary) hypertension
CPT/HCPCS: 71045; 80053; 81001; 83880; 84484; 85025; 85378; 85610; 93005; 99285

== ENCOUNTER 2023-12-23 15:22 | Outpatient (POV) | payer MEDICAID, SELFPAY ==
--- NOTE | 2023-12-23 15:28 | EXP.PAIN.SOA ---
[facility] Disclaimer: The information contained in this section may have been updated after the patient was seen, as this information can be updated by other users. Medical History MGIUE (obstructive sleep apnea) Stenosis of cervix Menorrhagia with irregular cycle Migraine Costochondral chest pain Second degree burn Trichomonal vaginitis History of chlamydia Neuropathic pain Tobacco use Vitamin D deficiency (~01/23/18) Leg pain Hypertension Surgical History History of endometrial ablation H/O cervical polypectomy History of hysteroscopy History of colonoscopy History of dental surgery Hx of section History of tubal ligation Family History Other Asthma Cancer Coronary artery disease Family history of COPD (chronic obstructive pulmonary disease) Family history of cancer Family history of diabetes mellitus type II Family history of myocardial infarction Heart attack Hyperlipidemia Hypertension Social History Smoking Status: Current every day smoker tobacco type: cigarettes packs per day: 1 years smoked: 30 alcohol intake: former substance use type: former substance user and painkillers current occupational status: other Travel in the last 8 weeks: None household members: significant other housing: house marital status: single number of children: 3 caffeine: Yes special sharron needs: No agree to transfusion: No do you feel safe at home: Yes victim of physical abuse: No victim of emotional abuse: No victim of sexual abuse: No would you like helpful sources: No PM Subjective & Objective Subjective Subjective:: Patient is a pleasant 48-year-old female who presents today for insurance denial. Today she rates her pain a 6 out of 10. Patient does state from her last visit she ended up getting sick with pneumonia and had to be put on antibiotics. 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 Patient does state that she has been having more left leg swelling and that did get checked for a blood clot in the ER. She states that her primary care nail has changed her blood pressure medication and did I had a combination medication of hydrochlorothiazide. Patient is scheduled to follow-up with primary care soon. Patient was previously denied a left SI injection as well as MRI due to not having updated physical therapy. Patient has now officially completed her physical therapy of 6 weeks and has continued still to do at home exercising and stretching that was physician guided from the PT. Patient does use [id number] Tylenol and ibuprofen along with heat and ice and topical however states it still only does minimal. Her Fernando has been reviewed and is appropriate. Review of Systems: General: No recent weight changes, no fever, no sleep disturbances Respiratory: No cough, no shortness of air, no recurring pulmonary infections Cardiovascular/peripheral vascular: No chest pain, no palpitations, no edema, no shortness of breath Gastrointestinal: No new onset incontinence, normal bowel movements reported Genitourinary: No new onset incontinence Musculoskeletal: Low back pain left-sided Psychiatric: [Normal mood/affect] Neurological: [Denies weakness in extremities], [denies balance issues] Pain at rest (0-10 scale): 6 Objective Objective:: Physical Exam: General: Alert and oriented x3, no acute distress, pleasant and cooperative Lungs: Respirations even and unlabored, symmetrical chest expansion Eyes: PERRL Musculoskeletal: Flexion and extension of lumbar [spine] somewhat guarded secondary to pain, [antalgic gait noted] point tenderness along left SI with positive left Jemal's, Swapna's, Gaenslen's, compression and distraction exam Neurological: Speech clear, no gross sensory deficit Has patient had previous pain injection?: No Conservative treatment options previously tried: NSAIDS Length of treatment: Longer than 6 weeks, Home exercise plan Length of treatment: Longer than 6 weeks and Physical Therapy Length of treatment: Longer than 6 weeks Meds Home Medications and Allergies Home Medications Medication Instructions Recorded Confirmed Type albuterol sulfate 90 mcg/actuation 2 puff inhalation Q6H PRN 07/02/21 11/29/23 Rx aerosol inhaler (Proventil HFA) shortness of breath or wheezing #8.5 grams umeclidinium 62.5 mcg-vilanterol See Rx Instructions .Route 07/09/22 11/29/23 History 25 mcg/actuation powdr for .COMPLEX Asthma inhalation (Anoro Ellipta) propranolol 20 mg tablet 20 mg PO DAILY 02/18/23 11/29/23 History pantoprazole 40 mg tablet,delayed 40 mg PO DAILY 07/05/23 11/29/23 History release paroxetine HCl 10 mg tablet 10 mg PO DAILY 08/31/23 11/29/23 History losartan 100 mg tablet 100 mg PO DAILY 11/11/23 11/29/23 History nifedipine 30 mg tablet,extended 30 mg PO DAILY 11/11/23 11/29/23 History release 24 hr (Procardia XL) oxybutynin chloride 10 mg 10 mg PO DAILY 11/11/23 11/29/23 History tablet,extended release 24 hr albuterol sulfate 1.25 mg/3 mL 1.25 mg (3 mL) inhalation QID PRN 11/29/23 Rx solution for nebulization shortness of breath or wheezing #90 mL azithromycin 250 mg tablet See Rx Instructions PO .COMPLEX #6 11/29/23 Rx tabs benzonatate 100 mg capsule 100 mg PO TID PRN cough #30 caps 11/29/23 Rx methylprednisolone 4 mg tablets in See Rx Instructions .Route 11/29/23 Rx a dose pack (Medrol (Obdulio)) .COMPLEX 6 days #21 tabs clindamycin HCl 150 mg capsule 450 mg (3 x 150 mg) PO Q8H 7 days 12/16/23 Rx #63 caps New Prescriptions to Start Prescriptions: Allergies Allergy/AdvReac Type Severity Reaction Status Date / Time codeine Allergy Intermediate SOB Verified 08/31/23 15:07 aspirin Allergy Mild Hives Verified 08/31/23 15:07 Penicillins Allergy Unknown Hives Verified 08/31/23 15:07 Assessment and Plan *Assessment and plan (1) Left hip pain: Status: Acute Category: Medical Code(s): M25.552 - Pain in left hip (2) Sacroiliitis: Status: Acute Category: Medical Code(s): M46.1 - Sacroiliitis, not elsewhere classified (3) Low back pain: Status: Acute Qualifiers: Chronicity: chronic Back pain laterality: left Sciatica presence: with sciatica Sciatica laterality: sciatica of left side Qualified Code(s): M54.42 - Lumbago with sciatica, left side; G89.29 - Other chronic pain Category: Medical Code(s): M54.50 - Low back pain, unspecified Plan Patient continues to have significant pain in and around her low back with new symptoms of leg swelling and soreness going down her left extremity. We will resubmit to insurance for the MRI of her lumbar spine. Patient has tried and failed conservative therapy including completing 6 weeks of physical therapy and continued at home exercise and stretching. Patient will return to clinic in 1 month following her imaging for reevaluation of symptoms and plan of care. I did also discussed with patient in future she still may benefit from SI joint injection. We will follow-up with this at future visits. \ Patient has been instructed to contact the clinic with any concerns before the next appointment. Dr. Green has reviewed this note and agrees with this plan of care. This note was dictated using voice recognition software and make contain errors or omissions.
[2023-12-23 15:37] VITALS: BP 169/67; BP 185/98; PULSE 78; RESP 16; O2SAT 98; BMI 31.5
== END 2023-12-23 23:59 | disposition home or self-care (01) ==
LOC: SC.PAIN 15:22
PROVIDERS: PCP Internal Medicine Adolescent Medicine; Visit Provider Nurse Practitioner Family
DX: G89.29 Other chronic pain (principal); M25.552 Pain in left hip
CPT/HCPCS: 99212; G0463

== ENCOUNTER 2023-12-24 15:28 | Emergency (ER) | payer MEDICAID, SELFPAY ==
[2023-12-24 15:29] VITALS: BP 137/95; PULSE 81; RESP 16; TEMP 36.7; O2SAT 98; BMI 31.5
[2023-12-24 15:37] VITALS: PULSE 84; O2SAT 98
[2023-12-24 15:39] VITALS: PULSE 84; RESP 13; TEMP 36.7; O2SAT 98
--- NOTE | 2023-12-24 15:43 | PC.NURSE ---
CV LAB NOTIFIED OF DOPPLER
--- NOTE | 2023-12-24 15:44 | XR_ITS ---
PROCEDURE INFORMATION: Exam: XR Chest Exam date and time: 12/24/2023 4:20 PM Age: 48 years old Clinical indication: Other: Swelling TECHNIQUE: Imaging protocol: Radiologic exam of the chest. Views: 1 view. COMPARISON: CR XR CHEST PORTABLE 12/16/2023 8:09 PM FINDINGS: Lungs: Unremarkable. No consolidation. Pleural spaces: Unremarkable. No pleural effusion. No pneumothorax. Heart/Mediastinum: Unremarkable. No cardiomegaly. Bones/joints: Unremarkable. IMPRESSION: No acute findings.
--- NOTE | 2023-12-24 15:47 | HMH.EDGENADL ---
Discharge Plan Disposition Patient Disposition: Home, Self-Care Chief Complaint: Recheck/Abnormal Lab/Rx Prescriptions Prescriptions: No Action paroxetine HCl 10 mg tablet 10 mg PO DAILY oxybutynin chloride 10 mg tablet extended release 24hr 10 mg PO DAILY Patient Comments: TAKE 1 TABLET BY MOUTH DAILY losartan 100 mg tablet 100 mg PO DAILY nifedipine [Procardia XL] 30 mg tablet extended release 24hr 30 mg PO DAILY albuterol sulfate [Proventil HFA] 90 mcg/actuation HFA aerosol inhaler 2 puff INHALATION Q6H PRN (Reason: shortness of breath or wheezing) Qty: 8.5 2RF propranolol 20 mg tablet 20 mg PO DAILY albuterol sulfate 1.25 mg/3 mL solution for nebulization 1.25 mg inhalation QID PRN (Reason: shortness of breath or wheezing) Qty: 90 0RF benzonatate 100 mg capsule 100 mg PO TID PRN (Reason: cough) Qty: 30 0RF azithromycin 250 mg tablet See Rx Instructions .ROUTE .COMPLEX Qty: 6 0RF Rx Instructions: For 250 mg dose pack: take 500 mg today (day 1), then 250 mg for 4 days (days 2-5). Stop cholesterol medication while taking this antibiotic. methylprednisolone [Medrol (Obdulio)] 4 mg tablets,dose pack See Rx Instructions .ROUTE .COMPLEX 6 Days Qty: 21 0RF Rx Instructions: 4 mg orally ;Medrol dose taper obdulio clindamycin HCl 150 mg capsule 450 mg PO Q8H 7 Days Qty: 63 0RF Anoro Ellipta 62.5-25 mcg/actuation blister with device See Rx Instructions .ROUTE .COMPLEX Rx Instructions: 1 PUFF ONCE DAILY pantoprazole 40 mg tablet,delayed release (DR/EC) 40 mg PO DAILY Patient Comments: TAKE 1 TABLET BY MOUTH EVERY DAY Referrals Follow up/Referrals: Mary Hager PA [Primary Care Provider] - See instructions Activity Restrictions/Add. Instructions Additional Instructions/Restrictions: Call your family doctor to establish care for this visit to the emergency department and schedule follow-up within 48 hours to ensure improvement. If you have any worsening of your condition or any other concerning signs or symptoms, return to the emergency department or your primary care doctor for further evaluation. Clinical Impressions Clinical Impression: Dependent edema Discharge ED Provider: Daniel Farias General Adult HPI General Chief complaint: Recheck/Abnormal Lab/Rx Stated complaint: left foot/leg pain/swelling, no accident Time Seen by Provider: 12/24/23 15:30 Mode of Arrival: Ambulatory Source of Information: Patient Limitations: No Limitations Description of Symptoms (Recalled from ER Triage Doc. by RN): pt presents to ED with c/o left lower leg swelling. pt reports symptoms have been ongoing for the past couple of weeks . pt reports she began to notices redness and more pain. pt has been seen for this issue recently. History of Present Illness HPI narrative: Please note that above description of symptoms, in this electronic medical record under categorization of recalled from ER triage doctor by RN are reflective of an initial nursing assessment, however, is not reflective of my full history and physical exam that was personally taken and clarified. Consequentially, this preceding description of symptoms, which may include the patient's categorized chief complaint in the EMR, do not reflect my personal clinical impression, and the ultimate description of history of present illness and patient stated complaints should be deferred to this section of the note. Unless stated otherwise or congruent with this section of the note, additional signs, symptoms, or incongruence should be interpreted as inaccurate with my clinical impression. Related Data Home Medications Medication Instructions Recorded Confirmed umeclidinium 62.5 mcg-vilanterol See Rx Instructions .Route 07/09/22 12/23/23 25 mcg/actuation powdr for .COMPLEX Asthma inhalation (Anoro Ellipta) propranolol 20 mg tablet 20 mg PO DAILY 02/18/23 12/23/23 pantoprazole 40 mg tablet,delayed 40 mg PO DAILY 07/05/23 12/23/23 release paroxetine HCl 10 mg tablet 10 mg PO DAILY 08/31/23 12/23/23 losartan 100 mg tablet 100 mg PO DAILY 11/11/23 12/23/23 nifedipine 30 mg tablet,extended 30 mg PO DAILY 11/11/23 12/23/23 release 24 hr (Procardia XL) oxybutynin chloride 10 mg 10 mg PO DAILY 11/11/23 12/23/23 tablet,extended release 24 hr Previous Rx's Medication Instructions Recorded albuterol sulfate 90 mcg/actuation 2 puff inhalation Q6H PRN 07/02/21 aerosol inhaler (Proventil HFA) shortness of breath or wheezing #8.5 grams albuterol sulfate 1.25 mg/3 mL 1.25 mg (3 mL) inhalation QID PRN 11/29/23 solution for nebulization shortness of breath or wheezing #90 mL azithromycin 250 mg tablet See Rx Instructions PO .COMPLEX #6 11/29/23 tabs benzonatate 100 mg capsule 100 mg PO TID PRN cough #30 caps 11/29/23 methylprednisolone 4 mg tablets in See Rx Instructions .Route 11/29/23 a dose pack (Medrol (Obdulio)) .COMPLEX 6 days #21 tabs clindamycin HCl 150 mg capsule 450 mg (3 x 150 mg) PO Q8H 7 days 12/16/23 #63 caps Allergies Allergy/AdvReac Type Severity Reaction Status Date / Time codeine Allergy Intermediate SOB Verified 08/31/23 15:07 aspirin Allergy Mild Hives Verified 08/31/23 15:07 Penicillins Allergy Unknown Hives Verified 08/31/23 15:07 PFSH PFS Disclaimer: The information contained in this section may have been updated after the patient was seen, as this information can be updated by other users. Medical History MIGUE (obstructive sleep apnea) Stenosis of cervix Menorrhagia with irregular cycle Migraine Costochondral chest pain Second degree burn Trichomonal vaginitis History of chlamydia Neuropathic pain Tobacco use Vitamin D deficiency (~01/23/18) Leg pain Hypertension Surgical History History of endometrial ablation H/O cervical polypectomy History of hysteroscopy History of colonoscopy History of dental surgery Hx of section History of tubal ligation Family History Other Asthma Cancer Coronary artery disease Family history of COPD (chronic obstructive pulmonary disease) Family history of cancer Family history of diabetes mellitus type II Family history of myocardial infarction Heart attack Hyperlipidemia Hypertension Social History Smoking Status: Current every day smoker tobacco type: cigarettes packs per day: 1 years smoked: 30 alcohol intake: former substance use type: former substance user and painkillers current occupational status: other Travel in the last 8 weeks: None household members: significant other housing: house marital status: single number of children: 3 caffeine: Yes special sharron needs: No agree to transfusion: No do you feel safe at home: Yes victim of physical abuse: No victim of emotional abuse: No victim of sexual abuse: No would you like helpful sources: No ROS Obtained: Yes All systems reviewed & no additional complaints except as documented Physical Exam General General appearance: alert and in no apparent distress Head Head exam: atraumatic and normocephalic Eye Eye exam: Present normal appearance, PERRL and EOMI ENT ENT exam: Present mucous membranes moist Neck Neck exam: Present normal inspection, full ROM and trachea midline Respiratory Respiratory exam: Absent respiratory distress, wheezes, stridor, accessory muscle use or prolonged expiratory phase Cardiovascular Cardiovascular exam: Present normal rhythm Abdominal Exam Abdominal exam: Present soft; Absent distention, tenderness, guarding, rebound or rigidity Extremities Exam Extremities exam: Present tenderness, edema and other (Tenderness, fusiform edema with scant erythema laterally left lower extremity. Right lower extremity much less swollen visibly and palpably. Pitting edema in left lower extremity, not right lower extremity.) Neurological Exam Neurological exam: Present alert, oriented X3, CN II-XII intact and normal gait; Absent motor sensory deficit Skin Skin exam: Present warm and dry; Absent diaphoresis or erythema Medical Decision Making Medical Records Medical records reviewed: Yes I reviewed the patient's medical records. Fernando Inquiry Pt receiving controlled substance: No Fernando was queried for this patient: No Vital Signs: 12/24/23 15:29 12/24/23 15:37 12/24/23 15:39 Temperature 98.0 F 98.0 F Temperature Source Oral Pulse Rate 84 Pulse Rate [Left Radial] 81 84 Respiratory Rate 16 13 Blood Pressure [Right Arm] 137/95 H Blood Pressure Mean [Right Arm] 109 02 Sat by Pulse Oximetry 98 98 98 Oxygen Delivery Method Room Air Room Air Room Air Lab Data Lab Results 12/24/23 15:50: WBC 7.5, RBC 3.87 L, Hgb 11.9 L, Hct 35.0 L, MCV 90.5, MCH 30.8, MCHC 34.0, RDW 14.6, Plt Count 317, MPV 7.6, Neut % (Auto) 68.9, Lymph % (Auto) 24.4, Dixon % (Auto) 4.5, Eos % (Auto) 1.7, Baso % (Auto) 0.5, Neut # (Auto) 5.2, Lymph # (Auto) 1.8, Dixon # (Auto) 0.3, Eos # (Auto) 0.1, Baso # (Auto) 0.0, Sodium 140, Potassium 3.6, Chloride 104, Carbon Dioxide 27, Anion Gap 12.6, BUN 21 H, Creatinine 0.90, Estimated Creat Clear 100, Estimated GFR 67, Est GFR ( Amer) 82, Glucose 106 H, Uric Acid 5.9, Calcium 9.4, Total Bilirubin 0.3, AST 23, ALT 16, Alkaline Phosphatase 102, Total Creatine Kinase 85, NT-Pro-B Natriuret Pep 152 H, Total Protein 7.8, Albumin 4.5, Globulin 3.3 H, Albumin/Globulin Ratio 1.4 12/24/23 15:50 12/24/23 15:50 Orders (Tests/Meds): ORDERS Category Date Time Status CXR --portable [XR chest portable] Stat Exams 12/24/23 15:44 Taken BNP [NT Pro Brain Natriuretic Pep.] Stat Lab 12/24/23 15:50 Completed CBC w/Auto Diff [Complete Blood Count Auto Diff] Stat Lab 12/24/23 15:50 Completed CK [Creatine Kinase] Stat Lab 12/24/23 15:50 Completed CMP [Comprehensive Metabolic Panel] Stat Lab 12/24/23 15:50 Completed Uric Acid Stat Lab 12/24/23 15:50 Completed CA venous doppler LE LT Stat Y 12/24/23 15:42 Completed Medical Decision Narrative: 48-year-old female history of hypertension and COPD currently on hydrochlorothiazide and carvedilol presenting with left lower extremity swelling. Patient states that she swells in her legs after long days at work, primarily in right and left together, generally worse in the right, but for the past few days it has been worse in her left lower extremity. Was seen previously, ultrasound was negative for DVT and [id number] patient sent home with hydrochlorothiazide. Today, patient states this got significantly worse and is now red. No swelling in her right lower extremity, only her left lower extremity and pain with bearing weight. No chest pain, shortness of breath,, nausea, vomiting, fevers, chills, diarrhea, constipation, recent outdoor activities, bug bites, ticks, injury to the extremity, or any other concerns. No DVT or PE risk factors otherwise. History was obtained via conversation with patient and . On arrival, patient hemodynamically stable, alert, oriented x4, appropriate, GCS 15, moving all extremities spontaneously, pupils equal and reactive to light. Full physical exam performed and significant for pitting edema and erythema left lower extremity from knee onward. Visibly and palpably differently on the right. Neurovascular intact with range of motion intact, patient is ambulatory, but appears to be limping on that side. Knee is structurally intact. Differential includes dependent edema, CHF, DVT, cellulitis, compartment syndrome, gout, among others. Workup independently interpreted and significant for nonactionable CBC or chemistry, BNP negative. Chest x-ray without acute cardiopulmonary airspace disease. Left lower extremity DVT ultrasound without acute pathology. See radiology read for full review of final results.Given patient presentation, workup, history, this most likely represents dependent edema. I also feel this is less likely to be cellulitis given no warmth, tenderness, or systemic symptoms because patient at baseline without signs or symptoms of clinical decompensation, deemed appropriate for discharge. Results were relayed to patient who voiced understanding and were agreeable to outpatient management and follow up. I discussed my clinical impression with patient and answered all questions. At this time, the evidence for any other entities in the differential is insufficient to warrant any further testing or ED observation. This was explained as well. Advisory was given that persistent or worsening symptoms require further evaluation. I confirmed the understanding of this discussion. Line Painting Machine Operator disclaimer Much of this encounter note is an electronic commercial lending assistant spoken language to printed text. Electronic commercial lending assistant of the spoken language may permit errors. Although I have reviewed the note, some errors may still exist. Critical Care Critical Care Time Critical Care Time: No
[2023-12-24 16:19] LABS: Basophils % 0.5 % (0.1-2.0); Eosinophils # 0.1 K/mm3 (0.0-0.4); Eosinophils % 1.7 % (0.1-12.0); Hemoglobin 11.9 g/dL (12.2-16.2); Lymphocytes # 1.8 K/mm3 (0.7-4.5); Lymphocytes % 24.4 % (10-50); Mean Corpuscular Hemoglobin 30.8 pg (27.0-31.2); Mean Corpuscular Volume 90.5 fl (81-99); Mean Platelet Volume 7.6 fl (7.4-10.4); Monocytes # 0.3 K/mm3 (0.1-1.0); Monocytes % 4.5 % (1.7-9.3); Neutrophils # 5.2 K/mm3 (1.8-7.8); Neutrophils % 68.9 % (37.0-80.0); Platelet Count 317 K/mm3 (142-424); Red Blood Count 3.87 M/mm3 (4.20-5.40); Red Cell Distribution Width 14.6 % (11.5-17.5); White Blood Count 7.5 K/mm3 (4.8-10.8)
[2023-12-24 16:22] LABS: Uric Acid 5.9 mg/dl (2.5-6.2)
[2023-12-24 16:23] LABS: Alanine Aminotransferase 16 U/L (12-78); Albumin Level 4.5 g/dl (3.5-5.0); Albumin/Globulin Ratio 1.4 (1.1-1.8); Alkaline Phosphatase 102 U/L (38-126); Anion Gap 12.6 mEq/L (5-15); Aspartate Amino Transferase 23 U/L (14-36); Bilirubin,Total 0.3 mg/dl (0.2-1.3); Blood Urea Nitrogen 21 mg/dl (7-17); Calcium 9.4 mg/dl (8.4-10.2); Carbon Dioxide 27 mmol/L (22.0-30.0); Chloride 104 mmol/L (98-107); Creatine Kinase 85 U/L (30-135); Creatinine Clearance Estimated 100 mL/min (50-200); Estimated Glomerular Filt Rate 67 ml/min (>60); GFR (African American) 82 ML/MIN (>60); Globulin 3.3 g/dL (1.3-3.2); Glucose 106 mg/dl (74-100); Potassium 3.6 mmoL/L (3.5-5.1); Sodium 140 mmol/L (136-145); Total Protein,Serum 7.8 g/dl (6.3-8.2)
--- NOTE | 2023-12-24 16:25 | PC.NURSE ---
XR AT BEDSIDE
[2023-12-24 16:32] LABS: NT Pro Brain Natriuretic Pep. 152 pg/mL (0-125)
[2023-12-24 16:56] VITALS: BP 161/108; PULSE 71; O2SAT 100
[2023-12-24 17:04] VITALS: BP 158/100; PULSE 72; RESP 13; TEMP 36.7; O2SAT 100
== END 2023-12-24 17:05 | disposition home or self-care (01) ==
PROVIDERS: Emergency Provider Emergency Medicine; PCP Physician Assistant
DX: M79.605 Pain in left leg (principal); R60.0 Localized edema; F17.210 Nicotine dependence, cigarettes, uncomplicated; J44.9 Chronic obstructive pulmonary disease, unspecified; I10 Essential (primary) hypertension
CPT/HCPCS: 71045; 80053; 82550; 83880; 84550; 85025; 93971; 99284

== ENCOUNTER 2024-01-06 17:39 | Outpatient (CLI) | payer MEDICAID, SELFPAY ==
--- NOTE | 2024-01-06 17:41 | MR_ITS ---
FINAL REPORT CLINICAL HISTORY: LOW BACK PAIN FINDINGS: Multiplanar MR imaging of the lumbar spine was performed without contrast. On the sagittal T2-weighted images, mild disc degeneration is seen at several levels. The vertebral alignment is normal. There is no evidence of fracture. The conus has an unremarkable appearance. L1-2: A mild annular bulge is present. No significant neural foraminal narrowing is seen. L2-3: A mild annular bulge is present. There is no evidence of neural foraminal narrowing or significant central canal stenosis. L3-4: A mild annular bulge is present. No significant neural foraminal narrowing is seen. L4-5: An annular bulge is present. No significant neural foraminal narrowing is seen. L5-S1: An annular bulge is present. No significant neural foraminal narrowing is seen. IMPRESSION: Multilevel mild annular bulges. No focal disc protrusion or significant central canal stenosis. Authenticated and ERN
== END 2024-01-06 23:59 | disposition home or self-care (01) ==
LOC: RAD 17:39
PROVIDERS: PCP Internal Medicine Adolescent Medicine; Visit Provider Nurse Practitioner Family
DX: M54.50 Low back pain, unspecified (principal)
CPT/HCPCS: 72148

== ENCOUNTER 2024-01-08 10:44 | Outpatient (CLI) | payer MEDICAID, SELFPAY ==
[2024-01-08 11:15] LABS: Basophils # 0.1 K/mm3 (0-0.2); Basophils % 0.8 % (0.1-2.0); Eosinophils # 0.1 K/mm3 (0.0-0.4); Eosinophils % 1.3 % (0.1-12.0); Hemoglobin 12.5 g/dL (12.2-16.2); Lymphocytes # 1.7 K/mm3 (0.7-4.5); Lymphocytes % 28.8 % (10-50); Mean Corpuscular HGB Conc 32.8 g/dL (31.8-35.4); Mean Corpuscular Hemoglobin 29.9 pg (27.0-31.2); Mean Corpuscular Volume 91.2 fl (81-99); Mean Platelet Volume 8.8 fl (7.4-10.4); Monocytes # 0.2 K/mm3 (0.1-1.0); Monocytes % 3.7 % (1.7-9.3); Neutrophils # 3.9 K/mm3 (1.8-7.8); Neutrophils % 65.4 % (37.0-80.0); Platelet Count 290 K/mm3 (142-424); Red Blood Count 4.17 M/mm3 (4.20-5.40); Red Cell Distribution Width 14.6 % (11.5-17.5)
[2024-01-08 11:27] LABS: Alanine Aminotransferase 16 U/L (12-78); Albumin Level 4.3 g/dl (3.5-5.0); Albumin/Globulin Ratio 1.4 (1.1-1.8); Alkaline Phosphatase 102 U/L (38-126); Anion Gap 7.9 mEq/L (5-15); Aspartate Amino Transferase 22 U/L (14-36); Bilirubin,Total 0.6 mg/dl (0.2-1.3); Blood Urea Nitrogen 23 mg/dl (7-17); Calcium 9.1 mg/dl (8.4-10.2); Carbon Dioxide 28 mmol/L (22.0-30.0); Chloride 108 mmol/L (98-107); Cholesterol 202 mg/dl (140-200); Estimated Glomerular Filt Rate 60 ml/min (>60); GFR (African American) 72 ML/MIN (>60); Glucose 106 mg/dl (74-100); HDL Cholesterol 51 mg/dl (40-60); Magnesium 2.1 mg/dl (1.6-2.3); Potassium 3.9 mmoL/L (3.5-5.1); Sodium 140 mmol/L (136-145); Total Protein,Serum 7.3 g/dl (6.3-8.2); Triglycerides 123 mg/dl (30-150); VLDL Cholesterol 25 mg/dL (0-40)
[2024-01-08 11:37] LABS: Direct LDL Cholesterol 103.47 mg/dL (100-129)
[2024-01-08 11:57] LABS: Thyroid Stimulating Hormone 1.22 uIU/mL (0.465-4.68)
[2024-01-08 12:16] LABS: Hemoglobin A1C 5.2 % (4.0-6.0); Vitamin B12 728 pg/mL (239-931)
[2024-01-08 12:58] LABS: 25-OH Vitamin D, Total 30.3 ng/mL (30-100)
== END 2024-01-08 23:59 | disposition home or self-care (01) ==
LOC: LAB 10:46
PROVIDERS: PCP Physician Assistant; Visit Provider Physician Assistant
DX: Z00.00 Encounter for general adult medical examination without abnormal findings (principal); R53.83 Other fatigue; F17.200 Nicotine dependence, unspecified, uncomplicated; R20.0 Anesthesia of skin; I10 Essential (primary) hypertension; J44.9 Chronic obstructive pulmonary disease, unspecified; F41.9 Anxiety disorder, unspecified; M79.605 Pain in left leg; M46.1 Sacroiliitis, not elsewhere classified; Z82.49 Family history of ischemic heart disease and other diseases of the circulatory system; Z83.3 Family history of diabetes mellitus
CPT/HCPCS: 80050; 80053; 80061; 82306; 82607; 83036; 83735; 84443; 85025

== ENCOUNTER 2024-01-20 15:21 | Outpatient (POV) | payer MEDICAID, SELFPAY ==
--- NOTE | 2024-01-20 15:23 | A.OFFVIS_ITS ---
[facility] Disclaimer: The information contained in this section may have been updated after the patient was seen, as this information can be updated by other users. Medical History MIGUE (obstructive sleep apnea) Stenosis of cervix Menorrhagia with irregular cycle Migraine Costochondral chest pain Second degree burn Trichomonal vaginitis History of chlamydia Neuropathic pain Tobacco use Vitamin D deficiency (~01/23/18) Leg pain Hypertension Surgical History History of endometrial ablation H/O cervical polypectomy History of hysteroscopy History of colonoscopy History of dental surgery Hx of section History of tubal ligation Family History Other Asthma Cancer Coronary artery disease Family history of COPD (chronic obstructive pulmonary disease) Family history of cancer Family history of diabetes mellitus type II Family history of myocardial infarction Heart attack Hyperlipidemia Hypertension Social History Smoking Status: Current every day smoker tobacco type: cigarettes packs per day: 1 years smoked: 30 alcohol intake: former substance use type: former substance user and painkillers current occupational status: other Travel in the last 8 weeks: None household members: significant other housing: house marital status: single number of children: 3 caffeine: Yes special sharron needs: No agree to transfusion: No do you feel safe at home: Yes victim of physical abuse: No victim of emotional abuse: No victim of sexual abuse: No would you like helpful sources: No PM Subjective & Objective Subjective Subjective:: Patient is a pleasant 48-year-old female who presents today for follow-up of her lumbar MRI. Today she rates her pain a 5 out of 10. Patient from her last visit does state that she ended up having fluid in that left leg and that they ended up changing her medications and adding to blood pressure medications and 1 that did have a fluid pill within it. She states that the leg is doing much better and not holding the fluid or edema as it had. Patient does state that she still has chronic pain in her low back more prominent on the left side. She does describe it as an aching, throbbing sensation. Patient was previously tried to be submitted for a left SI injection however it was denied by insurance for lack of updated MRI and physical therapy. Patient has now had her updated imaging and did complete physical therapy and was released with no additional changes. Patient has continued to try [id number] medications along with heat and ice and topicals with no changes. Patient is currently on Flexeril however she states that she just takes it at bedtime and that it does typically make her feel hung over the next day.Her Fernando has been reviewed and is appropriate. Review of Systems: General: No recent weight changes, no fever, no sleep disturbances Respiratory: No cough, no shortness of air, no recurring pulmonary infections Cardiovascular/peripheral vascular: No chest pain, no palpitations, no edema, no shortness of breath Gastrointestinal: No new onset incontinence, normal bowel movements reported Genitourinary: No new onset incontinence Musculoskeletal: Low back pain Psychiatric: [Normal mood/affect] Neurological: [Denies weakness in extremities], [denies balance issues] Pain at rest (0-10 scale): 5 Objective Objective:: Physical Exam: General: Alert and oriented x3, no acute distress, pleasant and cooperative Lungs: Respirations even and unlabored, symmetrical chest expansion Eyes: PERRL Musculoskeletal: Flexion and extension of lumbar [spine] somewhat guarded secondary to pain, [antalgic gait noted] Neurological: Speech clear, no gross sensory deficit FINDINGS: Multiplanar MR imaging of the lumbar spine was performed without contrast. On the sagittal T2-weighted images, mild disc degeneration is seen at several levels. The vertebral alignment is normal. There is no evidence of fracture. The conus has an unremarkable appearance. L1-2: A mild annular bulge is present. No significant neural foraminal narrowing is seen. L2-3: A mild annular bulge is present. There is no evidence of neural foraminal narrowing or significant central canal stenosis. L3-4: A mild annular bulge is present. No significant neural foraminal narrowing is seen. L4-5: An annular bulge is present. No significant neural foraminal narrowing is seen. L5-S1: An annular bulge is present. No significant neural foraminal narrowing is seen. IMPRESSION: Multilevel mild annular bulges. No focal disc protrusion or significant central canal stenosis. Authenticated and ERN Has patient had previous pain injection?: No Conservative treatment options previously tried: Home exercise plan Length of treatment: Longer than 6 weeks and Prescription medications Length of treatment: Longer than 6 weeks Meds Home Medications and Allergies Home Medications ?Medication ?Instructions ?Recorded ?Confirmed ?Type albuterol sulfate 90 mcg/actuation 2 puff inhalation Q6H PRN 07/02/21 12/23/23 Rx aerosol inhaler (Proventil HFA) shortness of breath or wheezing #8.5 grams umeclidinium 62.5 mcg-vilanterol See Rx Instructions .Route 07/09/22 12/23/23 History 25 mcg/actuation powdr for .COMPLEX Asthma inhalation (Anoro Ellipta) pantoprazole 40 mg tablet,delayed 40 mg PO DAILY 07/05/23 12/23/23 History release paroxetine HCl 10 mg tablet 10 mg PO DAILY 08/31/23 12/23/23 History oxybutynin chloride 10 mg 10 mg PO DAILY 11/11/23 12/23/23 History tablet,extended release 24 hr albuterol sulfate 1.25 mg/3 mL 1.25 mg (3 mL) inhalation QID PRN 11/29/23 12/23/23 Rx solution for nebulization shortness of breath or wheezing #90 mL carvedilol 12.5 mg tablet 12.5 mg PO DAILY 01/20/24 01/20/24 History hydrochlorothiazide 12.5 mg tablet 12.5 mg PO DAILY 01/20/24 01/20/24 History New Prescriptions to Start Prescriptions: Allergies Allergy/AdvReac Type Severity Reaction Status Date / Time codeine Allergy Intermediate SOB Verified 08/31/23 15:07 aspirin Allergy Mild Hives Verified 08/31/23 15:07 Penicillins Allergy Unknown Hives Verified 08/31/23 15:07 Assessment and Plan *Assessment and plan (1) Degenerative disc disease, lumbar: Status: Acute Category: Medical Code(s): M51.36 - Other intervertebral disc degeneration, lumbar region (2) Sacroiliitis: Status: Acute Category: Medical Code(s): M46.1 - Sacroiliitis, not elsewhere classified (3) Left hip pain: Status: Acute Category: Medical Code(s): M25.552 - Pain in left hip Plan Patient is still experiencing additional pain in her low back I did discuss with the patient in future she may still benefit from SI injection however at this time we will try a new muscle relaxer. Patient will be changed to baclofen 5 mg twice daily with a 2-week supply. I have counseled the patient to call our office if this does not help better than the Flexeril. Patient was counseled to discontinue the Flexeril while she tries this medication. Patient acknowledges understanding. Patient will return to clinic in 1 month for reevaluation of symptoms and plan of care. Patient has been instructed to contact the clinic with any concerns before the next appointment. Dr. Green has reviewed this note and agrees with this plan of care. This note was dictated using voice recognition software and make contain errors or omissions. All injections are used with Lidocaine or Bupivacaine and Depo Medrol.
[2024-01-20 15:29] VITALS: BP 119/89; PULSE 77; RESP 18; O2SAT 99; BMI 30.4
== END 2024-01-20 23:59 | disposition home or self-care (01) ==
PROVIDERS: PCP Physician Assistant; Visit Provider Nurse Practitioner Family
DX: M51.36 Other intervertebral disc degeneration, lumbar region (principal); M46.1 Sacroiliitis, not elsewhere classified; M25.552 Pain in left hip; F17.210 Nicotine dependence, cigarettes, uncomplicated; Z79.899 Other long term (current) drug therapy
CPT/HCPCS: 99212; G0463

== ENCOUNTER 2024-02-23 15:40 | Outpatient (CLI) | payer MEDICAID, SELFPAY ==
--- NOTE | 2024-02-23 15:49 | XR_ITS ---
FINAL REPORT CLINICAL HISTORY: ACUTE LEFT FOOT PAIN FINDINGS: LEFT FOOT Three views of the left foot demonstrate no acute fracture or dislocation. The visualized joint spaces are normally aligned. The soft tissues are unremarkable. IMPRESSION: No acute bony abnormality. Reviewed, Interpreted and Dictated by Wilian Esquivel MD Transcribed by Vida Tirado Authenticated and [facility]
--- NOTE | 2024-02-23 15:49 | XR_ITS ---
FINAL REPORT CLINICAL HISTORY: ACUTE LEFT ANKLE PAIN FINDINGS: LEFT ANKLE Three views demonstrate no acute fracture or dislocation. The mortise is intact. There is soft tissue edema about the ankle. IMPRESSION: Soft tissue edema with no acute bony abnormality. Reviewed, Interpreted and Dictated by Wilian Esquivel MD Transcribed by Vida Tirado Authenticated and [facility]
== END 2024-02-23 23:59 | disposition home or self-care (01) ==
LOC: RAD 15:43
PROVIDERS: PCP Internal Medicine Adolescent Medicine; Visit Provider Physician Assistant
DX: M25.572 Pain in left ankle and joints of left foot (principal)
CPT/HCPCS: 73610; 73630

== ENCOUNTER 2024-03-17 14:18 | Outpatient (CLI) | payer MEDICAID, SELFPAY ==
--- NOTE | 2024-03-17 | CT_ITS ---
FINAL REPORT TECHNIQUE: Axial CT without IV contrast administration. This study was performed with techniques to keep radiation doses as low as reasonably achievable (ALARA). Individualized dose reduction techniques using automated exposure control or adjustment of mA and/or kV according to the patient's size were employed. This study was performed with techniques to keep radiation doses as low as reasonably achievable, (ALARA). Individualized dose reduction techniques using automated exposure control or adjustment of mA and/or kV according to the patient''s size were employed. CLINICAL HISTORY: CHRONIC COUGH FINDINGS: No acute lung disease is present. No pleural or pericardial effusion is seen. No adenopathy or mass lesion is present. Limited images of the upper abdomen reveal bilateral adrenal masses with density characteristics consistent with adenomas. Largest on the right measures up to 3 cm. IMPRESSION: 1. No acute disease. Reviewed, Interpreted and Dictated by La Gurrola MD Transcribed by Denae Perez Authenticated and [facility]
== END 2024-03-17 23:59 | disposition home or self-care (01) ==
LOC: RAD 14:18
PROVIDERS: PCP Internal Medicine Adolescent Medicine; Visit Provider Physician Assistant
DX: R05.3 Chronic cough (principal)
CPT/HCPCS: 71250

== ENCOUNTER 2024-03-28 06:44 | Outpatient (CLI) | payer MEDICAID, SELFPAY ==
[2024-03-28 08:29] LABS: Albumin Level 4.6 g/dl (3.5-5.0); Chloride 103 mmol/L (98-107); Potassium 5.2 mmoL/L (3.5-5.1); Sodium 139 mmol/L (136-145)
[2024-03-28 08:31] LABS: Blood Urea Nitrogen 16 mg/dl (7-17); Estimated Glomerular Filt Rate 90 ml/min (>60); GFR (African American) 109 ML/MIN (>60)
[2024-03-28 08:32] LABS: Alanine Aminotransferase 15 U/L (12-78); Albumin/Globulin Ratio 1.5 (1.1-1.8); Alkaline Phosphatase 104 U/L (38-126); Anion Gap 13.2 mEq/L (5-15); Aspartate Amino Transferase 20 U/L (14-36); Bilirubin,Total 0.3 mg/dl (0.2-1.3); Carbon Dioxide 28 mmol/L (22.0-30.0); Glucose 111 mg/dl (74-100); Total Protein,Serum 7.6 g/dl (6.3-8.2)
[2024-03-29 14:15] LABS: Adrenocorticotropic Hormone 2.5 pg/mL (7.2-63.3)
[2024-05-09 13:56] LABS: Dehydroepiandrosterone 47
== END 2024-03-28 23:59 | disposition home or self-care (01) ==
LOC: LAB 06:45
PROVIDERS: PCP Physician Assistant; Visit Provider Physician Assistant
DX: E27.8 Other specified disorders of adrenal gland (principal)
CPT/HCPCS: 36415; 80053; 82024; 82533; 82626

== ENCOUNTER 2024-04-04 12:07 | Outpatient (CLI) | payer MEDICAID, SELFPAY ==
--- NOTE | 2024-04-04 12:15 | XR_ITS ---
FINAL REPORT CLINICAL HISTORY: PAIN COMPARISON: None FINDINGS: CERVICAL SPINE: AP, lateral, oblique and odontoid views of the cervical spine were obtained. There is no prior exam for comparison. There is no acute fracture or malalignment. Mild and moderate degenerative changes present with multilevel osteophytes. Oblique views reveal no evidence of significant neural foraminal narrowing. Vertebral body height is preserved. The precervical soft tissues are normal. IMPRESSION: Mild to moderate degenerative change with multilevel osteophytes, without evidence of significant bony neural foraminal narrowing. Reviewed, Interpreted and Dictated by Robby Claros III, MD Transcribed by April Perez Authenticated and [facility]
== END 2024-04-04 23:59 | disposition home or self-care (01) ==
LOC: RAD 12:08
PROVIDERS: PCP Physician Assistant; Visit Provider Physician Assistant
DX: M54.9 Dorsalgia, unspecified (principal)
CPT/HCPCS: 72050

== ENCOUNTER 2024-04-12 15:01 | Outpatient (POV) | payer MEDICAID, SELFPAY ==
[2024-04-12 15:28] VITALS: BP 161/94; PULSE 78; RESP 18; O2SAT 99; BMI 30.4
--- NOTE | 2024-04-12 15:39 | EXP.PAIN.SOA ---
[facility] Disclaimer: The information contained in this section may have been updated after the patient was seen, as this information can be updated by other users. Medical History MIGUE (obstructive sleep apnea) Stenosis of cervix Menorrhagia with irregular cycle Migraine Costochondral chest pain Second degree burn Trichomonal vaginitis History of chlamydia Neuropathic pain Tobacco use Vitamin D deficiency (~01/23/18) Leg pain Hypertension Surgical History History of endometrial ablation H/O cervical polypectomy History of hysteroscopy History of colonoscopy History of dental surgery Hx of section History of tubal ligation Family History Other Asthma Cancer Coronary artery disease Family history of COPD (chronic obstructive pulmonary disease) Family history of cancer Family history of diabetes mellitus type II Family history of myocardial infarction Heart attack Hyperlipidemia Hypertension Social History Smoking Status: Current every day smoker tobacco type: cigarettes packs per day: 1 years smoked: 30 alcohol intake: former substance use type: former substance user and painkillers current occupational status: other Travel in the last 8 weeks: None household members: significant other housing: house marital status: single number of children: 3 caffeine: Yes special sharron needs: No agree to transfusion: No do you feel safe at home: Yes victim of physical abuse: No victim of emotional abuse: No victim of sexual abuse: No would you like helpful sources: No PM Subjective & Objective Subjective Subjective:: Patient is a pleasant 48-year-old female who presents today for follow-up. Today she rates her pain a 6 out of 10. She denies any new trauma or injury. She does state that she is continue to have stiffness along her neck along the left side primarily. Patient states that it does go into her shoulder. Patient is scheduled for her first appointment with physical therapy tomorrow. Patient does state that she did end up trying the compounded cream and it did help a little. Patient does also state that the baclofen 5 mg twice a day she ended up cutting the tablet in half and that that does seem to help additionally. Patient is scheduled for bladder surgery on 16 May. Patient does also state that she is scheduled for a chiropractor visit coming up there at [facility]. Her Fernando has been reviewed and is appropriate. Review of Systems: General: No recent weight changes, no fever, no sleep disturbances Respiratory: No cough, no shortness of air, no recurring pulmonary infections Cardiovascular/peripheral vascular: No chest pain, no palpitations, no edema, no shortness of breath Gastrointestinal: No new onset incontinence, normal bowel movements reported Genitourinary: No new onset incontinence Musculoskeletal: Neck pain Psychiatric: [Normal mood/affect] Neurological: [Denies weakness in extremities], [denies balance issues] Pain at rest (0-10 scale): 6 Objective Objective:: Physical Exam: General: Alert and oriented x3, no acute distress, pleasant and cooperative Lungs: Respirations even and unlabored, symmetrical chest expansion Eyes: PERRL Musculoskeletal: Flexion and extension of cervical [spine] somewhat guarded secondary to pain, [antalgic gait noted] Neurological: Speech clear, no gross sensory deficit Has patient had previous pain injection?: No Conservative treatment options previously tried: Home exercise plan Length of treatment: Longer than 6 weeks Meds Home Medications and Allergies Home Medications ?Medication ?Instructions ?Recorded ?Confirmed ?Type albuterol sulfate 90 mcg/actuation 2 puff inhalation Q6H PRN 07/02/21 04/12/24 Rx aerosol inhaler (Proventil HFA) shortness of breath or wheezing #8.5 grams umeclidinium 62.5 mcg-vilanterol See Rx Instructions .Route 07/09/22 04/12/24 History 25 mcg/actuation powdr for .COMPLEX Asthma inhalation (Anoro Ellipta) pantoprazole 40 mg tablet,delayed 40 mg PO DAILY 07/05/23 04/12/24 History release paroxetine HCl 10 mg tablet 10 mg PO DAILY 08/31/23 04/12/24 History albuterol sulfate 1.25 mg/3 mL 1.25 mg (3 mL) inhalation QID PRN 11/29/23 04/12/24 Rx solution for nebulization shortness of breath or wheezing #90 mL baclofen 5 mg tablet 5 mg PO BID #28 tabs 01/20/24 04/12/24 Rx carvedilol 12.5 mg tablet 12.5 mg PO DAILY 01/20/24 04/12/24 History hydrochlorothiazide 12.5 mg tablet 12.5 mg PO DAILY 01/20/24 04/12/24 History amantadine HCl 100 mg tablet 100 mg PO DAILY 03/17/24 04/12/24 History benzonatate 100 mg capsule mg PO 03/17/24 03/17/24 History famotidine 20 mg tablet 20 mg PO DAILY 03/17/24 04/12/24 History fluticasone propionate 50 1 spray intranasal ONCE 03/17/24 04/12/24 History mcg/actuation nasal spray,suspension furosemide 20 mg tablet 20 mg PO DAILY 03/17/24 04/12/24 History ibuprofen 800 mg tablet 800 mg PO ONCE PRN 03/17/24 03/17/24 History levofloxacin 500 mg tablet 500 mg PO DAILY 03/17/24 03/17/24 History losartan 100 mg tablet 100 mg PO DAILY 03/17/24 04/12/24 History nifedipine 30 mg tablet,extended mg PO 03/17/24 03/17/24 History release 24 hr promethazine-DM 6.25 mg-15 mg/5 mL 5 ml PO PRN 03/17/24 03/17/24 History oral syrup triamcinolone acetonide 0.1 % topical 03/17/24 03/17/24 History topical ointment vibegron 75 mg tablet (Gemtesa) 75 mg PO DAILY 03/17/24 04/12/24 History New Prescriptions to Start Prescriptions: Allergies Allergy/AdvReac Type Severity Reaction Status Date / Time codeine Allergy Intermediate SOB Verified 03/17/24 14:48 aspirin Allergy Mild Hives Verified 03/17/24 14:48 Penicillins Allergy Unknown Hives Verified 03/17/24 14:48 Assessment and Plan *Assessment and plan (1) Degenerative disc disease, lumbar: Status: Acute Category: Medical Code(s): M51.36 - Other intervertebral disc degeneration, lumbar region (2) Neck pain: Status: Acute Category: Medical Code(s): M54.2 - Cervicalgia Plan I did review over with the patient that the baclofen is a believe that this is the lowest dosage however that it is a tablet and that she can break it in half. Patient agrees with this plan of care. I did discuss with patient that we will plan on seeing her back in 6 weeks following her physical therapy and that at that time we will proceed forward with ordering the MRI of her cervical spine. Patient agrees with this plan of care. Patient has been instructed to contact the clinic with any concerns before the next appointment. Dr. Green has reviewed this note and agrees with this plan of care. This note was dictated using voice recognition software and make contain errors or omissions. All injections are used with Lidocaine or Bupivacaine and Depo Medrol.
== END 2024-04-12 23:59 | disposition home or self-care (01) ==
PROVIDERS: PCP Internal Medicine Adolescent Medicine; Visit Provider Nurse Practitioner Family
DX: M51.369 Other intervertebral disc degeneration, lumbar region without mention of lumbar back pain or lower extremity pain (principal); M54.2 Cervicalgia; F17.210 Nicotine dependence, cigarettes, uncomplicated; Z79.899 Other long term (current) drug therapy
CPT/HCPCS: 99212; G0463

== ENCOUNTER 2024-06-08 15:00 | Outpatient (RCR) | payer MEDICAID, SELFPAY | END 2024-06-08 23:59 | disposition home or self-care (01) | LOC: PT 15:00 | PROVIDERS: Visit Provider Physician Assistant | DX: M54.2 Cervicalgia (principal) | CPT/HCPCS: 97014; 97110; 97140; 97163; 97164; G0283 ==

== ENCOUNTER 2024-06-15 14:38 | Outpatient (POV) | payer MEDICAID, SELFPAY ==
[2024-06-15 15:12] VITALS: BP 160/94; PULSE 87; RESP 14; O2SAT 100; BMI 30.1
--- NOTE | 2024-06-15 15:14 | EXP.PAIN.SOA ---
[facility] Disclaimer: The information contained in this section may have been updated after the patient was seen, as this information can be updated by other users. Medical History MIGUE (obstructive sleep apnea) Stenosis of cervix Menorrhagia with irregular cycle Migraine Costochondral chest pain Second degree burn Trichomonal vaginitis History of chlamydia Neuropathic pain Tobacco use Vitamin D deficiency (~01/23/18) Leg pain Hypertension Surgical History History of endometrial ablation H/O cervical polypectomy History of hysteroscopy History of colonoscopy History of dental surgery Hx of section History of tubal ligation Family History Other Asthma Cancer Coronary artery disease Family history of COPD (chronic obstructive pulmonary disease) Family history of cancer Family history of diabetes mellitus type II Family history of myocardial infarction Heart attack Hyperlipidemia Hypertension Social History Smoking Status: Current every day smoker tobacco type: cigarettes packs per day: 1 years smoked: 30 alcohol intake: former substance use type: former substance user and painkillers current occupational status: other Travel in the last 8 weeks: None household members: significant other housing: house marital status: single number of children: 3 caffeine: Yes special sharron needs: No agree to transfusion: No do you feel safe at home: Yes victim of physical abuse: No victim of emotional abuse: No victim of sexual abuse: No would you like helpful sources: No PM Subjective & Objective Subjective Subjective:: Patient is a pleasant 48-year-old female who presents today for follow-up. Today she rates her pain a 5 out of 10. She denies any new trauma or injury. Patient does state that she has officially completed her physical therapy and had her last session on Wednesday. Patient states that some of the therapies such as massage did seem like it helps in the moment however she did not notice any long-term changes to her chronic pain. Patient does state that she has gotten her MRI approved and is scheduled for this imaging on 04 July. Patient is also seeing a chiropractor and states this does really seem to help however it does cause severe soreness the next day. She states that she even ended up buying a traction device from this provider and that it does help. Patient states that they have been targeting a spot in her upper neck along the right side. She also states that the chiropractor stated she was out of alignment. Patient is currently managed with compounded cream that she states is helping and that she has been doing the baclofen 5 mg twice a day but does cut this in half because it does still make her drowsy. Her Fernando has been reviewed and is appropriate. Review of Systems: General: No recent weight changes, no fever, no sleep disturbances Respiratory: No cough, no shortness of air, no recurring pulmonary infections Cardiovascular/peripheral vascular: No chest pain, no palpitations, no edema, no shortness of breath Gastrointestinal: No new onset incontinence, normal bowel movements reported Genitourinary: No new onset incontinence Musculoskeletal: Chronic neck pain, low back pain Psychiatric: [Normal mood/affect] Neurological: [Denies weakness in extremities], [denies balance issues] Pain at rest (0-10 scale): 5 Objective Objective:: Physical Exam: General: Alert and oriented x3, no acute distress, pleasant and cooperative Lungs: Respirations even and unlabored, symmetrical chest expansion Eyes: PERRL Musculoskeletal: Flexion and extension of cervical [spine] somewhat guarded secondary to pain, [antalgic gait noted] Neurological: Speech clear, no gross sensory deficit Has patient had previous pain injection?: No Conservative treatment options previously tried: Home exercise plan Length of treatment: Longer than 12 weeks and Physical Therapy Length of treatment: 6 weeks completed Meds Home Medications and Allergies Home Medications ?Medication ?Instructions ?Recorded ?Confirmed ?Type albuterol sulfate 90 mcg/actuation 2 puff inhalation Q6H PRN 07/02/21 04/12/24 Rx aerosol inhaler (Proventil HFA) shortness of breath or wheezing #8.5 grams umeclidinium 62.5 mcg-vilanterol See Rx Instructions .Route 07/09/22 04/12/24 History 25 mcg/actuation powdr for .COMPLEX Asthma inhalation (Anoro Ellipta) pantoprazole 40 mg tablet,delayed 40 mg PO DAILY 07/05/23 04/12/24 History release paroxetine HCl 10 mg tablet 10 mg PO DAILY 08/31/23 04/12/24 History albuterol sulfate 1.25 mg/3 mL 1.25 mg (3 mL) inhalation QID PRN 11/29/23 04/12/24 Rx solution for nebulization shortness of breath or wheezing #90 mL baclofen 5 mg tablet 5 mg PO BID #28 tabs 01/20/24 04/12/24 Rx carvedilol 12.5 mg tablet 12.5 mg PO DAILY 01/20/24 04/12/24 History hydrochlorothiazide 12.5 mg tablet 12.5 mg PO DAILY 01/20/24 04/12/24 History amantadine HCl 100 mg tablet 100 mg PO DAILY 03/17/24 04/12/24 History benzonatate 100 mg capsule mg PO 03/17/24 03/17/24 History famotidine 20 mg tablet 20 mg PO DAILY 03/17/24 04/12/24 History fluticasone propionate 50 1 spray intranasal ONCE 03/17/24 04/12/24 History mcg/actuation nasal spray,suspension furosemide 20 mg tablet 20 mg PO DAILY 03/17/24 04/12/24 History ibuprofen 800 mg tablet 800 mg PO ONCE PRN 03/17/24 03/17/24 History levofloxacin 500 mg tablet 500 mg PO DAILY 03/17/24 03/17/24 History losartan 100 mg tablet 100 mg PO DAILY 03/17/24 04/12/24 History nifedipine 30 mg tablet,extended mg PO 03/17/24 03/17/24 History release 24 hr promethazine-DM 6.25 mg-15 mg/5 mL 5 ml PO PRN 03/17/24 03/17/24 History oral syrup triamcinolone acetonide 0.1 % topical 03/17/24 03/17/24 History topical ointment vibegron 75 mg tablet (Gemtesa) 75 mg PO DAILY 03/17/24 04/12/24 History New Prescriptions to Start Prescriptions: Allergies Allergy/AdvReac Type Severity Reaction Status Date / Time codeine Allergy Intermediate SOB Verified 03/17/24 14:48 aspirin Allergy Mild Hives Verified 03/17/24 14:48 Penicillins Allergy Unknown Hives Verified 03/17/24 14:48 Assessment and Plan *Assessment and plan (1) Neck pain: Status: Acute Category: Medical Code(s): M54.2 - Cervicalgia (2) Degenerative disc disease, lumbar: Status: Acute Category: Medical Code(s): M51.369 - Other intervertebral disc degeneration, lumbar region without mention of lumbar back pain or lower extremity pain Plan I did discuss with the patient that we will plan on following up after her cervical MRI. I will in the meantime send in a prescription of methocarbamol 500 mg 3 times daily with a 2-week supply of this medication and see if this is not as sedating as the baclofen. Patient was counseled to discontinue the baclofen while she tries this. She acknowledges understanding agrees with this plan of care. Patient will return to clinic in 3 weeks for reevaluation of symptoms and plan of care. Patient has been instructed to contact the clinic with any concerns before the next appointment. Dr. Green has reviewed this note and agrees with this plan of care. This note was dictated using voice recognition software and make contain errors or omissions. All injections are used with Lidocaine, Bupivacaine and Depo Medrol. Occasionally urine drug screen is needed to verify patient's compliance with our office pain contract. This is ordered based off specific treatments related to chronic pain with the potential to abuse certain medications.
== END 2024-06-15 23:59 | disposition home or self-care (01) ==
PROVIDERS: PCP Physician Assistant; Visit Provider Nurse Practitioner Family
DX: M54.2 Cervicalgia (principal); M51.369 Other intervertebral disc degeneration, lumbar region without mention of lumbar back pain or lower extremity pain; F17.210 Nicotine dependence, cigarettes, uncomplicated; Z79.899 Other long term (current) drug therapy
CPT/HCPCS: 99212; G0463

== ENCOUNTER 2024-06-29 10:20 | Emergency (ER) | payer MEDICAID, SELFPAY ==
[2024-06-29 10:39] VITALS: BP 138/79; PULSE 74; RESP 18; TEMP 36.7; O2SAT 98; BMI 31.6
--- NOTE | 2024-06-29 10:39 | ED_ITS ---
Discharge Plan Disposition Patient Disposition: Home, Self-Care Condition: Good Prescriptions Prescriptions: New ondansetron 4 mg Tablet,Disintegrating 4 mg PO Q8H PRN (Reason: Nausea) Qty: 12 0RF No Action paroxetine HCl 10 mg tablet 10 mg PO DAILY fluticasone propionate 50 mcg/actuation spray,suspension 1 spray intranasal ONCE Patient Comments: ADMINISTER 1 SPRAY INTO EACH NOSTRIL ONCE DAILY famotidine 20 mg tablet 20 mg PO DAILY levofloxacin 500 mg tablet 500 mg PO DAILY Patient Comments: TAKE 1 TABLET BY MOUTH EVERY 24 HOURS FOR 7 DAYS nifedipine 30 mg tablet extended release 24hr 30 mg PO DIRECTED Patient Comments: TAKE 1 TABLET BY MOUTH DAILY losartan 100 mg tablet 100 mg PO DAILY Patient Comments: TAKE 1 TABLET BY MOUTH DAILY benzonatate 100 mg capsule 100 mg PO DIRECTED triamcinolone acetonide 0.1 % ointment 1 applic topical DIRECTED Patient Comments: APPLY TO AFFECTED AREA OF LOWER LEG 3 TIMES A DAY NEEDED FOR ITCHING FOR 7 DAYS Gemtesa 75 mg tablet 75 mg PO DAILY Patient Comments: TAKE 1 TABLET BY MOUTH DAILY furosemide 20 mg tablet 20 mg PO DAILY Patient Comments: TAKE 1 TABLET BY MOUTH ONCE A DAY DIRECTED amantadine HCl 100 mg tablet 100 mg PO DAILY ibuprofen 800 mg tablet 800 mg PO ONCE PRN (Reason: Blood Pressure) Patient Comments: TAKE 1 TABLET BY MOUTH EVERY 8 HOURS promethazine-DM 6.25-15 mg/5 mL syrup 5 ml PO DIRECTED PRN (Reason: Cough) Patient Comments: TAKE 5 ML BY MOUTH EVERY 6 HOURS FOR 7 DAYS albuterol sulfate [Proventil HFA] 90 mcg/actuation HFA aerosol inhaler 2 puff INHALATION Q6H PRN (Reason: shortness of breath or wheezing) Qty: 8.5 2RF albuterol sulfate 1.25 mg/3 mL solution for nebulization 1.25 mg inhalation QID PRN (Reason: shortness of breath or wheezing) Qty: 90 0RF methocarbamol 500 mg tablet 500 mg PO TID Qty: 42 0RF Anoro Ellipta 62.5-25 mcg/actuation blister with device See Rx Instructions .ROUTE .COMPLEX Rx Instructions: 1 PUFF ONCE DAILY pantoprazole 40 mg tablet,delayed release (DR/EC) 40 mg PO DAILY Patient Comments: TAKE 1 TABLET BY MOUTH EVERY DAY carvedilol 12.5 mg tablet 12.5 mg PO DAILY Patient Comments: TAKE 1 TABLET BY MOUTH TWICE DAILY hydrochlorothiazide 12.5 mg tablet 12.5 mg PO DAILY Patient Comments: TAKE 1 TABLET BY MOUTH DAILY baclofen 5 mg tablet 5 mg PO BID Qty: 28 0RF Referrals Follow up/Referrals: Mary Santoyo PA [Primary Care Provider] - See instructions Activity Restrictions/Add. Instructions Additional Instructions/Restrictions: Drink plenty of fluids. Take tylenol or ibuprofen for pain or fever. Take the medications as directed. Follow up with your regular doctor. GO TO THE ER FOR ANY WORSENING SYMPTOMS Clinical Impressions Clinical Impression: Acute viral syndrome Stand Alone Forms Stand Alone Forms: Work/School Release Instructions Patient Instructions: DI for Viral Syndrome Print Language Print Language: Indonesian Discharge ED Provider: Prem Her [facility] General Stated complaint: shakey, lightheaded, vomit Time Seen by Provider: 06/29/24 10:36 History of Present Illness Provider Complaint: She states that since yesterday she has felt weak, had periods of chilling, body aches and a head ache. She has also had nausea with vomiting. She denies diarrhea. She denies any abdominal pain. Related Data Home Medications ?Medication ?Instructions ?Recorded ?Confirmed umeclidinium 62.5 mcg-vilanterol See Rx Instructions .Route 07/09/22 06/15/24 25 mcg/actuation powdr for .COMPLEX Asthma inhalation (Anoro Ellipta) pantoprazole 40 mg tablet,delayed 40 mg PO DAILY 07/05/23 06/15/24 release paroxetine HCl 10 mg tablet 10 mg PO DAILY 08/31/23 06/15/24 carvedilol 12.5 mg tablet 12.5 mg PO DAILY 01/20/24 06/15/24 hydrochlorothiazide 12.5 mg tablet 12.5 mg PO DAILY 01/20/24 06/15/24 amantadine HCl 100 mg tablet 100 mg PO DAILY 03/17/24 06/15/24 benzonatate 100 mg capsule 100 mg PO DIRECTED 03/17/24 06/15/24 famotidine 20 mg tablet 20 mg PO DAILY 03/17/24 06/15/24 fluticasone propionate 50 1 spray intranasal ONCE 03/17/24 06/15/24 mcg/actuation nasal spray,suspension furosemide 20 mg tablet 20 mg PO DAILY 03/17/24 06/15/24 ibuprofen 800 mg tablet 800 mg PO ONCE PRN Blood Pressure 03/17/24 06/15/24 levofloxacin 500 mg tablet 500 mg PO DAILY 03/17/24 06/15/24 losartan 100 mg tablet 100 mg PO DAILY 03/17/24 06/15/24 nifedipine 30 mg tablet,extended 30 mg PO DIRECTED 03/17/24 06/15/24 release 24 hr promethazine-DM 6.25 mg-15 mg/5 mL 5 ml PO DIRECTED PRN Cough 03/17/24 06/15/24 oral syrup triamcinolone acetonide 0.1 % 1 applic topical DIRECTED 03/17/24 06/15/24 topical ointment vibegron 75 mg tablet (Gemtesa) 75 mg PO DAILY 03/17/24 06/15/24 Previous Rx's ?Medication ?Instructions ?Recorded albuterol sulfate 90 mcg/actuation 2 puff inhalation Q6H PRN 07/02/21 aerosol inhaler (Proventil HFA) shortness of breath or wheezing #8.5 grams albuterol sulfate 1.25 mg/3 mL 1.25 mg (3 mL) inhalation QID PRN 11/29/23 solution for nebulization shortness of breath or wheezing #90 mL baclofen 5 mg tablet 5 mg PO BID #28 tabs 01/20/24 methocarbamol 500 mg tablet 500 mg PO TID #42 tabs 06/15/24 ondansetron 4 mg disintegrating 4 mg PO Q8H PRN Nausea #12 tabs 06/29/24 tablet Allergies Allergy/AdvReac Type Severity Reaction Status Date / Time codeine Allergy Intermediate SOB Verified 03/17/24 14:48 aspirin Allergy Mild Hives Verified 03/17/24 14:48 Penicillins Allergy Unknown Hives Verified 03/17/24 14:48 PFSH PFSH Disclaimer: The information contained in this section may have been updated after the patient was seen, as this information can be updated by other users. Medical History MIGUE (obstructive sleep apnea) Stenosis of cervix Menorrhagia with irregular cycle Migraine Costochondral chest pain Second degree burn Trichomonal vaginitis History of chlamydia Neuropathic pain Tobacco use Vitamin D deficiency (~01/23/18) Leg pain Hypertension Surgical History History of endometrial ablation H/O cervical polypectomy History of hysteroscopy History of colonoscopy History of dental surgery Hx of section History of tubal ligation Family History Other Asthma Cancer Coronary artery disease Family history of COPD (chronic obstructive pulmonary disease) Family history of cancer Family history of diabetes mellitus type II Family history of myocardial infarction Heart attack Hyperlipidemia Hypertension Social History Smoking Status: Current every day smoker tobacco type: cigarettes packs per day: 1 years smoked: 30 alcohol intake: former substance use type: former substance user and painkillers current occupational status: other Travel in the last 8 weeks: None household members: significant other housing: house marital status: single number of children: 3 caffeine: Yes special sharron needs: No agree to transfusion: No do you feel safe at home: Yes victim of physical abuse: No victim of emotional abuse: No victim of sexual abuse: No would you like helpful sources: No Have you lived/traveled outside [place] in past 30 days?: No Contact w/someone who lives/traveled outside [place] past 30 days?: No Exposure to someone with infectious disease in past 14 days?: No Do you have a fever (greater than 100.4 F or 38 C)?: No Have you tested positive for COVID-19: No Exposed to someone with COVID-19 in past 14 days?: No Do you have a sore throat?: No Do you have a cough?: No Do you have any weakness?: No Do you have any diarrhea?: No Are you experiencing any unusual bleeding?: No Do you have any muscle aches/pain?: No Do you have any abdominal pain?: No Are you experiencing loss of taste or smell?: No ROS Obtained: Yes All systems reviewed & no additional complaints except as documented Constitutional Constitutional: Reports chills and Denies fever(s) Eyes Eyes: Denies eye discharge ENT Ears, Nose, Mouth, and Throat: Reports as per HPI Cardiovascular Cardiovascular: Denies chest pain Respiratory Respiratory: Denies chest congestion and Reports cough Gastrointestinal Gastrointestingal: Reports nausea; Denies abdominal pain, constipation, cramping, diarrhea or vomiting Musculoskeletal Musculoskeletal: Denies arthralgias Integumentary/Breasts Skin/Breast: Denies rash Neurologic Neurologic: Denies paresthesias Physical Exam General General appearance: alert and in no apparent distress Head Head exam: atraumatic, normocephalic and normal inspection Eye Eye exam: Present normal appearance, PERRL and EOMI ENT ENT exam: Present normal exam, normal oropharynx, mucous membranes moist, TM's normal bilaterally and normal external ear exam Neck Neck exam: Present normal inspection, full ROM and trachea midline; Absent meningismus or lymphadenopathy Chest Chest inspection: Present normal inspection and symmetric chest wall rise; Absent tenderness Respiratory Respiratory exam: Present normal lung sounds bilaterally; Absent respiratory distress Cardiovascular Cardiovascular exam: Present regular rate and normal rhythm; Absent JVD Abdominal Exam Abdominal exam: Present soft and normal bowel sounds; Absent distention, tenderness or guarding Extremities Exam Extremities exam: Present normal inspection, full ROM and normal capillary refill; Absent calf tenderness Back Exam Back exam: Present normal inspection; Absent tenderness Neurological Exam Neurological exam: Present alert and oriented X3 Psychiatric Psychiatric exam: Present normal affect and normal mood Skin Skin exam: Present warm, dry, intact and normal color Lymphatic Lymphatic Findings: no adenopathy Medical Decision Making Medical Records Medical records reviewed: No I reviewed the patient's medical records. Screening: Per USPSTF and CDC recommendations, given the prevalence of disease in our region, it is our hospital?s policy to screen for HIV and viral Hepatitis for all patients aged 18 and over and those with ongoing risk factors. Fernando Inquiry Pt receiving controlled substance: No
[2024-06-29 10:49] LABS: UTC Influenza A Antigen Negative (Negative); UTC Influenza B Antigen Negative (Negative)
[2024-06-29 10:51] LABS: POC Glucose,Bedside 105 (70-110)
[2024-06-29 11:25] LABS: Coronavirus 19, PCR Not Detected (NotDetected); Influenza A, PCR Not Detected (NotDetected); Influenza B, PCR Not Detected (NotDetected)
[2024-06-29 11:26] LABS: UTC Strep Screen (Rapid) Negative (Negative)
[2024-06-29 11:33] VITALS: BP 138/79; PULSE 74; RESP 18; TEMP 36.7
== END 2024-06-29 11:34 | disposition home or self-care (01) ==
PROVIDERS: Emergency Provider Nurse Practitioner Family; PCP Physician Assistant
DX: B34.9 Viral infection, unspecified (principal)
CPT/HCPCS: 82962; 87636; 87804; 87880; 99213; G0381

== ENCOUNTER 2024-07-07 16:13 | Outpatient (CLI) | payer MEDICAID, SELFPAY ==
--- NOTE | 2024-07-07 16:17 | MR_ITS ---
PROCEDURE INFORMATION: Exam: MR Cervical Spine Without Contrast Exam date and time: 07/07/2024 4:18 PM Age: 48 years old Clinical indication: Neck pain; Additional info: Deformaity of spine/ neck pain TECHNIQUE: Imaging protocol: Magnetic resonance imaging of the cervical spine without contrast. COMPARISON: CR XR CERVICAL SPINE 5V 04/04/2024 12:27 PM FINDINGS: Bones/joints: Vertebral body height and marrow signal are within normal limits with minor endplate changes at C6-C7. There is reversal of normal cervical lordosis. Spondylosis is noted with disc ridging, facet arthropathy and uncovertebral spurring. Spinal cord: Normal signal. No cord compression. C2-C3: No significant disc bulge or herniation. No severe spinal canal stenosis. No significant neural foraminal narrowing. C3-C4: At C3-C4 there is no significant canal narrowing and moderate right neural foraminal stenosis due to facet arthropathy and uncovertebral spurring. C4-C5: At C4-C5 there is a central protrusion which indents thecal sac and touches and mildly flattens the anterior surface of the cord. There is mild left neural foraminal narrowing. C5-C6: At C5-C6 there is a small central protrusion and annular high signal intensity zone which indents the thecal sac and touches but does not deform the cord. There is no significant neural foraminal narrowing. C6-C7: At C6-C7 there is broad-based disc ridge with uncovertebral spurring and facet arthropathy causing mild concentric narrowing of the canal, moderate neural foraminal stenosis. C7-T1: No significant disc bulge or herniation. No severe spinal canal stenosis. No significant neural foraminal narrowing. Soft tissues: Unremarkable. Vasculature: Expected flow voids in the vertebral arteries. IMPRESSION: Cervical spondylosis as noted.
== END 2024-07-07 23:59 | disposition home or self-care (01) ==
LOC: RAD 16:14
PROVIDERS: PCP Internal Medicine Adolescent Medicine; Visit Provider Physician Assistant
DX: M11.9 Crystal arthropathy, unspecified (principal); M54.2 Cervicalgia
CPT/HCPCS: 72141

== ENCOUNTER 2024-07-12 13:46 | Outpatient (POV) | payer MEDICAID, SELFPAY ==
[2024-07-12 14:11] VITALS: BP 135/78; PULSE 64; RESP 14; O2SAT 98; BMI 30.1
--- NOTE | 2024-07-12 14:32 | EXP.PAIN.SOA ---
[facility] Disclaimer: The information contained in this section may have been updated after the patient was seen, as this information can be updated by other users. Medical History MIGUE (obstructive sleep apnea) Stenosis of cervix Menorrhagia with irregular cycle Migraine Costochondral chest pain Second degree burn Trichomonal vaginitis History of chlamydia Neuropathic pain Tobacco use Vitamin D deficiency (~01/23/18) Leg pain Hypertension Surgical History History of endometrial ablation H/O cervical polypectomy History of hysteroscopy History of colonoscopy History of dental surgery Hx of section History of tubal ligation Family History Other Asthma Cancer Coronary artery disease Family history of COPD (chronic obstructive pulmonary disease) Family history of cancer Family history of diabetes mellitus type II Family history of myocardial infarction Heart attack Hyperlipidemia Hypertension Social History Smoking Status: Current every day smoker tobacco type: cigarettes packs per day: 1 years smoked: 30 alcohol intake: former substance use type: former substance user and painkillers current occupational status: other Travel in the last 8 weeks: None household members: significant other housing: house marital status: single number of children: 3 caffeine: Yes special sharron needs: No agree to transfusion: No do you feel safe at home: Yes victim of physical abuse: No victim of emotional abuse: No victim of sexual abuse: No would you like helpful sources: No PM Subjective & Objective Subjective Subjective:: Patient is a pleasant 48-year-old female who presents today for follow-up of cervical MRI. Today she rates her pain a 6 out of 10. She denies any new injury or trauma. She does state that she is still having the chronic neck pain with numbness and tingling that does radiate primarily down the right arm. She states that her primary care did send a referral to Dr. Meza's office in [place] however she has not heard from them at this time. Patient does state the pain is fairly constant and does interfere with her ability perform activities of daily living such as cooking and cleaning. Patient at our last visit was given a 2-week supply of methocarbamol 500 mg 3 times daily. Patient states that this did work much better than the prior baclofen that cause drowsiness. She states that she is only taking it at bedtime and it does seem to help her sleep better. Her Fernando has been reviewed and is appropriate. Review of Systems: General: No recent weight changes, no fever, no sleep disturbances Respiratory: No cough, no shortness of air, no recurring pulmonary infections Cardiovascular/peripheral vascular: No chest pain, no palpitations, no edema, no shortness of breath Gastrointestinal: No new onset incontinence, normal bowel movements reported Genitourinary: No new onset incontinence Musculoskeletal: Neck pain, right arm numbness tingling Psychiatric: [Normal mood/affect] Neurological: [Denies weakness in extremities], [denies balance issues] Pain at rest (0-10 scale): 6 Objective Objective:: Physical Exam: General: Alert and oriented x3, no acute distress, pleasant and cooperative Lungs: Respirations even and unlabored, symmetrical chest expansion Eyes: PERRL Musculoskeletal: Flexion and extension of cervical [spine] somewhat guarded secondary to pain, [antalgic gait noted] Neurological: Speech clear, no gross sensory deficit Has patient had previous pain injection?: No Conservative treatment options previously tried: Home exercise plan Length of treatment: Longer than 12 weeks, Physical Therapy Length of treatment: Longer than 6 weeks and Chiropractor Length of treatment: Longer than 12 weeks Meds Home Medications and Allergies Home Medications ?Medication ?Instructions ?Recorded ?Confirmed ?Type albuterol sulfate 90 mcg/actuation 2 puff inhalation Q6H PRN 07/02/21 06/15/24 Rx aerosol inhaler (Proventil HFA) shortness of breath or wheezing #8.5 grams umeclidinium 62.5 mcg-vilanterol See Rx Instructions .Route 07/09/22 06/15/24 History 25 mcg/actuation powdr for .COMPLEX Asthma inhalation (Anoro Ellipta) pantoprazole 40 mg tablet,delayed 40 mg PO DAILY 07/05/23 06/15/24 History release paroxetine HCl 10 mg tablet 10 mg PO DAILY 08/31/23 06/15/24 History albuterol sulfate 1.25 mg/3 mL 1.25 mg (3 mL) inhalation QID PRN 11/29/23 06/15/24 Rx solution for nebulization shortness of breath or wheezing #90 mL baclofen 5 mg tablet 5 mg PO BID #28 tabs 01/20/24 06/15/24 Rx carvedilol 12.5 mg tablet 12.5 mg PO DAILY 01/20/24 06/15/24 History hydrochlorothiazide 12.5 mg tablet 12.5 mg PO DAILY 01/20/24 06/15/24 History amantadine HCl 100 mg tablet 100 mg PO DAILY 03/17/24 06/15/24 History benzonatate 100 mg capsule 100 mg PO DIRECTED 03/17/24 06/15/24 History famotidine 20 mg tablet 20 mg PO DAILY 03/17/24 06/15/24 History fluticasone propionate 50 1 spray intranasal ONCE 03/17/24 06/15/24 History mcg/actuation nasal spray,suspension furosemide 20 mg tablet 20 mg PO DAILY 03/17/24 06/15/24 History ibuprofen 800 mg tablet 800 mg PO ONCE PRN Blood Pressure 03/17/24 06/15/24 History levofloxacin 500 mg tablet 500 mg PO DAILY 03/17/24 06/15/24 History losartan 100 mg tablet 100 mg PO DAILY 03/17/24 06/15/24 History nifedipine 30 mg tablet,extended 30 mg PO DIRECTED 03/17/24 06/15/24 History release 24 hr promethazine-DM 6.25 mg-15 mg/5 mL 5 ml PO DIRECTED PRN Cough 03/17/24 06/15/24 History oral syrup triamcinolone acetonide 0.1 % 1 applic topical DIRECTED 03/17/24 06/15/24 History topical ointment vibegron 75 mg tablet (Gemtesa) 75 mg PO DAILY 03/17/24 06/15/24 History methocarbamol 500 mg tablet 500 mg PO TID #42 tabs 06/15/24 Rx ondansetron 4 mg disintegrating 4 mg PO Q8H PRN Nausea #12 tabs 06/29/24 Rx tablet New Prescriptions to Start Prescriptions: Allergies Allergy/AdvReac Type Severity Reaction Status Date / Time codeine Allergy Intermediate SOB Verified 03/17/24 14:48 aspirin Allergy Mild Hives Verified 03/17/24 14:48 Penicillins Allergy Unknown Hives Verified 03/17/24 14:48 Assessment and Plan *Assessment and plan (1) Degenerative disc disease, cervical: Status: Acute Category: Medical Code(s): M50.30 - Other cervical disc degeneration, unspecified cervical region (2) Cervical radiculopathy: Status: Acute Category: Medical Code(s): M54.12 - Radiculopathy, cervical region Plan Patient was counseled that I do believe she would still benefit from a cervical epidural however we will wait and follow-up after she has had her appointment with Dr. Meza's office. I will send in a prescription of the methocarbamol 500 mg and change it to bedtime and provide a 1 month supply of this medication. Patient will return to clinic in 1 month for reevaluation of symptoms and plan of care. Patient has been instructed to contact the clinic with any concerns before the next appointment. Dr. Green has reviewed this note and agrees with this plan of care. This note was dictated using voice recognition software and make contain errors or omissions. All injections are used with Lidocaine, Bupivacaine and Depo Medrol. Occasionally urine drug screen is needed to verify patient's compliance with our office pain contract. This is ordered based off specific treatments related to chronic pain with the potential to abuse certain medications.
== END 2024-07-12 23:59 | disposition home or self-care (01) ==
PROVIDERS: PCP Physician Assistant; Visit Provider Nurse Practitioner Family
DX: M50.10 Cervical disc disorder with radiculopathy, unspecified cervical region (principal); F17.210 Nicotine dependence, cigarettes, uncomplicated; Z73.89 Other problems related to life management difficulty; Z79.899 Other long term (current) drug therapy
CPT/HCPCS: 99212; G0463

== ENCOUNTER 2024-07-14 07:18 | Outpatient (CLI) | payer MEDICAID, SELFPAY ==
--- NOTE | 2024-07-14 07:32 | MR_ITS ---
FINAL REPORT TECHNIQUE: Multiplanar and multisequence MR imaging was performed through the abdomen before and after contrast administration. CLINICAL HISTORY: ADRENAL MASS LEFT AND RIGHT COMPARISON: CT chest dated 03/17/2024 FINDINGS: There is a right adrenal mass measuring 3.5 x 2.4 cm. Left adrenal mass measures 1.6 x 1.6 cm. Bilateral adrenal masses are stable in size since prior CT dated 03/17/2024. There is marked signal loss on opposed phase imaging highly compatible with adrenal adenomas. The remaining solid organs enhance normally. There is no evidence of adenopathy or ascites. The gallbladder is normal. There is no biliary ductal dilatation. IMPRESSION: Bilateral adrenal nodules, greatest on the right highly compatible with adrenal adenomas. Reviewed, Interpreted and Dictated by La Gurrola MD Transcribed by Denae Perez Authenticated and [facility]
[2024-07-14 07:58] LABS: Blood Urea Nitrogen 24 mg/dl (7-17); Estimated Glomerular Filt Rate 53 ml/min (>60); GFR (African American) 65 ML/MIN (>60)
[2024-07-14] MEDS: 0.9 % SODIUM CHLORIDE 50 ML VIAL IV (09:13)
[2024-07-14] MEDS: SODIUM CHLORIDE 0.9% 10ML SYR (RAD ONLY) 10 ML IV (09:13)
[2024-07-14] MEDS: GADOTERIDOL INJ 20ML SYRINGE 16 ML IV (09:14)
== END 2024-07-14 23:59 | disposition home or self-care (01) ==
PROVIDERS: PCP Physician Assistant; Visit Provider Physician Assistant
DX: Z01.812 Encounter for preprocedural laboratory examination (principal); E27.8 Other specified disorders of adrenal gland
CPT/HCPCS: 36415; 74183; 82565; 84520; A9576

== ENCOUNTER 2024-08-10 14:56 | Outpatient (POV) | payer MEDICAID, SELFPAY ==
--- NOTE | 2024-08-10 15:03 | A.OFFVIS_ITS ---
[facility] Disclaimer: The information contained in this section may have been updated after the patient was seen, as this information can be updated by other users. Medical History MIGUE (obstructive sleep apnea) Stenosis of cervix Menorrhagia with irregular cycle Migraine Costochondral chest pain Second degree burn Trichomonal vaginitis History of chlamydia Neuropathic pain Tobacco use Vitamin D deficiency (~01/23/18) Leg pain Hypertension Surgical History History of endometrial ablation H/O cervical polypectomy History of hysteroscopy History of colonoscopy History of dental surgery Hx of section History of tubal ligation Family History Other Asthma Cancer Coronary artery disease Family history of COPD (chronic obstructive pulmonary disease) Family history of cancer Family history of diabetes mellitus type II Family history of myocardial infarction Heart attack Hyperlipidemia Hypertension Social History Smoking Status: Current every day smoker tobacco type: cigarettes packs per day: 1 years smoked: 30 alcohol intake: former substance use type: former substance user and painkillers current occupational status: other Travel in the last 8 weeks: None household members: significant other housing: house marital status: single number of children: 3 caffeine: Yes special sharron needs: No agree to transfusion: No do you feel safe at home: Yes victim of physical abuse: No victim of emotional abuse: No victim of sexual abuse: No would you like helpful sources: No PM Subjective & Objective Subjective Subjective:: Patient is a pleasant 48-year-old female who presents today for follow-up. Today she rates her pain a 5 out of 10. She denies any new trauma or injury. Patient does state from her last appointment she has heard from Dr. Meza's office and was scheduled for her first visit however she had car trouble and had to reschedule. She states that she is now scheduled for an in September. We did discuss with her at her last appointment but I do believe she would benefit from a cervical epidural however she did want a wait and see the neurosurgeon before proceeding forward. Patient does state that she has noticed significant improvement between seeing the chiropractor on a regular basis for her neck symptoms and the methocarbamol. Patient states that it is much more manageable. She does state from her last appointment she did end up having some Botox for her bladder due to overactive bladder symptoms. She states that she did this going towards [place] and it is a long drive. She states that she did not notice a significant relief that she was hoping for. Patient does make mention that she has thought about getting a second opinion. Her Fernando has been reviewed and is appropriate. Review of Systems: General: No recent weight changes, no fever, no sleep disturbances Respiratory: No cough, no shortness of air, no recurring pulmonary infections Cardiovascular/peripheral vascular: No chest pain, no palpitations, no edema, no shortness of breath Gastrointestinal: No new onset incontinence, normal bowel movements reported Genitourinary: No new onset incontinence Musculoskeletal: Neck pain, upper extremity pain Psychiatric: [Normal mood/affect] Neurological: [Denies weakness in extremities], [denies balance issues] Pain at rest (0-10 scale): 5 Objective Objective:: Physical Exam: General: Alert and oriented x3, no acute distress, pleasant and cooperative Lungs: Respirations even and unlabored, symmetrical chest expansion Eyes: PERRL Musculoskeletal: Flexion and extension of cervical [spine] somewhat guarded secondary to pain Neurological: Speech clear, no gross sensory deficit Has patient had previous pain injection?: No Conservative treatment options previously tried: Home exercise plan Length of treatment: Longer than 12-week Meds Home Medications and Allergies Home Medications ?Medication ?Instructions ?Recorded ?Confirmed ?Type albuterol sulfate 90 mcg/actuation 2 puff inhalation Q6H PRN 07/02/21 07/12/24 Rx aerosol inhaler (Proventil HFA) shortness of breath or wheezing #8.5 grams umeclidinium 62.5 mcg-vilanterol See Rx Instructions .Route 07/09/22 07/12/24 History 25 mcg/actuation powdr for .COMPLEX Asthma inhalation (Anoro Ellipta) pantoprazole 40 mg tablet,delayed 40 mg PO DAILY 07/05/23 07/12/24 History release paroxetine HCl 10 mg tablet 10 mg PO DAILY 08/31/23 07/12/24 History albuterol sulfate 1.25 mg/3 mL 1.25 mg (3 mL) inhalation QID PRN 11/29/23 07/12/24 Rx solution for nebulization shortness of breath or wheezing #90 mL baclofen 5 mg tablet 5 mg PO BID #28 tabs 01/20/24 07/12/24 Rx carvedilol 12.5 mg tablet 12.5 mg PO DAILY 01/20/24 07/12/24 History hydrochlorothiazide 12.5 mg tablet 12.5 mg PO DAILY 01/20/24 07/12/24 History amantadine HCl 100 mg tablet 100 mg PO DAILY 03/17/24 07/12/24 History benzonatate 100 mg capsule 100 mg PO DIRECTED 03/17/24 07/12/24 History famotidine 20 mg tablet 20 mg PO DAILY 03/17/24 07/12/24 History fluticasone propionate 50 1 spray intranasal ONCE 03/17/24 07/12/24 History mcg/actuation nasal spray,suspension furosemide 20 mg tablet 20 mg PO DAILY 03/17/24 07/12/24 History ibuprofen 800 mg tablet 800 mg PO ONCE PRN Blood Pressure 03/17/24 07/12/24 History levofloxacin 500 mg tablet 500 mg PO DAILY 03/17/24 07/12/24 History losartan 100 mg tablet 100 mg PO DAILY 03/17/24 07/12/24 History nifedipine 30 mg tablet,extended 30 mg PO DIRECTED 03/17/24 07/12/24 History release 24 hr promethazine-DM 6.25 mg-15 mg/5 mL 5 ml PO DIRECTED PRN Cough 03/17/24 07/12/24 History oral syrup triamcinolone acetonide 0.1 % 1 applic topical DIRECTED 03/17/24 07/12/24 History topical ointment vibegron 75 mg tablet (Gemtesa) 75 mg PO DAILY 03/17/24 07/12/24 History ondansetron 4 mg disintegrating 4 mg PO Q8H PRN Nausea #12 tabs 06/29/24 07/12/24 Rx tablet methocarbamol 500 mg tablet 500 mg PO HS #30 tabs 07/12/24 Rx New Prescriptions to Start Prescriptions: Allergies Allergy/AdvReac Type Severity Reaction Status Date / Time codeine Allergy Intermediate SOB Verified 03/17/24 14:48 aspirin Allergy Mild Hives Verified 03/17/24 14:48 Penicillins Allergy Unknown Hives Verified 03/17/24 14:48 Assessment and Plan *Assessment and plan (1) Degenerative disc disease, cervical: Status: Acute Category: Medical Code(s): M50.30 - Other cervical disc degeneration, unspecified cervical region (2) Cervical radiculopathy: Status: Acute Category: Medical Code(s): M54.12 - Radiculopathy, cervical region Plan I did discuss with the patient that we will wait and see her back in 3 months after she has been evaluated with Dr. Meza's office. I will send a 3-month sup ply of her methocarbamol. I did also review over with her that I will send a referral to Dr. Valentine here at [facility] for evaluation for possible Botox injections for overactive bladder/cystitis. Patient will return to clinic in 3 months. Patient has been instructed to contact the clinic with any concerns before the next appointment. Dr. Geren has reviewed this note and agrees with this plan of care. This note was dictated using voice recognition software and make contain errors or omissions. All injections are used with Lidocaine, Bupivacaine and Depo Medrol. Occasionally urine drug screen is needed to verify patient's compliance with our office pain contract. This is ordered based off specific treatments related to chronic pain with the potential to abuse certain medications.
[2024-08-10 15:13] VITALS: BP 131/77; PULSE 75; RESP 18; O2SAT 99; BMI 31.1
== END 2024-08-10 23:59 | disposition home or self-care (01) ==
PROVIDERS: PCP Internal Medicine Adolescent Medicine; Visit Provider Nurse Practitioner Family
DX: M50.10 Cervical disc disorder with radiculopathy, unspecified cervical region (principal); F17.210 Nicotine dependence, cigarettes, uncomplicated; Z79.899 Other long term (current) drug therapy
CPT/HCPCS: 99212; G0463

== ENCOUNTER 2024-08-30 14:37 | Outpatient (CLI) | payer MEDICAID, SELFPAY ==
--- NOTE | 2024-08-30 14:38 | US_ITS ---
FINAL REPORT CLINICAL HISTORY: Urinary incontinence COMPARISON: None FINDINGS: ULTRASOUND BLADDER WITH POST VOID RESIDUAL Bladder volumes were estimated based on 3 dimensional measurements, pre- and postvoid. Prevoid bladder volume: 136 mls Postvoid bladder volume: 58 mls, mildly excessive residual IMPRESSION: There is poor emptying with mildly excessive postvoid residual.. Reviewed, Interpreted and Dictated by La Gurrola MD Transcribed by Gretchen Stephenson Authenticated and [facility]
== END 2024-08-30 23:59 | disposition home or self-care (01) ==
LOC: RAD 14:38
PROVIDERS: PCP Internal Medicine Adolescent Medicine; Visit Provider Urology
DX: N39.41 Urge incontinence (principal)
CPT/HCPCS: 76857

== ENCOUNTER 2024-11-06 15:14 | Outpatient (POV) | payer MEDICAID, SELFPAY ==
[2024-11-06 15:54] VITALS: BP 138/80; PULSE 81; RESP 14; O2SAT 100; BMI 30.1
--- NOTE | 2024-11-06 16:20 | A.OFFVIS_ITS ---
[facility] Disclaimer: The information contained in this section may have been updated after the patient was seen, as this information can be updated by other users. Medical History MIGUE (obstructive sleep apnea) Stenosis of cervix Menorrhagia with irregular cycle Migraine Costochondral chest pain Second degree burn Trichomonal vaginitis History of chlamydia Neuropathic pain Tobacco use Vitamin D deficiency (~01/23/18) Leg pain Hypertension Surgical History History of endometrial ablation H/O cervical polypectomy History of hysteroscopy History of colonoscopy History of dental surgery Hx of section History of tubal ligation Family History Other Asthma Cancer Coronary artery disease Family history of COPD (chronic obstructive pulmonary disease) Family history of cancer Family history of diabetes mellitus type II Family history of myocardial infarction Heart attack Hyperlipidemia Hypertension Social History Smoking Status: Current every day smoker tobacco type: cigarettes packs per day: 1 years smoked: 30 alcohol intake: former substance use type: former substance user and painkillers current occupational status: other Travel in the last 8 weeks?: None household members: significant other housing: house marital status: single number of children: 3 caffeine: Yes special sharron needs: No agree to transfusion: No do you feel safe at home: Yes victim of physical abuse: No victim of emotional abuse: No victim of sexual abuse: No would you like helpful sources: No PM Subjective & Objective Subjective Subjective:: Patient is a pleasant 48-year-old female who presents today for 3-month follow- up. Today she rates her pain as 7 out of 10. She denies any new trauma or injury. She does state that she still has her chronic neck and low back symptoms. She does state that she ended up seeing Dr. Meza and that they were not recommending surgical intervention at that time. Patient states that really she does not want to proceed forward with any additional injections or surgeries. Patient is currently managed with methocarbamol 500 mg at bedtime from our office. She denies any side effects. Her Fernando has been reviewed and is appropriate. Review of Systems: General: No recent weight changes, no fever, no sleep disturbances Respiratory: No cough, no shortness of air, no recurring pulmonary infections Cardiovascular/peripheral vascular: No chest pain, no palpitations, no edema, no shortness of breath Gastrointestinal: No new onset incontinence, normal bowel movements reported Genitourinary: No new onset incontinence Musculoskeletal: Chronic neck and back pain Psychiatric: [Normal mood/affect] Neurological: [Denies weakness in extremities], [denies balance issues] Pain at rest (0-10 scale): 7 Objective Objective:: Physical Exam: General: Alert and oriented x3, no acute distress, pleasant and cooperative Lungs: Respirations even and unlabored, symmetrical chest expansion Eyes: PERRL Musculoskeletal: Flexion and extension of lumbar [spine] somewhat guarded secondary to pain, [antalgic gait noted] Neurological: Speech clear, no gross sensory deficit Has patient had previous pain injection?: No Conservative treatment options previously tried: Home exercise plan Length of treatment: Longer than 12 weeks Meds Home Medications and Allergies Home Medications ?Medication ?Instructions ?Recorded ?Confirmed ?Type albuterol sulfate 90 mcg/actuation 2 puff inhalation Q6H PRN 07/02/21 11/06/24 Rx aerosol inhaler (Proventil HFA) shortness of breath or wheezing #8.5 grams umeclidinium 62.5 mcg-vilanterol See Rx Instructions .Route 07/09/22 11/06/24 History 25 mcg/actuation powdr for .COMPLEX Asthma inhalation (Anoro Ellipta) pantoprazole 40 mg tablet,delayed 40 mg PO DAILY 07/05/23 11/06/24 History release paroxetine HCl 10 mg tablet 10 mg PO DAILY 08/31/23 11/06/24 History albuterol sulfate 1.25 mg/3 mL 1.25 mg (3 mL) inhalation QID PRN 11/29/23 11/06/24 Rx solution for nebulization shortness of breath or wheezing #90 mL carvedilol 12.5 mg tablet 12.5 mg PO DAILY 01/20/24 11/06/24 History hydrochlorothiazide 12.5 mg tablet 12.5 mg PO DAILY 01/20/24 11/06/24 History amantadine HCl 100 mg tablet 100 mg PO DAILY 03/17/24 11/06/24 History benzonatate 100 mg capsule 100 mg PO DIRECTED 03/17/24 11/06/24 History famotidine 20 mg tablet 20 mg PO DAILY 03/17/24 11/06/24 History fluticasone propionate 50 1 spray intranasal ONCE 03/17/24 11/06/24 History mcg/actuation nasal spray,suspension furosemide 20 mg tablet 20 mg PO DAILY 03/17/24 11/06/24 History ibuprofen 800 mg tablet 800 mg PO ONCE PRN Blood Pressure 03/17/24 11/06/24 History levofloxacin 500 mg tablet 500 mg PO DAILY 03/17/24 11/06/24 History losartan 100 mg tablet 100 mg PO DAILY 03/17/24 11/06/24 History nifedipine 30 mg tablet,extended 30 mg PO DIRECTED 03/17/24 11/06/24 History release 24 hr promethazine-DM 6.25 mg-15 mg/5 mL 5 ml PO DIRECTED PRN Cough 03/17/24 11/06/24 History oral syrup triamcinolone acetonide 0.1 % 1 applic topical DIRECTED 03/17/24 11/06/24 History topical ointment ondansetron 4 mg disintegrating 4 mg PO Q8H PRN Nausea #12 tabs 06/29/24 11/06/24 Rx tablet methocarbamol 500 mg tablet 500 mg PO HS #30 tabs 08/10/24 11/06/24 Rx oxybutynin chloride 10 mg 10 mg PO DAILY 90 days #90 tabs 08/28/24 11/06/24 Rx tablet,extended release 24 hr New Prescriptions to Start Prescriptions: Allergies Allergy/AdvReac Type Severity Reaction Status Date / Time codeine Allergy Intermediate SOB Verified 08/28/24 14:04 aspirin Allergy Mild Hives Verified 08/28/24 14:04 Penicillins Allergy Unknown Hives Verified 08/28/24 14:04 Assessment and Plan *Assessment and plan (1) Cervical radiculopathy: Status: Acute Category: Medical Code(s): M54.12 - Radiculopathy, cervical region (2) Degenerative disc disease, cervical: Status: Acute Category: Medical Code(s): M50.30 - Other cervical disc degeneration, unspecified cervical region (3) Degenerative disc disease, lumbar: Status: Acute Category: Medical Code(s): M51.369 - Other intervertebral disc degeneration, lumbar region without mention of lumbar back pain or lower extremity pain Plan I will refill her methocarbamol and provide a 3-month supply of this medication. Patient will return to clinic 2 months for reevaluation of symptoms and plan of care. Patient has been instructed to contact the clinic with any concerns before the next appointment. Dr. Green has reviewed this note and agrees with this plan of care. This note was dictated using voice recognition software and make contain errors or omissions. All injections are used with Lidocaine, Bupivacaine and dexamethasone. Occasionally urine drug screen is needed to verify patient's compliance with our office pain contract. This is ordered based off specific treatments related to chronic pain with the potential to abuse certain medications.
== END 2024-11-06 23:59 | disposition home or self-care (01) ==
PROVIDERS: PCP Internal Medicine Adolescent Medicine; Visit Provider Nurse Practitioner Family
DX: M50.10 Cervical disc disorder with radiculopathy, unspecified cervical region (principal); M51.369 Other intervertebral disc degeneration, lumbar region without mention of lumbar back pain or lower extremity pain; F17.210 Nicotine dependence, cigarettes, uncomplicated; Z79.899 Other long term (current) drug therapy
CPT/HCPCS: 99212; G0463

== ENCOUNTER 2025-01-15 15:39 | Outpatient (CLI) | payer MEDICAID, SELFPAY ==
--- OUTSIDE RECORDS SUMMARY | 2020-02-29 03:20 | XMS_ITS | Continuity of Care Document ---
Author Organization [facility] Address [address] [place] [address] [address] Care Team Providers Care Sensitizer Name Role Phone Surgical Center, [facility] Unavailable Unav ailable Procedures Procedure Date REPOSITION [...] Date Provider Providers Copied on Encounter [facility], [address] [place] [address], [place], [place], [facility], [facility] [place] No Information Sep-0 0 Surgical Center [facility]. [address] [place] [address], [place], [place], [id number], [place]. tel:[phone] Referring Provider: Jas Marin MD, [address] [facility], [place], [address] . tel:[phone] [facility] [place], [address] [place] [address] 100, [facility] [place] [address], [facility] [place] No Information Sep-0 0 Missy Gomez. [address] [place] [address] 100, [facility] [place] [address], . tel:[phone] Referring Provider: Jas Marin MD, [address] [place] [address], [place], [address] . tel:[phone] [facility], [address] [place], [place] [address], [place], [place], [facility], [place] [facility] No Information 0 [facility]. [address] [place] [address], [address], [place], [id number], [place]. tel:[phone] Referring Provider: Jas Marin MD, [address] [place] [address], [place], [address] . tel:[phone] [facility], [address] [place], [place] [address], [place], [place], [facility], [facility] No Information 0 Missy Gomez. [address] [place] [address], [address], [place], [facility], . tel:[phone] Referring Provider: Jas Marin MD, [address] [place] [address], [place], [address] . tel:[phone] [facility], [address] [place], [place] [address], [place], [facility], [facility] No Information 0 [facility]. [address] [place] [address], [address], [place], [id number], . tel:[phone] Referring Provider: Jas Marin MD, [address] [place] [address], [place], [address] . tel:[phone] [facility], [address] [place], [place] [address], [place], [address], [facility] No Information 0 Missy Gomez. [address] [place] [address], [address], [place], [address], . tel:[phone] Referring Provider: Jas Marin MD, [address] [place] [address], [place], [address] . tel:[phone] Family History Family Member Type Diagnosis Age At Onset No Information Payers Payer name Insurance type Covered libertarian ID Pete Kendall (s) CI [id number] [facility] CI [id number] Omidria Kyleigh CI [id number] Social History Type Description Quantity Date Captured [...]
--- OUTSIDE RECORDS SUMMARY | 2025-01-05 11:18 | XMS_ITS ---
Author Organization [facility] [place] Address [address] [facility] [address] [place] [address] Care Team Providers Care Electrical Design Technician Name Role Phone Mike Rodrigues Primary Care Provider [phone] Niyah Bustamantei Unavailable [phone] NIYAH Bustamante APRNI Unavailable Unavailable Mary Santoyo Unavailable [phone] REASON FOR VISIT order for CT scan Encounters Encounter Location Date Provider Diagnosis [facility] [place] [address] [facility] [address] [place] [address] 01/05/2025 Mary Santoyo Adrenal mass, 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 and Adrenal mass, left E27.8 Assessments Encounter Date Diagnosis (ICD Code) Assessment Notes Treatment Notes Treatment Clinical Notes Section Notes 01/05/2025 Adrenal mass, right (ICD-10 - E27.9) 01/05/2025 Adrenal mass, left (ICD-10 - E27.8) Plan Of Treatment Pending Test Test Name Order Date CT ABD WOW 01/05/2025 Next Appt Details Provider Name:Mike Rodrigues, 02/19/2025 02:45:00 PM, [address] [facility] [address], [address], [place], [address], Progress Notes * Sera RINCON DDOB: [birth year] (49 yo F)Acc No.[id number]:01/05/2025 Patient: Sera HINTON :1975 A ge:49 Y S ex:Female Address:[address] [place], [place] [address] [address] Subjective: * Chief Complaints: * o rder for CT scan * Medical History: * Surgical History: * Hospitalization/Major Diagno stic Procedure: * Medications: Objective: * Vitals: * Physical Examination: Assessment: * Assessment: 1. A drenal mass, right - E27.9 2 . A drenal mass, left - E27.8 ? Plan: * Treatment: * 2.?Adrenal mass, left?Imaging: CT ABD JERRIW* Erma Kumar 01/05/2025 03: 19:54 PM EDT > CT Adrenal Mass Protocol * * Procedure Codes: * true * Date: Generated for Marycruz leonard/Aren/Aldoitting on: 0 01/15/2025 03:41 PM EDT
--- OUTSIDE RECORDS SUMMARY | 2025-01-09 11:45 | XMS_ITS ---
Author Organization [facility] Octavio MARINO Address [address] [place], [place] [address] Care Team Providers Care Peer Support Specialist Name Role Phone Mike Rodrigues Primary Care Provider [phone] Krissy Bustamante Unavailable [phone] KRISSY Bustamante APRN Unavailable Unavailable Mary Santoyo Unavailable [phone] Allergies Allergen (clinical drug ingredient) Drug/Non Drug [...] date:01/15/2025 11:35:55 AM Interpretation: Performing Lab:CB, [facility] Uojn0370 [facility], [facility] CenterRxsyBR[address] Ramon Quinones Notes/Report: NON-FASTING; NON-FASTING; NON-FASTING; NON-FASTING; [...] LDL-C. Mekhi SS et al. RONALD. 2013;310(19): 9226-3087 (http://Ourpalm.Adknowledge/faq/PLX536) CHOL/HDLC RATIO 3.3 <5.0 (calc) NON HDL CHOLESTEROL 121 <130 mg/dL (calc) For patients with diabetes plus 1 major ASCVD risk factor, treating to a non-HDL-C goal of <100 mg/dL (LDL-C of <70 mg/dL) is considered a therapeutic option. COMPREHENSIVE METABOLIC PANE L (56297) Reviewed date:01/15/2025 11:35:55 AM Interpretation: Performing Lab:SADIE JumpHawk[address], NetcontinuumIlhkPS[address] Ramon Quinones Notes/Report: NON-FASTING; NON-FASTING; NON-FASTING; NON-FASTING; [...] Reviewed date:01/15/2025 11:35:55 AM Interpretation: Performing Lab:SADIE Googlee1355 AttenderteHaversackAbb[facility] HospitalRbdmTW[address] Ramon Quinones Notes/Report: NON-FASTING; NON-FASTING; NON-FASTING; NON-FASTING; [...] MPV 11.8 7.5-12.5 fL ABSOLUTE NEUTROPHILS 5420 5673-1362 cells/uL ABSOLUTE LYMPHOCYTES 2148 850-3900 cells/uL ABSOLUTE MONOCYTES 508 200-950 cells/uL ABSOLUTE EOSINOPHILS 90 15-500 cells/uL ABSOLUTE BASOPHILS 33 0-200 cells/uL NEUTROPHILS 66.1 LYMPHOCYTES 26.2 MONOCYTES 6.2 EOSINOPHILS 1.1 BASOPHILS 0.4 HEMOGLOBIN A1c (496) Reviewed date:01/15/2025 11:35:55 AM Interpretation: Performing Lab:SADIE, [facility] Ngel5917 [facility] Ramon Quinones Notes/Report: NON-FASTING; NON-FASTING; NON-FASTING; NON-FASTING; [...] diagnosis of diabetes in children. According to [place] Diabetes Association (ADA) guidelines, hemoglobin A1c <7.0% represents optimal control in non- diabetic patients. Different metrics may apply to specific patient populations. Standards of Medical Care in Diabetes(ADA). TSH W/REFLEX TO FT4 (46296) Reviewed date:01/15/2025 11:35:55 AM Interpretation: Performing Lab:SADIE Vocab-Micropelte[address], GRNE SolutionsIfmeWG[address] Ramon Quinones Notes/Report: NON-FASTING; NON-FASTING; NON-FASTING; NON-FASTING; NON-FAST TSH W/REFLEX TO FT4 1.02 Reference Range > or = 20 Years 0.40-4.50 Ranges First trimester 0.26-2.66 Second trimester 0.55-2.73 Third trimester 0.43-2.91 VITAMIN D,25-OH,TOTAL,IA (17 306) Reviewed date:01/15/2025 11:35:55 AM Interpretation: Performing Lab:SADIE [employer]ocab-[employer] [id number] Attendertel [employer], MicropeltOkgdSI[address] Ramon Quinones Notes/Report: NON-FASTING; NON-FASTING; NON-FASTING; NON-FASTING; [...] D, (D2,D3), LC/MS/MS is recommended: order code 66619 (patients >2yrs). See Note 1 Note 1 For additional information, please refer to http://education.Midfin Systems/faq/KKA206 (This link is being provided for informational/ educational purposes only.) Reason For Referral Reason Please refer to Neur ologist Dr. Hills for recurrent migraines. Diagnosis 1 Episodic migraine (G 43.909) Referral Organization [facility] VICENTE PICHARDO Referring Provider First Name Mary Referring Provider Last Name Natanael Referring Provider Speciality Family [facility] General Notes Efraín Jerome 09:51:01 AM > faxed and they will call pt Referral Priority Routine Reason Please refer to UroG YN with [facility] for stress incontinence. Diagnosis 1 Stress incontinence (N39.3) Referral Organization [facility] PED MARINO Referring Provider First Name Mary Referring Provider Last Name Santoyo [facility] Efraín Jerome 10:04:56 AM > [...] janusz yp of colon (D12.6) Referral Organization [facility] PED MARINO Referring Provider First Name Mary Referring Provider Last Name Natanael Referring Provider [facility] General Notes Mike Gutiérrez Justyn 12/26 03:43:42 PM >pt notified Referral Priority Routine Referral Appointment Date 05/29/2025 Reason Please arrange annua l mammogram with [facility] for breast cancer screening. Diagnosis 1 Encounter for screen ing mammogram for malignant neoplasm of breast (Z12.31) Referral Organization [facility] PED MARINO Referring Provider First Name Mary Referring Provider Last Name Santoyo Referring [facility] Notes Efraín Jerome 09:49:47 AM > faxed to [facility] and they will call pt Referral Priority Routine Reason Please refer to Dr. Regi Martinez for routine pap smear for cervical cancer screening. Diagnosis 1 Cervical cancer scre ening (Z12.4) Referral Organization [facility] PED MARINO Referring Provider First Name Mayr Referring Provider Last Name Natanael Referring Provider [facility] General Notes Efraín Jerome 09:47:23 AM > faxed and they will call pt Referral Priority Routine Reason Please refer to Derm atologist for routine skin cancer screening. Diagnosis 1 Skin cancer screenin g (Z12.83) Referral Organization [facility] PED MARINO Referring Provider First Name Mary Referring Provider Last Name Santoyo Referring Provider [facility] General Notes Efraín Jerome 09:46:30 AM > faxed to [facility] and they will call her Referral Priority Routine Reason Can you possibly sen d me GI Dr. Roth note? No longer having acute symptoms, but would like to read their recommendation at that time. Diagnosis 1 History of odynophag ia (Z87.898) Referral Organization [facility] PED MARINO Referring Provider First Name [...] review and pick correct strength-formulatio n from [place] options. 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) Active confirmed Problem Benign neoplasm of adrenal gland (85386764) Adrenal adenoma, unspecified laterality (D35.00) Active confirmed Problem Hypertrophy of uterus (056751397) Hypertrophy of uterus (N85.2) Active confirmed Problem Peripheral neuropathy (154969391) Peripheral neuropathy (G62.9) Active confirmed Vital Signs Temperature 98.2 degrees Fahrenheit 01/10/20 25 Blood pressure systolic 122 mm Hg 01/10/20 25 Blood pressure diastolic 82 mm Hg 025 Heart Rate 78 /min 01/09/2025 Height 63 in 01/09/2025 Weight 180 lbs 01/09/2025 BMI 31.88 kg/m2 01/09/2025 Encounters Encounter Location Date Provider Diagnosis [address] [address] 01/09/2025 Mary Natanael Hyperlipidemia, unspecified hyperlipidemia type E78.5 ; Routine [...] one, referral placed. She is followed by CARTOGRAPHY SUPERVISOR Dr. Martinez, unsure when she last had [...] Breztri so will continue. Keep follow-up with [facility]. 01/09/2025 Essential (primary) hypertension (ICD-10 - I10) [...] quality of life, referred back to [facility] at patient request. 01/09/2025 Fatigue, unspecified type [...] of uterus (ICD-10 - N85.2) Follows with CARTOGRAPHY SUPERVISOR. History of ablation. 01/09/2025 History of odynophagia [...] her. Patient is at baseline a poor vp medical often forgetting names of her medications, which [...] 1 tab(s) orally once a day Nystatin 510770 UNIT/GM 1 application Ex ternally Twice a day; Duration: 7 days 01/09/2025 Treatment Notes Assessment Notes Hyperlipidemia, unspecified hyperlipidemia type Mildly elevated cholesterol last check s o will trend as didn't need statin at that time. I personally will review all labs once final. Routine adult health maintenance Tdap Ju 2023. Declines pneumonia vaccine. She reports getting annual mammogram, November 2023, normal, due for next one, referral placed. She is followed by CARTOGRAPHY SUPERVISOR Dr. Martinez, unsure when she last had [...] Breztri so will continue. Keep follow-up with [facility]. Essential (primary) hypertension Patient reports not taking [...] to [facility] at patient request. Fatigue, unspecified type Sleep [...] concerning findings. Hypertrophy of uterus Follows with CARTOGRAPHY SUPERVISOR. History of ablation. History of odynophagia Thought [...] her. Patient is at baseline a poor vp medical often forgetting names of her medications, which complicates all aspects of care. Otherwise, can give a good history of what specialists are doing for her, which is helpful. If her memory changes anymore from this baseline, consider work-up for her memory. Other I personally will re view all labs once final. Pending Test Test Name Order Date Mammogram : Bilateral 01/09/2025 Referrals Referral Date Details 01/09/2025 01/09/2025, Please r irene to Neurologist Dr. Hills for recurrent migraines. 01/09/2025 01/09/2025, Please justyn bonilla to UroGYN with [facility] for [...] 01/09/2025, Please a rrange annual mammogram with [facility] for breast cancer screening. 01/09/2025 01/09/2025, Please r efsheri to Dr. Regi Martinez for routine pap smear for cervical cancer screening. 01/09/2025 01/09/2025, Please r efer to Cnc Operator Machinist for routine skin cancer screening. 01/09/2025 01/09/2025, Can you possibly send me GI Dr. Roth note? No longer having acute symptoms, but would like to read their recommendation at that time. Next Appt Details Follow Up: 4 Weeks for BP ch ryder off HCTZ and to trend if LE edema returns., Reason: Provider Name:Mike Demetris Ravi, 02/19/2025 02:45:00 PM, [address], [address], [place], [address], Progress Notes * Sera RINCON DDOB: [birth year] (49 yo F)Acc No.[id number]:01/09/2025 Progress Notes Patient: Sera HINTON Provider: BERNARDO Phipps :1975 A ge:49 Y S ex:Female Date:01/09/2025 Address:[address] [place] [id number] Pcp:Mike Rodrigues Subjective: * Chief Complaints: * 1 . Yearly physical. 2. Discuss b/p meds. * HPI: g en: Patient presents for annual physical. Health Maintenance: She reports getting annual mammogram, November 2023, normal, due for next one. She is followed by CARTOGRAPHY SUPERVISOR Dr. Martinez, unsure when she last had [...] little. -Stress incontinence: She is followed with CARTOGRAPHY SUPERVISOR Urology for chronic stress incontinence, controlled with Gemtesa. Botox shots have not helped. Continues to follow with UroGYN at [place]. Asking for follow-up to be arranged with [...] Grand Mother: . P aternal uncle: alive, avgwu-njwuulru-ojlc cancer, diagnosed with Cancer. P aternal aunt: alive. M aternal uncle: alive. M aternal aunt: alive, 1 aunt . S iblings: alive. C francescaen: alive.?1 brother(s) , 1 sister(s) - healthy. [...] active: yes. Travel outside [place]: no. 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 * Medications: T aking Ventolin HFA 108 [...] *Please review and pick correct strength-formulation from [place] options. If intended option is not shown, [...] I-XII intact, No focal neurological deficits, equal safety equipment tester strength in hands bilaterally, moving all extremities [...] STANDARD (7600) L AB: COMPREHENSIVE METABOLIC PANEL (63361) L AB: CBC (INCLUDES DIFF/PLT) (6399) L AB: HEMOGLOBIN A1c (496) L AB: TSH W/REFLEX TO FT4 (39132) L AB: VITAMIN D,25-OH,TOTAL,IA (28258) Notes: Mildly elevated cholesterol last check so will trend as didn't need statin at that time. I personally will review all labs once final. 3. C hronic obstructive pulmonary disease, unspecified COPD type L AB: LIPID PANEL, STANDARD (7600) L AB: COMPREHENSIVE METABOLIC PANEL (00794) L AB: CBC (INCLUDES DIFF/PLT) (6399) L AB: HEMOGLOBIN A1c (496) L AB: TSH W/REFLEX TO FT4 (46359) L AB: VITAMIN D,25-OH,TOTAL,IA (77439) Notes: Well controlled on Breztri so will continue. Keep follow-up with [facility]. 4. E ssential (primary) hypertension Stop hydroCHLOROthiazide Tablet, 12.5 MG, 1 tab(s), orally, once a day. L AB: LIPID PANEL, STANDARD (7600) L AB: COMPREHENSIVE METABOLIC PANEL (31935) L AB: CBC (INCLUDES DIFF/PLT) (6399) L AB: HEMOGLOBIN A1c (496) L AB: TSH W/REFLEX TO FT4 (39719) L AB: VITAMIN D,25-OH,TOTAL,IA (27229) Notes: Patient reports not taking HCTZ for [...] STANDARD (7600) L AB: COMPREHENSIVE METABOLIC PANEL (04497) L AB: CBC (INCLUDES DIFF/PLT) (6399) L AB: HEMOGLOBIN A1c (496) L AB: TSH W/REFLEX TO FT4 (70005) L AB: VITAMIN D,25-OH,TOTAL,IA (29170) Notes: Stressed importance of compliance. She has [...] STANDARD (7600) L AB: COMPREHENSIVE METABOLIC PANEL (50424) L AB: CBC (INCLUDES DIFF/PLT) (6399) L AB: HEMOGLOBIN A1c (496) L AB: TSH W/REFLEX TO FT4 (66694) L AB: VITAMIN D,25-OH,TOTAL,IA (01131) Notes: Keep follow-up with Dr. Green. 7. T obacco use disorder L AB: LIPID PANEL, STANDARD (7600) L AB: COMPREHENSIVE METABOLIC PANEL (60305) L AB: CBC (INCLUDES DIFF/PLT) (6399) L AB: HEMOGLOBIN A1c (496) L AB: TSH W/REFLEX TO FT4 (32270) L AB: VITAMIN D,25-OH,TOTAL,IA (18540) Notes: Stressed importance of cessation. She wants to quit with her Dad who has lung cancer. Declines patches. 8. S tress incontinence L AB: LIPID PANEL, STANDARD (7600) L AB: COMPREHENSIVE METABOLIC PANEL (70369) L AB: CBC (INCLUDES DIFF/PLT) (6399) L AB: HEMOGLOBIN A1c (496) L AB: TSH W/REFLEX TO FT4 (31972) L AB: VITAMIN D,25-OH,TOTAL,IA (17296) Notes: Dr. Valentine no longer covers her insurance. Interferes with her quality of life, referred back to [facility] at patient request. ? Referral To: Reason:Please refer to UroGYN with [place] for stress incontinence. 9. F atigue, unspecified type L AB: LIPID PANEL, STANDARD (7600) L AB: COMPREHENSIVE METABOLIC PANEL (33128) L AB: CBC (INCLUDES DIFF/PLT) (6399) L AB: HEMOGLOBIN A1c (496) L AB: TSH W/REFLEX TO FT4 (86223) L AB: VITAMIN D,25-OH,TOTAL,IA (99516) Notes: Sleep study and note from Neuro 10/2023 showed primary snoring only, no MIGUE. Stressed importance of routine bedtime. I personally will review all labs once final. 10. D ermatitis Start Nystatin Ointment, 828327 UNIT/GM, 1 application, Externally, Twice a day, 7 days, 1, Refills 0. L AB: LIPID PANEL, STANDARD (7600) L AB: COMPREHENSIVE METABOLIC PANEL (01836) L AB: CBC (INCLUDES DIFF/PLT) (6399) L AB: HEMOGLOBIN A1c (496) L AB: TSH W/REFLEX TO FT4 (93438) L AB: VITAMIN D,25-OH,TOTAL,IA (53718) Notes: Either allergic dermatitis from necklace or yeast. Start topical Nystatin. Discussed to use topical hydrocortisone for itching. Return to clinic if worsens. Patient voices understanding. ? 11. H istory of vitamin D deficiency L AB: VITAMIN D,25-OH,TOTAL,IA (21110) Notes: I personally will review all labs [...] recommended repeat in 2 years. 13. E rhondaunter for screening mammogram for malignant neoplasm of breast I maging: Mammogram : Bilateral ? Referral To: ?Reason:Please arrange annual mammogram with [facility] for breast cancer screening. 14.?Cervical cancer screening? Referral To: ?Reason:Please refer to Dr. Regi Martinez for routine pap smear for cervical cancer screening. 15.?Skin cancer screening? Referral To: ?Reason:Please refer to Cnc Operator Machinist for routine skin cancer screening. 16.?Heart murmur? Notes: ECHO 10/2023, Normal biventricular systolic function.Mild LA dilation. Mild AI, mild MR, mild TR. No acute concerning findings.??17.?Hypertrophy of uterus? Notes: Follows with CARTOGRAPHY SUPERVISOR. History of ablation.??18.?History of odynophagia? Notes: Thought [...] her. Patient is at baseline a poor vp medical often forgetting names of her medications, which [...] 01/09/2025 Generated for Marycruz leonard/Aren/Aldoitting on: 0 01/15/2025 03:42 PM EDT History and Physical Notes * HPI (History of Present Illness) Category Sub-Category Detail Notes Category Not es gen Patient presents for annual physical. Health Maintenance: She reports getting annual mammogram, November 2023, normal, due for next one. She is followed by CARTOGRAPHY SUPERVISOR Dr. Martinez, unsure when she last had [...] little. -Stress incontinence: She is followed with CARTOGRAPHY SUPERVISOR Urology for chronic stress incontinence, controlled with Gemtesa. Botox shots have not helped. Continues to follow with UroGYN at [place]. Asking for follow-up to be arranged with [...] I-XII intact, No focal neurological deficits, equal safety equipment tester strength in hands bilaterally, moving all extremities [...] , Please arran ge annual mammogram with [facility] for breast cancer screening. 01/09/2025 Mary Santoyo , Please refer to Dr. Regi Martinez for routine pap smear for cervical cancer screening. 01/09/2025 Mary Santoyo , Please refer to C[facility] Operator Machinist for routine skin cancer screening. 01/09/2025 Mary Santoyo , Can you poss ibly send me GI Dr. Roth note? No longer having acute symptoms, but would like to read their recommendation at that time.
--- OUTSIDE RECORDS SUMMARY | 2025-01-10 14:55 | XMS_ITS | Encounter Summary ---
Author Organization [facility] Address [address] [place] [address] Care Team Providers Care Lithographic Plate Maker Apprentice Name Role Phone Provider, No Known Primary Care Provider Unavail able Encounter Details Date Type Department Care Team (Late Contact Info) Description 01/10/2025 2:55 PM EDT Hospital Encounter [facility] PULMONARY & CRITICAL CARE MEDICINE [address] [place] [address] Social History Tobacco Use Types Packs/Day Years Used Date Smoking Tobacco: Every Day Cigarettes 1 40.6 Started: 1982 Smokeless Tobacco: Never Alcohol Use [...] Upcoming Encounters Date Type Department Care Team ([facility] Contact Info) Description 05/15/2025 2:45 PM EST Office Visit [facility] PULMONARY & CRITICAL CARE MEDICINE [address] [place] [address] Raul Yoon DO [address] [place] [address] documented as of this encounter Procedures Procedure Name Priority Date/Time Associated Diagnosis Comments XR CHEST PA AND LATERAL Routine 01/10/2025 2:56 PM EDT Shortness of breath documented in this encounter Results * XR Chest PA & Lateral (01/10/2025 2:56 PM EDT) Anatomical Region Laterality Modality Body, Chest N/A Radiographic Keerthi ging Narrative 01/10/2025 3:57 PM EDT Sera Saxena [id number] 01/10/2025 Chest X-Ray PA & Lateral Indication: [...] on filedocumented in this encounter Care Teams Lithographic Plate Maker Apprentice Relationship Specialty Start Date End Date Provider, [place] [address] PCP - General 01/10/25 documented as of this encounter
--- OUTSIDE RECORDS SUMMARY | 2025-01-10 15:30 | XMS_ITS | Encounter Summary ---
[facility] Organization [facility] Address [address] [place] [address] Care Team Providers Care Game Programer Name Role Phone Provider, No Known Primary Care Provider Unavail able Reason for Visit * Reason Comments Shortness of Breath Encounter Details Date Type Department Care Team ([facility] st Contact Info) Description 01/10/2025 3:30 PM EDT Office Visit [facility] PULMONARY & CRITICAL CARE MEDICINE [address] [place] [phone] Raul Yoon DO [address] [place] [address] Shortness of breath (Primary Dx); Mucopurulent chronic bronchitis; Personal history of smoking Social History Tobacco Use Types Packs/Day Years [...] on file documented as of this encounter Last Filed Vital Signs Vital Sign Reading Time Taken Comments Blood Pressure 122/84 01/10/2025 3:18 PM EDT Pulse 76 01/10/2025 3:18 PM EDT Temperature - - Respiratory Rate - - Oxygen Saturation 98% 01/10/2025 3:18 PM EDT Inhaled Oxygen Concentration - - Weight 81.6 kg (180 lb) 01/10/2025 3:18 PM EDT Height 160 cm (5' 3 ) 01/10/2025 3:18 PM EDT Body Mass Index 31.89 01/10/2025 3:18 PM EDT documented in this encounter Progress Notes * Luiza Garza, ARIANE - 01/10/2025 3:30 PM EDTAddended by: LUIZA GARZA on: 01/10/2025 04:31 PM Modules accepted: Orders * Raul Yoon, DO - 01/10/2025 3:30 PM EDT New Patient Pulmonary Office Visit Patient Name: Sera Saxena Referring Physician: No ref. provider found Chief Complaint: Chief Complaint Patient presents with Shortness of Breath History of Present Illness: Sera Saxena is a 49 y.o. female who is here today to establish care with Pulmonary. Has a past medical history significant for tobacco abuse, depression, hypertension, allergic rhinitis, and arthritis. Patient was referred to pulmonary for evaluation of shortness of breath. Patient states that she has a significant smoking history. Started having significant breathing issues after she had a aspiration event. Doing better now has not started the inhalers yet still smoking regularly. Has a daily cough. Review of Systems: Review of Systems Constitutional: Negative for chills, fatigue and fever. HENT: Negative for congestion and voice change. Eyes: Negative for blurred vision. Respiratory: Positive for cough and shortness of breath. Negative for wheezing. Cardiovascular: Negative for chest pain. Skin: Negative for dry skin. Hematological: Negative for adenopathy. Psychiatric/Behavioral: Negative for agitation and depressed mood. Past Medical History: History reviewed. No pertinent past medical history. Past Surgical History: History reviewed. No pertinent surgical history. Family History: History reviewed. No pertinent family history. Social History: Social History Socioeconomic History Marital status: Single Tobacco Use Smoking status: Every Day Current packs/day: 1.00 Average packs/day: 1 pack/day for 40.5 years (40.5 ttl pk-yrs) Types: Cigarettes Start date: 1984 Smokeless tobacco: Never Vaping Use Vaping status: Never Used Substance and Sexual Activity Alcohol use: Never Drug use: Never Sexual activity: Defer Medications: Current Outpatient Medications: Breztri Aerosphere 160-9-4.8 MCG/ACT aerosol inhaler, Inhale 2 puffs 2 (Two) Times a Day., Disp: 10.7 g, Rfl: 11 hydroCHLOROthiazide 12.5 MG tablet, Daily., Disp: , Rfl: ipratropium-albuterol (DUO-NEB) 0.5-2.5 mg/3 ml nebulizer, USE 3 ML VIA NEBULIZER EVERY 4 HOURS NEEDED FOR WHEEZING OR SHORTNESS OF BREATH, Disp: , Rfl: methocarbamol (ROBAXIN) 500 MG tablet, TAKE 1 TABLET BY MOUTH AT BEDTIME EVERY NIGHT, Disp: , Rfl: topiramate (TOPAMAX) 50 MG tablet, TAKE 1 TABLET BY MOUTH AT BEDTIME; Duration: 30, Disp: , Rfl: albuterol sulfate HFA 108 (90 Base) MCG/ACT inhaler, Inhale 2 puffs Every 4 (Four) Hours As Needed for Wheezing., Disp: , Rfl: Allergies: Allergies Allergen Reactions Aspirin Hives, Anaphylaxis, Rash, Shortness Of Breath and Other (See Comments) Penicillins Other (See Comments), Rash, Shortness Of Breath, Anaphylaxis and Unknown - High Severity Other Reaction(s): Other (See Comments) Pt stated that she is not sure. Pt stated that she had a reaction when she was a baby Pt stated that she is not sure. Pt stated that she had a reaction when she was a baby Latanoprost Unknown - High Severity Latex Unknown - High Severity Codeine Nausea Only and GI Intolerance Physical Exam: Vital Signs: Vitals: 01/10/25 1518 BP: 122/84 Pulse: 76 SpO2: 98% Weight: 81.6 kg (180 lb) Height: 160 cm (63 ) Physical Exam Vitals and nursing note reviewed. Constitutional: General: She is not in acute distress. Appearance: She is well-developed and normal weight. She is not ill-appearing or toxic-appearing. HENT: Head: Normocephalic and atraumatic. Cardiovascular: Rate and Rhythm: Normal rate and regular rhythm. Pulses: Normal pulses. Heart sounds: Normal heart sounds. No murmur heard. No friction rub. No gallop. Pulmonary: Effort: Pulmonary effort is normal. No respiratory distress. Breath sounds: Normal breath sounds. No wheezing, rhonchi or rales. Musculoskeletal: Right lower leg: No edema. Left lower leg: No edema. Skin: General: Skin is warm and dry. Neurological: Mental Status: She is alert and oriented to person, place, and time. There is no immunization history on file for this patient. Results Review: - I personally reviewed the pts imaging from chest x-ray from 01/10/2025 showed no acute cardiopulmonary process - I personally reviewed the pts PFT from 01/10/2025 shows moderate obstruction without restriction, significant air trapping and normal DLCO. - I personally reviewed the pts chart with regards to evaluation by the patient's PCP Assessment / Plan: Diagnoses and all orders for this visit: 1. Shortness of breath (Primary) 2. Mucopurulent chronic bronchitis 3. Personal history of smoking -Patient has gold stage 2 class B COPD -Continue Breztri 2 puffs twice daily with albuterol every 4 hours as needed for medication management -latest PFTs as noted above -Patient counseled on monitoring for COPD exacerbation and treatment plan - Recommend 30 minutes cardiovascular exercise per day - In this visit the patient was advised to stop smoking and was offered tobacco cessation measures and resources, including NRT and/or medication intervention. I specifically discussed with the patient psychological components to quitting smoking which includes determining why the patient wants to quit smoking, identifying smoking triggers, and figuring out ways to replace those triggers. Greaterthan 10 minutes was spent on [id number]-[id number] counseling regarding smoking cessation. Plan to follow-upat the next visit on status cessation success. Patient was willing to quit at this time. Patient did not want any medications to help with tobacco cessation at this time. Goal is to have complete tobacco cessation within 1 year. Follow Up: Return in about 5 months (around 06/12/2025). Owen Yoon DO Pulmonary and Critical Care Medicine Note Electronically Signed Part of this note may be an electronic reserve operator/translation of spoken language to printed textusing the AssetAvenueation System. documented in this encounter Plan of Treatment Upcoming Encounters Date Type Department Care Team (Late st Contact Info) Description 05/15/2025 2:45 PM EST Office Visit [facility] PULMONARY & CRITICAL CARE MEDICINE [address] [place] [address] Raul Yoon DO [address] [place] [address] Scheduled Orders Name Type Priority Associated Diagnoses Orde r Schedule Pulmonary Results Scan PFT Or dered: 01/10/2025 documented as of this encounter Procedures Procedure Name Priority Date/Time Associated Diagnosis Comments BREATHING CAPACITY TEST Routine 01/10/2025 4:30 PM EDT Shortness of breath XR CHEST PA AND LATERAL Routine 01/10/2025 2:56 PM EDT Shortness of breath documented in this encounter Results * Breathing Capacity Test (01/10/2025 4:30 PM EDT) Raul Yoon DO PFT ORDERABLES Fin al Result * XR Chest PA & Lateral (01/10/2025 2:56 PM EDT) Anatomical Region Laterality Modality Body, Chest N/A Radiographic Keerthi ging Narrative 01/10/2025 3:57 PM EDT Sera Saxena [id number] 01/10/2025 Chest X-Ray PA & Lateral Indication: Shortness of breath Comparison: None available Findings: Lungs are clear. No effusions. Heart and mediastinum unremarkable. No pneumothorax. Interpretation: No acute cardiopulmonary findings Owen Yoon DO Please note that portions of this note may have been completed with a voice recognition program. Efforts were made to edit the dictations, but occasionally words are mistranscribed. Raul Yoon DO IMG DIAGNOSTIC IMAG ING ORDERABLES Final Result documented in this encounter Visit Diagnoses Diagnosis Shortness of breath- Primary Mucopurulent chronic bronchitis Personal history of smoking Personal history of tobacco use, presenting hazards to health documented in this encounter Care Teams Game Programer Relationship Specialty Start Date End Date Provider, No Known [facility] [place] [place] [address] PCP - General 01/10/25 documented as of this encounter
--- OUTSIDE RECORDS SUMMARY | 2025-01-11 10:15 | XMS_ITS ---
Author Organization [facility] Address [address] [facility] [address] [place] [address] Care Team Providers Care Cost Accountant Name Role Phone Mike Rodrigues Primary Care Provider Niyah Bustamantei Unavailable [phone] NIYAH Bustamante APRNI Unavailable Unavailable Mary Santoyo Unavailable [phone] REASON FOR VISIT Labs Encounters Encounter Location Date Provider Diagnosis [facility] [address] [facility] [address] [place], [place] [address] 01/11/2025 Mary Santoyo Plan Of Treatment Next Appt Details Provider Name:Mike Rodrigues, 02/19/2025 02:45:00 PM, [address] [facility], [address], [place], [address], Progress Notes * Sera RINCON DDOB: [birth year] (49 yo F)Acc No.[id number]:01/11/2025 LABS Patient: Sera HINTON Provider: BERNARDO Phipps :1975 A ge:49 Y S ex:Female Date:01/11/2025 [address] [facility] [id number] Pcp:Mike Rodrigues Subjective: * Chief Complaints: * 1 . Labs. * Medical History: Objective: * Vitals: Assessment: Plan: * Treatment: * * Electronic signature of Amelia Santoyo PA-C on 01/15/2025 at 03:42 PM EDT Sign off status: Pending * Provider: BERNARDO Phipps Date: 01/11/2025 Generated for Marycruz leonard/Aren/Sriram on: 01/15/2025 03:42 PM EDT
--- OUTSIDE RECORDS SUMMARY | 2025-01-15 15:42 | XMS_ITS | Encounter Summary ---
[facility] Address [address] [place] [address] Care Team Providers Care White Metal Caster Name Role Phone Provider, No Known Primary Care Provider Unavail able Encounter Details Date Type Department Care Team (Latest Contact Info) Description 01/10/2025 Travel Social History Tobacco Use Types Packs/Day Years [...] Description 05/15/2025 2:45 PM EST Office Visit [facility] PULMONARY & CRITICAL CARE MEDICINE [address] [place] [id number] Raul Yoon DO [address] [place] [address] documented as of this encounter Visit Diagnoses Not on filedocumented in this encounter Care Teams White Metal Caster Relationship Specialty Start Date End Date Provider, [place] [address] PCP - General 01/10/25 documented as of this encounter
--- OUTSIDE RECORDS SUMMARY | 2025-01-15 15:42 | XMS_ITS | Clinical Summary ---
Author Organization [facility] Address [address] [address] Care Team Providers Care Pharmacy Retail Support Specialist Name Role Phone Provider, No Known Primary Care Provider Unavail able Allergies Active Allergy Reactions Criticality Noted Date Comments Aspirin Hives,Anaphylaxis,Ra sh,Sh ortness Of Breath,Other (See Comments) High 09/13/2023 Codeine Nausea Only,GI Intolerance Low 09/13/2023 Latanoprost Unknown - High Severity 01/10/2025 Latex Unknown - High Severity 01/10/2025 Penicillins Other (See Comments),Rash,Shortness Of Breath,Anaphylaxis,Unknow n - High Severity High 09/13/2023 Other Reaction(s): Other (See Comments) Pt stated that she is not sure. Pt stated that she had a reaction when she was a baby Pt stated that she is not sure. Pt stated that she had a reaction when she was a baby Medications hydroCHLOROthia zide 12.5 MG tablet Daily. Active methocarbamol (ROBAXIN) 500 MG tablet TAKE 1 TABLET BY MOUTH AT BEDTIME EVERY NIGHT 5 Active topiramate (TOPAMAX) 50 MG tablet TAKE 1 TABLET BY MOUTH AT BEDTIME; Duration: 30 Active ipratropium-alb uterol (DUO-NEB) 0.5-2.5 mg/3 ml nebulizer USE 3 ML VIA NEBULIZER EVERY 4 HOURS NEEDED FOR WHEEZING OR SHORTNESS OF BREATH 5 Active albuterol sulfate HFA 108 (90 Base) MCG/ACT inhalerIndicati ons:Mucopurulen t chronic bronchitis Inhale 2 puffs Every 4 (Four) Hours As Needed for Wheezing. 5 Active Breztri Aerosphere 160-9-4.8 MCG/ACT aerosol inhalerIndicati ons:Mucopurulen t chronic bronchitis Inhale 2 puffs 2 (Two) Times a Day. 10.7 g 11 Active Breztri Aerosphere 160-9-4.8 MCG/ACT aerosol inhaler Every 12 (Twelve) Hours. 5 01/11/20 25 Discontinu ed(Reorder ) Active Problems No known active problems Encounters Date Type Department Care Team Description 01/10/2025 3:30 PM EDT Office Visit [facility] PULMONARY & CRITICAL CARE MEDICINE [address] [place] [address] Raul Yoon, Shortness of breath (Primary Dx); Mucopurulent chronic bronchitis; Personal history of smoking 01/10/2025 2:55 PM EDT Hospital Encounter [facility] PUL[facility]ITICAL CARE MEDICINE [address] [place] [address] 01/10/2025 Travel from Last 3 Months Social History Tobacco Use Types Packs/Day Years [...] on file Sexual Orientation Not on file Last Filed Vital Signs Vital Sign Reading [...] Mass Index 31.89 01/10/2025 3:18 PM EDT Plan of Treatment Upcoming Encounters Date Type Department Care Team (Late st Contact Info) Description 05/15/2025 2:45 PM EST Office Visit [facility] PULMONARY & CRITICAL CARE MEDICINE [address] [place] [address] Raul Yoon DO [address] [place] [address] Health Maintenance Due Date Last Done Comments Annual Gynecologic Pelvic and Breast Exam 1977 Pneumococcal Vaccine 0-49 (1 of 2 - PCV) 1996 PAP SMEAR 1998 MAMMOGRAM 2017 COLOGUARD 2022 COLON CANCER SCREENING 5 YEAR SIGMOIDOSCOPY 2022 COLONOSCOPY 2022 [address] CANCER SCREENING 2022 CT COLONOGRAPHY 2022 FECAL OCCULT BLOOD TEST 2022 FIT Testing (1 year) 2022 COVID-19 Vaccine ( - season) 2024 ANNUAL PHYSICAL 01/10/2025 HEPATITIS C SCREENING 01/10/2025 INFLUENZA VACCINE 03/28/2025 TDAP/TD VACCINES (2 - Td or Tdap) 01/06/2034 024 Procedures Procedure Name Priority Date/Time Associated Diagnosis Comments BREATHING CAPACITY TEST Routine 01/10/2025 4:30 PM EDT Shortness of breath XR CHEST PA AND LATERAL Routine 01/10/2025 2:56 PM EDT Shortness of breath from Last 3 Months Results * Breathing Capacity Test (01/10/2025 4:30 PM EDT) Raul Yoon DO PFT ORDERABLES Fin al Result * XR Chest PA & Lateral (01/10/2025 2:56 PM EDT) Anatomical Region Laterality Modality Body, Chest N/A Radiographic Keerthi ging Narrative 01/10/2025 3:57 PM EDT Sera Saxena [id number] 01/10/2025 Chest X-Ray PA & Lateral Indication: Shortness of breath Comparison: None available Findings: Lungs are clear. No effusions. Heart and mediastinum unremarkable. No pneumothorax. Interpretation: No acute cardiopulmonary findings C. Mustapha Meenach, DO Please note that portions of this note may have been completed with a voice recognition program. Efforts were made to edit the dictations, but occasionally words are mistranscribed. Raul Yoon DO IMG DIAGNOSTIC IMAG ING ORDERABLES Final Result from Last 3 Months Insurance Care Teams Pharmacy Retail Support Specialist Relationship Specialty Start Date End Date Provider, No Known [facility] [place] [address] PCP - General 01/10/25
--- OUTSIDE RECORDS SUMMARY | 2025-01-15 15:42 | XMS_ITS | Encounter Summary ---
Author Organization [employer] ([place], [place], [place], [place]) Address [address] [place] [address] Care Team Providers Care Enterprise Software Engineer Name Role Phone Mike Rodrigues MD Primary Care Provider [phone] Reason for Referral * Surgical (Routine) - Closed Specialty Diagnoses / Procedures Referred By Contac t Referred To Contact Neurosurgery / Neurology Diagnoses Cervical spondylosis Mike Rodrigues MD [address] [facility] [address] [place] [address] Phone: tel: fax: [facility] Neurology Played [facility] [address] [address] Phone: tel: fax: Referral ID Status Reason Start Date Expiration Date V isits Requested Visits Authorized [id number] Closed Specialty Services Required 07/17/2024 07/17/2025 1 1 Encounter Details Date Type Department Care Team (Late st Contact Info) Description 07/17/2024 Outside Orders [facility] Neurology Played [facility] [address] [address] Mike Rodrigues MD [address] [facility] [address] [place] [address] Cervical spondylosis (Primary Dx) Social History Tobacco Use Types Packs/Day Years Used Date Smoking Tobacco: Never Assessed Comments Unknown Sex and Gender Information Value Date Recorded Sex Assigned at Not on file Legal Sex Female 5:16 PM CDT Gender Identity Not on file Sexual Orientation Not on file documented as of this encounter Plan of Treatment Scheduled Referrals Name Type Priority Associated Diagnoses Orde r Schedule Ambulatory referral to Neurosurgery Outpatient Referral Routine Cervical spondylosis Ordered: 07/17/2024 documented as of this encounter Visit Diagnoses Diagnosis Cervical spondylosis- Primary Cervical spondylosis without myelopathy documented in this encounter Care Teams Enterprise Software Engineer Relationship Specialty Start Date End Date Mike Rodrigues MD [address] [place] [address] [place] [address] PCP - General Adolescent Medicine 07/17/24 documented as of this encounter
--- OUTSIDE RECORDS SUMMARY | 2025-01-15 15:42 | XMS_ITS | Clinical Summary ---
Author Organization [facility] Address [address] [place] [phone] Phone Care Team Providers Care Nuisance Wildlife Specialist Name Role Phone Unavailable Primary Care Provider Unavailabl e Allergies Active Allergy Reactions Criticality Noted Date Comments Aspirin Hives Medium 09/13/2023 Codeine Nausea Only Low 09/13/2023 Penicillins Other (See Comments) 09/13/2023 Pt stated that she is not sure. Pt stated that she had a reaction when she was a baby Medications albuterol (PROVENTIL) 2.5 mg /3 mL (0.083 %) Inhl Solution for Nebulization Take 2.5 mg by nebulization once. 4 Active meloxicam (MOBIC) 7.5 mg Oral Tablet Take 7.5 mg by mouth daily. 4 Active LIDODERM 5 % Top Adhesive Patch, Medicated Place 1 Patch onto the skin once. Active propranoloL (INDERAL) 20 mg Oral Tablet Take 20 mg by mouth once. Active ibuprofen (ADVIL;MOTRIN) 800 mg Oral Tablet Take 800 mg by mouth 3 times daily as needed. 4 Active cyclobenzaprine (FLEXERIL) 10 mg Oral Tablet Take 10 mg by mouth. 4 Active lisinopriL (PRINIVIL;ZESTRI L) 20 mg Oral Tablet tablet Take 20 mg by mouth daily. Active celecoxib (CELEBREX) 200 mg Oral Capsule Take 200 mg by mouth daily. 4 Active lisinopriL-hydro chlorothiazide (PRINZIDE;ZESTOR ETIC) 20-12.5 mg Oral Tablet Take 1 Tablet by mouth daily. 4 Active PARoxetine (PAXIL) 10 mg Oral Tablet Take 10 mg by mouth daily. 3 Active predniSONE (DELTASONE) 20 mg Oral Tablet Take 20 mg by mouth daily. 4 Active pantoprazole (PROTONIX) 40 mg Oral Tablet, Delayed Release (E.C.) Take 40 mg by mouth daily. Active Nebulizers Misc Misc as directed 4 Active NIFEdipine (PROCARDIA XL) 30 mg Oral Tablet Extended Rel 24 hr Take 30 mg by mouth daily. 4 Active losartan (COZAAR) 100 mg Oral Tablet Take 100 mg by mouth daily. 4 Active levoFLOXacin (LEVAQUIN) 500 mg Oral Tablet TAKE 1 TABLET BY MOUTH EVERY 24 HOURS FOR 7 DAYS 4 Active vibegron 75 mg Oral TabletIndication s:Urge urinary incontinence,OAB (overactive bladder) Take 1 Tablet by mouth daily. 30 Tablet 5 4 Active oxybutynin (DITROPAN-XL) 10 mg Oral Tablet Extended Rel 24 hrIndications:OA B (overactive bladder) TAKE 1 TABLET BY MOUTH DAILY 30 Tablet 6 4 Active nitrofurantoin, macrocrystal-mon ohydrate, (MACROBID) 100 mg Oral CapsuleIndicatio ns:Therapeutic procedure Starting 3 days prior to procedure: take 1 tab PO bid x 7 days 14 Capsule 4 Active diazePAM (VALIUM) 2 mg Oral TabletIndication s:Therapeutic procedure Take 1 tab 30-60 minutes prior to procedure. 1 Tablet 4 Active Active Problems Problem Noted Date Diagnosed Date Secondary hypertension 09/13/2023 OAB (overactive bladder) 09/13/2023 Mixed stress and urge urinary incontinence 09/12 Medical History Medical History Date Comments Hypertension Social History Tobacco Use Types Packs/Day Years Used Date Smoking Tobacco: Former Cigarettes Smokeless Tobacco: Never Tobacco Cessation:Counseling Given: Not Answered Comments No Sex and Gender Information Value Date Recorded Sex Assigned at Not on file Legal Sex Female 11:25 AM EDT Gender Identity Not on file Sexual Orientation Not on file Obstetrics History Para Term AB IAB SAB Ectopic Multiple Livin g Live Births 4 3 Date Outcome GA Total Labor Labor/2nd/3rd Weight Sex Type Anes PTL Saba A1 A5 Name Clin Para Para Para Last Filed Vital Signs Vital Sign Reading Time Taken Comments Blood Pressure - - Pulse 74 06/06/2024 10:54 AM EST Temperature - - Respiratory Rate 16 12/09/2023 2:33 PM EDT Oxygen Saturation 99% 06/06/2024 10:54 AM EST Inhaled Oxygen Concentration - - Weight 80.5 kg (177 lb 6.4 oz) 06/06/2024 10:54 AM EST Height 160 cm (5' 3 ) 02/29/2024 2:15 PM EDT Body Mass Index 31.42 02/29/2024 2:15 PM EDT Plan of Treatment Health Maintenance Due Date Last Done Comments Annual Wellness Exam 1980 Hepatitis B Vaccine (1 of 3 - 19+ 3-dose series) 1996 Cervical Cancer Screening 1998 Pap Smear 1998 HPV/Pap Cotest 12/12/2007 Breast Cancer Screening 2017 Cologuard 2022 Colon Cancer Screening 2022 Colonoscopy 2022 FIT 2022 Sigmoidoscopy 2022 Virtual Colonography 2022 COVID-19 Vaccine (1 - 2023-2 5 season) 2024 Influenza Vaccine (#1) 2025 DTaP/TDaP/Td (2 - Td or Tdap) 01/06/2034 01/07/2024 Meningococcal B Vaccine Aged Out No l onger eligible based on patient's age to complete this topic Pneumococcal Vaccine 0-49 Aged Out No longer eligible based on patient's age to complete this topic Insurance [facility] [id number] MDR [facility] [place] [id number]
--- NOTE | 2025-01-15 15:43 | MM_ITS ---
PROCEDURE INFORMATION: Exam: MG Bilateral Screening 3D Mammography Exam date and time: 01/15/2025 3:53 PM Age: 49 years old Clinical indication: Screening examination TECHNIQUE: Imaging protocol: Bilateral Screening tomosynthesis and 2D mammography including computer-aided detection (CAD) when performed. COMPARISON: 1. MG MM DIG MAMM DX UNILAT RT CAD 12/08/2023 2:22 PM 2. MG MM DIG SCREENING MAMM BI W/CAD 06/02/2023 4:39 PM FINDINGS: MAMMOGRAPHY: Breast composition: There are scattered areas of fibroglandular density. Mass: No suspicious masses. Architectural distortion: None. Calcifications: No suspicious calcifications. Asymmetric density: None. Skin thickening: None. Axillary adenopathy: None. IMPRESSION: No mammographic evidence of malignancy. Annual screening is recommended unless otherwise clinically indicated. ASSESSMENT: BI-RADS Category 1: Negative.
--- OUTSIDE RECORDS SUMMARY | 2025-01-15 15:43 | XMS_ITS | Clinical Summary ---
Author Organization [employer] ([place], [place], [place], [place]) Address [address] [place] [address] Care Team Providers Care Senior Principal Process Engineer Name Role Phone Miek Rodrigues MD Primary Care Provider + [phone] Allergies Active Allergy Reactions Criticality Noted Date Comments Aspirin Hives,Rash,Shortness Of Breath,Other (See Comments) High 09/13/2023 Codeine Nausea Only Low 09/13/2023 Penicillins Rash,Shortness Of Breath,Swelling,Other (See Comments) High 09/13/2023 Other Reaction(s): Other (See Comments) Pt stated that she is not sure. Pt stated that she had a reaction when she was a baby Medications hydroCHLOROthiaz roshni (HYDRODIURIL) 12.5 MG tablet 1 tab(s) orally once a day for 30 days Active famotidine (PEPCID) 20 MG tablet 1 tab(s) orally every 12 hours for 30 days Active carvediloL (COREG) 12.5 MG tablet 1 tab(s) orally 2 times a day for 30 days Active Family History Medical History Relation Name Comments Cancer Father Stan Saxena Diabetes Father Stan Saxena Skin cancer, gina ng cancer Heart disease Father Stan Saxena Heart stints Diabetes Maternal Grandfather Arron Saxena My Dad' s dad Migraines Mother Lana Curran Relation Name Status Comments Father Stan Saxena Maternal Grandfather Arron Saxena Mother Lana Curran Social History Tobacco Use Types Packs/Day Years Used Date Smoking Tobacco: Every Day Cigarettes Started: 12/10/1997 Smokeless Tobacco: Former Quit: 1997 Tobacco Cessation:Ready to Q uit: No; Counseling Given: Not Answered Alcohol Use Standard Drinks/Week Comments Never 0 (1 standard drink = 0.6 oz pur e alcohol) Comments Unknown Sex and Gender Information Value Date Recorded Sex Assigned at Not on file Legal Sex Female 5:16 PM CDT Gender Identity Not on file Sexual Orientation Not on file Last Filed Vital Signs Vital Sign Reading Time Taken Comments Blood Pressure 125/66 10/03/2024 3:04 PM EDT Pulse 77 10/03/2024 3:04 PM EDT Temperature - - Respiratory Rate - - Oxygen Saturation - - Inhaled Oxygen Concentration - - Weight 84.4 kg (186 lb) 10/03/2024 3:04 PM EDT Height 161.3 cm (5' 3.5 ) 10/03/2024 3:04 PM EDT Body Mass Index 32.43 10/03/2024 3:04 PM EDT Plan of Treatment Health Maintenance Due Date Last Done Comments CT Colonography 1977 Colonoscopy 1977 Colorectal Cancer Screening 1977 FOBT/FIT 1977 Fit-DNA (Cologuard) 1977 Sigmoidoscopy 1977 Depression Screening (12+) 1989 Tobacco Cessation Counseling and Screening (12+) 12/11 HIV Screening 1992 Hepatitis C Screening 12/12/1995 Pneumococcal Vaccine: 0-49 Years (1 of 2 - PCV) 1996 Pap Smear 1998 Breast Cancer Screening 2017 Lipid Panel 2022 COVID-19 VACCINE ( - season) 2024 Influenza Vaccine (#1) 2025 DTAP/TDAP/TD VACCINES (2 - Td or Tdap) 01/06/2034 Insurance Care Teams Senior Principal Process Engineer Relationship Specialty Start Date End Date Mike Rodrigues MD [address] [place] [id number] PCP - General Adolescent Medicine 07/17/24
--- OUTSIDE RECORDS SUMMARY | 2025-01-15 15:43 | XMS_ITS | Patient Health Record ---
Author Organization [facility] Octavio [facility] Address [address] [place] [address] Care Team Providers Care [facility] Technician Name Role Phone Mike Rodrigues Primary Care Provider Bello Bustamantei Unavailable [phone] Dianna THIBODEAUX KRISSY Unavailable Unavailable Mary Walters Unavailable [phone] Mary Santoyo Unavailable [phone] Migration, Provider Unavailable Unavailable Allergies Allergen (clinical drug ingredient) Drug/Non Drug [...] date:01/15/2025 11:35:55 AM Interpretation: Performing Lab:CB, [facility] [address], [facility]VV[address] Ramon Quinones Notes/Report: NON-FASTING; NON-FASTING; NON-FASTING; NON-FASTING; [...] of LDL-C. Mekhi SS et al. RONALD. 2013;310(08): 1165-6024 (http://education.Z[facility]/faq/XZU394) CHOL/HDLC RATIO 3.3 <5.0 (calc) NON HDL CHOLESTEROL 121 <130 mg/dL (calc) For patients with diabetes plus 1 major ASCVD risk factor, treating to a non-HDL-C goal of <100 mg/dL (LDL-C of <70 mg/dL) is considered a therapeutic option. COMPREHENSIVE METABOLIC PANE L (91954) Reviewed date:01/15/2025 11:35:55 AM Interpretation: Performing Lab:[facility]IE [facility] Uqap[address] [facility] Ramon Quinones Notes/Report: NON-FASTING; NON-FASTING; NON-FASTING; [...] Reviewed date:01/15/2025 11:35:55 AM Interpretation: Performing Lab:[facility]IE [employer] [id number] FIRE[address] [facility], [facility] CenterBmfcZA[address] Ramon Quinones Notes/Report: NON-FASTING; NON-FASTING; NON-FASTING; NON-FASTING; [...] MPV 11.8 7.5-12.5 fL ABSOLUTE NEUTROPHILS 5420 2247-6105 cells/uL ABSOLUTE LYMPHOCYTES 2148 850-3900 cells/uL ABSOLUTE MONOCYTES 508 200-950 cells/uL ABSOLUTE EOSINOPHILS 90 15-500 cells/uL ABSOLUTE BASOPHILS 33 0-200 cells/uL NEUTROPHILS 66.1 LYMPHOCYTES 26.2 MONOCYTES 6.2 EOSINOPHILS 1.1 BASOPHILS 0.4 HEMOGLOBIN A1c (496) Reviewed date:01/15/2025 11:35:55 AM Interpretation: Performing Lab:SADIE, [facility] [id number] [address] [facility], [facility] CenterTimrXL[address] Ramon Quinones Notes/Report: NON-FASTING; NON-FASTING; NON-FASTING; NON-FASTING; [...] diagnosis of diabetes in children. According to [place] Diabetes Association (ADA) guidelines, hemoglobin A1c <7.0% represents optimal control in non- diabetic patients. Different metrics may apply to specific patient populations. Standards of Medical Care in Diabetes(ADA). TSH W/REFLEX TO FT4 (60753) Reviewed date:01/15/2025 11:35:55 AM Interpretation: Performing Lab:SADIE [employer] Eczm[address], TouraHdciUW[address] Ramon Quinones Notes/Report: NON-FASTING; NON-FASTING; NON-FASTING; NON-FASTING; NON-FAST TSH W/REFLEX TO FT4 1.02 Reference Range > or = 20 Years 0.40-4.50 Ranges First trimester 0.26-2.66 Second trimester 0.55-2.73 Third trimester 0.43-2.91 VITAMIN D,25-OH,TOTAL,IA (17 306) Reviewed date:01/15/2025 11:35:55 AM Interpretation: Performing Lab:SADIE [facility], TouraZxjhCO[address] Ramon Quinones Notes/Report: NON-FASTING; NON-FASTING; NON-FASTING; NON-FASTING; [...] D, (D2,D3), LC/MS/MS is recommended: order code 48810 (patients >2yrs). See Note 1 Note 1 For additional information, please refer to http://education.[employer]/faq/PHH406 (This link is being provided for informational/ educational purposes only.) BASIC METABOLIC PANEL (58233 ) Reviewed date:07/27/2024 03:09:24 PM Interpretation: Performing Lab:SADIE [facility] Treasurye[address], TouraReplCR[address] Ramon Quinones Notes/Report: NON-FASTING GLUCOSE 91 65-99 mg/dL Fasting reference interval UREA NITROGEN (BUN) 23 7-25 mg/dL CREATININE 0.94 0.50-0.99 mg/dL EGFR 76 > OR = 60 mL/min/1.73m2 BUN/CREATININE RATIO SEE NOTE: 6-22 (calc) Not Reported: BUN and Creatinine are within reference range. SODIUM 136 135-146 mmol/L POTASSIUM 4.1 3.5-5.3 mmol/L CHLORIDE 101 98-110 mmol/L CARBON DIOXIDE 24 20-32 mmol/L CALCIUM 9.5 8.6-10.2 mg/dL Rapid Covid/Flu A-B Combo Reviewed date:09/13/2024 04:18:27 PM Interpretation: Performing Lab: Notes/Report: Rapid Covid Neg Flu A Neg Flu B Neg CT Scan : Chest, Without Con trast Reviewed date:03/23/2024 04:12:55 PM Interpretation: Performing Lab: Notes/Report: X ray : Ankle, Left Reviewed date:02/24/2024 12:27:51 PM Interpretation: Performing Lab: Notes/Report: X ray : Ankle, Left Reviewed date:02/24/2024 12:27:51 PM Interpretation: Performing Lab: Notes/Report: X ray : Foot, Left Reviewed date:02/25/2024 10:22:31 AM Interpretation: Performing Lab: Notes/Report: M-BUN & Creatinine Reviewed date:07/17/2024 02:56:45 PM Interpretation: Performing Lab: Notes/Report: BUN 24 7-17 mg/dl CREATT 1.10 0.52-1.04 mg/dl GFRAA 65 >60 ML/MIN EGFR 53 >60 ml/min M-Comprehensive Metabolic Pa pradeep Reviewed date:03/29/2024 05:42:14 PM Interpretation: Performing Lab: Notes/Report: NA 139 136-145 mmol/L K 5.2 3.5-5.1 mmoL/L CL 103 98-107 mmol/L CO2 28 22.0-30.0 mmol/L GAP 13.2 5-15 mEq/L BUN 16 7-17 mg/dl CREATT 0.70 0.52-1.04 mg/dl GFRAA 109 >60 ML/MIN EGFR 90 >60 ml/min GLU 111 74-100 mg/dl CA 10.0 8.4-10.2 mg/dl BILIT 0.3 0.2-1.3 mg/dl AST 20 14-36 U/L ALT 15 12-78 U/L TP 7.6 6.3-8.2 g/dl ALB 4.6 3.5-5.0 g/dl GLOB 3.0 1.3-3.2 g/dL AGRATIO 1.5 1.1-1.8 ALP 104 38-126 U/L M-Adrenocorticotropic Hormon e Reviewed date:05/15/2024 01:25:24 PM Interpretation: Performing Lab: Notes/Report: AM FASTING ACTH 2.5 7.2-63.3 pg/mL ACTH reference interval for samples collected between 7 and 10 AM. Performed at: [employer] [address] [id number] Brine Plant Operator: Manav Khalil PhD, Phone: [phone] M-Cortisol Reviewed date:05/15/2024 01:25:24 PM Interpretation: Performing Lab: Notes/Report: AM FASTING LEYLA 1.3 6.2-19.4 ug/dL Please Note: The reference interval and flagging for this test is for an AM collection. If this is a PM collection please use: Cortisol PM: 2.3-11.9 Performed at: [employer] [id number] Brine Plant Operator: Manav Khalil PhD, Phone: [phone] MRI : Cervical spine without contrast Reviewed date:07/10/2024 01:47:58 PM Interpretation: Performing Lab: Notes/Report: MRI : Abdomen with & without Reviewed date:07/20/2024 11:25:59 AM Interpretation: Performing Lab: Notes/Report: H-DHEA Reviewed date:05/15/2024 01:25:24 PM Interpretation: Performing Lab: Notes/Report: AM FASTING DHEA 47 UNITS: ng/dL RE FERENC INTERVAL: 31 - 701 Reason For Referral Reason Please arrange high resolution CT chest WO for chronic cough, chronic smoking, wheezing on exam. Jenlyla- see notes Diagnosis 1 Chronic obstructive pulmonary disease, unspecified COPD type (J44.9) Referral Organization [facility] Referring Provider First Name Mary Referring Provider Last Name Natanael Referring Provider Speciality Family Pra ctice Referred Organization [facility] Referred Address [address] [facility], [place],[address], Referred Provider Specialty Diagnostic R adiology General Notes Erma Kumar 2023 11:45:28 AM >Patient precert pending, Erma Kumar 02/24/2024 11:31:30 AM >still pending precertJosé Nickie 02/24/2024 03:08:40 PM >denied - will try again, Erma Kumar 02/25/2024 04:04:26 PM >I re-submitted this again. I don't think they are going to approve it without a diagnosis of chest pain or cough with blood. But I tried., Efraín Jerome 03/02/2024 05:05:55 PM >approved and [facility] will call her Referral Priority Routine Reason Please arrange MRI a bdomen Adrenal mass protocol to be done in 3 months. ProScan Diagnosis 1 Adrenal mass (E27.8) Referral Organization [facility] VICENTE PICHARDO Referring Provider First Name Mary Referring Provider Last Name Natanael Referring Provider [facility] ctice Referred Organization [facility] Referred Address [address] [place] [address], Referred Provider Specialty Diagnostic R adiology General Notes Erma Kumar 2023 02:59:38 PM >pending precert with [facility]ie 06/15/2024 11:37:54 AM >Request ID:, Tracking:, [id number], Validity Dates:, 06/14/2024-08/13/2024 CPT 59432 [facility] Referral Priority Routine Reason PT at [facility] for upper left back pain Diagnosis 1 Upper back pain on l eft side (M54.9) Referral Organization [facility]ENTE PICHARDO Referring Provider First Name Mary Referring Provider Last Name Natanael Referring Provider [facility] ctice Referred Organization [facility] Referred Address [address] [place], [place],[address], Referred Provider Specialty Physical Med icine and Rehabilitation General Notes Erma Kumar 2023 03:14:04 PM >sent to [facility] rehab - they will call patient to schedule appt. Referral Priority Routine Reason Bux- Upper back pain Referral Organization [facility]ENTE PICHARDO Referring Provider First Name Mary Referring Provider Last Name Natanael Referring Provider [facility] ctice Referral Priority Routine Reason Please arrange MRI C spine WO at [facility] for ongoing right neck pain, radicular symptoms intermittently, failed PT. Diagnosis 1 Neck pain on right s roshni (M54.2) Referral Organization [facility] Referring Provider First Name Mary Referring Provider Last Name Natanael Referring Provider [facility] ctice Referred Organization [facility] Referred Address [address] [place], [place],[address],[place] Referred Provider Specialty Diagnostic R adiology General Notes Erma Kumar 2023 10:24:42 AM >Pending PrecertJosé Nickie 06/27/2024 09:44:21 AM >approved and order sent to [facility] scheduling. They will contact patient to schedule. Referral Priority Routine Reason Please refer to Neur osurgeon Dr. Meza for spondylosis, per MRI C spine, C4-C5 central protrusion which indents thecal sac and touches and mildly flattens the anterior surface of the cord. Diagnosis 1 Cervical spondylosis (M47.812) Referral Organization [facility]ENTE PICHARDO Referring Provider First Name Mike Referring Provider Last Name Ravi [facility] Referred Organization [facility] Referred Address [address] [place], [place],[address],[place] Referred Provider Specialty Neurological Surgery General Notes Erma Kumar 2024 09:29:16 AM >Referral placed through the [facility] portal., Erma Kumar 07/12/2024 09:24:11 AM >[facility] and Dr Meza do not take [facility] however he sees people at [facility] and can see her there. The order was faxed to Caitlin at [facility] [phone]. Her phone is [phone]. Clinical Notes Erma Kumar 2024 09:25:21 AM > Referral Priority Urgent Reason CT Adrenal Mass Prot ocol for 6 mth f/u Diagnosis 1 Adrenal mass (E27.8) Referral Organization [facility] Referring Provider First Name Krissy Referring Provider Last Name Dianna Referring Provider [facility] ctice Referred Organization [facility] Referred Address [address] [facility], [place],[address],[place] Referred Provider Specialty Diagnostic R adiology Referral Priority Routine Reason Can you please see i f this med needs a PA? Patient said her insurance doesn't cover it. Diagnosis 1 Stress incontinence (N39.3) Referral Organization [facility] Referring Provider First Name Mary Referring Provider Last Name Natanael Referring Provider [facility] ctice General Notes Efraín Jerome 03:13:47 PM > PA done on cover my meds Referral Priority Routine Reason Can you help with PA approval of Gemtesa and Trelegy. Failed Dulera and albut/iprat. Diagnosis 1 Stress incontinence (N39.3) Referral Organization [facility] Referring Provider First Name Mary Referring Provider Last Name Natanael Referring Provider [facility] ctice General Notes Efraín Jerome 12:00:55 PM > did PA on cover my meds Referral Priority Routine Reason Please refer to MESERET Roth for esophagitis, feels like something is in her throat when swallowing, history of choking on a Doxycycline pill. Diagnosis 1 Odynophagia (R13.10) Referral Organization [facility] Referring Provider First Name Mary Referring Provider Last Name Natanael Referring Provider [facility] ctice Referred Organization [facility] Referred Address [address],[address],[place] Referred Provider Specialty Gastroentero logy General Notes Erma Kumar 2024 12:45:45 PM >faxed to Ira Referral Priority Routine Referral Appointment Date 11/27/2024 Reason Please refer to [facility] is Pulmonary Dr. 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 Erma see notes Diagnosis 1 Chronic obstructive pulmonary disease, unspecified COPD type (J44.9) Referral Organization [facility] Referring Provider First Name Mary Referring Provider Last Name Natanael Referring Provider [facility] ctice Referred Organization [facility] latisha Referrals Referred Address [address],[place], [place],[address],[place] Referred Provider Specialty Pulmonary Di seases General Notes Efraín Jerome 04:10:31 PM > faxed and they will call patient with chellytJosé Nickie 11/21/2024 11:08:46 AM >sent to Referral Priority Routine Reason CT adrenal mass prot ocol - Jenci this is pending with Liseth through [facility] After 01-17 Diagnosis 1 Adrenal mass, left ( E27.8) Diagnosis 2 Adrenal mass, right (E27.9) Referral Organization [facility] Referring Provider First Name Mary Referring Provider Last Name Natanael Referring Provider [facility] ctice Referred Organization [facility] Referred Address [address] [facility], [place],[address],[place] Referred Provider Specialty Diagnostic R adiology General Notes Erma Kumar 2024 03:24:08 PM >pending precert with MICHAEL NAILS- Queenie Childers Jenci D 01/12/2025 02:51:08 PM > It won't let me see it because I didn't put it in, Erma Kumar 01/15/2025 10:29:28 AM >approved sent to [facility] to schedule appt Referral Priority Routine Reason Please refer to Neur ologist Dr. Hills for recurrent migraines. Diagnosis 1 Episodic migraine (G 43.909) Referral Organization [facility] Referring Provider First Name Mary Referring Provider Last Name Natanael Referring Provider [facility] ctice General Notes Efraín Jerome 09:51:01 AM > faxed and they will call pt Referral Priority Routine Reason Please refer to UroCecile GAYT[facility] with [facility] for stress incontinence. Diagnosis 1 Stress incontinence (N39.3) Referral Organization [facility] Referring Provider First Name Mary Referring Provider Last Name Natanael Referring Provider [facility] ctice General Notes Efraín Jerome [...] janusz yp of colon (D12.6) Referral Organization [facility] Referring Provider First Name [place] Referring Provider Last Name [place] Referring Provider [facility] General Notes Mike Gutiérrez 12/26 03:43:42 PM >pt notified Referral Priority Routine Referral Appointment Date 05/29/2025 Reason Please arrange kimber maxwell mammogram with [facility] for breast cancer screening. Diagnosis 1 Encounter for screen ing mammogram for malignant neoplasm of breast (Z12.31) Referral Organization [facility] Referring Provider First Name Mary Referring Provider Last Name Santoyo Referring Provider [facility] ctice General Notes Efraín Jerome 09:49:47 AM > faxed to [facility] and they will call pt Referral Priority Routine Reason Please refer to Dr. Regi Martinez for routine pap smear for cervical cancer screening. Diagnosis 1 Cervical cancer scre ening (Z12.4) Referral Organization [facility] Referring Provider First Name Mary Referring Provider Last Name Santoyo Referring Provider [facility] ctice General Notes Efraín Jerome 09:47:23 AM > faxed and they will call pt Referral Priority Routine Reason Please refer to Derm atologist for routine skin cancer screening. Diagnosis 1 Skin cancer screenin g (Z12.83) Referral Organization [facility] Referring Provider First Name Mary Referring Provider Last Name Santoyo Referring Provider [facility] ctice General Notes Efraín Jerome 09:46:30 AM > faxed to [facility] and they will call her Referral Priority Routine Reason Can you possibly sen d me GI Dr. Roth note? No longer having acute symptoms, but would like to read their recommendation at that time. Diagnosis 1 History of odynophag ia (Z87.898) Referral Organization [facility] Referring Provider First Name Mary Referring Provider Last Name Santoyo Referring Provider [facility] ctice Referral Priority Routine Medications Medication SIG (Take, Route, Frequency, Duration) Notes Start Date End Date Status Topiramate 50 MG TAKE 1 TABLET BY MOUTH AT BEDTIME; Duration: 30 Active Ventolin HFA 108 (90 Base) MCG/ACT 2 INH inhaled every 6 hours prn Active Nystatin 928210 UNIT/GM 1 application Externally Twice a day; Duration: 7 days 01/09/2025 Active Ibuprofen 800 MG 1 tab(s) orally every 8 hours; Duration: 30 days As needed pain. prn Active PARoxetine HCl 10 MG 1 tab(s) orally once a day; Duration: 30 days Active Trelegy Ellipta 200 MCG-62.5 MCG-25 MCG/INH 1 INH INHALED ONCE A DAY; Duration: 30 DAYS *Please review and pick correct strength-formulatio n from Medispan options. If intended option is not shown, discontinue and re-order from Quick Search* 03/23/2024 Active Breztri Aerosphere 160-9-4.8 MCG/ACT 2 puffs Inhalation Twice a day; Duration: 30 days 10/31/2024 Active Lidoderm 5 % APPLY 1 PATCH TOPICALLY ONCE DAILY FOR 30 DAYS; Duration: 30 prn Active Gemtesa 75 MG 1 tab(s) orally once a day; Duration: 30 days 09/13/2024 Active Carvedilol 12.5 MG 1 tab(s) orally 2 times a day; Duration: 30 days Active Social History Tobacco Use: Social History [...] Problem Status W/U Status Risk Notes Problem Hypertrophy of uterus (563565692) Hypertrophy of uterus (N85.2) Active confirmed Problem Peripheral neuropathy (855559910) Peripheral neuropathy (G62.9) Active confirmed Problem Essential hypertension (67534741) Essential (primary) hypertension (I10) Active confirmed Problem Nicotine dependence (05946850) Personal history of nicotine dependence (Z87.891) Active confirmed Problem Anxiety (59611428) Anxiety (F41.9) Active confi rmed Problem Essential hypertension (64811765) Essential hypertension (I10) Active confirmed Problem Acute exacerbation of chronic obstructive airways disease (604639974) COPD exacerbation (J44.1) Active confirmed Problem Chronic pain (27481491) Other chronic pain (G89.29) Active confirmed Problem Lower abdominal pain (90988794) Lower abdominal pain (R10.30) Active confirmed Problem Neck pain (26852750) Neck pain on right side (M54.2) Active confirmed Problem Carpal tunnel syndrome (49044571) Right carpal tunnel syndrome (G56.01) Active confirmed Problem Neck pain (99756044) Neck pain (M54.2) Active confirmed Problem Heart murmur (97994762) Heart murmur (R01.1) Active confirmed Problem COPD - Chronic obstructive pulmonary disease (88545537) Chronic obstructive pulmonary disease, unspecified COPD type (J44.9) Active confirmed Problem Abnormal mammogram (027848950) Abnormal mammogram (R92.8) Active confirmed Problem Migraine without aura, not refractory (084159630) Migraine without aura and without status migrainosus, not intractable (G43.009) Active confirmed Problem Amenorrhea (11791808) Amenorrhea (N91.2) Active confirmed Problem Chronic obstructive pulmonary disease (49536704) Chronic obstructive pulmonary disease (J44.9) Active confirmed Problem SI - Stress incontinence (83038969) Stress incontinence (N39.3) Active confirmed Problem Hyperlipidaemia (39903077) Hyperlipidemia, unspecified hyperlipidemia type (E78.5) Active confirmed Problem Breathlessness on exertion (78285518) Breathlessness on exertion (R06.09) Active confirmed Problem Cervical radiculopathy (90747814) Cervical radiculopathy (M54.12) Active confirmed Problem History of nutritional deficiency (49455300221069) History of vitamin D deficiency (Z86.39) Active confirmed Problem Dysphagia (21080339) Dysphagia, unspecified type (R13.10) Active confirmed Problem Mass of right adrenal gland (finding) (96847606268234336 ) Adrenal mass, right (E27.9) Active confirmed Problem Sciatica (21083600) Acute left-sided low back pain with left-sided sciatica (M54.42) Active confirmed Problem Kyphoscoliosis deformity of spine (906967771) 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) Active confirmed Problem Solitary sacroiliitis (135330404) SI (sacroiliac) joint inflammation (M46.1) Active confirmed Problem Odynophagia (14729487) Odynophagia (R13.10) Active confirmed Problem Tobacco use (337379915) Tobacco use disorder (F17.200) Active confirmed Problem Mass of left adrenal gland (finding) (58593812619848645 ) Adrenal mass, left (E27.8) Active confirmed Problem Cervical spondylosis (136757426) Cervical spondylosis (M47.812) Active confirmed Problem Adrenal mass (128952413) Adrenal mass (E27.8) Active confirmed Problem Episodic migraine (867880623308716) Episodic migraine (G43.909) Active confirmed Problem Retrolisthesis (591873972) Retrolisthesis (M43.10) Active confirmed Problem Sciatica (54751305) Acute left-sided low back pain with right-sided sciatica (M54.41) Active confirmed Problem Sessile serrated polyp of colon (4690396648) Sessile serrated polyp of colon (D12.6) Active confirmed Problem Benign neoplasm of adrenal gland (81999862) Adrenal adenoma, unspecified laterality (D35.00) Active confirmed Vital Signs Heart Rate 78 /min 01/09/2025 Temperature 98.2 degrees Fahrenheit 01/09/2025 Blood pressure diastolic 82 mm Hg 01/09/2025 Height 63 in 01/09/2025 Blood pressure systolic 122 mm Hg 01/09/2025 Weight 180 lbs 01/09/2025 BMI 31.88 kg/m2 01/09/2025 Encounters Encounter Location Date Provider Diagnosis [facility] [address] [facility] [address] [place], [place] [address] 09/30/2024 Provider Migration COPD exacerbation J44.1 and Esophagitis K20.90 [facility] [address] [facility] [address] [place], [place] [address] 01/11/2025 Mary Santoyo [facility] [address] [facility] [address] [place] [address] 02/18/2024 Mary Santoyo Essential (primary) hypertension I10 and Chronic obstructive pulmonary disease, unspecified COPD type J44.9 [facility] [address] [facility] [address] [place], [place] [address] 02/23/2024 Mary Santoyo Acute left ankle william n M25.572 and Chronic obstructive pulmonary disease, unspecified COPD type J44.9 [facility] [address] [place] [address] 03/23/2024 Mary Baigowell Adrenal mass E27.8 a nd Chronic obstructive pulmonary disease, unspecified COPD type J44.9 [facility] [address] [place] [address] 04/04/2024 Mary Baigowell Upper back pain on left side M54.9 [facility] [address] [place] [address] 04/07/2024 Mary Santoyo Upper back pain M54. 9 [facility] [address] [place] [address] 06/22/2024 Mary Natanael Neck pain on right side M54.2 [facility] [address] [facility] [address] [place] [address] 07/25/2024 Mary Natanael EWELINA (acute kidney injury) N17.9 and Essential (primary) hypertension I10 [facility] [address] [place] [address] 09/11/2024 Mary Walters Episodic migraine G43.909 [facility] [address] [place] [address] 09/13/2024 Mary Natanael Acute cough R05.1 ; COPD exacerbation J44.1 and Stress incontinence N39.3 [facility] [address] [facility] [address] [place] [address] 09/18/2024 Mike Rodrigues Chronic obstructive pulmonary disease, unspecified COPD type J44.9 ; COPD exacerbation J44.1 and Episodic migraine G43.909 [facility] [address] [place] [address] 09/22/2024 Mary Natanael COPD exacerbation J44.1 and Esophagitis K20.90 [facility] [address] [facility] [address] [place] [address] 10/12/2024 Mary Santoyo Essential (primary) hypertension I10 ; Chronic obstructive pulmonary disease, unspecified COPD type J44.9 ; Stress incontinence N39.3 and Odynophagia R13.10 [facility] [address] [facility] [address] [place] [address] 11/15/2024 Mary Santoyo Chronic obstructive pulmonary disease, unspecified COPD type J44.9 ; Essential (primary) hypertension I10 ; Hypokalemia E87.6 ; Cervical radiculopathy M54.12 and Dysphagia, unspecified type R13.10 [facility] [address] [address] 01/09/2025 Mary Santoyo Hyperlipidemia, unspecified hyperlipidemia type [...] unspecified laterality D35.00 and Poor historian Z78.9 [facility] [address] [facility] [address] [place] [address] 01/15/2025 Mike Besson [facility] [address] [place] [address] 02/22/2024 Mike Besson [facility] [address] [place] [address] 02/24/2024 Mike Besson [facility] [address] [facility] [address] [place] [address] 02/24/2024 Mike Besson [facility] [address] [address] 03/02/2024 Mary Santoyo Chronic cough R05.3 [facility] [address] [place] [address] 04/04/2024 Mary Santoyo Acute back pain M54. 9 [facility] [address] [place] [address] 04/05/2024 Mary Santoyo [facility] [address] [place] [address] 04/13/2024 Mary Santoyo Neck pain M54.2 [facility] [address] [place]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
--- OUTSIDE RECORDS SUMMARY | 2025-01-15 15:43 | XMS_ITS | Referral Summary ---
Author Organization [facility] ([place], [place], [place], [place]) Address [address] [place] [address] Care Team Providers Care Bone Grinder Name Role Phone Mike Rodrigues MD Primary Care Provider [phone] Allergies Active Allergy Reactions Criticality Noted Date [...] times a day for 30 days Active Social History Tobacco Use Types Packs/Day Years [...] 10/03/2024 3:04 PM EDT Plan of Treatment Not on file Insurance [facility] Care Teams Bone Grinder Relationship Specialty Start Date End Date Mike Rodrigues MD [address] [place] [id number] PCP - General Adolescent Medicine 07/17/24
== END 2025-01-15 23:59 | disposition home or self-care (01) ==
LOC: RAD 15:40
PROVIDERS: PCP Internal Medicine Adolescent Medicine; Visit Provider Physician Assistant
DX: Z12.31 Encounter for screening mammogram for malignant neoplasm of breast (principal); R92.323 Mammographic fibroglandular density, bilateral breasts
CPT/HCPCS: 77063; 77067

== ENCOUNTER 2025-01-25 08:02 | Outpatient (CLI) | payer MEDICAID, SELFPAY ==
--- OUTSIDE RECORDS SUMMARY | 2020-02-29 03:20 | XMS_ITS | Continuity of Care Document ---
Author Organization [facility] Address [address] [place] [address] [address], [place] [address] Care Team Providers Care Drafter Heating And Ventilating Name Role Phone [facility] Unavailable Unav ailable Procedures Procedure Date REPOSITION INTRAOCULAR LENS OMIDRIA ANESTH, LENS SURGERY Asa Class 2 CATSURGERY - RIGHT EYE OMIDRIA PanOptixIOL ANESTH, LENS SURGERY Asa Class 2 CAT SURGERY - LEFT EYE Omidria Sample PanOptixIOL ANESTH, LENS SURGERY Asa Class 2 Advance Directives Directive Yes / No Effective Date File Name No Information Encounters Encounter Description Practice Location Reason(s) For Visit Diagnoses Date Provider Providers Copied on Encounter [facility], [address] [place] [address], [place], [place], [facility], [facility] [place] No Information Sep-0 0 [facility] Center [facility]. [address] [place] [address], [place], [place], [id number], [place]. tel:[phone] Referring Provider: Jas Marin MD, [address] [facility], [place], [address] . tel:[phone] [facility], [address] [place] [address] 100, [facility] [place] [address], [facility] [place] No Information Sep-0 0 Missy Gomez. [address] [place] [address] 100, [facility] [place] [address], . tel:[phone] Referring Provider: Jas Marin MD, [address] [place] [address], [place], [address] . tel:[phone] [facility], [address] [place], [place] [address], [place], [facility], [place] [facility] No Information 0 [facility]. [address] [place] [address], [address], [place], [id number], [place]. tel:[phone] Referring Provider: Jas Marin MD, [address] [place] [address], [place], [address] . tel:[phone] [facility], [address] [place], [place] [address], [place], [facility], [facility] No Information 0 Missy Gomez. [address] [place] [address], [address], [place], [facility], . tel:[phone] Referring Provider: Jas Marin MD, [address] [place] [address], [place], [address] . tel:[phone] [facility], [address] [place], [place] [address], [place], [facility], [facility] No Information 0 [facility]. [address] [place] [address], [address], [place], [id number], . tel:[phone] Referring Provider: Jas Marin MD, [address] [place] [address], [place], [address] . tel:[phone] [facility], [address] [place], [place] [address], [place], [address], [facility] No Information 0 Missy Gomez. [address] [place] [address], [address], [place], [address], . tel:[phone] Referring Provider: Jas Marin MD, [address] [place] [address], [place], [address] . tel:[phone] Family History Family Member Type Diagnosis Age At Onset No Information Payers Payer name Insurance type Covered constitution party ID Pete Kendall (s) CI [id number] [facility] CI [id number] Omidria Kyleigh CI [id number] Social History Type Description Quantity Date Captured Comments Sex Female Smoking Status No Information Chief Complaint And Reason For Visit No Information Reason For Referral Reason For Referral No Information History Of Present Illness Encounter Date Complaint History Of Prese nt Illness No Information Functional Status Date Functional Assessmen t No Information Instructions Date Instruction Additional Infor mation No Information Assessments Type Assessment Date No Information Patient Care Teams Name Effective Dates (start - stop) Status Members No Information
--- OUTSIDE RECORDS SUMMARY | 2025-01-05 11:18 | XMS_ITS ---
Author Organization [facility] [place] Address [address] [facility] [address] [facility] [address] [place] [address] Care Team Providers Care Director Audience Marketing Name Role Phone Mike Rodrigues Primary Care Provider Niyah Bustamantei Unavailable [phone] NIYAH Bustamante APRNI Unavailable Unavailable Mary Santoyo Unavailable [phone] REASON FOR VISIT order for CT scan Encounters Encounter Location Date Provider Diagnosis [facility] [place] [address] [facility] [address] [place] [address] 01/05/2025 Mary Santoyo Adrenal mass, right E27.9 [...] 02/19/2025 02:45:00 PM, [address] [facility], [address], [place], [address], Progress Notes * Sera RINCON DDOB: [birth year] (49 yo F)Acc No.[id number]:01/05/2025 Patient: Sera HINTON :1975 A ge:49 Y S ex:Female Address:[address] [place], [place] [address] [address] Subjective: * Chief Complaints: * o rder [...] Date: Generated for Marycruz leonard/Aren/Aldoitting on: 0 01/25/2025 08:05 AM EDT
--- OUTSIDE RECORDS SUMMARY | 2025-01-09 11:45 | XMS_ITS ---
Author Organization [facility] Octavio MARINO Address [address] [place], [place] [address] Care Team Providers [facility] Medical Biller Name Role Phone Mike Rodrigues Primary Care Provider [phone] Krissy Bustamante Unavailable [phone] KRISSY Bustamante APRN Unavailable Unavailable Mary Santoyo Unavailable [phone] Allergies Allergen (clinical drug ingredient) Drug/Non Drug [...] date:01/15/2025 11:35:55 AM Interpretation: Performing Lab:CB, [facility] Bnhd7799 [facility], [facility] CenterQdlwXH[address] Ramon Quinones Notes/Report: NON-FASTING; NON-FASTING; NON-FASTING; NON-FASTING; [...] LDL-C. Mekhi SS et al. RONALD. 2013;310(19): 1894-9940 (http://[employer] (acquired by [employer] in 2014).komoot/faq/[email or web address]) CHOL/HDLC RATIO 3.3 <5.0 (calc) NON HDL CHOLESTEROL 121 <130 mg/dL (calc) For patients with diabetes plus 1 major ASCVD risk factor, treating to a non-HDL-C goal of <100 mg/dL (LDL-C of <70 mg/dL) is considered a therapeutic option. COMPREHENSIVE METABOLIC PANE L (60516) Reviewed date:01/15/2025 11:35:55 AM Interpretation: Performing Lab:SADIE LetGive355 [employer], NuScriptRxUucfLO[address] Ramon Quinones Notes/Report: NON-FASTING; NON-FASTING; NON-FASTING; NON-FASTING; [...] Reviewed date:01/15/2025 11:35:55 AM Interpretation: Performing Lab:[facility]IE Selfie.come1355 [facility]osticsSt[facility] HospitalSjctBW[address] Ramon Quinones Notes/Report: NON-FASTING; NON-FASTING; NON-FASTING; NON-FASTING; [...] MPV 11.8 7.5-12.5 fL ABSOLUTE NEUTROPHILS 5420 2814-1532 cells/uL ABSOLUTE LYMPHOCYTES 2148 850-3900 cells/uL ABSOLUTE MONOCYTES 508 200-950 cells/uL ABSOLUTE EOSINOPHILS 90 15-500 cells/uL ABSOLUTE BASOPHILS 33 0-200 cells/uL NEUTROPHILS 66.1 LYMPHOCYTES 26.2 MONOCYTES 6.2 EOSINOPHILS 1.1 BASOPHILS 0.4 HEMOGLOBIN A1c (496) Reviewed date:01/15/2025 11:35:55 AM Interpretation: Performing Lab:SADIE, [facility] Scdn1839 [facility] Ramon Quinones Notes/Report: NON-FASTING; NON-FASTING; NON-FASTING; NON-FASTING; [...] diagnosis of diabetes in children. According to [place] Diabetes Association (ADA) guidelines, hemoglobin A1c <7.0% represents optimal control in non- diabetic patients. Different metrics may apply to specific patient populations. Standards of Medical Care in Diabetes(ADA). TSH W/REFLEX TO FT4 (29183) Reviewed date:01/15/2025 11:35:55 AM Interpretation: Performing Lab:SADIE, eMazeMe-Photeticae1355 [employer], [place] EochTC[address] Ramon Quinones Notes/Report: NON-FASTING; NON-FASTING; NON-FASTING; NON-FASTING; NON-FAST TSH W/REFLEX TO FT4 1.02 Reference Range > or = 20 Years 0.40-4.50 Ranges First trimester 0.26-2.66 Second trimester 0.55-2.73 Third trimester 0.43-2.91 VITAMIN D,25-OH,TOTAL,IA (17 306) Reviewed date:01/15/2025 11:35:55 AM Interpretation: Performing Lab:SADIE [employer] Dvmq8098 MattermarkteeMithilaHaat [facility], PhoteticaXqwoHS[address] Ramon Quinones Notes/Report: NON-FASTING; NON-FASTING; NON-FASTING; NON-FASTING; [...] D, (D2,D3), LC/MS/MS is recommended: order code 57629 (patients >2yrs). See Note 1 Note 1 For additional information, please refer to http://education.Ripl/faq/TSX371 (This link is being provided for informational/ educational purposes only.) Mammogram : Bilateral Reviewed date:01/19/2025 10:42:39 AM Interpretation: Performing Lab: Notes/Report: Reason For Referral Reason Please refer to Neur ologist Dr. Hills for recurrent migraines. Diagnosis 1 Episodic migraine (G 43.909) Referral Organization [facility] VICENTE MARINO Referring Provider First Name Mary Referring Provider Last Name Natanael Referring Provider [facility] General Notes Efraín Jerome 09:51:01 AM > faxed and they will call pt Referral Priority Routine Reason Please refer to Kim GAYTAN with [facility] for stress incontinence. Diagnosis 1 Stress incontinence (N39.3) Referral Organization [facility] PED MARINO Referring Provider First Name Mary Referring Provider Last Name Santoyo Referring Provider [facility] General Notes Efraín Jerome 10:04:56 AM [...] janusz yp of colon (D12.6) Referral Organization [facility] PED MARINO Referring Provider First Name Mary Referring Provider Last Name Santoyo Referring Provider [facility] Notes Mike Gutiérrez 12/26 03:43:42 PM >pt notified Referral Priority Routine Referral Appointment Date 05/29/2025 Reason Please arrange annua l mammogram with [facility] for breast cancer screening. Diagnosis 1 Encounter for screen ing mammogram for malignant neoplasm of breast (Z12.31) Referral Organization [facility] PED MARINO Referring Provider First Name Mary Referring Provider Last Name Santoyo Referring Provider [facility] General Notes Efraín Jerome 09:49:47 AM > faxed to [facility] and they will call pt Referral Priority Routine Reason Please refer to Dr. Regi Martinez for routine pap smear for cervical cancer screening. Diagnosis 1 Cervical cancer scre ening (Z12.4) Referral Organization [facility] PED MARINO Referring Provider First Name Mayr Referring Provider Last Name Santoyo Referring Provider [facility] General Notes Efraín Jerome 09:47:23 AM > faxed and they will call pt Referral Priority Routine Reason Please refer to Derm atologist for routine skin cancer screening. Diagnosis 1 Skin cancer screenin g (Z12.83) Referral Organization [facility] PED MARINO Referring Provider First Name Mary Referring Provider Last Name Santoyo Referring Provider [facility] General Notes Efraín Jerome 09:46:30 AM > faxed to [facility] and they will call her Referral Priority Routine Reason Can you possibly sen d me GI Dr. Roth note? No longer having acute symptoms, but would like to read their recommendation at that time. Diagnosis 1 History of odynophag ia (Z87.898) Referral Organization [facility] PED MARINO Referring Provider First Name Mary Referring Provider Last Name Natanael Referring Provider [facility] Referral Priority Routine REASON FOR VISIT yearly [...] review and pick correct strength-formulatio n from [employer] options. 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) Active confirmed Problem Benign neoplasm of adrenal gland (97002203) Adrenal adenoma, unspecified laterality (D35.00) Active confirmed Problem Hypertrophy of uterus (390141752) Hypertrophy of uterus (N85.2) Active confirmed Problem Peripheral neuropathy (581986955) Peripheral neuropathy (G62.9) Active confirmed Vital Signs Temperature 98.2 degrees Fahrenheit 01/10/20 25 Blood pressure systolic 122 mm Hg 01/10/20 25 Blood pressure diastolic 82 mm Hg 025 Heart Rate 78 /min 01/09/2025 Height 63 in 01/09/2025 Weight 180 lbs 01/09/2025 BMI 31.88 kg/m2 01/09/2025 Encounters Encounter Location Date Provider Diagnosis [address] [address] 01/09/2025 Mary Santoyo Hyperlipidemia, unspecified hyperlipidemia type [...] one, referral placed. She is followed by [facility] Dr. Martinez, unsure when she last had [...] Breztri so will continue. Keep follow-up with [facility]. 01/09/2025 Essential (primary) hypertension (ICD-10 - I10) [...] her quality of life, referred back to [facility] at patient request. 01/09/2025 Fatigue, unspecified type [...] of uterus (ICD-10 - N85.2) Follows with [facility]. History of ablation. 01/09/2025 History of odynophagia [...] her. Patient is at baseline a poor medical hospital sales often forgetting names of her medications, which [...] 1 tab(s) orally once a day Nystatin 095601 UNIT/GM 1 application Ex ternally Twice a [...] one, referral placed. She is followed by [facility] Dr. Martinez, unsure when she last had [...] Breztri so will continue. Keep follow-up with [facility]. Essential (primary) hypertension Patient reports not taking [...] of life, [facility] patient request. Fatigue, unspecified type Sleep [...] concerning findings. Hypertrophy of uterus Follows with [facility]. History of ablation. History of odynophagia Thought [...] her. Patient is at baseline a poor medical hospital sales often forgetting names of her medications, which [...] 01/09/2025, Please lior bonilla to UroGYN with [facility] for stress incontinence. 01/09/2025 01/09/2025, Will you please arrange routine colonoscopy for colon cancer screening with Dr. Anguiano in April or early May 2025? History of sessile serrated adenoma on cscope Apr 2023 so surgeon recommended repeat in 2 years. last one was with Dr. Banegas so BJ made this one with him 01/09/2025 01/09/2025, Please a rrange annual mammogram with [facility] for breast cancer screening. 01/09/2025 01/09/2025, Please r irene to Dr. Regi Martinez for routine pap smear for cervical cancer screening. 01/09/2025 01/09/2025, Please lior bonilla to [facility] for routine skin cancer screening. 01/09/2025 01/09/2025, Can you possibly send me GI Dr. Roth note? No longer having acute symptoms, but would like to read their recommendation at that time. Next Appt Details Follow Up: 4 Weeks for BP ch ryder off HCTZ and to trend if LE edema returns., Reason: Provider Name:Mikefarzana Rodrigues, 02/19/2025 02:45:00 PM, [address], [address], [place], [address], Progress Notes * Sera RINCON DDOB: [birth year] (49 yo F)Acc No.[id number]:01/09/2025 Progress Notes Patient: Sera HINTON Provider: BERNARDO Phipps :1975 A ge:49 Y S ex:Female Date:01/09/2025 Address:[address] [place], [place] [id number] Pcp:Miek Rodrigues Subjective: * Chief Complaints: * 1 . Yearly physical. 2. Discuss b/p meds. * HPI: g en: Patient presents for annual physical. Health Maintenance: She reports getting annual mammogram, November 2023, normal, due for next one. She is followed by [facility] Dr. Martinez, unsure when she last had [...] little. -Stress incontinence: She is followed with [facility] for chronic stress incontinence, controlled with Gemtesa. Botox shots have not helped. Continues to follow with U[facility]N at [facility]. Asking for follow-up to be arranged with [...] Grand Mother: . P aternal uncle: alive, fesjw-kvksbtew-yiwy cancer, diagnosed with Cancer. P aternal aunt: alive. M aternal uncle: alive. M aternal aunt: alive, 1 aunt . S iblings: alive. C kaitlyndren: alive.?1 brother(s) , 1 sister(s) - healthy. [...] active: yes. Travel outside [place]: no. 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 * Medications: T ese Ventolin HFA 108 (90 Base) MCG/ACT Aerosol [...] *Please review and pick correct strength-formulation from [employer] options. If intended option is not shown, [...] I-XII intact, No focal neurological deficits, equal pbx technician strength in hands bilaterally, moving all extremities [...] STANDARD (7600) L AB: COMPREHENSIVE METABOLIC PANEL (96431) L AB: CBC (INCLUDES DIFF/PLT) (6399) L AB: HEMOGLOBIN A1c (496) L AB: TSH W/REFLEX TO FT4 (99347) L AB: VITAMIN D,25-OH,TOTAL,IA (12188) Notes: Mildly elevated cholesterol last check so will trend as didn't need statin at that time. I personally will review all labs once final. 3. C hronic obstructive pulmonary disease, unspecified COPD type L AB: LIPID PANEL, STANDARD (7600) L AB: COMPREHENSIVE METABOLIC PANEL (87472) L AB: CBC (INCLUDES DIFF/PLT) (6399) L AB: HEMOGLOBIN A1c (496) L AB: TSH W/REFLEX TO FT4 (07814) L AB: VITAMIN D,25-OH,TOTAL,IA (60495) Notes: Well controlled on Breztri so will continue. Keep follow-up with [facility]. 4. E ssential (primary) hypertension Stop hydroCHLOROthiazide Tablet, 12.5 MG, 1 tab(s), orally, once a day. L AB: LIPID PANEL, STANDARD (7600) L AB: COMPREHENSIVE METABOLIC PANEL (61849) L AB: CBC (INCLUDES DIFF/PLT) (6399) L AB: HEMOGLOBIN A1c (496) L AB: TSH W/REFLEX TO FT4 (93742) L AB: VITAMIN D,25-OH,TOTAL,IA (24806) Notes: Patient reports not taking HCTZ for [...] STANDARD (7600) L AB: COMPREHENSIVE METABOLIC PANEL (78522) L AB: CBC (INCLUDES DIFF/PLT) (6399) L AB: HEMOGLOBIN A1c (496) L AB: TSH W/REFLEX TO FT4 (70573) L AB: VITAMIN D,25-OH,TOTAL,IA (99051) Notes: Stressed importance of compliance. She has [...] STANDARD (7600) L AB: COMPREHENSIVE METABOLIC PANEL (11221) L AB: CBC (INCLUDES DIFF/PLT) (6399) L AB: HEMOGLOBIN A1c (496) L AB: TSH W/REFLEX TO FT4 (05383) L AB: VITAMIN D,25-OH,TOTAL,IA (97417) Notes: Keep follow-up with Dr. Green. 7. T obacco use disorder L AB: LIPID PANEL, STANDARD (7600) L AB: COMPREHENSIVE METABOLIC PANEL (80775) L AB: CBC (INCLUDES DIFF/PLT) (6399) L AB: HEMOGLOBIN A1c (496) L AB: TSH W/REFLEX TO FT4 (31565) L AB: VITAMIN D,25-OH,TOTAL,IA (76477) Notes: Stressed importance of cessation. She wants to quit with her Dad who has lung cancer. Declines patches. 8. S tress incontinence L AB: LIPID PANEL, STANDARD (7600) L AB: COMPREHENSIVE METABOLIC PANEL (26213) L AB: CBC (INCLUDES DIFF/PLT) (6399) L AB: HEMOGLOBIN A1c (496) L AB: TSH W/REFLEX TO FT4 (03841) L AB: VITAMIN D,25-OH,TOTAL,IA (98508) Notes: Dr. Valentine no longer covers her insurance. Interferes with her quality of life, referred [facility] at patient request. ? Referral To: Reason:Please refer to UroGYN with [facility] for stress incontinence. 9. F atigue, unspecified type L AB: LIPID PANEL, STANDARD (7600) L AB: COMPREHENSIVE METABOLIC PANEL (93348) L AB: CBC (INCLUDES DIFF/PLT) (6399) L AB: HEMOGLOBIN A1c (496) L AB: TSH W/REFLEX TO FT4 (69212) L AB: VITAMIN D,25-OH,TOTAL,IA (75348) Notes: Sleep study and note from Neuro 10/2023 showed primary snoring only, no MIGUE. Stressed importance of routine bedtime. I personally will review all labs once final. 10. D ermatitis Start Nystatin Ointment, 990315 UNIT/GM, 1 application, Externally, Twice a day, 7 days, 1, Refills 0. L AB: LIPID PANEL, STANDARD (7600) L AB: COMPREHENSIVE METABOLIC PANEL (04085) L AB: CBC (INCLUDES DIFF/PLT) (6399) L AB: HEMOGLOBIN A1c (496) L AB: TSH W/REFLEX TO FT4 (54819) L AB: VITAMIN D,25-OH,TOTAL,IA (43728) Notes: Either allergic dermatitis from necklace or yeast. Start topical Nystatin. Discussed to use topical hydrocortisone for itching. Return to clinic if worsens. Patient voices understanding. ? 11. H istory of vitamin D deficiency L AB: VITAMIN D,25-OH,TOTAL,IA (06610) Notes: I personally will review all labs [...] recommended repeat in 2 years. 13. E caioer for screening mammogram for malignant neoplasm of breast I maging: Mammogram : Bilateral * ? Referral To: ?Reason:Please arrange annual mammogram with [facility] for breast cancer screening. 14.?Cervical cancer screening? Referral To: ?Reason:Please refer to Dr. Regi Martinez for routine pap smear for cervical cancer screening. 15.?Skin cancer screening? Referral To: ?Reason:Please refer to [facility] for routine skin cancer screening. 16.?Heart murmur? Notes: ECHO 10/2023, Normal biventricular systolic function.Mild LA dilation. Mild AI, mild MR, mild TR. No acute concerning findings.??17.?Hypertrophy of uterus? Notes: Follows with [facility]. History of ablation.??18.?History of odynophagia? Notes: Thought [...] her. Patient is at baseline a poor medical hospital sales often forgetting names of her medications, which [...] 0 01/09/2025 Generated for Marycruz leonard/Aren/Aldoitting on: 01/25/2025 08:07 AM EDT History and Physical Notes * HPI (History of Present Illness) Category Sub-Category Detail Notes Category Not es gen Patient presents for annual physical. Health Maintenance: She reports getting annual mammogram, November 2023, normal, due for next one. She is followed by [facility] Dr. Martinez, unsure when she last had [...] little. -Stress incontinence: She is followed with [facility] for chronic stress incontinence, controlled with Gemtesa. Botox shots have not helped. Continues to follow with U[facility]N at [facility]. Asking for follow-up to be arranged with [...] I-XII intact, No focal neurological deficits, equal pbx technician strength in hands bilaterally, moving all extremities [...] BJ made this one with him 01/09/2025 Mary Santoyo , Please arran ge annual mammogram with [facility] for breast cancer screening. 01/09/2025 Mary Santoyo , Please refer to Dr. Regi Martinez for routine pap smear for cervical cancer screening. 01/09/2025 Mary Santoyo , Please refer to [facility] for routine skin cancer screening. 01/09/2025 Mary Santoyo , Can you poss ibly send me GI Dr. Roth note? No longer having acute symptoms, but would like to read their recommendation at that time.
--- OUTSIDE RECORDS SUMMARY | 2025-01-11 10:15 | XMS_ITS ---
Author Organization [facility] Address [address] [facility] [address] [place] [address] Care Team Providers Care Director Employee Safety And Health Name Role Phone Mike Rodrigues Primary Care Provider Niyah Bustamantei Unavailable [phone] NIYAH Bustamante APRNI Unavailable Unavailable Mary Santoyo Unavailable [phone] REASON FOR VISIT Labs Encounters Encounter Location Date Provider Diagnosis [facility] [address] [facility] [address] [place], [place] [address] 01/11/2025 Mary Santoyo Plan Of Treatment Next Appt Details Provider Name:Mike Rodrigues, 02/19/2025 02:45:00 PM, [address] [place] [address] [facility], [address], [place], [address], Progress Notes * Sera RINCON DDOB: [birth year] (49 yo F)Acc No.[id number]:01/11/2025 LABS Patient: Sera HINTON Provider: BERNARDO Phipps :1975 A ge:49 Y S ex:Female Date:01/11/2025 [address] [facility] [id number] Pcp:Mike Rodrigues Subjective: * Chief Complaints: * 1 . Labs. * Medical History: Objective: * Vitals: Assessment: Plan: * Treatment: * * Electronic signature of Amelia Santoyo PA-C on 01/25/2025 at 08:07 AM EDT Sign off status: Pending * Provider: BERNARDO Phipps Date: 01/11/2025 Generated for Marycruz leonard/Aren/Sriram on: 01/25/2025 08:07 AM EDT
--- OUTSIDE RECORDS SUMMARY | 2025-01-25 08:07 | XMS_ITS | Clinical Summary ---
Author Organization [facility] Address [address] [place] [address] Phone Care Team Providers Care Mushroom Laborer Name Role Phone Unavailable Primary Care Provider [...] patient's age to complete this topic Insurance [facility] [id number] [address] [facility] [id number]
--- OUTSIDE RECORDS SUMMARY | 2025-01-25 08:07 | XMS_ITS | Encounter Summary ---
Author Organization [employer] ([place], [place], [place], [place]) Address [address] [place] [address] Care Team Providers Care Boat And Plant Utility Supervisor Name Role Phone Mike Rodrigues MD Primary Care Provider [phone] Reason for Referral * Surgical (Routine) - Closed Specialty Diagnoses / Procedures Referred By Contac t Referred To Contact Neurosurgery / Neurology Diagnoses Cervical spondylosis Mike Rodrigues MD [address] [facility] [address] [place] [address] Phone: tel: fax: [facility] [employer] [facility] [employer] [address] Phone: tel: fax: Referral ID Status Reason Start Date Expiration Date V isits Requested Visits Authorized [id number] Closed Specialty Services Required 07/17/2024 07/17/2025 1 1 Encounter Details Date Type Department Care Team (Late st Contact Info) Description 07/17/2024 Outside Orders [facility] Neurology [employer] [facility] [employer] [address] [address] Mike Rodrigues MD [address] [facility] [address] [place] [address] Cervical spondylosis (Primary Dx) Social History Tobacco [...] myelopathy documented in this encounter Care Teams Boat And Plant Utility Supervisor Relationship Specialty Start Date End Date Miek Rodrigues MD [address] [place] [id number] PCP - General Adolescent Medicine 07/17/24 documented as of this encounter
--- OUTSIDE RECORDS SUMMARY | 2025-01-25 08:08 | XMS_ITS | Referral Summary ---
Author Organization [employer] ([place], [place], [place], [place]) Address [address] [place] [address] Care Team Providers Care Remote Inpatient Coder Name Role Phone Mike Rodrigues MD Primary Care Provider [phone] Allergies Active Allergy Reactions Criticality Noted Date [...] Plan of Treatment Not on file Insurance [facility] Care Teams Remote Inpatient Coder Relationship Specialty Start Date End Date Mike Rodrigues MD [address] [place] [id number] PCP - General Adolescent Medicine 07/17/24
--- OUTSIDE RECORDS SUMMARY | 2025-01-25 08:08 | XMS_ITS | Patient Health Record ---
Author Organization [facility] Address [address] [place] [address] Care Team Providers Care Coal Chemist Name Role Phone Mike Rodrigues Primary Care Provider Bello Bustamantei Unavailable [phone] Dianna THIBODEAUX KRISSY Unavailable Unavailable Mary Walters Unavailable [phone] Mary Santoyo Unavailable [phone] Migration, Provider Unavailable Unavailable Allergies Allergen (clinical drug ingredient) Drug/Non Drug Allergy documented on EMR Reaction Allergy Type Onset Date Status Latex LATEX (uncoded) Unknown Allergy Acti ve TYLENOL #3 WITH CODEINE (uncoded) Unknown Allergy Active aspirin Aspirin Unknown Drug Allergy Active latanoprost Latanoprost Unknown Drug Allergy Act caty Penicillin Unknown Drug Allergy Active Results Component Value Reference Range Notes Mammogram : Bilateral Reviewed date:01/19/2025 10:42:39 AM Interpretation: Performing Lab: Notes/Report: LIPID PANEL, STANDARD (7600) Reviewed date:01/15/2025 11:35:55 AM Interpretation: Performing Lab:SADIE, [facility] Rocke[address] [facility] Bassett[address] Ramon Quinones Notes/Report: NON-FASTING; NON-FASTING; NON-FASTING; NON-FASTING; NON-FAST CHOLESTEROL, TOTAL 174 <200 mg/dL HDL CHOLESTEROL 53 > OR = 50 mg/dL TRIGLYCERIDES 127 <150 mg/dL LDL-CHOLESTEROL 99 Reference range: <100 Desirable range <100 mg/dL for primary prevention; <70 mg/dL for patients with CHD or diabetic patients with > or = 2 CHD risk factors. LDL-C is now calculated using the Gaudencio calculation, which is a validated novel method providing better accuracy than the Friedewald equation in the estimation of LDL-C. Mekhi CLEARY et al. RONALD. 2013;310(19): 7241-6814 (http://education.Quemulus.Bookingabus.com/faq/DKV879) CHOL/HDLC RATIO 3.3 <5.0 (calc) NON HDL CHOLESTEROL 121 <130 mg/dL (calc) For patients with diabetes plus 1 major ASCVD risk factor, treating to a non-HDL-C goal of <100 mg/dL (LDL-C of <70 mg/dL) is considered a therapeutic option. COMPREHENSIVE METABOLIC PANCasper Coombs (20457) Reviewed date:01/15/2025 11:35:55 AM Interpretation: Performing Lab:SADIE, [facility]em [address], Raheem BranchNximRI[address] Ramon Quinones Notes/Report: NON-FASTING; NON-FASTING; NON-FASTING; NON-FASTING; [...] Reviewed date:01/15/2025 11:35:55 AM Interpretation: Performing Lab:SADIE [employer] Nvcs[address] [facility] CenterSumgQN[address] Ramon Quinones Notes/Report: NON-FASTING; NON-FASTING; NON-FASTING; NON-FASTING; [...] MPV 11.8 7.5-12.5 fL ABSOLUTE NEUTROPHILS 5420 0102-4848 cells/uL ABSOLUTE LYMPHOCYTES 2148 850-3900 cells/uL ABSOLUTE MONOCYTES 508 200-950 cells/uL ABSOLUTE EOSINOPHILS 90 15-500 cells/uL ABSOLUTE BASOPHILS 33 0-200 cells/uL NEUTROPHILS 66.1 LYMPHOCYTES 26.2 MONOCYTES 6.2 EOSINOPHILS 1.1 BASOPHILS 0.4 HEMOGLOBIN A1c (496) Reviewed date:01/15/2025 11:35:55 AM Interpretation: Performing Lab:SADIE [employer] [id number] [facility] CenterQjxsJO[address] Ramon Quinones Notes/Report: NON-FASTING; NON-FASTING; NON-FASTING; NON-FASTING; [...] diagnosis of diabetes in children. According to [place] Diabetes Association (ADA) guidelines, hemoglobin A1c <7.0% represents optimal control in non- diabetic patients. Different metrics may apply to specific patient populations. Standards of Medical Care in Diabetes(ADA). TSH W/REFLEX TO FT4 (17172) Reviewed date:01/15/2025 11:35:55 AM Interpretation: Performing Lab:SADIE, [employer] Ocge[address] [employer], U[employer] WirelessLqpfXR[address] Ramon Quinones Notes/Report: NON-FASTING; NON-FASTING; NON-FASTING; NON-FASTING; NON-FAST TSH W/REFLEX TO FT4 1.02 Reference Range > or = 20 Years 0.40-4.50 Ranges First trimester 0.26-2.66 Second trimester 0.55-2.73 Third trimester 0.43-2.91 VITAMIN D,25-OH,TOTAL,IA (17 306) Reviewed date:01/15/2025 11:35:55 AM Interpretation: Performing Lab:SADIE [employer] [id number] [employer], U4[employer] WirelessZgouGI[address] Ramon Quinones Notes/Report: NON-FASTING; NON-FASTING; NON-FASTING; NON-FASTING; [...] D, (D2,D3), LC/MS/MS is recommended: order code [id number] (patients >2yrs). See Note 1 Note 1 For additional information, please refer to http://education.ACell.Bookingabus.com/faq/TJY486 (This link is being provided for informational/ educational purposes only.) CT Scan : Chest, Without Con trast Reviewed date:03/23/2024 04:12:55 PM Interpretation: Performing Lab: Notes/Report: H-DHEA Reviewed date:05/15/2024 01:25:24 PM Interpretation: Performing Lab: Notes/Report: AM FASTING DHEA 47 UNITS: ng/dL RE FERENC INTERVAL: 31 - 701 BASIC METABOLIC PANEL (81795 ) Reviewed date:07/27/2024 03:09:24 PM Interpretation: Performing Lab:SADIE, [facility]em [address], Raheem RockEgfbZM[address] Ramon Bishop Quinones Notes/Report: NON-FASTING GLUCOSE 91 65-99 mg/dL Fasting reference interval UREA NITROGEN (BUN) 23 7-25 mg/dL CREATININE 0.94 0.50-0.99 mg/dL EGFR 76 > OR = 60 mL/min/1.73m2 BUN/CREATININE RATIO SEE NOTE: 6-22 (calc) Not Reported: BUN and Creatinine are within reference range. SODIUM 136 135-146 mmol/L POTASSIUM 4.1 3.5-5.3 mmol/L CHLORIDE 101 98-110 mmol/L CARBON DIOXIDE 24 20-32 mmol/L CALCIUM 9.5 8.6-10.2 mg/dL M-Cortisol Reviewed date:05/15/2024 01:25:24 PM Interpretation: Performing Lab: Notes/Report: AM FASTING LEYLA 1.3 6.2-19.4 ug/dL Please Note: The reference interval and flagging for this test is for an AM collection. If this is a PM collection please use: Cortisol PM: 2.3-11.9 Performed at: [facility] [id number] Magnetic Resonance Technologist: Manav Khalil PhD, Phone: [phone] M-Adrenocorticotropic Hormon e Reviewed date:05/15/2024 01:25:24 PM Interpretation: Performing Lab: Notes/Report: AM FASTING ACTH 2.5 7.2-63.3 pg/mL ACTH reference interval for samples collected between 7 and 10 AM. Performed at: [facility] [id number] Magnetic Resonance Technologist: Manav Khalil PhD, Phone: [phone] M-BUN & Creatinine Reviewed date:07/17/2024 02:56:45 PM [...] AGRATIO 1.5 1.1-1.8 ALP 104 38-126 U/L Rapid Covid/Flu A-B Combo Reviewed date:09/13/2024 04:18:27 PM Interpretation: Performing Lab: Notes/Report: Rapid Covid Neg Flu A Neg Flu B Neg X ray : Ankle, Left Reviewed date:02/24/2024 12:27:51 PM Interpretation: Performing Lab: Notes/Report: X ray : Ankle, Left Reviewed date:02/24/2024 12:27:51 PM Interpretation: Performing Lab: Notes/Report: X ray : Foot, Left Reviewed date:02/25/2024 10:22:31 AM Interpretation: Performing Lab: Notes/Report: MRI : Abdomen with & without Reviewed date:07/20/2024 11:25:59 AM Interpretation: Performing Lab: Notes/Report: MRI : Cervical spine without contrast Reviewed date:07/10/2024 01:47:58 PM Interpretation: Performing Lab: Notes/Report: Reason For Referral Reason Please arrange high resolution CT chest WO for chronic cough, chronic smoking, wheezing on exam. Jenci- see notes Diagnosis 1 Chronic obstructive pulmonary disease, unspecified COPD type (J44.9) Referral Organization [facility] Referring Provider First Name Mary Referring Provider Last Name Natanael Referring Provider Speciality Family Pra ctice [facility] Referred Address [address] [facility] [address] [place],[address],[place] Referred Provider Specialty Diagnostic R adiology General [...] Efraín Jerome 03/02/2024 05:05:55 PM >approved and [facility] will call her Referral Priority Routine Reason Please arrange MRI a bdomen Adrenal mass protocol to be done in 3 months. ProScan Diagnosis 1 Adrenal mass (E27.8) Referral Organization [facility] Referring Provider First Name Mary Referring Provider Last Name Natanael Referring Provider [facility] ctice Referred Organization [facility] Referred Address [address] [facility] [place],[address],[place] Referred Provider Specialty Diagnostic R adiology General Notes Erma Kumar 2023 02:59:38 PM >pending precert with [facility]ie 06/15/2024 11:37:54 AM >Request ID:, Tracking:, [id number], Validity Dates:, 06/14/2024-08/13/2024 CPT 68700 [facility] Referral Priority Routine Reason PT at [facility] for upper left back pain Diagnosis 1 Upper back pain on l eft side (M54.9) Referral Organization [facility] Referring Provider First Name Mary Referring Provider Last Name Natanael Referring Provider [facility] ctice Referred Organization [facility] Referred Address [address] [facility] [address] [place],[address],[place] Referred Provider Specialty Physical Med icine and Rehabilitation General Notes Erma Kumar 2023 03:14:04 PM >sent to [facility] rehab - they will call patient to schedule appt. Referral Priority Routine Reason Bux- Upper back pain Referral Organization [facility] Referring Provider First Name Mary Referring Provider Last Name Natanael Referring Provider [facility] ctice Referral Priority Routine Reason Please arrange MRI C spine WO at [facility] for ongoing right neck pain, radicular symptoms intermittently, failed PT. Diagnosis 1 Neck pain on right s roshni (M54.2) Referral Organization [facility] Referring Provider First Name Mary Referring Provider Last Name Natanael Referring Provider [facility] ctice Referred [facility] Referred Address [address] [facility], [place], [place],[address],[place] Referred Provider Specialty Diagnostic R adiology General Notes Erma Kumar 2023 10:24:42 AM >Pending PrecertJosé Nickie 06/27/2024 09:44:21 AM >approved and order sent to [facility] scheduling. They will contact patient to schedule. Referral Priority Routine Reason Please refer to Neur osurgeon Dr. Meza for spondylosis, per MRI C spine, C4-C5 central protrusion which indents thecal sac and touches and mildly flattens the anterior surface of the cord. Diagnosis 1 Cervical spondylosis (M47.812) Referral Organization [facility] Referring Provider First Name Mike Referring Provider Last Name Ravi Referring Provider Speciality Internal M edicine Referred Organization [facility] Referred Address [address] [place], [place],[address],[place] Referred Provider Specialty Neurological Surgery General Notes Erma Kumar 2024 09:29:16 AM >Referral placed through the [facility] portal., Erma Kumar 07/12/2024 09:24:11 AM >[facility] and Dr Meza do not take [facility] however he sees people at [facility] and can see her there. The order was faxed to Caitlin at [facility] [phone]. Her phone is [phone]. Clinical Notes Erma Kumar 2024 09:25:21 AM > Referral Priority Urgent Reason CT Adrenal Mass Prot ocol for 6 mth f/u Diagnosis 1 Adrenal mass (E27.8) Referral Organization [facility] VICENTE HART Referring Provider First Name Krissy Referring Provider Last Name Dianna Referring Provider [facility] ctice Referred [facility] Referred Address [address] [place], [place],[address], Referred Provider Specialty Diagnostic R adiology Referral Priority Routine Reason Can you please see i f this med needs a PA? Patient said her insurance doesn't cover it. Diagnosis 1 Stress incontinence (N39.3) Referral Organization [facility] Referring Provider First Name Mary Referring Provider Last Name Natanael Referring Provider [facility] ctice General Notes Efraín Jerome 03:13:47 PM > PA done on cover my meds Referral Priority Routine Reason Can you help with PA approval of Gemtesa and Trelegy. Failed Dulera and albut/iprat. Diagnosis 1 Stress incontinence (N39.3) Referral Organization [facility] Referring Provider First Name Mary Referring Provider Last Name Natanael Referring Provider [facility] ctice General Notes Efraín Jerome 12:00:55 PM > did PA on cover my meds Referral Priority Routine Reason Please refer to MESERET Roth for esophagitis, feels like something is in her throat when swallowing, history of choking on a Doxycycline pill. Diagnosis 1 Odynophagia (R13.10) Referral Organization [facility] Referring Provider First Name Mary Referring Provider Last Name Natanael Referring Provider [facility] ctice Referred [facility] Referred Address [address],[address], Referred Provider Specialty Gastroentero logy General Notes Erma Kumar 2024 12:45:45 PM >faxed to Ira Referral Priority Routine Referral Appointment Date 11/27/2024 Reason Please refer to [facility] ist Pulmonary Dr. Holguin/work related director process for COPD with reactive airway disease. Erma see notes Diagnosis 1 Chronic obstructive pulmonary disease, unspecified COPD type (J44.9) Referral Organization [facility] Referring Provider First Name Mary Referring Provider Last Name Natanael Referring Provider [facility] ctice Referred Organization [facility] latisha Referrals Referred Address [address],[place], [place],[address],[place] Referred Provider Specialty Pulmonary Di seases General Notes Efraín Jerome 04:10:31 PM > faxed and they will call patient with appt, Erma Kumar 11/21/2024 11:08:46 AM >sent to Referral Priority Routine Reason CT adrenal mass prot ocol - Jenci this is pending with Liseth through [facility] After 01-17 Diagnosis 1 Adrenal mass, left ( E27.8) Diagnosis 2 Adrenal mass, right (E27.9) Referral Organization [facility] Referring Provider First Name Mary Referring Provider Last Name Natanael Referring Provider [facility] ctice Referred [facility] Referred Address [address], [place] Referred Provider Specialty Diagnostic R adiology General Notes Erma Kumar 2024 03:24:08 PM >pending precert with MICHAEL NAILS- [facility], Efraín Jerome 01/12/2025 02:51:08 PM > It won't let me see it because I didn't put it in, Erma Kumar 01/15/2025 10:29:28 AM >approved sent to [facility] to schedule appt Referral Priority Routine Reason Please refer to Neur ologist Dr. Hills for recurrent migraines. Diagnosis 1 Episodic migraine (G 43.909) Referral Organization [facility] Referring Provider First Name Mary Referring Provider Last Name Natanael Referring Provider [facility] ctice General Notes Efraín Jerome 09:51:01 AM > faxed and they will call pt Referral Priority Routine Reason Please refer to UroCecile GAYT[facility] with [facility] for stress incontinence. Diagnosis 1 Stress incontinence (N39.3) Referral Organization [facility] Referring Provider First Name Mary Referring Provider Last Name Natanael Referring Provider [facility] ctice General Notes Efraín Jerome 10:04:56 AM [...] janusz yp of colon (D12.6) Referral Organization [facility] Referring Provider First Name Dagmar Referring Provider Last Name Allgood Referring Provider [facility] Notes Mike Gutiérrez 12/26 03:43:42 PM >pt notified Referral Priority Routine Referral Appointment Date 05/29/2025 Reason Please arrange annua l mammogram with [facility] for breast cancer screening. Diagnosis 1 Encounter for screen ing mammogram for malignant neoplasm of breast (Z12.31) Referral Organization [facility] VICENTE MARINO Referring Provider First Name Dagmar Referring Provider Last Name Allgood Referring Provider [facility] Notes Efraín Jerome 09:49:47 AM > faxed to [facility] and they will call pt Referral Priority Routine Reason Please refer to Dr. Regi [place] for routine pap smear for cervical cancer screening. Diagnosis 1 Cervical cancer scre ening (Z12.4) Referral Organization [facility] VICENTE PICHARDO Referring Provider First Name Dagmar Referring Provider Last Name Allgood Referring Provider [facility] General Notes Efraín Jerome 09:47:23 AM > faxed and they will call pt Referral Priority Routine Reason Please refer to Derm atologist for routine skin cancer screening. Diagnosis 1 Skin cancer screenin g (Z12.83) Referral Organization [facility] VICENTE MARINO Referring Provider First Name Dagmar Referring Provider Last Name Allgood Referring Provider [facility] Notes Efraín Jerome 09:46:30 AM > faxed to [facility] and they will call her Referral Priority Routine Reason Can you possibly sen d me GI Dr. Roth note? No longer having acute symptoms, but would like to read their recommendation at that time. Diagnosis 1 History of odynophag ia (Z87.898) Referral Organization [facility] Referring Provider First Name Dagmar Referring Provider Last Name Allgood [facility] Ref[facility] Priority Routine Medications Medication SIG (Take, Route, Frequency, Duration) Notes Start Date End Date Status Topiramate 50 MG TAKE 1 TABLET BY MOUTH AT BEDTIME; Duration: 30 Active Ventolin HFA 108 (90 Base) MCG/ACT 2 INH inhaled every 6 hours prn Active Nystatin 996294 UNIT/GM 1 application Externally Twice a day; [...] review and pick correct strength-formulatio n from CTB Groupan options. If intended option is not shown, [...] Status Risk Notes Problem Hypertrophy of uterus (224795608) Hypertrophy of uterus (N85.2) Active confirmed Problem Peripheral neuropathy (821122848) Peripheral neuropathy (G62.9) Active confirmed Problem Essential hypertension (65773484) Essential (primary) hypertension (I10) Active confirmed Problem Nicotine dependence (79831393) Personal history of nicotine dependence (Z87.891) Active confirmed Problem Anxiety (99932932) Anxiety (F41.9) Active confi rmed Problem Essential hypertension (29333642) Essential hypertension (I10) Active confirmed Problem Acute exacerbation of chronic obstructive airways disease (183244341) COPD exacerbation (J44.1) Active confirmed Problem Chronic pain (56480480) Other chronic pain (G89.29) Active confirmed Problem Lower abdominal pain (44756162) Lower abdominal pain (R10.30) Active confirmed Problem Neck pain (58647874) Neck pain on right side (M54.2) Active confirmed Problem Carpal tunnel syndrome (09568811) Right carpal tunnel syndrome (G56.01) Active confirmed Problem Neck pain (29904240) Neck pain (M54.2) Active confirmed Problem Heart murmur (10936450) Heart murmur (R01.1) Active confirmed Problem COPD - Chronic obstructive pulmonary disease (39874566) Chronic obstructive pulmonary disease, unspecified COPD type (J44.9) Active confirmed Problem Abnormal mammogram (963875512) Abnormal mammogram (R92.8) Active confirmed Problem Migraine without aura, not refractory (685703756) Migraine without aura and without status migrainosus, not intractable (G43.009) Active confirmed Problem Amenorrhea (10571663) Amenorrhea (N91.2) Active confirmed Problem Chronic obstructive pulmonary disease (45669149) Chronic obstructive pulmonary disease (J44.9) Active confirmed Problem SI - Stress incontinence (69695738) Stress incontinence (N39.3) Active confirmed Problem Hyperlipidaemia (86891413) Hyperlipidemia, unspecified hyperlipidemia type (E78.5) Active confirmed Problem Breathlessness on exertion (47409512) Breathlessness on exertion (R06.09) Active confirmed Problem Cervical radiculopathy (75666390) Cervical radiculopathy (M54.12) Active confirmed Problem History of nutritional deficiency (37584168224635) History of vitamin D deficiency (Z86.39) Active confirmed Problem Dysphagia (16583886) Dysphagia, unspecified type (R13.10) Active confirmed Problem Mass of right adrenal gland (finding) (88865516987348503 ) Adrenal mass, right (E27.9) Active confirmed Problem Sciatica (15436276) Acute left-sided low back pain with left-sided sciatica (M54.42) Active confirmed Problem Kyphoscoliosis deformity of spine (617922315) 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) Active confirmed Problem Solitary sacroiliitis (173726680) SI (sacroiliac) joint inflammation (M46.1) Active confirmed Problem Odynophagia (74693130) Odynophagia (R13.10) Active confirmed Problem Tobacco use (020053179) Tobacco use disorder (F17.200) Active confirmed Problem Mass of left adrenal gland (finding) (77208465905989771 ) Adrenal mass, left (E27.8) Active confirmed Problem Cervical spondylosis (267275573) Cervical spondylosis (M47.812) Active confirmed Problem Adrenal mass (475638287) Adrenal mass (E27.8) Active confirmed Problem Episodic migraine (297526969158414) Episodic migraine (G43.909) Active confirmed Problem Retrolisthesis (635756816) Retrolisthesis (M43.10) Active confirmed Problem Sciatica (03984286) Acute left-sided low back pain with right-sided sciatica (M54.41) Active confirmed Problem Sessile serrated polyp of colon (5339484584) Sessile serrated polyp of colon (D12.6) Active confirmed Problem Benign neoplasm of adrenal gland (49473823) Adrenal adenoma, unspecified laterality (D35.00) Active confirmed Vital Signs Heart Rate 78 /min 01/09/2025 Temperature 98.2 degrees Fahrenheit 01/09/2025 Blood pressure diastolic 82 mm Hg 01/09/2025 Height 63 in 01/09/2025 Blood pressure systolic 122 mm Hg 01/09/2025 Weight 180 lbs 01/09/2025 BMI 31.88 kg/m2 01/09/2025 Encounters Encounter Location Date Provider Diagnosis [facility] [address] [facility] [address] [place], [place] [address] 09/30/2024 Provider Migration COPD exacerbation J44.1 and Esophagitis K20.90 [facility] [address] [facility] [address] [place] [address] 01/11/2025 Mary Santoyo [facility] [address] [facility] [address] [place] [address] 02/18/2024 Mary Santoyo Essential (primary) hypertension I10 and Chronic obstructive pulmonary disease, unspecified COPD type J44.9 [facility] [address] [facility] [address] [place] [address] 02/23/2024 Mary Santoyo Acute left ankle william n M25.572 and Chronic obstructive pulmonary disease, unspecified COPD type J44.9 [facility] [address] [place] [address] 03/23/2024 Mary Baigowell Adrenal mass E27.8 a nd Chronic obstructive pulmonary disease, unspecified COPD type J44.9 [facility] [address] [place] [address] 04/04/2024 Mary Santoyo Upper back pain on left side M54.9 [facility] [address] [facility] [address] [place] [address] 04/07/2024 Mary Santoyo Upper back pain M54. 9 [facility] [address] [facility] [address] [place] [address] 06/22/2024 Mary Santoyo Neck pain on right side M54.2 [facility] [address] [facility] [address] [place] [address] 07/25/2024 Mary Santoyo EWELINA (acute kidney injury) N17.9 and Essential (primary) hypertension I10 [facility] [address] [facility] [address] [place] [address] 09/11/2024 Mary Selena Episodic migraine G43.909 [facility] [address] [facility] [address] [place] [address] 09/13/2024 Mary Baigowell Acute cough R05.1 ; COPD exacerbation J44.1 and Stress incontinence N39.3 [facility] [address] [place] [address] 09/18/2024 Mike Ravi Chronic obstructive pulmonary disease, unspecified COPD type J44.9 ; COPD exacerbation J44.1 and Episodic migraine G43.909 [facility] [address] [place] [address] 09/22/2024 Mary Natanael COPD exacerbation J44.1 and Esophagitis K20.90 [facility] [address] [facility] [address] [place], [place] [address] 10/12/2024 Mary Baigowell Essential (primary) hypertension I10 ; Chronic obstructive pulmonary disease, unspecified COPD type J44.9 ; Stress incontinence N39.3 and Odynophagia R13.10 [facility] [address] [facility] [address] [place], [place] [address] 11/15/2024 Mary Nortonell Chronic obstructive pulmonary disease, unspecified COPD type J44.9 ; Essential (primary) hypertension I10 ; Hypokalemia E87.6 ; Cervical radiculopathy M54.12 and Dysphagia, unspecified type R13.10 [facility] [address] [address] 01/09/2025 Mary Natanael Hyperlipidemia, unspecified hyperlipidemia type [...] unspecified laterality D35.00 and Poor historian Z78.9 [facility] [address] [facility] 36 [facility] [address] [place], [place] [address] 02/22/2024 Mike Besson [facility] [address] [facility] 36 [facility] [address] [place], [place] [address] 02/24/2024 Mike Besson [facility] [address] [facility] 36 [facility] [address] [place], [place] [address] 02/24/2024 Mike Besson [facility] [address] [address] 03/02/2024 Mary Baigowell Chronic cough R05.3 [facility] [address] [place] [address] 04/04/2024 Mary Baigowell Acute back pain M54. 9 [facility] [address] [place] [address] 04/05/2024 Mary Santoyo [facility] [address] [place] [address] 04/13/2024 Mary Santoyo Neck pain M54.2 [facility] [address] [place] [address] 06/14/2024 Mary Baigowell Adrenal mass, left E27.8 and Adrenal mass, right E27.9 [facility] [address] [place] [address] 06/27/2024 Mary Baigowell Kyphoscoliosis deformity of spine M41.9 and Neck pain M54.2 [facility] [address] [place] [address] 07/10/2024 Mary Santoyo [facility] [address] [place] [address] 07/10/2024 Mary Nortonell Cervical spondylosis M47.812 [facility] [address] [place] [address] 07/19/2024 Mary Santoyo [facility] [address] [place] [address] 08/03/2024 Mary Santoyo [facility] [address] [place] [address] 09/21/2024 Mary Santoyo [facility] [address] [place] [address] 10/24/2024 Mary Santoyo [facility] [address] [place] [address] 11/15/2024 Mike Rodrigues [facility] [address] [place], [place] [address] 01/05/2025 Mary Santoyo Adrenal mass, right E27.9 and Adrenal mass, left E27.8 [facility] [address] [place], [place] [address] 01/15/2025 [facility] [address] [place], [place] [address] 01/10/2025 Mary Santoyo Anxiety F41.9 Assessments Encounter [...] agreeable to the plan of care above. 09/22/2024 COPD exacerbation (ICD-10 - J44.1) Unfortunately [...] for Trelegy, sent script and have asked global chief experience officer with PA approval. Follow-up in 1 month or sooner if needed. 09/13/2024 Acute cough (ICD-10 - R05.1) 09/18/2024 COPD exacerbation (ICD-10 - J44.1) Add Mucinex to her regimen. 09/18/2024 Chronic obstructive pulmonary disease, unspecified COPD type (ICD-10 - J44.9) Needs to continue triple inhaler therapy given her exacerbation and ongoing COPD. Discussed her need for smoking cessation. 11/15/2024 Essential (primary) hypertension (ICD-10 - I10) [...] one, referral placed. She is followed by [facility] Dr. Martinez, unsure when she last had [...] Breztri so will continue. Keep follow-up with [facility]. 11/15/2024 Hypokalemia (ICD-10 - E87.6) Re-checking BMP. I personally will review all labs once final. 01/05/2025 Adrenal mass, left (ICD-10 - E27.8) 09/18/2024 Episodic migraine (ICD-10 - G43.909) Patient has not tried more basic migraine medicines. Will trial low-dose topiramate at night. Discussed possible side effects. Hold off on other CGRP medications unless we can demonstrate treatment failures 10/12/2024 Stress incontinence (ICD-10 - N39.3) Keep follow-up with [facility]. Patient got second opinion by Dr. Valentine, still awaitng Gemtesa approval so have placed referral for help with approval/PA. Samples given. Follow-up in 4 weeks or sooner if needed. 09/13/2024 Stress incontinence (ICD-10 - N39.3) Previously followed by [facility] who performed a botox shot per patient. [...] in 4 weeks or sooner if needed. 11/15/2024 Cervical radiculopathy (ICD-10 - M54.12) Discussed taking Famotidine with NSAID and to use cautiously. Keep follow-up with Dr. Green. 01/09/2025 Essential (primary) hypertension (ICD-10 - I10) [...] with the plan of care above. 11/15/2024 Dysphagia, unspecified type (ICD-10 - R13.10) [...] of uterus (ICD-10 - N85.2) Follows with [facility]. History of ablation. 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 medical claims examiner often forgetting names of her medications, which [...] 09/02/2023 X ray : SI Joints 09/02/2023 M-Comprehensive Metabolic Panel 12/12/19 M-Lipid Panel 2021 M-Vitamin B12 01/07/2024 M-Vitamin D 25 Hydroxy 01/07/2024 X-HSER-Cqpanpl 03/23/2024 Physical Therapy Eval and Treat 04/04/20 Physical Therapy Eval and Treat 04/13/20 BASIC METABOLIC PANEL (74743) 11/15/2024 BASIC METABOLIC PANEL (50686) 10/28/2023 BASIC METABOLIC PANEL (47972) 12/02/2023 CT ABD WOW 01/05/2025 Next Appt Details Provider Name:Mike Rodrigues, 02/19/2025 02:45:00 PM, [address] [place] [facility] [address] [facility], [address], [place], [address], Insurance Providers Payer Name Payer Address Payer Phone Subscriber Number Group Number Insured Name Patient Relationship to Insured Coverage Start Date Coverage End Date [employer] [place] [employer] [address] [address] [place] [address] [phone] [id number] Sera Saxena Self - patient is the [...]
--- OUTSIDE RECORDS SUMMARY | 2025-01-25 08:08 | XMS_ITS | Clinical Summary ---
Author Organization [employer] ([place], [place], [place], [place]) Address [address] [place] [address] Care Team Providers Care Collections Rep Name Role Phone Mike Rodrigues MD Primary Care Provider + [phone] Allergies Active Allergy Reactions Criticality Noted Date [...] Td or Tdap) 01/06/2034 Insurance Care Teams Collections Rep Relationship Specialty Start Date End Date Mike Rodrigues MD [address] [place] [address] PCP - General Adolescent Medicine 07/17/24
--- NOTE | 2025-01-25 08:09 | CT_ITS ---
FINAL REPORT TECHNIQUE: Pre- and postcontrast images of the abdomen were performed by computed tomography. This study was performed with techniques to keep radiation doses as low as reasonably achievable, (ALARA). Individualized dose reduction techniques using automated exposure control or adjustment of mA and/or kV according to the patient's size were employed. CLINICAL HISTORY: JAYLAN ADRENAL MASS COMPARISON: 07/14/2024 FINDINGS: There are bilateral adrenal nodules measuring 38 mm on the right and 27 mm on the left. Both demonstrate greater than 60% washout on 15-minute delayed images confirming adenomas. This was demonstrated on recent MRI. The lung bases are clear. The remaining solid organs are unremarkable. The GI tract is without acute abnormality. IMPRESSION: Bilateral adrenal adenomas. Reviewed, Interpreted and Dictated by Nelia Philip MD Transcribed by Denae Perez Authenticated and [facility]
[2025-01-25] MEDS: IOPAMIDOL-370 (76%);100ML BOTTLE 75 ML IV (08:48)
[2025-01-25] MEDS: SODIUM CHLORIDE 0.9% 10ML SYR (RAD ONLY) 10 ML IV (08:48)
== END 2025-01-25 23:59 | disposition home or self-care (01) ==
LOC: RAD 08:03
PROVIDERS: PCP Internal Medicine Adolescent Medicine; Visit Provider Physician Assistant
DX: D35.02 Benign neoplasm of left adrenal gland (principal); D35.01 Benign neoplasm of right adrenal gland
CPT/HCPCS: 74170; Q9967

== ENCOUNTER 2025-02-05 15:03 | Outpatient (POV) | payer MEDICAID, SELFPAY ==
--- OUTSIDE RECORDS SUMMARY | 2025-01-09 11:45 | XMS_ITS ---
Author Organization [facility] Octavio MARINO Address [address] [place], [place] [address] Care Team Providers Care Production Planner Scheduler Name Role Phone Mike Rodrigues Primary Care Provider Krissy Bustamante Unavailable [phone] KRISSY Bustamante APRN Unavailable Unavailable Mary Santoyo Unavailable [phone] Allergies Allergen (clinical drug ingredient) Drug/Non Drug Allergy documented on EMR Reaction Allergy Type Onset Date Status Latex LATEX (uncoded) Unknown Allergy Acti ve TYLENOL #3 WITH CODEINE (uncoded) Unknown Allergy Active aspirin Aspirin Unknown Drug Allergy Active latanoprost Latanoprost Unknown Drug Allergy Act caty Penicillin Unknown Drug Allergy Active Results Component Value Reference Range Notes LIPID PANEL, STANDARD (7600) Reviewed date:01/15/2025 11:35:55 AM Interpretation: Performing Lab:CB, [facility] [id number] [facility], [facility] HomeEwfiCP[address] Ramon Quinones Notes/Report: NON-FASTING; NON-FASTING; NON-FASTING; NON-FASTING; NON-FAST CHOLESTEROL, TOTAL 174 <200 mg/dL HDL CHOLESTEROL 53 > OR = 50 mg/dL TRIGLYCERIDES 127 <150 mg/dL LDL-CHOLESTEROL 99 Reference range: <100 Desirable range <100 mg/dL for primary prevention; <70 mg/dL for patients with CHD or diabetic patients with > or = 2 CHD risk factors. LDL-C is now calculated using the Mekhi-Jarquin calculation, which is a validated novel method providing better accuracy than the Friedewald equation in the estimation of LDL-C. Mekhi SS et al. RONALD. 2013;310(19): 9082-6018 (http://CHOBOLABS.myMedScore/faq/MOK983) CHOL/HDLC RATIO 3.3 <5.0 (calc) NON HDL CHOLESTEROL 121 <130 mg/dL (calc) For patients with diabetes plus 1 major ASCVD risk factor, treating to a non-HDL-C goal of <100 mg/dL (LDL-C of <70 mg/dL) is considered a therapeutic option. COMPREHENSIVE METABOLIC PANE L (97965) Reviewed date:01/15/2025 11:35:55 AM Interpretation: Performing Lab:SADIE Vastrm[address] [employer], AspectivaCftjVS[address] Ramon Quinones Notes/Report: NON-FASTING; NON-FASTING; NON-FASTING; NON-FASTING; NON-FAST GLUCOSE 85 65-99 mg/dL Fasting reference interval UREA NITROGEN (BUN) 19 7-25 mg/dL CREATININE 0.90 0.50-0.99 mg/dL EGFR 79 > OR = 60 mL/min/1.73m2 BUN/CREATININE RATIO SEE NOTE: 6-22 (calc) Not Reported: BUN and Creatinine are within reference range. SODIUM 140 135-146 mmol/L POTASSIUM 4.0 3.5-5.3 mmol/L CHLORIDE 107 98-110 mmol/L CARBON DIOXIDE 24 20-32 mmol/L CALCIUM 9.5 8.6-10.2 mg/dL PROTEIN, TOTAL 7.3 6.1-8.1 g/dL ALBUMIN 4.5 3.6-5.1 g/dL GLOBULIN 2.8 1.9-3.7 g/dL (calc) ALBUMIN/GLOBULIN RATIO 1.6 1.0-2.5 (calc) BILIRUBIN, TOTAL 0.2 0.2-1.2 mg/dL ALKALINE PHOSPHATASE 117 31-125 U/L AST 13 10-35 U/L ALT 11 6-29 U/L CBC (INCLUDES DIFF/PLT) (639 9) Reviewed date:01/15/2025 11:35:55 AM Interpretation: Performing Lab:SADIE [employer] [id number] [employer] and Management CompanyCambridge Medical CenterLlhmOK[address] Ramon Quinones Notes/Report: NON-FASTING; NON-FASTING; NON-FASTING; NON-FASTING; NON-FAST WHITE BLOOD CELL COUNT 8.2 3.8-10.8 Thousand/ uL RED BLOOD CELL COUNT 4.20 3.80-5.10 Million/uL HEMOGLOBIN 12.4 11.7-15.5 g/dL HEMATOCRIT 40.0 35.0-45.0 % MCV 95.2 80.0-100.0 fL MCH 29.5 27.0-33.0 pg MCHC 31.0 32.0-36.0 g/dL For adults, a slight decrease in the calculated MCHC value (in the range of 30 to 32 g/dL) is most likely not clinically significant; however, it should be interpreted with caution in correlation with other red cell parameters and the patient's clinical condition. RDW 12.9 11.0-15.0 % PLATELET COUNT 272 140-400 Thousand/uL MPV 11.8 7.5-12.5 fL ABSOLUTE NEUTROPHILS 5420 7919-5161 cells/uL ABSOLUTE LYMPHOCYTES 2148 850-3900 cells/uL ABSOLUTE MONOCYTES 508 200-950 cells/uL ABSOLUTE EOSINOPHILS 90 15-500 cells/uL ABSOLUTE BASOPHILS 33 0-200 cells/uL NEUTROPHILS 66.1 LYMPHOCYTES 26.2 MONOCYTES 6.2 EOSINOPHILS 1.1 BASOPHILS 0.4 HEMOGLOBIN A1c (496) Reviewed date:01/15/2025 11:35:55 AM Interpretation: Performing Lab:SADIE, [facility] [id number] [facility] Ramon Quinones Notes/Report: NON-FASTING; NON-FASTING; NON-FASTING; NON-FASTING; NON-FAST HEMOGLOBIN A1c 5.6 <5.7 % For the purpose of screening for the presence of diabetes: <5.7% Consistent with the absence of diabetes 5.7-6.4% Consistent with increased risk for diabetes (prediabetes) > or =6.5% Consistent with diabetes This assay result is consistent with a decreased risk of diabetes. Currently, no consensus exists regarding use of hemoglobin A1c for diagnosis of diabetes in children. According to [place] Diabetes Association (ADA) guidelines, hemoglobin A1c <7.0% represents optimal control in non- diabetic patients. Different metrics may apply to specific patient populations. Standards of Medical Care in Diabetes(ADA). TSH W/REFLEX TO FT4 (50539) Reviewed date:01/15/2025 11:35:55 AM Interpretation: Performing Lab:SADIE, [employer]e[address] [place], [facility] CtopBN[address] Ramon Quinones Notes/Report: NON-FASTING; NON-FASTING; NON-FASTING; NON-FASTING; NON-FAST TSH W/REFLEX TO FT4 1.02 Reference Range > or = 20 Years 0.40-4.50 Ranges First trimester 0.26-2.66 Second trimester 0.55-2.73 Third trimester 0.43-2.91 VITAMIN D,25-OH,TOTAL,IA (17 306) Reviewed date:01/15/2025 11:35:55 AM Interpretation: Performing Lab:SADIE [employer] Vohv1871 [facility]teCell[facility]on [facility], [facility]+JuumOT[address] Ramon Quinones Notes/Report: NON-FASTING; NON-FASTING; NON-FASTING; NON-FASTING; NON-FAST VITAMIN D,25-OH,TOTAL,IA 31 30-100 ng/mL Vitamin D Status 25-OH Vitamin D: Deficiency: <20 ng/mL Insufficiency: 20 - 29 ng/mL Optimal: > or = 30 ng/mL For 25-OH Vitamin D testing on patients on D2-supplementation and patients for whom quantitation of D2 and D3 fractions is required, the QuestAssureD(TM) 25-OH VIT D, (D2,D3), LC/MS/MS is recommended: order code [id number] (patients >2yrs). See Note 1 Note 1 For additional information, please refer to http://education.[facility]/faq/CQA648 (This link is being provided for informational/ educational purposes only.) Mammogram : Bilateral Reviewed date:01/19/2025 10:42:39 AM Interpretation: Performing Lab: Notes/Report: Reason For Referral Reason Please refer to Neur ologist Dr. Hills for recurrent migraines. Diagnosis 1 Episodic migraine (G 43.909) Referral Organization [facility] VICENTE MARINO Referring Provider First Name Mary Referring Provider Last Name Natanael Referring Provider [facility]ity [facility] General Notes Efraín Jerome 09:51:01 AM > faxed and they will call pt Referral Priority Routine Reason Please refer to Kim GAYTAN with [facility] for stress incontinence. Diagnosis 1 Stress incontinence (N39.3) Referral Organization [facility] PED MARINO Referring Provider First Name Mary Referring Provider Last Name Santoyo Referring Provider [facility] ctice General Notes Efraín Jerome 10:04:56 AM > faxed and they will call pt to schedule Referral Priority Routine Reason Will you please arra nge routine colonoscopy for colon cancer screening with Dr. Anguiano in April or early May 2025? History of sessile serrated adenoma on cscope Apr 2023 so surgeon recommended repeat in 2 years. last one was with Dr. Banegas so BJ made this one with him Diagnosis 1 Sessile serrated janusz yp of colon (D12.6) Referral Organization [facility] PED MARINO Referring Provider First Name Mary Referring Provider Last Name Santoyo Referring Provider [facility] Notes Mike Gutiérrez 12/26 03:43:42 PM >pt notified Referral Priority Routine Referral Appointment Date 05/29/2025 Reason Please arrange annua l mammogram with [facility] for breast cancer screening. Diagnosis 1 Encounter for screen ing mammogram for malignant neoplasm of breast (Z12.31) Referral Organization [facility] PED MARINO Referring Provider First Name Mary Referring Provider Last Name Santoyo Referring Provider [facility] ctice General Notes Efraín Jerome 09:49:47 AM > faxed to [facility] and they will call pt Referral Priority Routine Reason Please refer to Dr. Regi Martinez for routine pap smear for cervical cancer screening. Diagnosis 1 Cervical cancer scre ening (Z12.4) Referral Organization [facility] PED MARINO Referring Provider First Name Mary Referring Provider Last Name Santoyo Referring Provider [facility] ctice General Notes Efraín Jerome 09:47:23 AM > faxed and they will call pt Referral Priority Routine Reason Please refer to Derm atologist for routine skin cancer screening. Diagnosis 1 Skin cancer screenin g (Z12.83) Referral Organization [facility] PED MARINO Referring Provider First Name Mary Referring Provider Last Name Santoyo Referring Provider [facility] ctice General Notes Efraín Jerome 09:46:30 AM > faxed to [facility] and they will call her, Efraín Jerome 02/01/2025 03:37:52 PM > they do not accept insurance- faxed to [facility] Referral Priority Routine Reason Can you possibly sen d me MESERET Roth note? No longer having acute symptoms, but would like to read their recommendation at that time. Diagnosis 1 History of odynophag ia (Z87.898) Referral Organization [facility] VICENTE PICHARDO Referring Provider First Name Mary Referring Provider Last Name Santoyo Referring Provider Speciality Family [facility] General Notes Efraín Jerome 12:30:28 PM > Referral Priority Routine REASON FOR VISIT yearly physical, discuss b/p meds Medications Medication SIG (Take, Route, Frequency, Duration) Notes Start Date End Date Status Topiramate 50 MG TAKE 1 TABLET BY MOUTH AT BEDTIME; Duration: 30 Active Ibuprofen 800 MG 1 tab(s) orally every 8 hours; Duration: 30 days As needed pain. prn Active Trelegy Ellipta 200 MCG-62.5 MCG-25 MCG/INH 1 INH INHALED ONCE A DAY; Duration: 30 DAYS *Please review and pick correct strength-formulatio n from Medispan options. If intended option is not shown, discontinue and re-order from Quick Search* 03/23/2024 Active Breztri Aerosphere 160-9-4.8 MCG/ACT 2 puffs Inhalation Twice a day; Duration: 30 days 10/31/2024 Active Ventolin HFA 108 (90 Base) MCG/ACT 2 INH inhaled every 6 hours prn Active PARoxetine HCl 10 MG 1 tab(s) orally once a day; Duration: 30 days Active Lidoderm 5 % APPLY 1 PATCH TOPICALLY ONCE DAILY FOR 30 DAYS; Duration: 30 prn Active Gemtesa 75 MG 1 tab(s) orally once a day; Duration: 30 days 09/13/2024 Active Carvedilol 12.5 MG 1 tab(s) orally 2 times a day; Duration: 30 days Active Nystatin 959599 UNIT/GM 1 application Externally Twice a day; Duration: 7 days 01/09/2025 Active Social History Tobacco Use: Social History Observation Description Date Details (start date - stop date) Current Smoker NA - NA Smoking: Question Answer Notes Are you a: current smoker How often do you smoke cigarettes? every day How many cigarettes a day do you smoke? 11-20 How soon after you wake up d o you smoke your first cigarette? 31-60 min Are you interested in quitting? Thinking about q uitting Additional Findings: Tobacco User Modera te cigarette smoker (10-19 cigs/day) Problems Problem Type SNOMED Code ICD Code Onset Dates Problem Status W/U Status Risk Notes Problem Hyperlipidaemia (82780362) Hyperlipidemia, unspecified hyperlipidemia type (E78.5) Active confirmed Problem History of nutritional deficiency (00912148321438) History of vitamin D deficiency (Z86.39) Active confirmed Problem Heart murmur (30865206) Heart murmur (R01.1) Active confirmed Problem Sessile serrated polyp of colon (7409824626) Sessile serrated polyp of colon (D12.6) Active confirmed Problem Benign neoplasm of adrenal gland (76329890) Adrenal adenoma, unspecified laterality (D35.00) Active confirmed Problem Hypertrophy of uterus (559926191) Hypertrophy of uterus (N85.2) Active confirmed Problem Peripheral neuropathy (673785996) Peripheral neuropathy (G62.9) Active confirmed Vital Signs Temperature 98.2 degrees Fahrenheit 01/10/20 25 Blood pressure systolic 122 mm Hg 01/10/20 25 Blood pressure diastolic 82 mm Hg 025 Heart Rate 78 /min 01/09/2025 Height 63 in 01/09/2025 Weight 180 lbs 01/09/2025 BMI 31.88 kg/m2 01/09/2025 Encounters Encounter Location Date Provider Diagnosis [address] [address] 01/09/2025 Mary Santoyo Hyperlipidemia, unspecified hyperlipidemia type E78.5 ; Routine adult health maintenance Z00.00 ; Chronic obstructive pulmonary disease, unspecified COPD type J44.9 ; Essential (primary) hypertension I10 ; Episodic migraine G43.909 ; Neck pain M54.2 ; Tobacco use disorder F17.200 ; Stress incontinence N39.3 ; Fatigue, unspecified type R53.83 ; Dermatitis L30.9 ; History of vitamin D deficiency Z86.39 ; Sessile serrated polyp of colon D12.6 ; Encounter for screening mammogram for malignant neoplasm of breast Z12.31 ; Cervical cancer screening Z12.4 ; Skin cancer screening Z12.83 ; Heart murmur R01.1 ; Hypertrophy of uterus N85.2 ; History of odynophagia Z87.898 ; Adrenal adenoma, unspecified laterality D35.00 and Poor historian Z78.9 Assessments Encounter Date Diagnosis (ICD Code) Assessment Notes Treatment Notes Treatment Clinical Notes Section Notes 01/09/2025 Hyperlipidemia, unspecified hyperlipidemia type (ICD-10 - E78.5) Mildly elevated cholesterol last check so will trend as didn't need statin at that time. I personally will review all labs once final. 01/09/2025 Routine adult health maintenance (ICD-10 - Z00.00) Tdap December 2023. Declines pneumonia vaccine. She reports getting annual mammogram, November 2023, normal, due for next one, referral placed. She is followed by [facility] [employer] [facility] Dr. Martinez, unsure when she last had a pap, referrral placed. Paps reportedly have always been normal. She continues to smoke 10 cigarettes a day now and trying to quit. CT chest Feb 2024 no acute lung findings. Too young to start annual lung cancer screening scans, will start at age 52. Declines patches. She sees a dentist twice a year for her remaining teeth, also wearing dentures. She last saw eye MD a couple months ago, has astigmatism and wears glasses for her vision (she has bifocals). Last colonoscopy April 2023 with sessile serrated adenoma, per Dr. Banegas's note needs repeat colonoscopy in 2-3 years so referral placed for cscope in April 2025. 01/09/2025 Chronic obstructive pulmonary disease, unspecified COPD type (ICD-10 - J44.9) Well controlled on Breztri so will continue. Keep follow-up with [facility] [employer] [facility]. 01/09/2025 Essential (primary) hypertension (ICD-10 - I10) Patient reports not taking HCTZ for a month due to her chronic stress incontinence and no longer having lower leg edema. Then she waivered stating she might take it once a week. Will stop this medication for now, continue her bid Coreg and follow-up in 4 weeks to trend BP. Patient voices understanding and agrees with the plan of care above. 01/09/2025 Episodic migraine (ICD-10 - G43.909) Stressed importance of compliance. She has failed several migraine medications including Qulipta and Ubrelvy. Has seen eye MD within a year. Referral placed to Neurologist Dr. Hills. Sleep study and note from Neuro 10/2023 showed primary snoring only, no MIGUE. 01/09/2025 Neck pain (ICD-10 - M54.2) Keep follow-up with Dr. Green. 01/09/2025 Tobacco use disorder (ICD-10 - F17.200) Stressed importance of cessation. She wants to quit with her Dad who has lung cancer. Declines patches. 01/09/2025 Stress incontinence (ICD-10 - N39.3) Dr. Valentine no longer covers her insurance. Interferes with her quality of life, referred back to [facility] at patient request. 01/09/2025 Fatigue, unspecified type (ICD-10 - R53.83) Sleep study and note from Neuro 10/2023 showed primary snoring only, no MIGUE. Stressed importance of routine bedtime. I personally will review all labs once final. 01/09/2025 Dermatitis (ICD-10 - L30.9) Either allergic dermatitis from necklace or yeast. Start topical Nystatin. Discussed to use topical hydrocortisone for itching. Return to clinic if worsens. Patient voices understanding. 01/09/2025 History of vitamin D deficiency (ICD-10 - Z86.39) I personally will review all labs once final. 01/09/2025 Sessile serrated polyp of colon (ICD-10 - D12.6) Per colonoscopy report by Dr. Banegas May 25, 2023, 8 mm sessile polyp at 50 cm Recommendations: Timing of repeat colonoscopy is pending pathology will likely be around 2-3 years secondary to size/nature of polyp and spasticity/lack of relaxation. Path + sessile serrated adenoma. Will arrange referral for repeat colonscopy in [address] Banegas's recommendations. 01/09/2025 Encounter for screening mammogram for malignant neoplasm of breast (ICD-10 - Z12.31) 01/09/2025 Cervical cancer screening (ICD-10 - Z12.4) 01/09/2025 Skin cancer screening (ICD-10 - Z12.83) 01/09/2025 Heart murmur (ICD-10 - R01.1) ECHO 10/2023, Normal biventricular systolic function. Mild LA dilation. Mild AI, mild MR, mild TR. No acute concerning findings. 01/09/2025 Hypertrophy of uterus (ICD-10 - N85.2) Follows with [facility] [facility] [employer] [facility]. History of ablation. 01/09/2025 History of odynophagia (ICD-10 - Z87.898) Thought to be previously due to Doxycycline esophagitis vs other. Resolved now so no changes in med management. Have asked for GI Dr. Roth note to be sent for me to review and have in her chart. 01/09/2025 Adrenal adenoma, unspecified laterality (ICD-10 - D35.00) Incidental find on CT chest February 2024. Stable per MRI abdomen May 2024. Normal work-up so far including normal dexamethasone suppresion test. DHEA normal. No further work-up indicated at this time. Can consider repeating MRI abdomen again in May 2025. 01/09/2025 Poor historian (ICD-10 - Z78.9) Mental status is at baseline for her. Patient is at baseline a poor vice president medical affairs often forgetting names of her medications, which complicates all aspects of care. Otherwise, can give a good history of what specialists are doing for her, which is helpful. If her memory changes anymore from this baseline, consider work-up for her memory. 01/09/2025 Other I personally wi ll review all labs once final. Plan Of Treatment Medication Medication Name Sig Start Date Stop Date Notes hydroCHLOROthiazide 12.5 MG 1 tab(s) orally once a day Nystatin 691428 UNIT/GM 1 application Ex ternally Twice a day; Duration: 7 days 01/09/2025 Treatment Notes Assessment Notes Hyperlipidemia, unspecified hyperlipidemia type Mildly elevated cholesterol last check s o will trend as didn't need statin at that time. I personally will review all labs once final. Routine adult health maintenance Tdap Ju ly 2023. Declines pneumonia vaccine. She reports getting annual mammogram, November 2023, normal, due for next one, referral placed. She is followed by [facility] [employer] Dr. Martinez, unsure when she last had a pap, referrral placed. Paps reportedly have always been normal. She continues to smoke 10 cigarettes a day now and trying to quit. CT chest Feb 2024 no acute lung findings. Too young to start annual lung cancer screening scans, will start at age 52. Declines patches. She sees a dentist twice a year for her remaining teeth, also wearing dentures. She last saw eye MD a couple months ago, has astigmatism and wears glasses for her vision (she has bifocals). Last colonoscopy April 2023 with sessile serrated adenoma, per Dr. Banegas's note needs repeat colonoscopy in 2-3 years so referral placed for cscope in April 2025. Chronic obstructive pulmonar y disease, unspecified COPD type Well controlled on Breztri so will continue. Keep follow-up with [facility] [employer] [facility]. Essential (primary) hypertension Patient reports not taking HCTZ for a month due to her chronic stress incontinence and no longer having lower leg edema. Then she waivered stating she might take it once a week. Will stop this medication for now, continue her bid Coreg and follow-up in 4 weeks to trend BP. Patient voices understanding and agrees with the plan of care above. Episodic migraine Stressed importance of compliance. She has failed several migraine medications including Qulipta and Ubrelvy. Has seen eye MD within a year. Referral placed to Neurologist Dr. Hills. Sleep study and note from Neuro 10/2023 showed primary snoring only, no MIGUE. Neck pain Keep follow-up with Dr. Green. Tobacco use disorder Stressed importance of cessation. She wants to quit with her Dad who has lung cancer. Declines patches. Stress incontinence Dr. Valentine no longer covers her insurance. Interferes with her quality of life, referred back to [facility] at patient request. Fatigue, unspecified type Sleep study an d note from Neuro 10/2023 showed primary snoring only, no MIGUE. Stressed importance of routine bedtime. I personally will review all labs once final. Dermatitis Either allergic derm atitis from necklace or yeast. Start topical Nystatin. Discussed to use topical hydrocortisone for itching. Return to clinic if worsens. Patient voices understanding. History of vitamin D deficiency I person ally will review all labs once final. Sessile serrated polyp of colon Per colonoscopy report by Dr. Banegas May 25, 2023, 8 mm sessile polyp at 50 cm Recommendations: Timing of repeat colonoscopy is pending pathology will likely be around 2-3 years secondary to size/nature of polyp and spasticity/lack of relaxation. Path + sessile serrated adenoma. Will arrange referral for repeat colonscopy in [address] Banegas's recommendations. Heart murmur ECHO 10/2023, Normal biventricular systolic function. Mild LA dilation. Mild AI, mild MR, mild TR. No acute concerning findings. Hypertrophy of uterus Follows with [facility] [employer] [facility]. History of ablation. History of odynophagia Thought to be pre viously due to Doxycycline esophagitis vs other. Resolved now so no changes in med management. Have asked for GI Dr. Roth note to be sent for me to review and have in her chart. Adrenal adenoma, unspecified laterality Incidental find on CT chest February 2024. Stable per MRI abdomen May 2024. Normal work-up so far including normal dexamethasone suppresion test. DHEA normal. No further work-up indicated at this time. Can consider repeating MRI abdomen again in May 2025. Poor historian Mental status is at baseline for her. Patient is at baseline a poor vice president medical affairs often forgetting names of her medications, which complicates all aspects of care. Otherwise, can give a good history of what specialists are doing for her, which is helpful. If her memory changes anymore from this baseline, consider work-up for her memory. Other I personally will re view all labs once final. Referrals Referral Date Details 01/09/2025 01/09/2025, Please lior bonilla to Neurologist Dr. Hills for recurrent migraines. 01/09/2025 01/09/2025, Please lior bonilla to UroGYN with [place] for stress incontinence. 01/09/2025 01/09/2025, Will you please arrange routine colonoscopy for colon cancer screening with Dr. Anguiano in April or early May 2025? History of sessile serrated adenoma on cscope Apr 2023 so surgeon recommended repeat in 2 years. last one was with Dr. Banegas so BJ made this one with him 01/09/2025 01/09/2025, Please a rrange annual mammogram with [facility] for breast cancer screening. 01/09/2025 01/09/2025, Please r irene to Dr. Regi Martinez for routine pap smear for cervical cancer screening. 01/09/2025 01/09/2025, Please r efer to Addiction Nurse for routine skin cancer screening. 01/09/2025 01/09/2025, Can you possibly send me GI Dr. Roth note? No longer having acute symptoms, but would like to read their recommendation at that time. Next Appt Details Follow Up: 4 Weeks for BP ch ryder off HCTZ and to trend if LE edema returns., Reason: Provider Name:Krissy Carlos Oli Marsh, 03/15/2025 03:45:00 PM, [address], [address], [place], [address], Progress Notes * Sera RINCON DDOB: [birth year] (49 yo F)Acc No.[id number]:01/09/2025 Progress Notes Patient: Sera HINTON Provider: BERNARDO Phipps :1975 A ge:49 Y S ex:Female Date:01/09/2025 Address:[address] [place], [place] [id number] Pcp:Mike Rodrigues Subjective: * Chief Complaints: * 1 . Yearly physical. 2. Discuss b/p meds. * HPI: g en: Patient presents for annual physical. Health Maintenance: She reports getting annual mammogram, November 2023, normal, due for next one. She is followed by [facility] Dr. Martinez, unsure when she last had a pap, maybe a year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
--- OUTSIDE RECORDS SUMMARY | 2025-01-10 14:55 | XMS_ITS | Encounter Summary ---
Author Organization [facility] Address [address] [place] [address] Care Team Providers Care Electrophysiology Technician Name Role Phone Provider, No Known Primary Care Provider Unavail able Encounter Details Date Type Department Care Team (Late Contact Info) Description 01/10/2025 2:55 PM EDT Hospital Encounter [facility] PULMONARY & CRITICAL CARE MEDICINE [address] [place] [address] Social History Tobacco Use Types Packs/Day Years [...] Upcoming Encounters Date Type Department Care Team ([facility] Contact Info) Description 05/15/2025 2:45 PM EST Office Visit [facility] PULMONARY & CRITICAL CARE MEDICINE [address] [place] [address] Raul Yoon DO [address] [place] [address] documented as of this encounter Procedures Procedure Name Priority Date/Time Associated Diagnosis Comments XR CHEST PA AND LATERAL Routine 01/10/2025 2:56 PM EDT Shortness of breath documented in this encounter Results * XR Chest PA & Lateral (01/10/2025 2:56 PM EDT) Anatomical Region Laterality Modality Body, Chest N/A Radiographic Keerthi ging Narrative 01/10/2025 3:57 PM EDT Sera Saxena [id number] 01/10/2025 Chest X-Ray PA & Lateral Indication: [...] on filedocumented in this encounter Care Teams Electrophysiology Technician Relationship Specialty Start Date End Date Provider, [place] [address] PCP - General 01/10/25 documented as of this encounter
--- OUTSIDE RECORDS SUMMARY | 2025-01-10 15:30 | XMS_ITS | Encounter Summary ---
Author Organization [facility] Address [address] [place] [address] Care Team Providers Care Platform Architect Name Role Phone Provider, No Known Primary Care Provider Unavail able Reason for Visit * Reason Comments Shortness of Breath Encounter Details Date Type Department Care Team ([facility] st Contact Info) Description 01/10/2025 3:30 PM EDT Office Visit [facility] PULMONARY & CRITICAL CARE MEDICINE [address] [place] [phone] Raul Yoon DO [address] [place] [address] Shortness of breath (Primary Dx); Mucopurulent chronic [...] triggers. Greaterthan 10 minutes was spent on [id number] counseling regarding smoking cessation. Plan to follow-upat [...] of this note may be an electronic apparel rental clerk/translation of spoken language to printed textusing the Scaladoation System. documented in this encounter Plan of Treatment Upcoming Encounters Date Type Department Care Team (Late st Contact Info) Description 05/15/2025 2:45 PM EST Office Visit [facility] PULMONARY & CRITICAL CARE MEDICINE [address] [place] [address] Raul Yoon DO [address] [place] [address] Scheduled Orders Name Type Priority Associated Diagnoses [...] Narrative 01/10/2025 3:57 PM EDT Sera Saxena [id number] 01/10/2025 Chest X-Ray PA & Lateral Indication: [...] health documented in this encounter Care Teams Platform Architect Relationship Specialty Start Date End Date Provider, No Known [facility] [place] [address] PCP - General 01/10/25 documented as of this encounter
--- OUTSIDE RECORDS SUMMARY | 2025-01-11 10:15 | XMS_ITS ---
Author Organization [facility] Address [address] [facility] [address] [place] [address] Care Team Providers Care Cruise Director Name Role Phone Mike Rodrigues Primary Care Provider Krissy Bustamante Unavailable [phone] KRISSY Bustamante APRN Unavailable Unavailable Mary Santoyo Unavailable [phone] REASON FOR VISIT Labs Encounters Encounter Location Date Provider Diagnosis [facility] [address] [facility] [address] [place] [address] 01/11/2025 Mary Santoyo Plan Of Treatment Next Appt Details Provider Name:Krissy Clifford, 03/15/2025 03:45:00 PM, [address] [facility], [address], [place], [address], Progress Notes * SERGEY Sera DDOB: [birth year] (49 yo F)Acc No.[id number]:01/11/2025 LABS Patient: Sera HINTON Provider: BERNARDO Phipps :1975 A ge:49 Y S ex:Female Date:01/11/2025 Address[address] [facility] [id number] Pcp:Mike Rodrigues Subjective: * Chief Complaints: * 1 . Labs. * Medical History: Objective: * Vitals: Assessment: Plan: * Treatment: * * Electronic signature of Amelia Santoyo PA-C on 02/05/2025 at 03:06 PM EDT Sign off status: Pending * Provider: BERNARDO Phipps Date: 01/11/2025 Generated for Marycruz leonard/Aren/Sriram on: 02/05/2025 03:06 PM EDT
--- OUTSIDE RECORDS SUMMARY | 2025-01-26 07:45 | XMS_ITS ---
Author Organization [facility] Address [address] [place] [address] Care Team Providers Care E Mail System Administrator Name Role Phone Mike Rodrigues Primary Care Provider [phone] McNees, Krissy Unavailable [phone] McNees LEAD DRIVER, KRISSY Unavailable Unavailable Allergies Allergen (clinical drug ingredient) Drug/Non Drug Allergy documented on EMR Reaction Allergy Type Onset Date Status Latex LATEX (uncoded) Unknown Allergy Acti ve TYLENOL #3 WITH CODEINE (uncoded) Unknown Allergy Active aspirin Aspirin Unknown Drug Allergy Active latanoprost Latanoprost Unknown Drug Allergy Act caty Penicillin Unknown Drug Allergy Active Results Component Value Reference Range Notes Urinalysis Reviewed date:01/26/2025 12:57:21 PM Interpretation: Performing Lab: Notes/Report: Color/Clarity yellow Leuk neg Nitrite neg Urobili 0.2 Protein neg pH 6.0 Blood neg Sp. Gr. 1.015 Ketone neg Bili neg Glucose neg CULTURE, URINE, ROUTINE (395 ) Reviewed date:01/29/2025 10:32:59 AM Interpretation: Performing Lab:SADIE, [facility], [place]kmx[place] Ramon Quinones Notes/Report: NON-FASTING CULTURE, URINE, ROUTINE SEE NOTE CULTURE, URINE, ROUTINE Micro Number: [id number] Test Status: Final Specimen Source: Urine Specimen Quality: Adequate Result: Mixed genital alexa isolated. These superficial bacteria are not indicative of a urinary tract infection. No further organism identification is warranted on this specimen. If clinically indicated, recollect clean-catch, mid-stream urine and transfer immediately to Urine Culture Transport Tube. REASON FOR VISIT kidney pain- dysuria ( felt bad after CT w/wo contrast Medications Medication SIG (Take, Route, Frequency, Duration) Notes Start Date End Date Status Ibuprofen 800 MG 1 tab(s) orally every 8 hours; Duration: 30 days As needed pain. prn Active Breztri Aerosphere 160-9-4.8 MCG/ACT 2 puffs Inhalation Twice a day; Duration: 30 days 10/31/2024 Active Topiramate 50 MG TAKE 1 TABLET BY MOUTH AT BEDTIME; Duration: 30 Active Phenazopyridine HCl 200 MG 1 tablet after meals Orally Three times a day; Duration: 2 days 01/26/2025 Active Trelegy Ellipta 200 MCG-62.5 MCG-25 MCG/INH 1 INH INHALED ONCE A DAY; Duration: 30 DAYS *Please review and pick correct strength-formulati on from [employer] options. If intended option is not shown, discontinue and re-order from Quick Search* 03/23/2024 Active Lidoderm 5 % APPLY 1 PATCH TOPICALLY ONCE DAILY FOR 30 DAYS; Duration: 30 prn Active Carvedilol 12.5 MG 1 tab(s) orally 2 times a day; Duration: 30 days Active Gemtesa 75 MG 1 tab(s) orally once a day; Duration: 30 days 09/13/2024 Active PARoxetine HCl 10 MG 1 tab(s) orally once a day; Duration: 30 days Active Ventolin HFA 108 (90 Base) MCG/ACT 2 INH inhaled every 6 hours prn Active Nystatin 820146 UNIT/GM 1 application Externally Twice a day; Duration: 7 days 01/09/2025 Active Vital Signs Temperature 97.9 degrees Fahrenheit 01/27/20 25 Blood pressure systolic 118 mm Hg 01/27/20 25 Blood pressure diastolic 80 mm Hg 025 Heart Rate 82 /min 01/26/2025 Height 63 in 01/26/2025 Weight 182 lbs 01/26/2025 BMI 32.24 kg/m2 01/26/2025 Encounters Encounter Location Date Provider Diagnosis [address] [address] 01/26/2025 Krissy McNees Dysuria R30.0 Assessments Encounter Date Diagnosis (ICD Code) Assessment Notes Treatment Notes Treatment Clinical Notes Section Notes 01/26/2025 Dysuria (ICD-10 - R30.0) Reassurance, UA is normal. Increase oral fluid intake. Pyridium for inflammation. Will send urine for cx and treat as indicated. Plan Of Treatment Medication Medication Name Sig Start Date Stop Date Notes Phenazopyridine HCl 200 MG 1 tablet afte r meals Orally Three times a day; Duration: 2 days 01/26/2025 Treatment Notes Assessment Notes Dysuria Reassurance, UA is n ormal. Increase oral fluid intake. Pyridium for inflammation. Will send urine for cx and treat as indicated. Next Appt Details Follow Up: prn, Reason: Provider Name:Krissy Fernandezon Oli Marsh, 03/15/2025 03:45:00 PM, [address], [place], [address], Progress Notes * Sera RINCON DDOB: [birth year] (49 yo F)Acc No.[id number]:01/26/2025 Progress Notes Patient: Sera HINTON Provider: Jaylon Bustamante APRN :1975 A ge:49 Y S ex:Female Date:01/26/2025 Address:[address] [place], [place] [id number] Pcp:Mike Rodrigues Subjective: * Chief Complaints: * 1 . kidney pain- dysuria ( felt bad after CT w/wo contrast. * HPI: g en: 49 y/o female presents with urinary frequency and dysuria that began acutely yesterday after her CT scan. h/o OAB with botox approx 6 months ago. No fever. No N/V. * ROS: C ONSTITUTIONAL: no L oss of appetite. n o F ever. D ERMATOLOGY: no R estephanie. G ASTROENTEROLOGY: no N ausea. n o V omiting. * Medical History: a sthma/COPD, Depression, HTN, Arthritis, Seasonal Allergies, Endometriosis, Over extreme bladder, Adrenal adenomas, stable per MRI May 2024., 8 mm Sessile serrated adenoma on colonoscopy April 2023. * Medications: T ese Nystatin 991793 UNIT/GM Ointment 1 application Externally Twice a day , Taking PARoxetine HCl 10 MG Tablet 1 tab(s) orally once a day , Taking Ventolin HFA 108 (90 Base) MCG/ACT Aerosol Solution 2 INH inhaled every 6 hours , Notes to Pharmacist: prn, Taking Lidoderm 5 % Patch APPLY 1 PATCH TOPICALLY ONCE DAILY FOR 30 DAYS , Notes to Pharmacist: prn, Taking Carvedilol 12.5 MG Tablet 1 tab(s) orally 2 times a day , Taking Gemtesa 75 MG Tablet 1 tab(s) orally once a day , Taking Trelegy Ellipta 200 MCG-62.5 MCG-25 MCG/INH POWDER 1 INH INHALED ONCE A DAY , Notes to Pharmacist: *Please review and pick correct strength-formulation from [employer] options. If intended option is not shown, discontinue and re-order from Quick Search*, Taking Ibuprofen 800 MG Tablet 1 tab(s) orally every 8 hours As needed pain., Notes to Pharmacist: prn, Taking Breztri Aerosphere 160-9-4.8 MCG/ACT Aerosol 2 puffs Inhalation Twice a day , Taking Topiramate 50 MG Tablet TAKE 1 TABLET BY MOUTH AT BEDTIME , Medication List reviewed and reconciled with the patient * Allergies: P enicillin, Aspirin, TYLENOL #3 WITH CODEINE, Latanoprost, LATEX. Objective: * Vitals: N urse: dw, Pain: 10, Temp: 97.9, RR: 18, HR: 82, BP: 118/80, Ht: 63, Wt: 182, BMI:32.24. * Examination: G eneral Examination: General P leasant and Cooperative, NAD on RA,. Chest: n ormal shape and expansion. Heart: R egular Rate and Rhythm, no murmur, rubs or gallops. Lungs: L CTAB, No wheezes, crackles or rhonchi, Good air movement,. Abdomen: S oft, SP tenderness, ND, BSNA, No organomegaly or peritoneal signs.. Skin: w ithout acute rashes. Peripheral pulses: n ormal (2+) bilaterally. Back: n o CVA tenderness, . Psych N ormal Mood/Affect. Assessment: * Assessment: 1. D ysuria - R30.0 Plan: * Treatment: Value Reference Range C ULTURE SEE NOTE - * Krissy Bustamante 01/30/20 25 10:32:23 AM EDT >This lab was reviewed by Krissy Bustamante on 01/29/2025 at 10:32 AM EDT ?LAB: Urinalysis (Collection Date & Time - 01/26/2025)* Value Reference Range C olor/Clarity yellow * L euk neg * N itrite neg * U robili 0.2 * P rotein neg * p H 6.0 * B lood neg * S p. Gr. 1.015 * K etone neg * B gaby neg * G lucose neg * White, Mike R 01/26/2025 1 1:53:44 AM EDT > Notes: Reassurance, UA is normal. Increase oral fluid intake. Pyridium for inflammation. Will send urine for cx and treat as indicated. ?? * Procedure Codes: 8 1002 URINALYSIS, Modifiers: QW * Follow Up: p rn * * Sign off status: Completed true * Provider: Jaylon Bustamante APRN Date: 0 01/26/2025 Generated for Marycruz leonard/Aren/Aldoitting on: 0 02/05/2025 03:06 PM EDT History and Physical Notes * HPI (History of Present Illness) Category Sub-Category Detail Notes Category Not es gen 49 y/o female p resents with urinary frequency and dysuria that began acutely yesterday after her CT scan. h/o OAB with botox approx 6 months ago. No fever. No N/V Examination Category Sub-Category Detail Notes Category Not es General Examination Heart: Regular Rate and Rhythm, no murmur, rubs or gallops Lungs: LCTAB, No wheezes, c rackles or rhonchi, Good air movement, Abdomen: Soft, SP tenderness, ND, BSNA, No organomegaly or peritoneal signs. Skin: without acute rashes Peripheral pulses: normal (2+) bilatera lly Back: no CVA tenderness, Chest: normal shape and exp ansion General Pleasant and Coopera tive, NAD on RA, Psych Normal Mood/Affect
--- OUTSIDE RECORDS SUMMARY | 2025-02-05 15:05 | XMS_ITS | Encounter Summary ---
Author Organization [email or web address] ([place], [place], [place], [place]) Address [address] [place] [address] Care Team Providers Care Staff Development Coordinator Rn Name Role Phone Mike Rodrigues MD Primary Care Provider [phone] Reason for Referral * Surgical (Routine) - Closed Specialty Diagnoses / Procedures Referred By Contac t Referred To Contact Neurosurgery / Neurology Diagnoses Cervical spondylosis Mike Rodrigues MD [address] [facility] [address] [place] [address] Phone: tel: fax: [facility] [employer] [facility] [employer] ([employer])[address] [address] Phone: tel: fax: Referral ID Status Reason Start Date Expiration Date V isits Requested Visits Authorized [id number] Closed Specialty Services Required 07/17/2024 07/17/2025 1 1 Encounter Details Date Type Department Care Team (Late st Contact Info) Description 07/17/2024 Outside Orders [facility] [employer] [facility] [employer] [address] [address] Mike Rodrigues MD [address] [facility] [address] [place] [address] Cervical spondylosis (Primary Dx) Social History Tobacco [...] myelopathy documented in this encounter Care Teams Staff Development Coordinator Rn Relationship Specialty Start Date End Date Mike Rodrigues MD [address] [place] [address] PCP - General Adolescent Medicine 07/17/24 documented as of this encounter
--- OUTSIDE RECORDS SUMMARY | 2025-02-05 15:05 | XMS_ITS | Clinical Summary ---
Author Organization [facility] Address [address] [place] [address] Phone Care Team Providers Care Lens Edge Grinder Machine Name Role Phone Unavailable Primary Care Provider [...] patient's age to complete this topic Insurance [facility] [place] [id number] [address] [facility] [place] [id number]
--- OUTSIDE RECORDS SUMMARY | 2025-02-05 15:05 | XMS_ITS | Encounter Summary ---
[facility] Address [address] [place] [address] Care Team Providers Care Employment Interviewer Name Role Phone Provider, No Known Primary [...] [facility] [address] [place] [id number] Raul Yoon DO [address] [place] [address] documented as of this encounter Visit Diagnoses Not on filedocumented in this encounter Care Teams Employment Interviewer Relationship Specialty Start Date End Date Provider, [place] [address] PCP - General 01/10/25 documented as of this encounter
--- OUTSIDE RECORDS SUMMARY | 2025-02-05 15:06 | XMS_ITS | Clinical Summary ---
Author Organization [facility] Address [address] [place] [address] Care Team Providers Care Painter Interior Finish Name Role Phone Provider, No Known Primary [...] Description 01/10/2025 3:30 PM EDT Office Visit [facility] [address] [place] [address] Raul Yoon, Shortness of breath (Primary Dx); Mucopurulent chronic bronchitis; Personal history of smoking 01/10/2025 2:55 PM EDT Hospital Encounter [facility] [address] [place] [address] 01/10/2025 Travel from Last 3 Months Social [...] Description 05/15/2025 2:45 PM EST Office Visit [facility] [address] [place] [address] Raul Yoon DO [address] [place] [address] Health Maintenance Due Date Last Done Comments [...] Narrative 01/10/2025 3:57 PM EDT Sera Saxena [phone] 01/10/2025 Chest X-Ray PA & Lateral Indication: [...] from Last 3 Months Insurance Care Teams Painter Interior Finish Relationship Specialty Start Date End Date Provider, No Known [facility] [address] PCP - General 01/10/25
--- OUTSIDE RECORDS SUMMARY | 2025-02-05 15:06 | XMS_ITS | Patient Health Record ---
Author Organization [facility] Octavio MARINO Address [address] [place] [address] Care Team Providers Care Circulation Tender Name Role Phone Mike Rodrigues Primary Care Provider Bello Bustamantei Unavailable [phone] Dianna THIBODEAUX KRISSY Unavailable Unavailable Mary Walters Unavailable [phone] Mary Santoyo Unavailable [phone] Migration, Provider Unavailable Unavailable Allergies Allergen (clinical [...] AM Interpretation: Performing Lab:SADIE, [facility] [address]ke[address] [facility] Center[facility]heem Bassett[address] Ramon Quinones Notes/Report: NON-FASTING; NON-FASTING; NON-FASTING; [...] LDL-C. Mekhi CLEARY et al. RONALD. 2013;310(19): 7947-0211 (http://education.Dealstruck.LocoX.com/faq/FZN074) CHOL/HDLC RATIO 3.3 <5.0 (calc) NON HDL CHOLESTEROL 121 <130 mg/dL (calc) For patients with diabetes plus 1 major ASCVD risk factor, treating to a non-HDL-C goal of <100 mg/dL (LDL-C of <70 mg/dL) is considered a therapeutic option. COMPREHENSIVE METABOLIC PANCasper Coombs (08137) Reviewed date:01/15/2025 11:35:55 AM Interpretation: Performing Lab:SADIE, [facility]em [address], Raheem BranchGvciQB[address] Ramon Quinones Notes/Report: NON-FASTING; NON-FASTING; NON-FASTING; NON-FASTING; [...] Reviewed date:01/15/2025 11:35:55 AM Interpretation: Performing Lab:SADIE [facility] [address]imm[address] [employer] [facility], [facility] HealthcareFwtyYW[address] Ramon Quinones Notes/Report: NON-FASTING; NON-FASTING; NON-FASTING; NON-FASTING; [...] MPV 11.8 7.5-12.5 fL ABSOLUTE NEUTROPHILS 5420 2063-5000 cells/uL ABSOLUTE LYMPHOCYTES 2148 850-3900 cells/uL ABSOLUTE MONOCYTES 508 200-950 cells/uL ABSOLUTE EOSINOPHILS 90 15-500 cells/uL ABSOLUTE BASOPHILS 33 0-200 cells/uL NEUTROPHILS 66.1 LYMPHOCYTES 26.2 MONOCYTES 6.2 EOSINOPHILS 1.1 BASOPHILS 0.4 HEMOGLOBIN A1c (496) Reviewed date:01/15/2025 11:35:55 AM Interpretation: Performing Lab:SADIE [facility] [id number] [employer] [facility], [facility] HealthcareOeetTR[address] Ramon Quinones Notes/Report: NON-FASTING; NON-FASTING; NON-FASTING; NON-FASTING; [...] diagnosis of diabetes in children. According to [place] Diabetes Association (ADA) guidelines, hemoglobin A1c <7.0% represents optimal control in non- diabetic patients. Different metrics may apply to specific patient populations. Standards of Medical Care in Diabetes(ADA). TSH W/REFLEX TO FT4 (42951) Reviewed date:01/15/2025 11:35:55 AM Interpretation: Performing Lab:SADIE, [facility] Ajfq4065 [employer]ste[employer], Social 2 StepKpayCI[address] Ramon Quinones Notes/Report: NON-FASTING; NON-FASTING; NON-FASTING; NON-FASTING; NON-FAST TSH W/REFLEX TO FT4 1.02 Reference Range > or = 20 Years 0.40-4.50 Ranges First trimester 0.26-2.66 Second trimester 0.55-2.73 Third trimester 0.43-2.91 VITAMIN D,25-OH,TOTAL,IA (17 306) Reviewed date:01/15/2025 11:35:55 AM Interpretation: Performing Lab:SADIE [facility] Xolz[address] [employer], Social 2 StepWjkuDN[address] Ramon Quinones Notes/Report: NON-FASTING; NON-FASTING; NON-FASTING; NON-FASTING; [...] D, (D2,D3), LC/MS/MS is recommended: order code 04661 (patients >2yrs). See Note 1 Note 1 For additional information, please refer to http://education.Covocative.LocoX.com/faq/GGU235 (This link is being provided for informational/ educational purposes only.) Urinalysis Reviewed date:01/26/2025 12:57:21 PM Interpretation: Performing Lab: Notes/Report: Color/Clarity yellow Leuk neg Nitrite neg Urobili 0.2 Protein neg pH 6.0 Blood neg Sp. Gr. 1.015 Ketone neg Bili neg Glucose neg CULTURE, URINE, ROUTINE (395 ) Reviewed date:01/29/2025 10:32:59 AM Interpretation: Performing Lab:, [facility] [address], [place]he[place] RockYexwGF[address] Ramon Quinones Notes/Report: NON-FASTING CULTURE, URINE, ROUTINE SEE NOTE CULTURE, URINE, ROUTINE Micro Number: [id number] Test Status: Final Specimen Source: Urine Specimen Quality: Adequate Result: Mixed genital alexa isolated. These superficial bacteria are not indicative of a urinary tract infection. No further organism identification is warranted on this specimen. If clinically indicated, recollect clean-catch, mid-stream urine and transfer immediately to Urine Culture Transport Tube. M-Cortisol Reviewed date:05/15/2024 01:25:24 PM Interpretation: Performing Lab: Notes/Report: AM FASTING LEYLA 1.3 6.2-19.4 ug/dL Please Note: The reference interval and flagging for this test is for an AM collection. If this is a PM collection please use: Cortisol PM: 2.3-11.9 Performed at: [facility] [employer] [id number] Ground Products Director: Manav Khalil PhD, Phone: [phone] M-Adrenocorticotropic Hormon e Reviewed date:05/15/2024 01:25:24 PM Interpretation: Performing Lab: Notes/Report: AM FASTING ACTH 2.5 7.2-63.3 pg/mL ACTH reference interval for samples collected between 7 and 10 AM. Performed at: [facility] [employer] [id number] Ground Products Director: Manav Khalil PhD, Phone: [phone] M-Comprehensive Metabolic Pa pradeep Reviewed date:03/29/2024 05:42:14 [...] AGRATIO 1.5 1.1-1.8 ALP 104 38-126 U/L H-DHEA Reviewed date:05/15/2024 01:25:24 PM Interpretation: Performing Lab: Notes/Report: AM FASTING DHEA 47 UNITS: ng/dL RE FERENC INTERVAL: 31 - 701 CT ABD WOW Reviewed date:01/29/2025 10:32:59 AM Interpretation: Performing Lab: Notes/Report: Rapid Covid/Flu A-B Combo Reviewed date:09/13/2024 04:18:27 PM Interpretation: Performing Lab: Notes/Report: Rapid Covid Neg Flu A Neg Flu B Neg BASIC METABOLIC PANEL (20647 ) Reviewed date:07/27/2024 03:09:24 PM Interpretation: Performing Lab:CB, [facility] [address], [facility] CenterXzzoBS[address] Ramon Quinones Notes/Report: NON-FASTING GLUCOSE 91 65-99 [...] 24 20-32 mmol/L CALCIUM 9.5 8.6-10.2 mg/dL M-BUN & Creatinine Reviewed date:07/17/2024 02:56:45 PM Interpretation: Performing Lab: Notes/Report: BUN 24 7-17 mg/dl CREATT 1.10 0.52-1.04 mg/dl GFRAA 65 >60 ML/MIN EGFR 53 >60 ml/min CT Scan : Chest, Without Con trast [...] chronic cough, chronic smoking, wheezing on exam. Efraín- see notes Diagnosis 1 Chronic obstructive pulmonary disease, unspecified COPD type (J44.9) Referral Organization [facility] PED MARINO Referring Provider First Name Mary Referring Provider Last Name Natanael Referring Provider [facility] ctice Referred Organization [facility] Referred Address [address] [facility] [address] [place], [place],[address], Referred Provider Specialty Diagnostic R adiology General Notes Erma Kumar 2023 11:45:28 AM >Patient precert pendingJosé Nickie 02/24/2024 11:31:30 AM >still pending precertJosé Nickie 02/24/2024 03:08:40 PM >denied - will try again, Erma Kumar 02/25/2024 04:04:26 PM >I re-submitted this again. I don't think they are going to approve it without a diagnosis of chest pain or cough with blood. But I tried.Queenie Jenci D 03/02/2024 05:05:55 PM >approved and [facility] will call her Referral Priority Routine Reason Please arrange MRI a bdomen Adrenal mass protocol to be done in 3 months. ProScan Diagnosis 1 Adrenal mass (E27.8) Referral Organization [facility] MARINO Referring Provider First Name Mary Referring Provider Last Name Natanael Referring Provider [facility] ctice Referred Organization [facility] Referred Address [address] [facility] [address] [place], [place],[address],[place] Referred Provider Specialty Diagnostic R adiology General Notes Erma Kumar 2023 02:59:38 PM >pending precert with José Childers Nickie 06/15/2024 11:37:54 AM >Request ID:, Tracking:, [id number], Validity Dates:, 06/14/2024-08/13/2024 CPT 53265 [facility] Referral Priority Routine Reason PT at [facility] for upper left back pain Diagnosis 1 Upper back pain on l eft side (M54.9) Referral Organization [facility] KANDY PICHARDO Referring Provider First Name Mary Referring Provider Last Name Santoyo Referring Provider [facility] ctice Referred Organization [facility] Referred Address [address] [place] [address] [address] [place], [place],[address], Referred Provider Specialty Physical Med icine and Rehabilitation General Notes Erma Kumar 2023 03:14:04 PM >sent to [facility] rehab - they will call patient to schedule appt. Referral Priority Routine Reason Bux- Upper back pain Referral Organization [facility] KANDY ZHANG MARINO Referring Provider First Name Mary Referring Provider Last Name Natanael Referring Provider [facility] ctice Referral Priority Routine Reason Please arrange MRI C spine WO at [facility] for ongoing right neck pain, radicular symptoms intermittently, failed PT. Diagnosis 1 Neck pain on right s roshni (M54.2) Referral Organization [facility] KANDY ZHANG MARINO Referring Provider First Name Mary Referring Provider Last Name Natanael Referring Provider [facility] ctice Referred Organization [facility] Referred Address [address] [facility] [address] [facility], [place],[address],[place] Referred Provider Specialty Diagnostic R adiology General Notes Erma Kumar 2023 10:24:42 AM >Pending PrecertJosé Nickie 06/27/2024 09:44:21 AM >approved and order sent to [facility] scheduling. They will contact patient to schedule. Referral Priority Routine Reason Please refer to Neur osurgeon Dr. Meza for spondylosis, per MRI C spine, C4-C5 central protrusion which indents thecal sac and touches and mildly flattens the anterior surface of the cord. Diagnosis 1 Cervical spondylosis (M47.812) Referral Organization [facility] KANDY PICHARDO Referring Provider First Name Mike Referring Provider Last Name Ravi [facility] Referred Organization [facility] Referred Address [address],[place], [place],[address],[place] Referred Provider Specialty Neurological Surgery General Notes Erma Kumar 2024 09:29:16 AM >Referral placed through the [facility] portal., Erma Kumar 07/12/2024 09:24:11 AM >[facility] and Dr Meza do not take [employer] however he sees people at [facility] and can see her there. The order was faxed to Caitlin at [place] [phone]. Her phone is [phone]. Clinical Notes Erma Kumar 2024 09:25:21 AM > Referral Priority Urgent Reason CT Adrenal Mass Prot ocol for 6 mth f/u Diagnosis 1 Adrenal mass (E27.8) Referral Organization [facility] VICENTE HART Referring Provider First Name Krissy Referring Provider Last Name Dianna Referring Provider [facility] ctice Referred Organization [facility] Referred Address [address] [facility], [place],[address],[place] Referred Provider Specialty Diagnostic R adiology Referral Priority Routine Reason Can you please see i f this med needs a PA? Patient said her insurance doesn't cover it. Diagnosis 1 Stress incontinence (N39.3) Referral Organization [facility] VICENTE PCIHARDO Referring Provider First Name Mary Referring Provider Last Name Natanael Referring Provider [facility] ctice General Notes Efraín Jerome 03:13:47 PM > PA done on cover my meds Referral Priority Routine Reason Can you help with PA approval of Gemtesa and Trelegy. Failed Dulera and albut/iprat. Diagnosis 1 Stress incontinence (N39.3) Referral Organization [facility] VICENTE PICHARDO Referring Provider First Name Mary Referring Provider Last Name Natanael Referring Provider [facility] ctice General Notes Efraín Jerome 12:00:55 PM > did PA on cover my meds Referral Priority Routine Reason Please refer to MSEERET Roth for esophagitis, feels like something is in her throat when swallowing, history of choking on a Doxycycline pill. Diagnosis 1 Odynophagia (R13.10) Referral Organization [facility] PED MARINO Referring Provider First Name Mary Referring Provider Last Name Natanael Referring Provider [facility] ctice Referred Organization [facility] Referred Address [address],[address],[place] Referred Provider Specialty Gastroentero logy General Notes Erma Kumar 2024 12:45:45 PM >faxed to [place] Referral Priority Routine Referral Appointment Date 11/27/2024 Reason Please refer to [facility] is Pulmonary Dr. 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 Erma see notes Diagnosis 1 Chronic obstructive pulmonary disease, unspecified COPD type (J44.9) Referral Organization [facility] PED MARINO Referring Provider First Name Mary Referring Provider Last Name Natanael Referring Provider [facility] ctice Referred Organization [facility] Referrals Referred Address [address] [place], [place],[address],[place] Referred Provider Specialty Pulmonary Di seases General Notes Efraín Jerome 04:10:31 PM > faxed and they will call patient with appt, Erma Kumar 11/21/2024 11:08:46 AM >sent to Referral Priority Routine Reason CT adrenal mass prot ocol - Jenci this is pending with Liseth through [facility] After 01-17 Diagnosis 1 Adrenal mass, left ( E27.8) Diagnosis 2 Adrenal mass, right (E27.9) Referral Organization [facility] PED MARINO Referring Provider First Name Mary Referring Provider Last Name Santoyo Referring Provider [facility] ctice Referred Organization [facility] Referred Address [address] [facility] [address] [place], [place],[address],[place] Referred Provider Specialty Diagnostic R adiology General Notes Erma Kumar 2024 03:24:08 PM >pending precert with MICHAEL NAILS- Queenie Childers Jenci D 01/12/2025 02:51:08 PM > It won't let me see it because I didn't put it in, Erma Kumar 01/15/2025 10:29:28 AM >approved sent to [facility] to schedule appt Referral Priority Routine Reason Please refer to Neur ologist Dr. Hills for recurrent migraines. Diagnosis 1 Episodic migraine (G 43.909) Referral Organization [facility] P[facility] MARINO Referring Provider First Name Mary Referring Provider Last Name Santoyo Referring Provider [facility] ctice General Notes Efraín Jerome 09:51:01 AM > faxed and they will call pt Referral Priority Routine Reason Please refer to Kim GAYTAN with [facility] for stress incontinence. Diagnosis 1 Stress incontinence (N39.3) Referral Organization [facility] PED MARINO Referring Provider First Name Mary Referring Provider Last Name Santoyo Referring Provider [facility] ctice General Notes Efraín Jerome 10:04:56 AM [...] janusz yp of colon (D12.6) Referral Organization [facility] PED MARINO Referring Provider First Name Mary Referring Provider Last Name [place] [facility] Mike Gutiérrez R 12/26 03:43:42 PM >pt notified Referral Priority Routine Referral Appointment Date 05/29/2025 Reason Please arrange annua l mammogram with [facility] for breast cancer screening. Diagnosis 1 Encounter for screen ing mammogram for malignant neoplasm of breast (Z12.31) Referral Organization [facility] MARINO Referring Provider First Name Mray Referring Provider Last Name Santoyo Referring Provider [facility] ctice General Notes Efraín Jerome 09:49:47 AM > faxed to [facility] and they will call pt Referral Priority Routine Reason Please refer to Dr. Regi Martinez for routine pap smear for cervical cancer screening. Diagnosis 1 Cervical cancer scre ening (Z12.4) Referral Organization [facility] MARINO Referring Provider First Name Mary Referring Provider Last Name Santoyo Referring Provider [facility] ctice General Notes Efraín Jerome 09:47:23 AM > faxed and they will call pt Referral Priority Routine Reason Please refer to Derm atologist for routine skin cancer screening. Diagnosis 1 Skin cancer screenin g (Z12.83) Referral Organization [facility] VICENTE PICHARDO Referring Provider First Name Mary Referring Provider Last Name Santoyo Referring Provider [facility] Notes Efraín Jerome 09:46:30 AM > faxed to [facility] and they will call her, Efraín Jerome 02/01/2025 03:37:52 PM > they do not accept insurance- faxed to [place] Referral Priority Routine Reason Can you possibly sen d me GI Dr. Roth note? No longer having acute symptoms, but would like to read their recommendation at that time. Diagnosis 1 History of odynophag ia (Z87.898) Referral Organization [facility] VICENTE PICHARDO Referring Provider First Name Mary Referring Provider Last Name Natanael Referring Provider [facility] Notes Efraín Jerome 12:30:28 PM > Referral Priority Routine Medications Medication SIG (Take, Route, Frequency, Duration) Notes Start Date End Date Status Nystatin 945697 UNIT/GM 1 application Externally Twice a day; Duration: 7 days 01/09/2025 Active Ibuprofen 800 MG 1 tab(s) orally every 8 hours; Duration: 30 days As needed pain. prn Active Breztri Aerosphere 160-9-4.8 MCG/ACT 2 puffs Inhalation Twice a day; Duration: 30 days 10/31/2024 Active Topiramate 50 MG TAKE 1 TABLET BY MOUTH AT BEDTIME; Duration: 30 Active Lidoderm 5 % APPLY 1 PATCH TOPICALLY ONCE DAILY FOR 30 DAYS; Duration: 30 prn Active Carvedilol 12.5 MG 1 tab(s) orally 2 times a day; Duration: 30 days Active Phenazopyridine HCl 200 MG 1 tablet after meals Orally Three times a day; Duration: 2 days 01/26/2025 Active Gemtesa 75 MG 1 tab(s) orally once a day; Duration: 30 days 09/13/2024 Active Trelegy Ellipta 200 MCG-62.5 MCG-25 MCG/INH 1 INH INHALED ONCE A DAY; Duration: 30 DAYS *Please review and pick correct strength-formulati on from Medispan options. If intended option is not shown, discontinue and re-order from Quick Search* 03/23/2024 Active PARoxetine HCl 10 MG 1 tab(s) orally once a day; Duration: 30 days Active Ventolin HFA 108 (90 Base) MCG/ACT 2 INH inhaled every 6 hours prn Active Social History Tobacco Use: Social History [...] Status Risk Notes Problem Hypertrophy of uterus (224377232) Hypertrophy of uterus (N85.2) Active confirmed Problem Peripheral neuropathy (414802316) Peripheral neuropathy (G62.9) Active confirmed Problem Essential hypertension (19315822) Essential (primary) hypertension (I10) Active confirmed Problem Nicotine dependence (21441273) Personal history of nicotine dependence (Z87.891) Active confirmed Problem Anxiety (03029985) Anxiety (F41.9) Active confi rmed Problem Essential hypertension (86398907) Essential hypertension (I10) Active confirmed Problem Acute exacerbation of chronic obstructive airways disease (621187383) COPD exacerbation (J44.1) Active confirmed Problem Chronic pain (92049016) Other chronic pain (G89.29) Active confirmed Problem Lower abdominal pain (77643882) Lower abdominal pain (R10.30) Active confirmed Problem Neck pain (77217866) Neck pain on right side (M54.2) Active confirmed Problem Carpal tunnel syndrome (46043316) Right carpal tunnel syndrome (G56.01) Active confirmed Problem Neck pain (49967216) Neck pain (M54.2) Active confirmed Problem Heart murmur (28915903) Heart murmur (R01.1) Active confirmed Problem COPD - Chronic obstructive pulmonary disease (83116492) Chronic obstructive pulmonary disease, unspecified COPD type (J44.9) Active confirmed Problem Abnormal mammogram (318607916) Abnormal mammogram (R92.8) Active confirmed Problem Migraine without aura, not refractory (415093834) Migraine without aura and without status migrainosus, not intractable (G43.009) Active confirmed Problem Amenorrhea (38435840) Amenorrhea (N91.2) Active confirmed Problem Chronic obstructive pulmonary disease (43697918) Chronic obstructive pulmonary disease (J44.9) Active confirmed Problem SI - Stress incontinence (77184573) Stress incontinence (N39.3) Active confirmed Problem Hyperlipidaemia (66496236) Hyperlipidemia, unspecified hyperlipidemia type (E78.5) Active confirmed Problem Breathlessness on exertion (76615994) Breathlessness on exertion (R06.09) Active confirmed Problem Cervical radiculopathy (66697783) Cervical radiculopathy (M54.12) Active confirmed Problem History of nutritional deficiency (00014463794941) History of vitamin D deficiency (Z86.39) Active confirmed Problem Dysphagia (52508392) Dysphagia, unspecified type (R13.10) Active confirmed Problem Mass of right adrenal gland (finding) (35413091025053114 ) Adrenal mass, right (E27.9) Active confirmed Problem Sciatica (39354138) Acute left-sided low back pain with left-sided sciatica (M54.42) Active confirmed Problem Kyphoscoliosis deformity of spine (545348039) 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) Active confirmed Problem Solitary sacroiliitis (414433404) SI (sacroiliac) joint inflammation (M46.1) Active confirmed Problem Odynophagia (74046344) Odynophagia (R13.10) Active confirmed Problem Tobacco use (846045082) Tobacco use disorder (F17.200) Active confirmed Problem Mass of left adrenal gland (finding) (59963791173677702 ) Adrenal mass, left (E27.8) Active confirmed Problem Cervical spondylosis (330475439) Cervical spondylosis (M47.812) Active confirmed Problem Adrenal mass (807991408) Adrenal mass (E27.8) Active confirmed Problem Episodic migraine (102784821027582) Episodic migraine (G43.909) Active confirmed Problem Retrolisthesis (642982536) Retrolisthesis (M43.10) Active confirmed Problem Sciatica (05264395) Acute left-sided low back pain with right-sided sciatica (M54.41) Active confirmed Problem Sessile serrated polyp of colon (4746363981) Sessile serrated polyp of colon (D12.6) Active confirmed Problem Benign neoplasm of adrenal gland (97290492) Adrenal adenoma, unspecified laterality (D35.00) Active confirmed Vital Signs Heart Rate 82 /min 01/26/2025 Temperature 97.9 degrees Fahrenheit 01/26/2025 Blood pressure diastolic 80 mm Hg 01/26/2025 Height 63 in 01/26/2025 Blood pressure systolic 118 mm Hg 01/26/2025 Weight 182 lbs 01/26/2025 BMI 32.24 kg/m2 01/26/2025 Encounters Encounter Location Date Provider Diagnosis [facility] [address] [place] [address] 09/30/2024 Provider Migration COPD exacerbation J44.1 and Esophagitis K20.90 [facility] [address] [place] [address] 01/11/2025 Mary Santoyo [facility] [address] [place] [address] 02/18/2024 Mary Santoyo Essential (primary) hypertension I10 and Chronic obstructive pulmonary disease, unspecified COPD type J44.9 [facility] [address] [place] [address] 02/23/2024 Mary Santoyo Acute left ankle william n M25.572 and Chronic obstructive pulmonary disease, unspecified COPD type J44.9 [facility] [address] [place] [address] 03/23/2024 Mary Santoyo Adrenal mass E27.8 a nd Chronic obstructive pulmonary disease, unspecified COPD type J44.9 [facility] [address] [place] [address] 04/04/2024 Mary Santoyo Upper back pain on left side M54.9 [facility] [address] [address] 04/07/2024 Mary Santoyo Upper back pain M54. 9 [facility] [address] [place] [address] 06/22/2024 Mary Santoyo Neck pain on right side M54.2 [facility] [address] [place] [place] [address] 07/25/2024 Mary Santoyo EWELINA (acute kidney injury) N17.9 and Essential (primary) hypertension I10 [facility] [address] [place] [address] 09/11/2024 Mary Selena Episodic migraine G43.909 [facility] [address] [place] [address] 09/13/2024 Mary Santoyo Acute cough R05.1 ; COPD exacerbation J44.1 and Stress incontinence N39.3 [facility] [address] [facility] [address] [place] [address] 09/18/2024 Mike Rodrigues Chronic obstructive pulmonary disease, unspecified COPD type J44.9 ; COPD exacerbation J44.1 and Episodic migraine G43.909 [facility] [address] [place] [address] 09/22/2024 Mary Santoyo COPD exacerbation J44.1 and Esophagitis K20.90 [facility] [address] [facility] [address] [place] [address] 10/12/2024 Mary Santoyo Essential (primary) hypertension I10 ; Chronic obstructive pulmonary disease, unspecified COPD type J44.9 ; Stress incontinence N39.3 and Odynophagia R13.10 [facility] [address] [facility] [address] [place] [address] 11/15/2024 Mary Santoyo Chronic obstructive pulmonary disease, unspecified COPD type J44.9 ; Essential (primary) hypertension I10 ; Hypokalemia E87.6 ; Cervical radiculopathy M54.12 and Dysphagia, unspecified type R13.10 [facility] [address] [address] 01/09/2025 Mary Santoyo Hyperlipidemia, unspecified hyperlipidemia type [...] unspecified laterality D35.00 and Poor historian Z78.9 [facility] [address] [address] 01/26/2025 Krissy McNees Dysuria R30.0 [facility] [address] [facility] [address] [place] [address] 02/22/2024 Mike Besson [facility] [address] [facility] [address] [place] [address] 02/24/2024 Mike Besson [facility] [address] [facility] [address] [place] [address] 02/24/2024 Mike Besson [facility] [address] [address] 03/02/2024 Mary Santoyo Chronic cough R05.3 [facility] [address] [facility] [address] [place] [address] 04/04/2024 Mary Santoyo Acute back pain M54. 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 and Adrenal mass, right E27.9 [facility] [address] [place] [address] 06/27/2024 Mary Santoyo Kyphoscoliosis deformity of spine M41.9 and Neck pain M54.2 [facility] [address] [place] [address] 07/10/2024 Mary Santoyo [facility] [address] [place] [address] 07/10/2024 Mary Santoyo Cervical spondylosis M47.812 [facility] [address] [place] [address] 07/19/2024 Mary Santoyo [facility] [address] [place] [address] 08/03/2024 Mary Santoyo [facility] [address] [place] [address] 09/21/2024 Mary Santoyo [facility] [address] [place] [address] 10/24/2024 Mary Santoyo [facility] [address] [place] [address] 11/15/2024 Mike Besson [facility] [address] [place] [address] 01/05/2025 Mary Santoyo Adrenal mass, right E27.9 and Adrenal mass, left E27.8 [facility] [address] [place] [address] 01/15/2025 Mike Besson [facility] [address] [place] [address] 01/10/2025 Mary Santoyo Anxiety F41.9 Assessments Encounter [...] PO Prednisone in the morning. Sent Albuterol/ipratropi um for neb and instructed her to use [...] one, referral placed. She is followed by TEAM ASSEMBLER Dr. Martinez, unsure when she last had [...] once final. 01/10/2025 Anxiety (ICD-10 - F41.9) 01/26/2025 Dysuria (ICD-10 - R30.0) Reassurance, UA is normal. Increase oral fluid intake. Pyridium for inflammation. Will send urine for cx and treat as indicated. 01/09/2025 Chronic obstructive pulmonary disease, unspecified COPD type (ICD-10 - J44.9) Well controlled on Breztri so will continue. Keep follow-up with [facility]. 11/15/2024 Hypokalemia (ICD-10 - E87.6) Re-checking BMP. [...] incontinence (ICD-10 - N39.3) Previously followed by [facility] who performed a botox shot per patient. [...] repeat colonscopy in [address] aBnegas's recommendations. 01/09/2025 Encounter for screening mammogram for malignant neoplasm of breast (ICD-10 - Z12.31) 01/09/2025 Cervical cancer screening (ICD-10 - Z12.4) 01/09/2025 Skin cancer screening (ICD-10 - Z12.83) 01/09/2025 Heart murmur (ICD-10 - R01.1) ECHO 10/2023, Normal biventricular systolic function. Mild LA dilation. Mild AI, mild MR, mild TR. No acute concerning findings. 01/09/2025 Hypertrophy of uterus (ICD-10 - N85.2) Follows with [facility]. History of ablation. 01/09/2025 History of odynophagia [...] her. 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, which [...] Scan : Thoracic Spine 11/18/2022 Physical Therapy 09/02/2023 Physical Therapy 01/05/2023 X ray : SI Joints 09/02/2023 M-Comprehensive Metabolic Panel 12/12/19 22 M-Lipid Panel 2021 M-Vitamin B12 01/07/2024 M-Vitamin D 25 Hydroxy 01/07/2024 [id number] 03/23/2024 Physical Therapy Eval and Treat 04/13/20 Physical Therapy Eval and Treat 04/04/20 BASIC METABOLIC PANEL (80693) 11/15/2024 BASIC METABOLIC PANEL (50579) 12/02/2023 BASIC METABOLIC PANEL (80737) 10/28/2023 Next Appt Details Provider Name:Krissy Carlos Mc Marleejuan, 03/15/2025 03:45:00 PM, [address], [place], [address], Insurance Providers Payer Name Payer Address Payer Phone Subscriber Number Group Number Insured Name Patient Relationship to Insured Coverage Start Date Coverage End Date [employer] [place] [employer] [address] [address] [place] [address] [id number] Sera Saxena Self - patient is the [...]
--- OUTSIDE RECORDS SUMMARY | 2025-02-05 15:07 | XMS_ITS | Clinical Summary ---
Author Organization [employer] ([place], [place], [place], [place]) Address [address] [place] [address] Care Team Providers Care Case Worker Name Role Phone Mike Rodrigues MD Primary Care Provider + [phone] Allergies Active Allergy Reactions Criticality Noted Date [...] Td or Tdap) 01/06/2034 Insurance Care Teams Case Worker Relationship Specialty Start Date End Date Mike Rodrigues MD [address] [place] [address] PCP - General Adolescent Medicine 07/17/24
--- OUTSIDE RECORDS SUMMARY | 2025-02-05 15:07 | XMS_ITS | Referral Summary ---
Author Organization [employer] ([place], [place], [place], [place]) Address [address] [place] [address] Care Team Providers Care Educational Specialist Name Role Phone Mike Rodrigues MD Primary Care Provider [phone] Allergies Active Allergy Reactions Criticality Noted Date [...] Plan of Treatment Not on file Insurance [facility] Care Teams Educational Specialist Relationship Specialty Start Date End Date Mike Rodrigues MD [address] [place] [address] PCP - General Adolescent Medicine 07/17/24
[2025-02-05 15:13] VITALS: BP 150/84; BP 155/93; PULSE 70; RESP 14; O2SAT 98; BMI 31.8
--- NOTE | 2025-02-05 15:15 | EXP.PAIN.SOA ---
[facility] Disclaimer: The information contained in this section may have been updated after the patient was seen, as this information can be updated by other users. Medical History MIGUE (obstructive sleep apnea) Stenosis of cervix Menorrhagia with irregular cycle Migraine Costochondral chest pain Second degree burn Trichomonal vaginitis History of chlamydia Neuropathic pain Tobacco use Vitamin D deficiency (~01/23/18) Leg pain Hypertension Surgical History History of endometrial ablation H/O cervical polypectomy History of hysteroscopy History of colonoscopy History of dental surgery Hx of section History of tubal ligation Family History Other Asthma Cancer Coronary artery disease Family history of COPD (chronic obstructive pulmonary disease) Family history of cancer Family history of diabetes mellitus type II Family history of myocardial infarction Heart attack Hyperlipidemia Hypertension Social History Smoking Status: Current every day smoker tobacco type: cigarettes packs per day: 1 years smoked: 30 alcohol intake: former substance use type: former substance user and painkillers current occupational status: other Travel in the last 8 weeks?: None household members: significant other housing: house marital status: single number of children: 3 caffeine: Yes special sharron needs: No agree to transfusion: No do you feel safe at home: Yes victim of physical abuse: No victim of emotional abuse: No victim of sexual abuse: No would you like helpful sources: No Have you lived/traveled outside US in past 30 days?: No Contact w/someone who lives/traveled outside US past 30 days?: No Exposure to someone with infectious disease in past 14 days?: No Do you have a fever (greater than 100.4 F or 38 C)?: No Have you tested positive for COVID-19?: No Exposed to someone with COVID-19 in past 14 days?: No Do you have a sore throat?: No Do you have a cough?: No Do you have any weakness?: No Do you have any diarrhea?: No Are you experiencing any unusual bleeding?: No Do you have any muscle aches/pain?: No Do you have any abdominal pain?: No Are you experiencing loss of taste or smell?: No PM Subjective & Objective Subjective Subjective:: Patient is a pleasant 49-year-old female who presents today for 3-month follow-up. Today she rates her pain a 6 out of 10. She denies any new falls or injuries. Patient does state that she has been on vacation and that they did do a lot of walking and feels like that has aggravated her overall low back and leg symptoms. Patient is still using her methocarbamol 500 mg at bedtime and feels like this does still work well for her. Patient is content with keeping it with this medication and not doing additional injections at this time. Her Fernando has been reviewed and is appropriate. Review of Systems: General: No recent weight changes, no fever, no sleep disturbances Respiratory: No cough, no shortness of air, no recurring pulmonary infections Cardiovascular/peripheral vascular: No chest pain, no palpitations, no edema, no shortness of breath Gastrointestinal: No new onset incontinence, normal bowel movements reported Genitourinary: No new onset incontinence Musculoskeletal: Low back pain, leg pain Psychiatric: [Normal mood/affect] Neurological: [Denies weakness in extremities], [denies balance issues] Pain at rest (0-10 scale): 6 Objective Objective:: Physical Exam: General: Alert and oriented x3, no acute distress, pleasant and cooperative Lungs: Respirations even and unlabored, symmetrical chest expansion Eyes: PERRL Musculoskeletal: Flexion and extension of lumbar [spine] somewhat guarded secondary to pain, [antalgic gait noted] Neurological: Speech clear, no gross sensory deficit Has patient had previous pain injection?: No Conservative treatment options previously tried: Home exercise plan Length of treatment: Longer than 12 weeks Meds Home Medications and Allergies Home Medications ?Medication ?Instructions ?Recorded ?Confirmed ?Type albuterol sulfate 90 mcg/actuation 2 puff inhalation Q6H PRN 07/02/21 11/06/24 Rx aerosol inhaler (Proventil HFA) shortness of breath or wheezing #8.5 grams umeclidinium 62.5 mcg-vilanterol See Rx Instructions .Route 07/09/22 11/06/24 History 25 mcg/actuation powdr for .COMPLEX Asthma inhalation (Anoro Ellipta) pantoprazole 40 mg tablet,delayed 40 mg PO DAILY 07/05/23 11/06/24 History release paroxetine HCl 10 mg tablet 10 mg PO DAILY 08/31/23 11/06/24 History albuterol sulfate 1.25 mg/3 mL 1.25 mg (3 mL) inhalation QID PRN 11/29/23 11/06/24 Rx solution for nebulization shortness of breath or wheezing #90 mL carvedilol 12.5 mg tablet 12.5 mg PO DAILY 01/20/24 11/06/24 History hydrochlorothiazide 12.5 mg tablet 12.5 mg PO DAILY 01/20/24 11/06/24 History amantadine HCl 100 mg tablet 100 mg PO DAILY 03/17/24 11/06/24 History benzonatate 100 mg capsule 100 mg PO DIRECTED 03/17/24 11/06/24 History famotidine 20 mg tablet 20 mg PO DAILY 03/17/24 11/06/24 History fluticasone propionate 50 1 spray intranasal ONCE 03/17/24 11/06/24 History mcg/actuation nasal spray,suspension furosemide 20 mg tablet 20 mg PO DAILY 03/17/24 11/06/24 History ibuprofen 800 mg tablet 800 mg PO ONCE PRN Blood Pressure 03/17/24 11/06/24 History levofloxacin 500 mg tablet 500 mg PO DAILY 03/17/24 11/06/24 History losartan 100 mg tablet 100 mg PO DAILY 03/17/24 11/06/24 History nifedipine 30 mg tablet,extended 30 mg PO DIRECTED 03/17/24 11/06/24 History release 24 hr promethazine-DM 6.25 mg-15 mg/5 mL 5 ml PO DIRECTED PRN Cough 03/17/24 11/06/24 History oral syrup triamcinolone acetonide 0.1 % 1 applic topical DIRECTED 03/17/24 11/06/24 History topical ointment ondansetron 4 mg disintegrating 4 mg PO Q8H PRN Nausea #12 tabs 06/29/24 11/06/24 Rx tablet oxybutynin chloride 10 mg 10 mg PO DAILY 90 days #90 tabs 08/28/24 11/06/24 Rx tablet,extended release 24 hr methocarbamol 500 mg tablet 500 mg PO HS #30 tabs 11/06/24 Rx New Prescriptions to Start Prescriptions: Allergies Allergy/AdvReac Type Severity Reaction Status Date / Time codeine Allergy Intermediate SOB Verified 08/28/24 14:04 aspirin Allergy Mild Hives Verified 08/28/24 14:04 Penicillins Allergy Unknown Hives Verified 08/28/24 14:04 Assessment and Plan *Assessment and plan (1) Degenerative disc disease, lumbar: Status: Acute Category: Medical Code(s): M51.369 - Other intervertebral disc degeneration, lumbar region without mention of lumbar back pain or lower extremity pain Plan Patient's blood pressure was a little elevated during today's visit. Patient is typically on blood pressure medication however states that she has not taken it today. We did recommend her continue to monitor this at home. I will refill her methocarbamol and provide a 3-month supply of this medication. Patient will return to clinic in 3 months for reevaluation of symptoms and plan of care. Patient has been instructed to contact the clinic with any concerns before the next appointment. Dr. Green has reviewed this note and agrees with this plan of care. This note was dictated using voice recognition software and make contain errors or omissions. All injections are used with Lidocaine, Bupivacaine and dexamethasone. Occasionally urine drug screen is needed to verify patient's compliance with our office pain contract. This is ordered based off specific treatments related to chronic pain with the potential to abuse certain medications.
== END 2025-02-05 23:59 | disposition home or self-care (01) ==
PROVIDERS: PCP Internal Medicine Adolescent Medicine; Visit Provider Nurse Practitioner Family
DX: M51.360 Other intervertebral disc degeneration, lumbar region with discogenic back pain only (principal)
CPT/HCPCS: 99212; G0463

== ENCOUNTER 2025-03-11 08:16 | Outpatient (CLI) | payer MEDICAID, SELFPAY ==
[2025-03-11 19:47] LABS: Coronavirus 19, PCR Not Detected (NotDetected); Influenza A, PCR Not Detected (NotDetected); Influenza B, PCR Not Detected (NotDetected)
== END 2025-03-11 23:59 ==
LOC: LAB.DROPOF 03-13 08:17
PROVIDERS: PCP Internal Medicine Adolescent Medicine; Visit Provider Nurse Practitioner
DX: J06.9 Acute upper respiratory infection, unspecified (principal)
CPT/HCPCS: 87631

== ENCOUNTER 2025-03-15 16:26 | Outpatient (CLI) | payer MEDICAID, SELFPAY ==
--- OUTSIDE RECORDS SUMMARY | 2025-01-10 14:55 | XMS_ITS | Encounter Summary ---
Author Organization [facility] Address [address] [place] [address] Care Team Providers Care Corral Boss Name Role Phone Provider, No Known Primary Care Provider Unavail able Encounter Details Date Type Department Care Team (Late Contact Info) Description 01/10/2025 2:55 PM EDT Hospital Encounter [facility] PULMONARY & CRITICAL CARE MEDICINE [address] [place] [phone] Social History Tobacco Use Types Packs/Day Years Used Date Smoking Tobacco: Every Day Cigarettes 1 40.7 Started: 1984 Smokeless Tobacco: Never Alcohol Use Standard Drinks/Week Comments Never 0 (1 standard drink = 0.6 oz pur e alcohol) Comments Unknown Sex and Gender Information Value Date Recorded Sex Assigned at Not on file Legal Sex Female 9:34 AM EDT Gender Identity Not on file Sexual Orientation Not on file documented as of this encounter Plan of Treatment Upcoming Encounters Date Type Department Care Team ([facility] Contact Info) Description 05/15/2025 2:45 PM EST Office Visit [facility] PULMONARY & CRITICAL CARE MEDICINE [address] [place] [address] Raul Yoon DO [address] [place] [address] documented as of this encounter Procedures Procedure Name Priority Date/Time Associated Diagnosis Comments XR CHEST PA AND LATERAL Routine 01/10/2025 2:56 PM EDT Shortness of breath documented in this encounter Results * XR Chest PA & Lateral (01/10/2025 2:56 PM EDT) Anatomical Region Laterality Modality Body, Chest N/A Radiographic Keerthi ging Narrative 01/10/2025 3:57 PM EDT Sera Saxena [id number] 01/10/2025 Chest X-Ray PA & Lateral Indication: Shortness of breath Comparison: None available Findings: Lungs are clear. No effusions. Heart and mediastinum unremarkable. No pneumothorax. Interpretation: No acute cardiopulmonary findings Owen Yoon, DO Please note that portions of this note may have been completed with a voice recognition program. Efforts were made to edit the dictations, but occasionally words are mistranscribed. us Raul Yoon DO IMG DIAGNOSTIC IMAG ING ORDERABLES Final Result documented in this encounter Visit Diagnoses Not on filedocumented in this encounter Care Teams Corral Boss Relationship Specialty Start Date End Date Provider, [place] [address] PCP - General 01/10/25 documented as of this encounter
--- OUTSIDE RECORDS SUMMARY | 2025-01-26 07:45 | XMS_ITS ---
Author Organization [facility] D [facility] Address [address] [place] [address] Care Team Providers Care Senior C Web Developer Name Role Phone Mike Rodrigues Primary Care Provider McNees, Krissy Unavailable [phone] McNees ART TEACHER, KRISSY Unavailable Unavailable Allergies Allergen (clinical drug [...] Lab:SADIE, [facility], [id number] Ramon Quinones Notes/Report: NON-FASTING CULTURE, URINE, ROUTINE SEE NOTE CULTURE, URINE, ROUTINE Micro Number: [id number] Test Status: Final Specimen Source: Urine Specimen [...] review and pick correct strength-formulati on from [employer] options. If intended option is not shown, [...] inhaled every 6 hours prn Active Nystatin 159227 UNIT/GM 1 application Externally Twice a day; Duration: 7 days 01/09/2025 Active Vital Signs Temperature 97.9 degrees Fahrenheit 01/27/20 25 Heart Rate 82 /min 01/26/2025 Blood pressure systolic 118 mm Hg 01/27/20 25 Blood pressure diastolic 80 mm Hg 025 Height 63 in 01/26/2025 Weight 182 lbs 01/26/2025 BMI 32.24 kg/m2 01/26/2025 Encounters Encounter Location Date Provider Diagnosis [address] [address] 01/26/2025 Krissy McNees Dysuria R30.0 Assessments Encounter [...] Next Appt Details Follow Up: prn, Reason: Progress Notes * Sera RINCON DDOB: [birth year] (49 yo F)Acc No.[id number]:01/26/2025 Progress Notes Patient: Sera HINTON Provider: Jaylon Bustamante APRN :1975 A ge:49 Y S ex:Female Date:01/26/2025 Address:[address] [place], [place] [phone] Pcp:Mike Rodrigues Subjective: * Chief Complaints: * [...] on colonoscopy April 2023. * Medications: T aking Nystatin 032375 UNIT/GM Ointment 1 application Externally Twice a [...] *Please review and pick correct strength-formulation from [employer] options. If intended option is not shown, [...] APRN Date: 0 01/26/2025 Generated for Marycruz leonard/Aren/eTransmitting on: 0 03/15/2025 04:28 PM EDT History and Physical Notes * [...]
--- OUTSIDE RECORDS SUMMARY | 2025-02-19 10:45 | XMS_ITS ---
Author Organization [facility] Address [address] [place] [address] Care Team Providers Care Waybill Clerk Name Role Phone Mike Rodrigues Primary Care Provider [phone] McNees, Barbie Unavailable [phone] McNees CUFFING MACHINE OPERATOR, BARBIE Unavailable Unavailable REASON FOR VISIT med ck Encounters Encounter Location Date Provider Diagnosis [facility] [address] [place] [address] 02/19/2025 Mike Rodrigues Plan Of Treatment No Information Progress Notes * Sera RINCON DDOB: [birth year] (49 yo F)Acc No.[id number]:02/19/2025 Progress Notes Patient: Sera HINTON Provider: Rajiv Rodrigues MD :1975 A ge:49 Y S ex:Female Date:02/19/2025 Address:[address] [facility] [place] Subjective: * Chief Complaints: * 1 . Med ck. * Medical History: Objective: * Vitals: Assessment: Plan: * Treatment: * * Electronic signature of Louie Rodrigues MD FAAP on 03/15/2025 at 04:29 PM EDT Sign off status: Pending * Provider: Rajiv Rodrigues MD Date: 0 02/19/2025 Generated for Marycruz leonard/Aren/Aldoitting on: 0 03/15/2025 04:29 PM EDT
--- OUTSIDE RECORDS SUMMARY | 2025-03-09 07:30 | XMS_ITS ---
Author Organization [facility] CHRISTINA Cunningham MARINO Address [address] [place] [address] Care Team Providers Care Research Mechanic Name Role Phone Mike Rodrigues Primary Care Provider McNees, Krissy Unavailable [phone] McNejuan LIFE SKILLS EDUCATOR, KRISSY Unavailable Unavailable Allergies Allergen (clinical drug [...] day; Duration: 30 days 09/13/2024 Active Nystatin 069043 UNIT/GM 1 application Ex ternally Twice a [...] 03/09/2025 Encounters Encounter Location Date Provider Diagnosis [address] [address] 03/09/2025 Krissy McNees Subacute cough R05.2 and [...] Next Appt Details Follow Up: prn, Reason: Medications Administered Medication Instructions Date of Administration Dosage Notes Dexamethasone 4mg Injection 03/09/2025 4 mg Progress Notes * Sera RINCON DDOB: [birth year] (49 yo F)Acc No.[id number]:03/09/2025 Progress Notes Patient: Sera HINTON Provider: Jaylon Bustamante APRN :1975 A ge:49 Y S ex:Female Date:03/09/2025 Address:[address] [place] [address] Pcp:Mike Rodrigues Subjective: * Chief Complaints: * [...] April 2023. * Medications: T aking Nystatin 300254 UNIT/GM Ointment 1 application Externally Twice a [...] *Please review and pick correct strength-formulation from MetaCure options. If intended option is not shown, [...] neg * F gina B neg * White, Mike R 03/09/2025 1 2:19:46 PM EDT > * Therapeutic Injections: Dexamethasone 4mg Injection : 4 mg (Route: Intramuscular) given by RADHA Colin on left deltoid * Procedure Codes: 8 7636 RAPID COVID/FLU A & B COMBO, Modifiers: QW , J1100 Dexamethasone Sodium Phosphate 4mg Injection, 50827 THERAPEUTIC ADMINISTRATION * Follow Up: p rn * * Sign off status: Completed true * Provider: Jaylon Bustamante APRN Date: 03/09/2025 Generated for Marycruz leonard/Faleia/eTransmitting on: 03/15/2025 04:28 PM EDT History and Physical [...]
--- OUTSIDE RECORDS SUMMARY | 2025-03-12 10:45 | XMS_ITS ---
Author Organization [facility] CHRISTINA Cunningham MARINO Address [address] [place] [address] Care Team Providers Care Straight Pin Making Machine Operator Name Role Phone Mike Rodrigues Primary Care Provider McNees, Krissy Unavailable [phone] McNejuan MINING ENGINEER, KRISSY Unavailable Unavailable Allergies Allergen (clinical [...] 7 days As needed 03/09/2025 Active Nystatin 864903 UNIT/GM 1 application Ex ternally Twice a day; Duration: 7 days 01/09/2025 Active Vital Signs Temperature 98.0 degrees Fahrenheit 03/12/20 25 Heart Rate 80 /min 03/12/2025 Blood pressure systolic 150 mm Hg 03/12/20 25 Blood pressure diastolic 86 mm Hg 025 Height 63 in 03/12/2025 Weight 180 lbs 03/12/2025 BMI 31.88 kg/m2 03/12/2025 Encounters Encounter Location Date Provider Diagnosis [facility] MARINO [address] [facility] [address] [place] [address] 03/12/2025 Mike Ravi COPD exacerbation J44.1 and [...] Sera RINCON DDOB: [birth year] (49 yo F)Acc No.[id number]:03/12/2025 Progress Notes Patient: Sera HINTON Provider: Rajiv Rodrigues MD :1975 A ge:49 Y S ex:Female Date:03/12/2025 Address:[address] [place], [place] [id number] Subjective: * Chief Complaints: * 1 . Feels worse, still congested. * HPI: vamsi en: Has had a couple of different flu and COVID test that have been negative, and is now coughing up some green sputum and spite of dexamethasone injection and promethazine cough syrup. Feels like her chest is slightly tight. No chest pain or dyspnea at rest. Seen at [facility] and transferred to ER last weekend, chest x-ray and COVID and flu testing negative. * Medical History: a sthma/COPD, Depression, HTN, Arthritis, Seasonal Allergies, Endometriosis, Over extreme bladder, Adrenal adenomas, stable per MRI May 2024., 8 mm Sessile serrated adenoma on colonoscopy April 2023. * Medications: T aking Nystatin 959206 UNIT/GM Ointment 1 application Externally Twice a [...] true * Provider: Rajiv Rodrigues MD Date: 03/12/2025 Generated for Mylenei aisha/Aurorag/eTransmitting on: 03/15/2025 04:28 PM EDT History and [...] pain or dyspnea at rest. Seen at [facility] and transferred to ER last weekend, chest x-ray and COVID and flu testing negative Examination Category Sub-Category Detail Notes Category Not es General Examination Rhonchi in the left middle and lower lung field. Right side clear. Oropharynx with green postnasal drainage. No sinus tenderness. Tympanic membrane is retracted but clear.
--- NOTE | 2025-03-15 | XR_ITS ---
PROCEDURE INFORMATION: Exam: XR Chest Exam date and time: 03/15/2025 4:30 PM Age: 49 years old Clinical indication: Shortness of breath; Additional info: SOA TECHNIQUE: Imaging protocol: Radiologic exam of the chest. Views: 2 views. COMPARISON: CT CHEST WO CON 03/17/2024 2:20 PM FINDINGS: Airway: Airways are patent. Lungs: Lungs are clear. Pleural spaces: No pleural effusions or pneumothorax. Heart/Mediastinum: No cardiomegaly. Bones/joints: No acute skeletal abnormality or aggressive osseous lesion. Soft tissues: No acute soft tissue findings. IMPRESSION: No acute findings.
--- OUTSIDE RECORDS SUMMARY | 2025-03-15 11:45 | XMS_ITS ---
Author Organization [facility] CHRISTINA D MARINO Address [address] [place] [address] Care Team Providers Care Child Care Center Assistant Director Name Role Phone Mike Rodrigues Primary Care Provider [phone] McNees, Barbie Unavailable [phone] McNees REHABILITATION CONSTRUCTION SPECIALIST, BARBIE Unavailable Unavailable Allergies Allergen (clinical drug ingredient) Drug/Non Drug Allergy documented on EMR Reaction Allergy Type Onset Date Status Latex LATEX (uncoded) Unknown Allergy Acti ve TYLENOL #3 WITH CODEINE (uncoded) Unknown Allergy Active aspirin Aspirin Unknown Drug Allergy Active latanoprost Latanoprost Unknown Drug Allergy Act caty Penicillin Unknown Drug Allergy Active REASON FOR VISIT med ck, stopped Prednisone- [...] a day; Duration: 30 days Active Nystatin 573337 UNIT/GM 1 application Ex ternally Twice a [...] 03/15/2025 Encounters Encounter Location Date Provider Diagnosis [facility] [address] [place] [address] 03/15/2025 Barbie Bossmanes Shortness of breath R06.02 and COPD exacerbation [...] tolerated dexamethasone in the past, script sent Pending Test Test Name Order Date X ray : Chest 03/15/2025 Next Appt Details Follow Up: pending CXR, Reas on: Progress Notes * Sera RINCON DDOB: [birth year] (49 yo F)Acc No.[id number]:03/15/2025 Progress Notes Patient: Sera HINTON Provider: Jaylon Bustamante APRN :1975 A ge:49 Y S ex:Female Date:03/15/2025 Address:[address] [place] [address] [phone] Pcp:Mike Rodrigues Subjective: * Chief Complaints: * 1 . Med ck. 2. stopped Prednisone- making her nauseated (can you give her something else). 3. is wanting a refill on Promethazine-DM. * HPI: g en: 49 y/o female presents for FU on COPD exac. Seen last week given dexamethasone. Seen again at [facility], no changes. Back on 03/12, started on [...] Grand Mother: . P aternal uncle: alive, mutfw-gxlyrapk-jvin cancer, diagnosed with Cancer. P aternal aunt: [...] active: yes. Travel outside [place]: no. 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 * Medications: T aking Nystatin 799533 UNIT/GM Ointment 1 application Externally Twice a [...] I maging: X ray : Chest * Follow Up: p ending CXR * * Sign off status: Completed true * Provider: Jaylon Bustamante, REHABILITATION CONSTRUCTION SPECIALIST Date: 0 03/15/2025 Generated for Marycruz leonard/Aren/Aldoitting on: 0 03/15/2025 04:29 PM EDT History and Physical Notes * HPI (History of Present Illness) Category Sub-Category Detail Notes Category Not es gen 49 y/o female p resents for FU on COPD exac. Seen last week given dexamethasone. Seen again at [facility], no changes. Back on 03/12, started on [...]
--- OUTSIDE RECORDS SUMMARY | 2025-03-15 16:28 | XMS_ITS | Clinical Summary ---
Author Organization [facility] Address [address] [place] [phone] Phone Care Team Providers Care Manager Mass Name Role Phone Unavailable Primary Care Provider [...] COVID-19 Vaccine (1 - 2023-2 5 season) 2025 Influenza Vaccine (#1) 2025 DTaP/TDaP/Td (2 - Td or Tdap) 01/06/2034 01/07/2024 Meningococcal B Vaccine Aged Out No l onger eligible based on patient's age to complete this topic Pneumococcal Vaccine 0-49 Aged Out No longer eligible based on patient's age to complete this topic Insurance [facility] [id number] MDR [facility] [place] [id number]
--- OUTSIDE RECORDS SUMMARY | 2025-03-15 16:28 | XMS_ITS | Clinical Summary ---
Author Organization [facility] Address [address] [place] [address] Care Team Providers Care Escrow Closer Name Role Phone Provider, No Known Primary [...] Times a Day. 10.7 g 11 Active Active Problems No known active problems Encounters Date Type Department Care Team Description 01/10/2025 3:30 PM EDT Office Visit [facility]ICINE [address] [place] [address] Raul Yoon DO Shortness of breath (Primary Dx); Mucopurulent chronic bronchitis; Personal history of smoking 01/10/2025 2:55 PM EDT Hospital Encounter [facility]IC[facility] [address] [place] [address] 01/10/2025 Travel from Last 3 Months Social [...] 2:45 PM EST Office Visit [facility]IC[facility] [address] [place] [address] Raul Yoon DO [address] [place] [address] Health Maintenance Due Date Last Done Comments Annual Gynecologic Pelvic and Breast Exam 1975 Pneumococcal Vaccine 0-49 (1 of 2 - PCV) 1996 PAP SMEAR 1998 MAMMOGRAM 2017 COLOGUARD 2022 COLON CANCER SCREENING 5 YEAR SIGMOIDOSCOPY 2022 COLONOSCOPY 2022 [address]ECTAL CANCER SCREENING 20[address] CT COLONOGRAPHY 2022 FECAL OCCULT BLOOD TEST 2022 FIT Testing (1 year) 2022 ANNUAL PHYSICAL 01/10/2025 HEPATITIS C SCREENING 01/10/2025 INFLUENZA VACCINE 01/26/2025 COVID-19 Vaccine ( season) 2025 TDAP/TD VACCINES (2 - Td or Tdap) [...] Narrative 01/10/2025 3:57 PM EDT Sera Saxena [id number] 01/10/2025 Chest X-Ray PA & Lateral Indication: [...] Final Result from Last 3 Months Insurance [employer] Care Teams Escrow Closer Relationship Specialty Start Date End Date Provider, No Known [facility] [place] [address] PCP - General 01/10/25
--- OUTSIDE RECORDS SUMMARY | 2025-03-15 16:29 | XMS_ITS | Patient Health Record ---
Author Organization [facility] Octavio MARINO Address [address] [place] [address] Care Team Providers Care Nurse Obgyn Name Role Phone Mike Rodrigues Primary Care Provider McNees, Krissy Unavailable [phone] Dianna THIBODEAUX, KRISSY Unavailable Unavailable Mary Walters Unavailable [phone] Mary Santoyo Unavailable [phone] Migration, Provider Unavailable Unavailable Allergies Allergen (clinical [...] neg Flu A neg Flu B neg CULTURE, URINE, ROUTINE (395 ) Reviewed date:01/29/2025 10:32:59 AM Interpretation: Performing Lab:SADIE, [facility] [facility], [place] MyneFQ[address] Ramon Quinones Notes/Report: NON-FASTING CULTURE, URINE, ROUTINE SEE NOTE CULTURE, URINE, ROUTINE Micro Number: [id number] Test Status: Final Specimen Source: Urine Specimen Quality: Adequate Result: Mixed genital alexa isolated. These superficial bacteria are not indicative of a urinary tract infection. No further organism identification is warranted on this specimen. If clinically indicated, recollect clean-catch, mid-stream urine and transfer immediately to Urine Culture Transport Tube. Urinalysis Reviewed date:01/26/2025 12:57:21 PM Interpretation: Performing Lab: Notes/Report: Color/Clarity yellow Leuk neg Nitrite neg Urobili 0.2 Protein neg pH 6.0 Blood neg Sp. Gr. 1.015 Ketone neg Bili neg Glucose neg CT ABD WOW Reviewed date:01/29/2025 10:32:59 AM Interpretation: Performing Lab: Notes/Report: MRI : Cervical spine without contrast Reviewed date:07/10/2024 01:47:58 PM Interpretation: Performing Lab: Notes/Report: Rapid Covid/Flu A-B Combo Reviewed date:09/13/2024 04:18:27 PM Interpretation: Performing Lab: Notes/Report: Rapid Covid Neg Flu A Neg Flu B Neg BASIC METABOLIC PANEL (44606 ) Reviewed date:07/27/2024 03:09:24 PM Interpretation: Performing Lab:CB, [facility] [id number] [facility], [facility] HospitalAjtrPR[address] Ramon Quinones Notes/Report: NON-FASTING GLUCOSE 91 65-99 [...] 24 20-32 mmol/L CALCIUM 9.5 8.6-10.2 mg/dL M-Comprehensive Metabolic Pa pradeep Reviewed date:03/29/2024 05:42:14 [...] AGRATIO 1.5 1.1-1.8 ALP 104 38-126 U/L M-BUN & Creatinine Reviewed date:07/17/2024 02:56:45 PM Interpretation: Performing Lab: Notes/Report: BUN 24 7-17 mg/dl CREATT 1.10 0.52-1.04 mg/dl GFRAA 65 >60 ML/MIN EGFR 53 >60 ml/min M-Adrenocorticotropic Hormon e Reviewed date:05/15/2024 01:25:24 PM Interpretation: Performing Lab: Notes/Report: AM FASTING ACTH 2.5 7.2-63.3 pg/mL ACTH reference interval for samples collected between 7 and 10 AM. Performed at: [employer] [id number] Digital Product Manager: Manav Khalil PhD, Phone: [phone] M-Cortisol Reviewed date:05/15/2024 01:25:24 PM Interpretation: Performing Lab: Notes/Report: AM FASTING LEYLA 1.3 6.2-19.4 ug/dL Please Note: The reference interval and flagging for this test is for an AM collection. If this is a PM collection please use: Cortisol PM: 2.3-11.9 Performed at: [employer] [id number] Digital Product Manager: Manav Khalil PhD, Phone: [phone] Mammogram : Bilateral Reviewed date:01/19/2025 10:42:39 AM Interpretation: Performing Lab: Notes/Report: LIPID PANEL, STANDARD (7600) Reviewed date:01/15/2025 11:35:55 AM Interpretation: Performing Lab:[facility], [facility] HospitalRiimWP[address] Ramon Quinones Notes/Report: NON-FASTING; NON-FASTING; NON-FASTING; NON-FASTING; [...] of LDL-C. Mekhi SS et al. RONALD. 2013;310(43): 6320-6094 (http://education.WeAreHolidays.Stellarcasa SA/faq/XCN444) CHOL/HDLC RATIO 3.3 <5.0 (calc) NON HDL CHOLESTEROL 121 <130 mg/dL (calc) For patients with diabetes plus 1 major ASCVD risk factor, treating to a non-HDL-C goal of <100 mg/dL (LDL-C of <70 mg/dL) is considered a therapeutic option. COMPREHENSIVE METABOLIC ZOHREH Coombs (72732) Reviewed date:01/15/2025 11:35:55 AM Interpretation: Performing Lab:SADIE, [facility] Ipef9043 [facility] HospitalVbrxKI[address] Ramon Quinones Notes/Report: NON-FASTING; NON-FASTING; NON-FASTING; NON-FASTING; [...] Reviewed date:01/15/2025 11:35:55 AM Interpretation: Performing Lab:SADIE [employer] Upsq[address] [employer], [facility] HospitalQrudPA[address] Ramon Quinones Notes/Report: NON-FASTING; NON-FASTING; NON-FASTING; NON-FASTING; [...] MPV 11.8 7.5-12.5 fL ABSOLUTE NEUTROPHILS 5420 6911-1028 cells/uL ABSOLUTE LYMPHOCYTES 2148 850-3900 cells/uL ABSOLUTE MONOCYTES 508 200-950 cells/uL ABSOLUTE EOSINOPHILS 90 15-500 cells/uL ABSOLUTE BASOPHILS 33 0-200 cells/uL NEUTROPHILS 66.1 LYMPHOCYTES 26.2 MONOCYTES 6.2 EOSINOPHILS 1.1 BASOPHILS 0.4 HEMOGLOBIN A1c (496) Reviewed date:01/15/2025 11:35:55 AM Interpretation: Performing Lab:SADIE [employer] Nnnd[address] [facility] [employer], [facility] HospitalGxqpNV[address] Ramon Quinones Notes/Report: NON-FASTING; NON-FASTING; NON-FASTING; NON-FASTING; [...] diagnosis of diabetes in children. According to [place] [employer] Association (ADA) guidelines, hemoglobin A1c <7.0% represents optimal control in non- diabetic patients. Different metrics may apply to specific patient populations. Standards of Medical Care in Diabetes(ADA). TSH W/REFLEX TO FT4 (59282) Reviewed date:01/15/2025 11:35:55 AM Interpretation: Performing Lab:SADIE [employer] [id number] marker.to, WindtronicsJfsvWY[address] Ramon Quinones Notes/Report: NON-FASTING; NON-FASTING; NON-FASTING; NON-FASTING; NON-FAST TSH W/REFLEX TO FT4 1.02 Reference Range > or = 20 Years 0.40-4.50 Ranges First trimester 0.26-2.66 Second trimester 0.55-2.73 Third trimester 0.43-2.91 VITAMIN D,25-OH,TOTAL,IA (17 306) Reviewed date:01/15/2025 11:35:55 AM Interpretation: Performing Lab:SADIE [address], WindtronicsNqqgRM[address] Ramon Quinones Notes/Report: NON-FASTING; NON-FASTING; NON-FASTING; NON-FASTING; [...] D, (D2,D3), LC/MS/MS is recommended: order code 38015 (patients >2yrs). See Note 1 Note 1 For additional information, please refer to http://education.Surefire Social.Stellarcasa SA/faq/ZKE881 (This link is being provided for informational/ educational purposes only.) H-DHEA Reviewed date:05/15/2024 01:25:24 PM Interpretation: Performing Lab: Notes/Report: AM FASTING DHEA 47 UNITS: ng/dL RE FERENC INTERVAL: 31 - 701 MRI : Abdomen with & without Reviewed date:07/20/2024 11:25:59 AM Interpretation: Performing Lab: Notes/Report: Reason For Referral Reason Please arrange MRI a bdomen Adrenal mass protocol to be done in 3 months. ProScan Diagnosis 1 Adrenal mass (E27.8) Referral Organization [facility] Referring Provider First Name Mary Referring Provider Last Name Natanael Referring Provider [facility] ctice Referred Organization [facility] Referred Address [address] [facility] [address] [facility], [place], [place],[address], Referred Provider Specialty Diagnostic R adiology General Notes Erma Kumar 2023 02:59:38 PM >pending precert with [facility], Erma Kumar 06/15/2024 11:37:54 AM >Request ID:, Tracking:, [id number], Validity Dates:, 06/14/2024-08/13/2024 CPT 90664 [facility] Referral Priority Routine Reason PT at [facility] for upper left back pain Diagnosis 1 Upper back pain on l eft side (M54.9) Referral Organization [facility] Referring Provider First Name Mary Referring Provider Last Name Natanael Referring Provider [facility] ctice Referred Organization [facility] Referred Address [address] [facility] [address] [facility], [place], [place],[address], Referred Provider Specialty Physical Med icine and Rehabilitation General Notes Erma Kumar 2023 03:14:04 PM >sent to [facility] rehab - they will call patient to schedule appt. Referral Priority Routine Reason Bux- Upper back pain Referral Organization [facility]Y [facility] Referring Provider First Name Mary Referring Provider Last Name Natanael Referring Provider [facility] ctice Referral Priority Routine Reason Please arrange MRI C spine WO at [facility] for ongoing right neck pain, radicular symptoms intermittently, failed PT. Diagnosis 1 Neck pain on right s roshni (M54.2) Referral Organization [facility] Referring Provider First Name Mary Referring Provider Last Name Natanael Referring Provider Speciality Family Pra ctice Referred Organization [facility] Referred Address [address] [place], [place],[address],[place] Referred Provider Specialty Diagnostic R adiology General Notes Erma Kumar 2023 10:24:42 AM >Pending PrecertJosé Nickie 06/27/2024 09:44:21 AM >approved and order sent to [facility] scheduling. They will contact patient to schedule. Referral Priority Routine Reason Please refer to Neur osurgeon Dr. Meza for spondylosis, per MRI C spine, C4-C5 central protrusion which indents thecal sac and touches and mildly flattens the anterior surface of the cord. Diagnosis 1 Cervical spondylosis (M47.812) Referral Organization [facility] Referring Provider First Name Mike Referring Provider Last Name Ravi Referring Provider Speciality Internal M edicine Referred Organization [facility] Referred Address [address] [place], [place],[address],[place] Referred Provider Specialty Neurological Surgery General Notes Erma Kumar 2024 09:29:16 AM >Referral placed through the [facility] portal., Erma Kumar 07/12/2024 09:24:11 AM >[facility] and Dr Meza do not take [facility] however he sees people at [facility] and can see her there. The order was faxed to Caitlin at [employer] [phone]. Her phone is [phone]. Clinical Notes Erma Kumar 2024 09:25:21 AM > Referral Priority Urgent Reason CT Adrenal Mass Prot ocol for 6 mth f/u Diagnosis 1 Adrenal mass (E27.8) Referral Organization [facility] [place] Referring Provider First Name Krissy Referring Provider Last Name Dianna Referring Provider Speciality Family Pra ctice Referred Organization [facility] Referred Address [address] [place], [place],[address],[place] Referred Provider Specialty Diagnostic R adiology Referral Priority Routine Reason Can you please see i f this med needs a PA? Patient said her insurance doesn't cover it. Diagnosis 1 Stress incontinence (N39.3) Referral Organization [facility] Referring Provider First Name Mary Referring Provider Last Name Natanael Referring Provider Speciality Family Pra ctice General Notes Efraín Jerome 03:13:47 PM > PA done on cover my meds Referral Priority Routine Reason Can you help with PA approval of Gemtesa and Trelegy. Failed Dulera and albut/iprat. Diagnosis 1 Stress incontinence (N39.3) Referral Organization [facility] Referring Provider First Name Mary Referring Provider Last Name Natanael Referring Provider [facility] ctice General Notes Efraín Jerome 12:00:55 PM > did PA on cover my meds Referral Priority Routine Reason Please refer to GI Octavio Roth for esophagitis, feels like something is in her throat when swallowing, history of choking on a Doxycycline pill. 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 Erma see notes Diagnosis 1 Chronic obstructive pulmonary disease, unspecified COPD type (J44.9) Referral Organization [facility] Referring Provider First Name Mary Referring Provider Last Name Natanael Referring Provider [facility] ctice [facility]erred [facility] Referrals Referred Address [address] [facility] [address],[place], [place],[address],[place] Referred Provider Specialty Pulmonary Di seases General Notes Efraín Jerome 04:10:31 PM > faxed and they will call patient with chellytJosé Nickie 11/21/2024 11:08:46 AM >sent to Referral Priority Routine Reason CT adrenal mass prot ocol - Jenci this is pending with [facility] through [facility] After 01-17 Diagnosis 1 Adrenal mass, left ( E27.8) Diagnosis 2 Adrenal mass, right (E27.9) Referral Organization [facility] Referring Provider First Name Mary Referring Provider Last Name Natanael Referring Provider [facility] ctice Referred Organization [facility] Referred Address [address], [place],[address],[place] Referred Provider Specialty Diagnostic R adiology General Notes Erma Kumar 2024 03:24:08 PM >pending precert with [facility]- Queenie Childers Jenci D 01/12/2025 02:51:08 PM > It won't let me see it because I didn't put it in, Erma Kumar 01/15/2025 10:29:28 AM >approved sent to [facility] to schedule appt Referral Priority Routine Reason Please refer to Neur ologist Dr. Hills for recurrent migraines. Diagnosis 1 Episodic migraine (G 43.909) Referral Organization [facility] VICENTE PICHARDO Referring Provider First Name Mary Referring Provider Last Name Natanael Referring Provider [facility] ctice General Notes Efraín Jeorme 09:51:01 AM > faxed and they will call pt Referral Priority Routine Reason Please refer to UroG LUCIL[facility] with [facility] for stress incontinence. Diagnosis 1 Stress incontinence (N39.3) Referral Organization [facility] VICENTE PICHARDO Referring Provider First Name Mary Referring Provider Last Name Natanael Referring Provider [facility] ctice General Notes Efraín Jerome [...] janusz yp of colon (D12.6) Referral Organization [facility] PED [facility] Referring Provider First Name Mary Referring Provider Last Name Natanael Referring Provider [facility] ctice General Notes Mike Gutiérrez R 12/26 03:43:42 PM >pt notified Referral Priority Routine Referral Appointment Date 05/29/2025 Reason Please arrange annua l mammogram with [facility] for breast cancer screening. Diagnosis 1 Encounter for screen ing mammogram for malignant neoplasm of breast (Z12.31) Referral Organization [facility] VICENTE PICHARDO Referring Provider First Name Mary Referring Provider Last Name Santoyo Referring Provider [facility] Notes Efraín Jerome 09:49:47 AM > faxed to [facility] and they will call pt Referral Priority Routine Reason Please refer to Dr. Regi Martinez for routine pap smear for cervical cancer screening. Diagnosis 1 Cervical cancer scre ening (Z12.4) Referral Organization [facility] VICENTE PICHARDO Referring Provider First Name Mary Referring Provider Last Name Santoyo Referring Provider [facility] Notes Efraín Jerome 09:47:23 AM > faxed and they will call pt Referral Priority Routine Reason Please refer to Derm atologist for routine skin cancer screening. Diagnosis 1 Skin cancer screenin g (Z12.83) Referral Organization [facility] VICENTE PICHARDO Referring Provider First Name Mary Referring Provider Last Name Santoyo Referring Provider [facility] Notes Efraín Jerome 09:46:30 AM > faxed to [facility] and they will call her, Efraín Jerome 02/01/2025 03:37:52 PM > they do not accept insurance- faxed to [employer] Referral Priority Routine Reason Can you possibly sen d me GI Dr. Roth note? No longer having acute symptoms, but would like to read their recommendation at that time. Diagnosis 1 History of odynophag ia (Z87.898) Referral Organization [facility] VICENTE PICHARDO Referring Provider First Name Mary Referring Provider Last Name [place] Referring Provider [facility] Notes Efraín Jerome 12:30:28 PM > Referral Priority Routine Medications Medication SIG (Take, Route, Frequency, Duration) Notes Start Date End Date Status Gemtesa 75 MG 1 tab(s) orally once a day; Duration: 30 days 09/13/2024 Active Carvedilol 12.5 MG 1 tab(s) orally 2 ti mes a day; Duration: 30 days Active Lidoderm 5 % APPLY 1 PATCH TOPICA LLY ONCE DAILY FOR 30 DAYS; Duration: 30 prn Active Topiramate 50 MG TAKE 1 TABLET BY AT BEDTIME; Duration: 30 Active Phenazopyridine HCl 200 MG 1 tablet afte r meals Orally Three times a day; Duration: 2 days 01/26/2025 Active dexAMETHasone 4 MG 1 tablet Orally twic e a day; Duration: 3 days 03/15/2025 Active Breztri Aerosphere 160-9-4.8 MCG/ACT 2 puffs Inhalation Twice a day; Duration: 30 days 10/31/2024 Active Promethazine-DM 6.25-15 MG/5ML 5 mL as needed Orally every 6 hrs; Duration: 7 days As needed 03/09/2025 Active Ibuprofen 800 MG 1 tab(s) orally every 8 hours; Duration: 30 days As needed pain. prn Active Ventolin HFA 108 (90 Base) MCG/ACT 2 INH inhaled every 6 hours prn Active PARoxetine HCl 10 MG 1 tab(s) orally onc e a day; Duration: 30 days Active Nystatin 960827 UNIT/GM 1 application Ex ternally Twice a day; Duration: 7 days 01/09/2025 Active Doxycycline Hyclate 100 MG One tab PO tw ice daily; Duration: 10 days 03/12/2025 Active Social History Tobacco Use: Social History [...] Status Risk Notes Problem Hypertrophy of uterus (472489660) Hypertrophy of uterus (N85.2) Active confirmed Problem Peripheral neuropathy (955228934) Peripheral neuropathy (G62.9) Active confirmed Problem Essential hypertension (29856925) Essential (primary) hypertension (I10) Active confirmed Problem Nicotine dependence (71560733) Personal history of nicotine dependence (Z87.891) Active confirmed Problem Anxiety (89845934) Anxiety (F41.9) Active confi rmed Problem Essential hypertension (33566533) Essential hypertension (I10) Active confirmed Problem Acute exacerbation of chronic obstructive airways disease (255786105) COPD exacerbation (J44.1) Active confirmed Problem Chronic pain (87502442) Other chronic pain (G89.29) Active confirmed Problem Lower abdominal pain (27152856) Lower abdominal pain (R10.30) Active confirmed Problem Neck pain (37321316) Neck pain on right side (M54.2) Active confirmed Problem Carpal tunnel syndrome (03069919) Right carpal tunnel syndrome (G56.01) Active confirmed Problem Neck pain (27640618) Neck pain (M54.2) Active confirmed Problem Heart murmur (31258810) Heart murmur (R01.1) Active confirmed Problem COPD - Chronic obstructive pulmonary disease (04732724) Chronic obstructive pulmonary disease, unspecified COPD type (J44.9) Active confirmed Problem Abnormal mammogram (653896765) Abnormal mammogram (R92.8) Active confirmed Problem Migraine without aura, not refractory (098287609) Migraine without aura and without status migrainosus, not intractable (G43.009) Active confirmed Problem Amenorrhea (78594141) Amenorrhea (N91.2) Active confirmed Problem Chronic obstructive pulmonary disease (26588382) Chronic obstructive pulmonary disease (J44.9) Active confirmed Problem SI - Stress incontinence (99384997) Stress incontinence (N39.3) Active confirmed Problem Hyperlipidaemia (47958763) Hyperlipidemia, unspecified hyperlipidemia type (E78.5) Active confirmed Problem Breathlessness on exertion (15790542) Breathlessness on exertion (R06.09) Active confirmed Problem Cervical radiculopathy (31531315) Cervical radiculopathy (M54.12) Active confirmed Problem History of nutritional deficiency (37739221212897) History of vitamin D deficiency (Z86.39) Active confirmed Problem Dysphagia (32299401) Dysphagia, unspecified type (R13.10) Active confirmed Problem Mass of right adrenal gland (finding) (32526819572169653 ) Adrenal mass, right (E27.9) Active confirmed Problem Sciatica (63464779) Acute left-sided low back pain with left-sided sciatica (M54.42) Active confirmed Problem Kyphoscoliosis deformity of spine (112605792) 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) Active confirmed Problem Solitary sacroiliitis (879872295) SI (sacroiliac) joint inflammation (M46.1) Active confirmed Problem Odynophagia (79468154) Odynophagia (R13.10) Active confirmed Problem Tobacco use (452494371) Tobacco use disorder (F17.200) Active confirmed Problem Mass of left adrenal gland (finding) (19742295207911480 ) Adrenal mass, left (E27.8) Active confirmed Problem Cervical spondylosis (828603514) Cervical spondylosis (M47.812) Active confirmed Problem Adrenal mass (109590120) Adrenal mass (E27.8) Active confirmed Problem Episodic migraine (107746865727401) Episodic migraine (G43.909) Active confirmed Problem Retrolisthesis (550935549) Retrolisthesis (M43.10) Active confirmed Problem Sciatica (16401623) Acute left-sided low back pain with right-sided sciatica (M54.41) Active confirmed Problem Sessile serrated polyp of colon (1729637373) Sessile serrated polyp of colon (D12.6) Active confirmed Problem Benign neoplasm of adrenal gland (18264703) Adrenal adenoma, unspecified laterality (D35.00) Active confirmed Vital Signs Heart Rate 92 /min 03/15/2025 Temperature 97.6 degrees Fahrenheit 03/15/2025 Blood pressure diastolic 84 mm Hg 03/15/2025 Height 63 in 03/15/2025 Blood pressure systolic 152 mm Hg 03/15/2025 Weight 180.2 lbs 03/15/2025 BMI 31.92 kg/m2 03/15/2025 Encounters Encounter Location Date Provider Diagnosis [facility] [address] [facility] [address] [place] [address] 09/30/2024 Provider Migration COPD exacerbation J44.1 and Esophagitis K20.90 [facility] [address] [facility] [address] [place] [address] 01/11/2025 aMry Santoyo [facility] [address] [facility] [address] [place] [address] 03/23/2024 Marystanton BaigSantoyo Adrenal mass E27.8 a nd Chronic obstructive pulmonary disease, unspecified COPD type J44.9 [facility] [address] [facility] [address] [place] [address] 04/04/2024 Mary Santoyo Upper back pain on left side M54.9 [facility] [place] [address] [facility] [address] [place] [address] 04/07/2024 Mary Santoyo Upper back pain M54. 9 [facility] [address] [facility] [address] [place] [address] 06/22/2024 Mary Santoyo Neck pain on right side M54.2 [facility] [address] [facility] [address] [place] [address] 07/25/2024 Mary Santoyo EWELINA (acute kidney injury) N17.9 and Essential (primary) hypertension I10 [facility] [address] [facility] [address] [place] [address] 09/11/2024 Mary Selena Episodic migraine G43.909 [facility] [address] [facility] [address] [place] [address] 09/13/2024 Mary Baigowell Acute cough R05.1 ; COPD exacerbation J44.1 and Stress incontinence N39.3 [facility] [address] [facility] [address] [place] [address] 09/18/2024 Mike Rodrigues Chronic obstructive pulmonary disease, unspecified COPD type J44.9 ; COPD exacerbation J44.1 and Episodic migraine G43.909 [facility] [address] [facility] [address] [place] [address] 09/22/2024 Mary Baigowell COPD exacerbation J44.1 and Esophagitis K20.90 [facility] [address] [facility] [address] [place] [address] 10/12/2024 Mary Natanael Essential (primary) hypertension I10 ; Chronic obstructive pulmonary disease, unspecified COPD type J44.9 ; Stress incontinence N39.3 and Odynophagia R13.10 [facility] [address] [facility] [address] [place] [address] 11/15/2024 Mary Natanael Chronic obstructive pulmonary disease, unspecified COPD type J44.9 ; Essential (primary) hypertension I10 ; Hypokalemia E87.6 ; Cervical radiculopathy M54.12 and Dysphagia, unspecified type R13.10 [facility] [address] [address] 01/09/2025 Mary Santoyo Hyperlipidemia, unspecified hyperlipidemia type [...] unspecified laterality D35.00 and Poor historian Z78.9 [facility] [address] [address] 01/26/2025 Krissy McNees Dysuria R30.0 [facility] [address] [address] 03/09/2025 Krissy McNees Subacute cough R05.2 and COPD exacerbation J44.1 [facility] [address] [facility] [address] [place] [address] 03/12/2025 Mike Rodrigues COPD exacerbation J44.1 and Hospital discharge follow-up Z09 [facility] [address] [facility] [address] [place] [address] 03/15/2025 Krissy McNees Shortness of breath R06.02 and COPD exacerbation J44.1 [facility] [address] [facility] [address] [place] [address] 04/04/2024 Marystanton BaigSantoyo Acute back pain M54. 9 [facility] [address] [facility] [address] [place] [address] 04/05/2024 Mary Santoyo [facility] [address] [place] [address] 04/13/2024 Mary Santoyo Neck pain M54.2 [facility] [address] [place] [address] 06/14/2024 Mary Baigowell Adrenal mass, left E27.8 and Adrenal mass, right E27.9 [facility] [address] [place] [address] 06/27/2024 Mary Santoyo Kyphoscoliosis deformity of spine M41.9 and Neck pain M54.2 [facility] [address] [place] [address] 07/10/2024 Mary Santoyo [facility] [address] [place] [address] 07/10/2024 Mary Santoyo Cervical spondylosis M47.812 [facility] [address] [place] [address] 07/19/2024 Mary Santoyo [facility] [address] [place] [address] 08/03/2024 Mary Santoyo [facility] [address] [place] [address] 09/21/2024 Mary Santoyo [facility] [address] [place] [address] 10/24/2024 Mary Santoyo [facility] [address] [place] [address] 11/15/2024 Mike Rodrigues [facility] [address] [place] [address] 01/05/2025 Mary Natanael Adrenal mass, 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 Discussed the role of pain medications/anti- inflammatories including Ibuprofen and Tylenol, heat pad, stretches, [...] muscle spasm/strain. Discussed the role of pain medications/anti- inflammatories including Ibuprofen and Tylenol, heat pad, stretches, [...] start PO Prednisone in the morning. Sent Albuterol/ipratro pium for neb and instructed her to use [...] for Trelegy, sent script and have asked project control officer with PA approval. Follow-up in 1 [...] one, referral placed. She is followed by [facility] [employer] Dr. Martinez, unsure when she last had [...] urine for cx and treat as indicated. 03/09/2025 COPD exacerbation (ICD-10 - J44.1) Discussed the etiology and expected course of COPD exacerbation. Discussed the rationale for avoiding antibiotics for viral illness. Use albuterol TID. Dexamethasone IM. Discussed supportive care. Discussed the signs and symptoms of worsening infection that may indicate need for reassessment in clinic/ED. 03/09/2025 Subacute cough (ICD-10 - R05.2) 03/12/2025 COPD exacerbation (ICD-10 - J44.1) Reviewed previous notes, reviewed notes from ER.Given worsening symptoms will escalate therapy to treat for COPD exacerbation. Side effects of meds discussed 03/12/2025 Hospital discharge follow-up (ICD-10 - Z09) I reviewed ER notes available from emergency department. Reviewed labs, reviewed discharge plan, personally reconciled medication. 03/15/2025 Shortness of breath (ICD-10 - R06.02) 03/15/2025 COPD exacerbation (ICD-10 - J44.1) Continues to have worsening symptoms despite antibiotics. Discussed supportive care with nebs, steroids, rest and increase oral hydration. Will obtain x-ray and consider changing antibiotics pending results. Has tolerated dexamethasone in the past, script sent 01/09/2025 Chronic obstructive pulmonary disease, unspecified COPD type (ICD-10 - J44.9) Well controlled on Breztri so will continue. Keep follow-up with [facility]. 11/15/2024 Hypokalemia (ICD-10 - E87.6) Re-checking BMP. [...] incontinence (ICD-10 - N39.3) Previously followed by [facility] [employer] [facility] who performed a botox shot per patient. [...] her quality of life, referred back to [facility] at patient request. 01/09/2025 Fatigue, unspecified [...] of uterus (ICD-10 - N85.2) Follows with [facility] [employer] [facility]. History of ablation. 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, which [...] Treatment Pending Test Test Name Order Date X ray : Chest 03/15/2025 CT Scan : Chest, Without Contrast 2022 X ray : Spines, Cervical 04/04/2024 X ray : Spines, Thoracic Spine CT Scan : Cervical Spine 11/18/2022 CT Scan : Thoracic Spine 11/18/2022 Physical Therapy 01/05/2023 Physical Therapy 09/02/2023 X ray : SI Joints 09/02/2023 M-Comprehensive Metabolic Panel 12/12/19 M-Lipid Panel 2021 M-Vitamin B12 01/07/2024 M-Vitamin D 25 Hydroxy 01/07/2024 C-XSIN-Uiaaffp 03/23/2024 Physical Therapy Eval and Treat 04/13/20 Physical Therapy Eval and Treat 04/04/20 BASIC METABOLIC PANEL (17311) 11/15/2024 BASIC METABOLIC PANEL (97003) 12/02/2023 BASIC METABOLIC PANEL (86036) 10/28/2023 Insurance Providers Payer Name Payer Address Payer Phone Subscriber Number Group Number Insured Name Patient Relationship to Insured Coverage Start Date Coverage End Date [employer] [place] [employer] [address] [address] [place] [address] [phone] [id number] Sera Saxena Self - patient is the insured Medications Administered Medication Instructions Date of Administration Dosage Notes Dexamethasone 4mg Injection 07/06/2023 4 mL Dexamethasone 4mg Injection 08/24/2023 4 mL Dexamethasone 4mg Injection 04/04/2024 4 mg Dexamethasone 4mg Injection 09/13/2024 4 mg Dexamethasone 4mg Injection 03/09/2025 4 mg Medical (General) History Medical History [...]
== END 2025-03-15 23:59 | disposition home or self-care (01) ==
LOC: RAD 16:26
PROVIDERS: PCP Internal Medicine Adolescent Medicine; Visit Provider Nurse Practitioner Family
DX: R06.02 Shortness of breath (principal)
CPT/HCPCS: 71046

== ENCOUNTER 2025-03-26 12:50 | Emergency (ER) | payer MEDICAID, SELFPAY ==
--- OUTSIDE RECORDS SUMMARY | 2020-02-29 03:20 | XMS_ITS | Continuity of Care Document ---
Author Organization [facility] Address [address] [place] [address] [address], [place] [address] Care Team Providers Care Lock Maintenance Supervisor Name Role Phone [facility], [facility] Unavailable Unav ailable Procedures Procedure Date REPOSITION [...] Date Provider Providers Copied on Encounter [facility], [address] [place] [address], [place], [place], [facility], [facility] [place] No Information Sep-0 0 Surgical Center [facility]. [address] [place] [address], [place], [place], [id number], [place]. tel:[phone] Referring Provider: Jas Marin MD, [address] [facility], [place], [address] . tel:[phone] [facility] [place], [address] [place] [address], [facility] [place] [address], [facility] [place] No Information Sep-0 0 Missy Gomez. [address] [place] [address], [facility] [place] [address], . tel:[phone] Referring Provider: Jas Marin MD, [address] [place] [address], [place], [address] . tel:[phone] [facility], [address] [place], [place] [address], [place], [place], [facility], [place] [facility] No Information 0 [facility]. [address] [place] [address], [address], [place], [id number], [place]. tel:[phone] Referring Provider: Jas Marin MD, [address] [place] [address], [place], [address] . tel:[phone] [facility], [address] [place], [place] [address], [place], [place], [facility], [facility] No Information 0 Missy Gomez. [address] [place] [address], [address], [place], [place], [facility], . tel:[phone] Referring Provider: Jas Marin MD, [address] [place] [address], [place], [address] . tel:[phone] [facility], [address] [place], [place] [address], [place], [facility], [facility] No Information 0 [facility]. [address] [place] [address], [address], [place], [id number], . tel:[phone] Referring Provider: Jas Marin MD, [address] [place] [address], [place], [address] . tel:[phone] [facility], [address] [place], [place] [address], [place], [address], [facility] No Information 0 Missy Gomez. [address] [place] [address], [address], [place], [address], . tel:[phone] Referring Provider: Jas Marin MD, [address] [place] [address], [place], [address] . tel:[phone] Family History Family Member Type Diagnosis Age At Onset No Information Payers Payer name Insurance type Covered republican ID Pete lamas(komal Kendall CI [id number] [facility] CI [id number] Omidria Assure - DO NOT USE CI [id number] Social History Type Description Quantity Date Captured [...]
--- OUTSIDE RECORDS SUMMARY | 2025-01-10 14:55 | XMS_ITS | Encounter Summary ---
Author Organization [facility] Address [address] [place] [address] Care Team Providers Care Thin Film Technician Name Role Phone Provider, No Known Primary Care Provider Unavail able Encounter Details Date Type Department Care Team (Late Contact Info) Description 01/10/2025 2:55 PM EDT Hospital Encounter [facility] PULMONARY & CRITICAL CARE MEDICINE [address] [place] [id number] Social History Tobacco Use Types Packs/Day Years [...] Upcoming Encounters Date Type Department Care Team ([facility] Contact Info) Description 05/15/2025 2:45 PM EST Office Visit [facility] PULMONARY & CRITICAL CARE MEDICINE [address] [place] [address] Raul Yoon DO [address] [place] [address] documented as of this encounter Procedures Procedure Name Priority Date/Time Associated Diagnosis Comments XR CHEST PA AND LATERAL Routine 01/10/2025 2:56 PM EDT Shortness of breath documented in this encounter Results * XR Chest PA & Lateral (01/10/2025 2:56 PM EDT) Anatomical Region Laterality Modality Body, Chest N/A Radiographic Keerthi ging Narrative 01/10/2025 3:57 PM EDT Sera Saxena [id number] 01/10/2025 Chest X-Ray PA & Lateral Indication: [...] on filedocumented in this encounter Care Teams Thin Film Technician Relationship Specialty Start Date End Date Provider, [place] [address] PCP - General 01/10/25 documented as of this encounter
--- OUTSIDE RECORDS SUMMARY | 2025-01-26 07:45 | XMS_ITS ---
Author Organization [facility] Address [address] [place] [address] Care Team Providers Care Goat Driver Name Role Phone Mike Rodrigues Primary Care Provider McNees, Krissy Unavailable [phone] McNees PLASTERER APPRENTICE, KRISSY Unavailable Unavailable Allergies Allergen (clinical drug [...] Lab:SADIE, [facility], [id number] Ramon Quinones Notes/Report: NON-FASTING CULTURE, URINE, ROUTINE SEE NOTE CULTURE, URINE, ROUTINE Micro Number: [id number] Test Status: Final Specimen Source: Urine Specimen [...] review and pick correct strength-formulati on from [employer] options. If intended option is not shown, [...] inhaled every 6 hours prn Active Nystatin 797098 UNIT/GM 1 application Externally Twice a day; Duration: 7 days 01/09/2025 Active Vital Signs Temperature 97.9 degrees Fahrenheit 01/27/20 25 Heart Rate 82 /min 01/26/2025 Blood pressure systolic 118 mm Hg 01/27/20 25 Blood pressure diastolic 80 mm Hg 025 Height 63 in 01/26/2025 Weight 182 lbs 01/26/2025 BMI 32.24 kg/m2 01/26/2025 Encounters Encounter Location Date Provider Diagnosis [address] [address] 01/26/2025 Krissy McNees Dysuria R30.0 Assessments Encounter [...] prn, Reason: Provider Name:Krissy Fernandezon Oli Marsh, 03/29/2025 03:45:00 PM, [address], [place], [address], Progress Notes * Sera RINCON DDOB: [birth year] (49 yo F)Acc No.[id number]:01/26/2025 Progress Notes Patient: Sera HINTON Provider: Jaylon Bustamante APRN :1975 A ge:49 Y S ex:Female Date:01/26/2025 Address:[address] [place], [place] [address] Pcp:Mike Rodrigues Subjective: * Chief Complaints: * [...] April 2023. * Medications: T ese Nystatin 176859 UNIT/GM Ointment 1 application Externally Twice a [...] *Please review and pick correct strength-formulation from [employer] options. If intended option is not shown, [...] SEE NOTE - * Krissy Bustamante 01/30/20 10:32:23 AM EDT >This lab was reviewed [...] 0 01/26/2025 Generated for Marycruz leonard/Aren/Aldoitting on: 03/26/2025 01:17 PM EDT History and Physical Notes * [...]
--- OUTSIDE RECORDS SUMMARY | 2025-02-19 10:45 | XMS_ITS ---
Author Organization [facility] Address [address] [place] [address] Care Team Providers Care Rn Pacu Name Role Phone Mike Rodrigues Primary Care Provider Barbie Bustamante Unavailable [phone] BARBIE Bustamante APRN Unavailable Unavailable REASON FOR VISIT med ck Encounters Encounter Location Date Provider Diagnosis [facility] [address] [place], [place] [address] 02/19/2025 Mike Rodrigues Plan Of Treatment Next Appt Details Provider Name:Barbie Carlos Oli Marsh, 03/29/2025 03:45:00 PM, [address], [place], [address], Progress Notes * Sera RINCON DDOB: [birth year] (49 yo F)Acc No.[id number]:02/19/2025 Progress Notes Patient: Sera HINTON Provider: Rajiv Rodrigues MD :1975 A ge:49 Y S ex:Female Date:02/19/2025 [facility] [facility] [place] Subjective: * Chief Complaints: * 1 . Med ck. * Medical History: Objective: * Vitals: Assessment: Plan: * Treatment: * * Electronic signature of Louie Rodrigues MD FAAP on 03/26/2025 at 01:17 PM EDT Sign off status: Pending * Provider: Rajiv Rodrigues MD Date: 02/19/2025 Generated for Marycruz leonard/Aren/Sriram on: 0 03/26/2025 01:17 PM EDT
--- OUTSIDE RECORDS SUMMARY | 2025-03-09 07:30 | XMS_ITS ---
Author Organization [facility] CHRISTINA Cunningham MARINO Address [address] [place] [address] Care Team Providers Care Raiser Helper Name Role Phone Mike Rodrigues Primary Care Provider [phone] McNees, Krissy Unavailable [phone] McNejuan DIE FINISHER FORGING, KRISSY Unavailable Unavailable Allergies Allergen (clinical drug ingredient) Drug/Non Drug Allergy documented on EMR Reaction Allergy Type Onset Date Status Latex LATEX (uncoded) Unknown Allergy Acti ve TYLENOL #3 WITH CODEINE (uncoded) Unknown Allergy Active aspirin Aspirin Unknown Drug Allergy Active latanoprost Latanoprost Unknown Drug Allergy Act caty Penicillin Unknown Drug Allergy Active Results Component Value Reference Range Notes Rapid Covid/Flu A-B Combo Reviewed date:03/09/2025 02:51:07 PM Interpretation: Performing Lab: Notes/Report: Rapid Covid neg Flu A neg Flu B neg REASON FOR VISIT migraine , cough Medications Medication SIG (Take, Route, Frequency, Duration) Notes Start Date End Date Status Ibuprofen 800 MG 1 tab(s) orally every 8 hours; Duration: 30 days As needed pain. prn Active Breztri Aerosphere 160-9-4.8 MCG/ACT 2 puffs Inhalation Twice a day; Duration: 30 days 10/31/2024 Active Phenazopyridine HCl 200 MG 1 tablet afte r meals Orally Three times a day; Duration: 2 days 01/26/2025 Active Gemtesa 75 MG 1 tab(s) orally once a day; Duration: 30 days 09/13/2024 Active Nystatin 615129 UNIT/GM 1 application Ex ternally Twice a day; Duration: 7 days 01/09/2025 Active PARoxetine HCl 10 MG 1 tab(s) orally onc e a day; Duration: 30 days Active Ventolin HFA 108 (90 Base) MCG/ACT 2 INH inhaled every 6 hours prn Active Lidoderm 5 % APPLY 1 PATCH TOPICA LLY ONCE DAILY FOR 30 DAYS; Duration: 30 prn Active Carvedilol 12.5 MG 1 tab(s) orally 2 ti mes a day; Duration: 30 days Active Topiramate 50 MG TAKE 1 TABLET BY DOMENICO TH AT BEDTIME; Duration: 30 Active Promethazine-DM 6.25-15 MG/5ML 5 mL as needed Orally every 6 hrs; Duration: 7 days As needed 03/09/2025 Active Vital Signs Temperature 98 degrees Fahrenheit 03/09/2025 Heart Rate 78 /min 03/09/2025 Blood pressure systolic 122 mm Hg 03/09/20 25 Blood pressure diastolic 80 mm Hg 025 Height 63 in 03/09/2025 Weight 180 lbs 03/09/2025 BMI 31.88 kg/m2 03/09/2025 Encounters Encounter Location Date Provider Diagnosis [address] [address] 03/09/2025 Krissy McNees Subacute cough R05.2 and COPD exacerbation J44.1 Assessments Encounter Date Diagnosis (ICD Code) Assessment Notes Treatment Notes Treatment Clinical Notes Section Notes 03/09/2025 Subacute cough (ICD-10 - R05.2) 03/09/2025 COPD exacerbation (ICD-10 - J44.1) Discussed the etiology and expected course of COPD exacerbation. Discussed the rationale for avoiding antibiotics for viral illness. Use albuterol TID. Dexamethasone IM. Discussed supportive care. Discussed the signs and symptoms of worsening infection that may indicate need for reassessment in clinic/ED. Plan Of Treatment Medication Medication Name Sig Start Date Stop Date Notes Promethazine-DM 6.25-15 MG/5ML 5 mL as n eeded Orally every 6 hrs; Duration: 7 days 03/09/2025 Treatment Notes Assessment Notes COPD exacerbation Discussed the etiolo gy and expected course of COPD exacerbation. Discussed the rationale for avoiding antibiotics for viral illness. Use albuterol TID. Dexamethasone IM. Discussed supportive care. Discussed the signs and symptoms of worsening infection that may indicate need for reassessment in clinic/ED. Next Appt Details Follow Up: prn, Reason: Provider Name:Krissy Carlos Oli Marsh, 03/29/2025 03:45:00 PM, [address], [address], [place], [address], Medications Administered Medication Instructions Date of Administration Dosage Notes Dexamethasone 4mg Injection 03/09/2025 4 mg Progress Notes * Sera RINCON DDOB: [birth year] (49 yo F)Acc No.[id number]:03/09/2025 Progress Notes Patient: Sera HINTON Provider: Jaylon Bustamante APRN :1975 A ge:49 Y S ex:Female Date:03/09/2025 Address:[address] [place], [place] [id number] Pcp:Mike Rodrigues Subjective: * Chief Complaints: * 1 . Migraine , cough. * HPI: E NT/respiratory: 49 year old female presents with c/o sore throat. c/o cough. c/o nasal congestion. c/o rhinorrhea. c/o postnasal drip. c/o shortness of breath. c/o wheeze. c/o headache. c/o chest congestion. Denies : fever. D enies : ear pain. D enies : facial pain. Presents with symptoms that began last night. + malaise. No fevers. Exposed to rhinovirus. * ROS: C ONSTITUTIONAL: no L oss of appetite. n o F ever. D ERMATOLOGY: no R estephanie. G ASTROENTEROLOGY: no N ausea. n o V omiting. n o D iarrhea.? * Medical History: a sthma/COPD, Depression, HTN, Arthritis, Seasonal Allergies, Endometriosis, Over extreme bladder, Adrenal adenomas, stable per MRI May 2024., 8 mm Sessile serrated adenoma on colonoscopy April 2023. * Medications: T aking Nystatin 047095 UNIT/GM Ointment 1 application Externally Twice a [...] tab(s) orally once a day , Taking Ibuprofen 800 MG Tablet 1 tab(s) orally every 8 hours As needed pain., Notes to Pharmacist: prn, Taking Breztri Aerosphere 160-9-4.8 MCG/ACT Aerosol 2 puffs Inhalation Twice a day , Taking Phenazopyridine HCl 200 MG Tablet 1 tablet after meals Orally Three times a day , Taking Topiramate 50 MG Tablet TAKE 1 TABLET BY MOUTH AT BEDTIME , Discontinued Trelegy Ellipta 200 MCG-62.5 MCG-25 MCG/INH POWDER 1 INH INHALED ONCE A DAY , Notes to Pharmacist: *Please review and pick correct strength-formulation from Grid Net options. If intended option is not shown, discontinue and re-order from Quick Search*, Medication List reviewed and reconciled with the patient * Allergies: P enicillin, Aspirin, TYLENOL #3 WITH CODEINE, Latanoprost, LATEX. Objective: * Vitals: N urse: dw, Pain: 9, Temp: 98, RR: 18, HR: 78, BP: 122/80, Ht: 63, Wt: 180, BMI:31.88. * Examination: E NT/Respiratory: General Appearance : w ell nourished and hydrated, alert.? Ears: a uditory canals normal bilaterally, tympanic membranes with air/fluid levels. Nose : s tuffy . Sinuses : n on tender bilaterally. Oral Cavity n o erythema or exudate seen on pharynx. Neck : n o cervical lymphadenopathy. Heart : R RR, normal S1 S2, no murmurs. Lungs : c lear to auscultation bilaterally, no crackles or wheezes. Abdomen : s oft, NT/ND, BS present. Skin : c lear without rashes. Assessment: * Assessment: 1. C OPD exacerbation - J44.1 (Primary) 2 . S ubacute cough - R05.2 ? Plan: * Treatment: 2. S ubacute cough L AB: Rapid Covid/Flu A-B Combo (Collection Date & Time - 03/09/2025) Value Reference Range R apid Covid neg * F gina A neg * F gina B neg * Brock Mike Alejandra 03/09/2025 1 2:19:46 PM EDT > * Therapeutic Injections: Dexamethasone 4mg Injection : 4 mg (Route: Intramuscular) given by RADHA Colin on left deltoid * Procedure Codes: 8 7636 RAPID COVID/FLU A & B COMBO, Modifiers: QW , J1100 Dexamethasone Sodium Phosphate 4mg Injection, 30318 THERAPEUTIC ADMINISTRATION * Follow Up: p rn * * Sign off status: Completed true * Provider: Jaylon Bustamante APRN Date: 0 03/09/2025 Generated for Mylenei ng/Faxing/eTransmitting on: 0 03/26/2025 01:16 PM EDT History and Physical Notes * HPI (History of Present Illness) Category Sub-Category Detail Notes Category Not es ENT/respiratory sore throat Presents wit h symptoms that began last night. + malaise. No fevers. Exposed to rhinovirus facial pain ear pain shortness of breath cough fever postnasal drip headache chest congestion rhinorrhea nasal congestion wheeze Examination Category Sub-Category Detail Notes Category Not es ENT/Respiratory Oral Cavity no erythema or exudate se en on pharynx Sinuses : non tender bilateral ly Ears: auditory canals norm al bilaterally, tympanic membranes with air/fluid levels Neck : no cervical lymphade nopathy Heart : RRR, normal S1 S2, n o murmurs Lungs : clear to auscultatio n bilaterally, no crackles or wheezes Abdomen : soft, NT/ND, BS pres ent General Appearance : well nourished and hydrated, alert Nose : stuffy Skin : clear without rashes
--- OUTSIDE RECORDS SUMMARY | 2025-03-12 10:45 | XMS_ITS ---
Author Organization [facility] CHRISTINA Cunningham MARINO Address [address] [place] [address] Care Team Providers Care Corporate Legal Intern Name Role Phone Miek Rodrigues Primary Care Provider [phone] McNees, Krissy Unavailable [phone] McNejuan PRINCIPAL QUALITY ENGINEER, KRISSY Unavailable Unavailable Allergies Allergen (clinical drug [...] 7 days As needed 03/09/2025 Active Nystatin 629053 UNIT/GM 1 application Ex ternally Twice a day; Duration: 7 days 01/09/2025 Active Vital Signs Temperature 98.0 degrees Fahrenheit 03/12/20 25 Heart Rate 80 /min 03/12/2025 Blood pressure systolic 150 mm Hg 03/12/20 25 Blood pressure diastolic 86 mm Hg 025 Height 63 in 03/12/2025 Weight 180 lbs 03/12/2025 BMI 31.88 kg/m2 03/12/2025 Encounters Encounter Location Date Provider Diagnosis [facility] MARINO [address] [facility] [address] [place] [address] 03/12/2025 Mike Ravi COPD exacerbation J44.1 and [...] [address], [address], [place], [address], Progress Notes * Sera RINCON DDOB: [birth year] (49 yo F)Acc No.[id number]:03/12/2025 Progress Notes Patient: Sera HINTON Provider: Rajiv Rodrigues MD :1975 A ge:49 Y S ex:Female Date:03/12/2025 Address:[address] [place], [place] [id number] Subjective: * Chief Complaints: * 1 . Feels worse, still congested. * HPI: vamsi en: Has had a couple of different flu and COVID test that have been negative, and is now coughing up some green sputum and spite of dexamethasone injection and promethazine cough syrup. Feels like her chest is slightly tight. No chest pain or dyspnea at rest. Seen at [facility] and transferred to ER last weekend, chest x-ray and COVID and flu testing negative. * Medical History: a sthma/COPD, Depression, HTN, Arthritis, Seasonal Allergies, Endometriosis, Over extreme bladder, Adrenal adenomas, stable per MRI May 2024., 8 mm Sessile serrated adenoma on colonoscopy April 2023. * Medications: T aking Nystatin 139622 UNIT/GM Ointment 1 application Externally Twice a [...] 0 03/12/2025 Generated for Marycruz leonard/Aren/eTransmitting on: 03/26/2025 01:17 PM EDT History and [...] pain or dyspnea at rest. Seen at [facility] and transferred to ER last weekend, chest x-ray and COVID and flu testing negative Examination Category Sub-Category Detail Notes Category Not es General Examination Rhonchi in the left middle and lower lung field. Right side clear. Oropharynx with green postnasal drainage. No sinus tenderness. Tympanic membrane is retracted but clear.
--- OUTSIDE RECORDS SUMMARY | 2025-03-15 11:45 | XMS_ITS ---
Author Organization [facility] CHRISTINA Cunningham MARINO Address [address] [place] [address] Care Team Providers Care Bit Tripoler Name Role Phone Mike Rodrigues Primary Care Provider McNees, Barbie Unavailable [phone] McNees JUDO TEACHER, BARBIE Unavailable Unavailable Allergies Allergen (clinical drug [...] a day; Duration: 30 days Active Nystatin 747614 UNIT/GM 1 application Ex ternally Twice a [...] 03/15/2025 Encounters Encounter Location Date Provider Diagnosis [facility] [address] [place] [address] 03/15/2025 Barbie McNees Shortness of breath R06.02 [...] pending CXR, Reas on: Provider Name:Barbie Clifford, 03/29/2025 03:45:00 PM, [address], [address], [place], [address], Progress Notes * Sera RINCON DDOB: [birth year] (49 yo F)Acc No.[id number]:03/15/2025 Progress Notes Patient: Sera HINTON Provider: Jaylon Bustamante APRN :1975 A ge:49 Y S ex:Female Date:03/15/2025 Address:[address] [place] [phone] Pcp:Mike Rodrigues Subjective: * Chief Complaints: * 1 . Med ck. 2. stopped Prednisone- making her nauseated (can you give her something else). 3. is wanting a refill on Promethazine-DM. * HPI: g en: 49 y/o female presents for FU on COPD exac. Seen last week given dexamethasone. Seen again at [facility], no changes. Back on 03/12, started [...] Grand Mother: . P aternal uncle: alive, ztrlr-fqzjtpds-xkba cancer, diagnosed with Cancer. P aternal aunt: [...] active: yes. Travel outside [place]: no. 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 * Medications: T aking Nystatin 484102 UNIT/GM Ointment 1 application Externally Twice a [...] APRN Date: 0 03/15/2025 Generated for Marycruz leonard/Aren/Aldoitting on: 0 03/26/2025 01:17 PM EDT History and Physical Notes * HPI (History of Present Illness) Category Sub-Category Detail Notes Category Not es gen 49 y/o female p resents for FU on COPD exac. Seen last week given dexamethasone. Seen again at [facility], no changes. Back on 03/12, started [...]
[2025-03-26 13:04] VITALS: BP 197/101; PULSE 85; RESP 18; TEMP 36.8; O2SAT 98; BMI 31.8
--- OUTSIDE RECORDS SUMMARY | 2025-03-26 13:17 | XMS_ITS | Patient Health Record ---
Author Organization [facility] Octavio [facility] Address [address] [place] [address] Care Team Providers Care Clinical Physician Assistant Name Role Phone Mike Rodrigues Primary Care Provider McNejuan, Krissy Unavailable [phone] Dianna THIBODEAUX, KRISSY Unavailable Unavailable Mary Walters Unavailable [phone] Mary Santyoo Unavailable [phone] Migration, Provider Unavailable Unavailable Allergies Allergen (clinical [...] 10:32:59 AM Interpretation: Performing Lab:SADIE, [facility] [address], [place] RockImfkJL[address] Ramon Quinones Notes/Report: NON-FASTING CULTURE, URINE, ROUTINE SEE NOTE CULTURE, URINE, ROUTINE Micro Number: [id number] Test Status: Final Specimen Source: Urine Specimen Quality: Adequate Result: Mixed genital alexa isolated. These superficial bacteria are not indicative of a urinary tract infection. No further organism identification is warranted on this specimen. If clinically indicated, recollect clean-catch, mid-stream urine and transfer immediately to Urine Culture Transport Tube. Rapid Covid/Flu A-B Combo Reviewed date:03/09/2025 02:51:07 PM Interpretation: Performing Lab: Notes/Report: Rapid Covid neg Flu A neg Flu B neg X ray : Chest Reviewed date:03/19/2025 10:29:46 AM Interpretation: Performing Lab: Notes/Report: MRI : Cervical spine without contrast Reviewed date:07/10/2024 01:47:58 PM Interpretation: Performing Lab: Notes/Report: CT ABD WOW Reviewed date:01/29/2025 10:32:59 AM Interpretation: Performing Lab: Notes/Report: Rapid Covid/Flu A-B Combo Reviewed date:09/13/2024 04:18:27 PM Interpretation: Performing Lab: Notes/Report: Rapid Covid Neg Flu A Neg Flu B Neg MRI : Abdomen with & without Reviewed date:07/20/2024 11:25:59 AM Interpretation: Performing Lab: Notes/Report: BASIC METABOLIC PANEL (05911 ) Reviewed date:07/27/2024 03:09:24 PM Interpretation: Performing Lab:CB, [facility] Rlmc[address] [facility], [facility] CitiesVveuCH[address] Ramon Quinones Notes/Report: NON-FASTING GLUCOSE 91 65-99 [...] 65 >60 ML/MIN EGFR 53 >60 ml/min Mammogram : Bilateral Reviewed date:01/19/2025 10:42:39 AM Interpretation: Performing Lab: Notes/Report: LIPID PANEL, STANDARD (7600) Reviewed date:01/15/2025 11:35:55 AM Interpretation: Performing Lab:SADIE, [employer] [address], [place] CardLimzGM[address] Ramon Quinones Notes/Report: NON-FASTING; NON-FASTING; NON-FASTING; NON-FASTING; [...] LDL-C. Mekhi SS et al. RONALD. 2013;310(19): 3744-4801 (http://education.New [employer].Memorado/faq/FSI578) CHOL/HDLC RATIO 3.3 <5.0 (calc) NON HDL CHOLESTEROL 121 <130 mg/dL (calc) For patients with diabetes plus 1 major ASCVD risk factor, treating to a non-HDL-C goal of <100 mg/dL (LDL-C of <70 mg/dL) is considered a therapeutic option. COMPREHENSIVE METABOLIC PANE Malvin (59460) Reviewed date:01/15/2025 11:35:55 AM Interpretation: Performing Lab:SADIE, [employer] [address], [place] CardIdkdSF[address] Ramon Quinones Notes/Report: NON-FASTING; NON-FASTING; NON-FASTING; NON-FASTING; [...] 9) Reviewed date:01/15/2025 11:35:55 AM Interpretation: Performing Lab:SADIE, [facility] [address], [facility] CitiesKachCS[address] Ramon Quinones Notes/Report: NON-FASTING; NON-FASTING; NON-FASTING; NON-FASTING; [...] MPV 11.8 7.5-12.5 fL ABSOLUTE NEUTROPHILS 5420 1884-0510 cells/uL ABSOLUTE LYMPHOCYTES 2148 850-3900 cells/uL ABSOLUTE MONOCYTES 508 200-950 cells/uL ABSOLUTE EOSINOPHILS 90 15-500 cells/uL ABSOLUTE BASOPHILS 33 0-200 cells/uL NEUTROPHILS 66.1 LYMPHOCYTES 26.2 MONOCYTES 6.2 EOSINOPHILS 1.1 BASOPHILS 0.4 HEMOGLOBIN A1c (496) Reviewed date:01/15/2025 11:35:55 AM Interpretation: Performing Lab:SADIE [employer] [address], [place] AeuxJU[address] Ramon Quinones Notes/Report: NON-FASTING; NON-FASTING; NON-FASTING; NON-FASTING; [...] diagnosis of diabetes in children. According to [place] Diabetes Association (ADA) guidelines, hemoglobin A1c <7.0% represents optimal control in non- diabetic patients. Different metrics may apply to specific patient populations. Standards of Medical Care in Diabetes(ADA). TSH W/REFLEX TO FT4 (12668) Reviewed date:01/15/2025 11:35:55 AM Interpretation: Performing Lab:SADIE [facility] Carde[address] [employer] [employer], KryptiqXbmhGE[address] Ramon Quinones Notes/Report: NON-FASTING; NON-FASTING; NON-FASTING; NON-FASTING; NON-FAST TSH W/REFLEX TO FT4 1.02 Reference Range > or = 20 Years 0.40-4.50 Ranges First trimester 0.26-2.66 Second trimester 0.55-2.73 Third trimester 0.43-2.91 VITAMIN D,25-OH,TOTAL,IA (17 306) Reviewed date:01/15/2025 11:35:55 AM Interpretation: Performing Lab:SADIE [employer] [address] [employer], KryptiqDqjlSL[address] Ramon Quinones Notes/Report: NON-FASTING; NON-FASTING; NON-FASTING; NON-FASTING; NON-FAST VITAMIN D,25-OH,TOTAL,IA 31 30-100 ng/mL Vitamin D Status 25-OH Vitamin D: Deficiency: <20 ng/mL Insufficiency: 20 - 29 ng/mL Optimal: > or = 30 ng/mL For 25-OH Vitamin D testing on patients on D2-supplementation and patients for whom quantitation of D2 and D3 fractions is required, the [facility] 25-OH VIT D, (D2,D3), LC/MS/MS is recommended: order code 74273 (patients >2yrs). See Note 1 Note 1 For additional information, please refer to http://education.[employer]/faq/YEP823 (This link is being provided for informational/ educational purposes only.) H-DHEA Reviewed date:05/15/2024 01:25:24 PM Interpretation: Performing Lab: Notes/Report: AM FASTING DHEA 47 UNITS: ng/dL RE FERENC INTERVAL: 31 - 701 Reason For Referral Reason PT at [facility] for upper left back pain Diagnosis 1 Upper back pain on l eft side (M54.9) Referral Organization [facility] Referring Provider First Name Mary Referring Provider Last Name Natanael Referring Provider [facility] ctice Referred Organization [facility] Referred Address [address] [place] [address] [address] [place], [place],[address], Referred Provider Specialty Physical Med icine and Rehabilitation General Notes Erma Kumar 2023 03:14:04 PM >sent to [facility] rehab - they will call patient to schedule appt. Referral Priority Routine Reason Bux- Upper back pain Referral Organization [facility] Referring Provider First Name Mary Referring Provider Last Name Natanael Referring Provider [facility] ctice Referral Priority Routine Reason Please arrange MRI C spine WO at [facility] for ongoing right neck pain, radicular symptoms intermittently, failed PT. Diagnosis 1 Neck pain on right s roshni (M54.2) Referral Organization [facility] Referring Provider First Name Mary Referring Provider Last Name Natanael Referring Provider [facility] ctice Referred Organization [facility] Referred Address [address] [facility] [address] [place], [place],[address], Referred Provider Specialty Diagnostic R adiology General Notes Erma Kumar 2023 10:24:42 AM >Pending José Calabrese Nickie 06/27/2024 09:44:21 AM >approved and order sent to [facility] scheduling. They will contact patient to schedule. Referral Priority Routine Reason Please refer to Neur osurgeon Dr. Meza for spondylosis, per MRI C spine, C4-C5 central protrusion which indents thecal sac and touches and mildly flattens the anterior surface of the cord. Diagnosis 1 Cervical spondylosis (M47.812) Referral Organization [facility] Referring Provider First Name Mike Referring Provider Last Name Ravi [facility] Referred Organization [facility] Referred Address [address] [place], [place],[address],[place] Referred Provider Specialty Neurological Surgery General Notes Erma Kumar 2024 09:29:16 AM >Referral placed through the [facility] portal., Erma Kumar 07/12/2024 09:24:11 AM >[facility] and Dr Meza do not take [employer] however he sees people at [facility] and can see her there. The order was faxed to Caitlin at [place] [phone]. Her phone is [phone]. Clinical Notes Erma Kumar 2024 09:25:21 AM > Referral Priority Urgent Reason CT Adrenal Mass Prot ocol for 6 mth f/u Diagnosis 1 Adrenal mass (E27.8) Referral Organization [facility] Referring Provider First Name Krissy Referring Provider Last Name Dianna Referring Provider [facility] ctice Referred Organization [facility] Referred Address [address] [place] [facility] [address] [facility], [place], [place],[address],[place] Referred Provider Specialty Diagnostic R adiology Referral Priority Routine Reason Can you please see i f this med needs a PA? Patient said her insurance doesn't cover it. Diagnosis 1 Stress incontinence (N39.3) Referral Organization [facility] Referring Provider First Name Mary Referring Provider Last Name Natanael Referring Provider [facility] ctice General Notes Efraín Jerome 03:13:47 PM > PA done on cover my meds Referral Priority Routine Reason Can you help with PA approval of Gemtesa and Trelegy. Failed Dulera and albut/iprat. Diagnosis 1 Stress incontinence (N39.3) Referral Organization [facility] Referring Provider First Name Mary Referring Provider Last Name Natanael Referring Provider [facility] General Notes Efraín Jerome 12:00:55 PM > did PA on cover my meds Referral Priority Routine Reason Please refer to MESERET Roth for esophagitis, feels like something is in her throat when swallowing, history of choking on a Doxycycline pill. Diagnosis 1 Odynophagia (R13.10) Referral Organization [facility] Referring Provider First Name Mary Referring Provider Last Name Natanael Referring Provider [facility] ctice Referred Organization [facility] Referred Address [address] [facility] [address] [place], [place],[address],[place] Referred Provider Specialty Gastroentero logy General Notes Erma Kumar 2024 12:45:45 PM >faxed to Ira Referral Priority Routine Referral Appointment Date 11/27/2024 Reason Please refer to [facility] is Pulmonary Dr. 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 Erma see notes Diagnosis 1 Chronic obstructive pulmonary disease, unspecified COPD type (J44.9) Referral Organization [facility] Referring Provider First Name Mary Referring Provider Last Name Natanael Referring Provider [facility] ctice [facility] Referred Address [address] [place], [place],[address],[place] Referred Provider Specialty Pulmonary Di seases General Notes Efraín Jerome 04:10:31 PM > faxed and they will call patient with apptJosé Nickie 11/21/2024 11:08:46 AM >sent to Referral Priority Routine Reason CT adrenal mass prot ocol - Jenci this is pending with Liseth through [facility] After 01-17 Diagnosis 1 Adrenal mass, left ( E27.8) Diagnosis 2 Adrenal mass, right (E27.9) Referral Organization [facility] Referring Provider First Name Mary Referring Provider Last Name Natanael Referring Provider [facility] ctice Referred Organization [facility] Referred Address [address] [facility] [address] [place], [place],[address],[place] Referred Provider Specialty Diagnostic R adiology General Notes Erma Kumar 2024 03:24:08 PM >pending precert with MICHAEL NAILS- Queenie Childers Jenci D 01/12/2025 02:51:08 PM > It won't let me see it because I didn't put it in, Erma Kumar 01/15/2025 10:29:28 AM >approved sent to [facility] to schedule appt Referral Priority Routine Reason Please refer to Neur ologist Dr. Hills for recurrent migraines. Diagnosis 1 Episodic migraine (G 43.909) Referral Organization [facility] Referring Provider First Name Mary Referring Provider Last Name Santoyo Referring Provider Critical access hospital Notes Efraín Jerome 09:51:01 AM > faxed and they will call pt Referral Priority Routine Reason Please refer to UroCecile GAYTAN with [facility] for stress incontinence. Diagnosis 1 Stress incontinence (N39.3) Referral Organization [facility] Referring Provider First Name Mary Referring Provider Last Name Natanael Referring Provider Critical access hospital Notes Efraín Jerome 10:04:56 AM > faxed [...] janusz yp of colon (D12.6) Referral Organization [facility] Referring Provider First Name Mary Referring Provider Last Name Santoyo Referring Provider Critical access hospital Notes Mike Gutiérrez 12/26 03:43:42 PM >pt notified Referral Priority Routine Referral Appointment Date 05/29/2025 Reason Please arrange annua l mammogram with [facility] for breast cancer screening. Diagnosis 1 Encounter for screen ing mammogram for malignant neoplasm of breast (Z12.31) Referral Organization [facility] Referring Provider First Name Mary Referring Provider Last Name Santoyo Referring Provider Critical access hospital Notes Efraín Jerome 09:49:47 AM > faxed to [facility] and they will call pt Referral Priority Routine Reason Please refer to Dr. Regi Martinez for routine pap smear for cervical cancer screening. Diagnosis 1 Cervical cancer scre ening (Z12.4) Referral Organization [facility] Referring Provider First Name Mary Referring Provider Last Name Santoyo Referring Provider Critical access hospital Notes Efraín Jerome 09:47:23 AM > faxed and they will call pt Referral Priority Routine Reason Please refer to Derm atologist for routine skin cancer screening. Diagnosis 1 Skin cancer screenin g (Z12.83) Referral Organization [facility] Referring Provider First Name Mary Referring Provider Last Name Santoyo Referring Provider Critical access hospital Notes Efraín Jerome 09:46:30 AM > faxed to [facility] and they will call her, Efraín Jerome 02/01/2025 03:37:52 PM > they do not accept insurance- faxed to [place] Referral Priority Routine Reason Can you possibly sen d me GI Dr. Roth note? No longer having acute symptoms, but would like to read their recommendation at that time. Diagnosis 1 History of odynophag ia (Z87.898) Referral Organization [facility] Referring Provider First Name Mary Referring Provider Last Name Santoyo Referring Provider Critical access hospital Notes Efraín Jerome 12:30:28 PM > Referral [...] a day; Duration: 30 days Active Nystatin 861477 UNIT/GM 1 application Ex ternally Twice a [...] Status Risk Notes Problem Hypertrophy of uterus (505776872) Hypertrophy of uterus (N85.2) Active confirmed Problem Peripheral neuropathy (587110790) Peripheral neuropathy (G62.9) Active confirmed Problem Essential hypertension (94676759) Essential (primary) hypertension (I10) Active confirmed Problem Nicotine dependence (60693959) Personal history of nicotine dependence (Z87.891) Active confirmed Problem Anxiety (58286701) Anxiety (F41.9) Active confi rmed Problem Essential hypertension (78058201) Essential hypertension (I10) Active confirmed Problem Acute exacerbation of chronic obstructive airways disease (580138680) COPD exacerbation (J44.1) Active confirmed Problem Chronic pain (91695777) Other chronic pain (G89.29) Active confirmed Problem Lower abdominal pain (68306875) Lower abdominal pain (R10.30) Active confirmed Problem Neck pain (90470539) Neck pain on right side (M54.2) Active confirmed Problem Carpal tunnel syndrome (84473570) Right carpal tunnel syndrome (G56.01) Active confirmed Problem Neck pain (53305919) Neck pain (M54.2) Active confirmed Problem Heart murmur (84126548) Heart murmur (R01.1) Active confirmed Problem COPD - Chronic obstructive pulmonary disease (25055700) Chronic obstructive pulmonary disease, unspecified COPD type (J44.9) Active confirmed Problem Abnormal mammogram (479053836) Abnormal mammogram (R92.8) Active confirmed Problem Migraine without aura, not refractory (941855869) Migraine without aura and without status migrainosus, not intractable (G43.009) Active confirmed Problem Amenorrhea (49701004) Amenorrhea (N91.2) Active confirmed Problem Chronic obstructive pulmonary disease (22141947) Chronic obstructive pulmonary disease (J44.9) Active confirmed Problem SI - Stress incontinence (72868337) Stress incontinence (N39.3) Active confirmed Problem Hyperlipidaemia (19278178) Hyperlipidemia, unspecified hyperlipidemia type (E78.5) Active confirmed Problem Breathlessness on exertion (82280050) Breathlessness on exertion (R06.09) Active confirmed Problem Cervical radiculopathy (26189167) Cervical radiculopathy (M54.12) Active confirmed Problem History of nutritional deficiency (29920229288237) History of vitamin D deficiency (Z86.39) Active confirmed Problem Dysphagia (70722788) Dysphagia, unspecified type (R13.10) Active confirmed Problem Mass of right adrenal gland (finding) (25897658504717920 ) Adrenal mass, right (E27.9) Active confirmed Problem Sciatica (68529440) Acute left-sided low back pain with left-sided sciatica (M54.42) Active confirmed Problem Kyphoscoliosis deformity of spine (440254077) 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) Active confirmed Problem Solitary sacroiliitis (232483616) SI (sacroiliac) joint inflammation (M46.1) Active confirmed Problem Odynophagia (35778627) Odynophagia (R13.10) Active confirmed Problem Tobacco use (691924121) Tobacco use disorder (F17.200) Active confirmed Problem Mass of left adrenal gland (finding) (48603017696620588 ) Adrenal mass, left (E27.8) Active confirmed Problem Cervical spondylosis (065299680) Cervical spondylosis (M47.812) Active confirmed Problem Adrenal mass (516071892) Adrenal mass (E27.8) Active confirmed Problem Episodic migraine (712108054641601) Episodic migraine (G43.909) Active confirmed Problem Retrolisthesis (967920297) Retrolisthesis (M43.10) Active confirmed Problem Sciatica (84499769) Acute left-sided low back pain with right-sided sciatica (M54.41) Active confirmed Problem Sessile serrated polyp of colon (9790868464) Sessile serrated polyp of colon (D12.6) Active confirmed Problem Benign neoplasm of adrenal gland (65810847) Adrenal adenoma, unspecified laterality (D35.00) Active confirmed Vital Signs Heart Rate 92 /min 03/15/2025 Temperature 97.6 degrees Fahrenheit 03/15/2025 Blood pressure diastolic 84 mm Hg 03/15/2025 Height 63 in 03/15/2025 Blood pressure systolic 152 mm Hg 03/15/2025 Weight 180.2 lbs 03/15/2025 BMI 31.92 kg/m2 03/15/2025 Encounters Encounter Location Date Provider Diagnosis [facility] [address] [place] [address] 09/30/2024 Provider Migration COPD exacerbation J44.1 and Esophagitis K20.90 [facility] [address] [place] [address] 01/11/2025 Mary Santoyo [facility] [address] [place] [address] 04/04/2024 Mary Santoyo Upper back pain on left side M54.9 [facility] [place] [address] [address] 04/07/2024 Mary Santoyo Upper back pain M54. 9 [facility] [address] [place], [place] [address] 06/22/2024 Mary Santoyo Neck pain on right side M54.2 [facility] [address] [facility] [address] [place] [address] 07/25/2024 Mary Santoyo EWELINA (acute kidney injury) N17.9 and Essential (primary) hypertension I10 [facility] [address] [facility] [address] [place] [address] 09/11/2024 Mary Selena Episodic migraine G43.909 [facility] [address] [facility] [address] [place] [address] 09/13/2024 Mary Santoyo Acute cough R05.1 ; COPD exacerbation J44.1 and Stress incontinence N39.3 [facility] [address] [facility] [address] [place] [address] 09/18/2024 Mike Rodrigues Chronic obstructive pulmonary disease, unspecified COPD type J44.9 ; COPD exacerbation J44.1 and Episodic migraine G43.909 [facility] [address] [place] [address] 09/22/2024 Mary Santoyo COPD exacerbation J44.1 and Esophagitis K20.90 [facility] [address] [place] [address] 10/12/2024 Mary Santoyo Essential (primary) hypertension I10 ; Chronic obstructive pulmonary disease, unspecified COPD type J44.9 ; Stress incontinence N39.3 and Odynophagia R13.10 [facility] [address] [place] [address] 11/15/2024 Mary Santoyo Chronic obstructive pulmonary disease, unspecified COPD type J44.9 ; Essential (primary) hypertension I10 ; Hypokalemia E87.6 ; Cervical radiculopathy M54.12 and Dysphagia, unspecified type R13.10 [facility] [address] [address] 01/09/2025 Mary Santoyo Hyperlipidemia, unspecified hyperlipidemia type [...] unspecified laterality D35.00 and Poor historian Z78.9 [facility] PANHANDLE [address] [address] 01/26/2025 Krissy McNees Dysuria R30.0 [facility] [address] [address] 03/09/2025 Krissy McNees Subacute cough R05.2 and COPD exacerbation J44.1 [facility] [address] [place] [address] 03/12/2025 Mike Rodrigues COPD exacerbation J44.1 and Hospital discharge follow-up Z09 [facility] [address] [place] [address] 03/15/2025 Krissy McNees Shortness of breath R06.02 and COPD exacerbation J44.1 [facility] [address] [place] [address] 04/04/2024 Mary Santoyo Acute back pain M54. 9 [facility] [address] [facility] [address] [place] [address] 04/05/2024 Mary Santoyo [facility] [address] [facility] [address] [place] [address] 04/13/2024 Mary Santoyo Neck pain M54.2 [facility] [address] [facility] [address] [place] [address] 06/14/2024 Mary Snatoyo Adrenal mass, left E27.8 and Adrenal mass, right E27.9 [facility] [address] [facility] [address] [place] [address] 06/27/2024 Mary Santoyo Kyphoscoliosis deformity of spine M41.9 and Neck pain M54.2 [facility] [address] [place] [address] 07/10/2024 Mary Santoyo [facility] [address] [place] [address] 07/10/2024 Mary Santoyo Cervical spondylosis M47.812 [facility] [address] [place] [address] 07/19/2024 Mary Santoyo [facility] [address] [place] [address] 08/03/2024 Mary Santoyo [facility] [address] [place] [address] 09/21/2024 Mary Santoyo [facility] [address] [place] [address] 10/24/2024 Mary Santoyo [facility] [address] [place] [address] 11/15/2024 Mike Besson [facility] [address] [place] [address] 01/05/2025 Mary Santoyo Adrenal mass, right E27.9 and Adrenal mass, left E27.8 [facility] [address] [place] [address] 01/15/2025 Mike Besson [facility] [address] [facility] [address] [place] [address] 01/10/2025 Mary Santoyo Anxiety F41.9 Assessments Encounter Date Diagnosis (ICD Code) Assessment Notes Treatment Notes Treatment Clinical Notes Section Notes 04/04/2024 Upper back pain on left side [...] for Trelegy, sent script and have asked police or patrol park officer with PA approval. Follow-up in 1 [...] one, referral placed. She is followed by VAULT CL[facility] Dr. [place], unsure when she last had [...] Breztri so will continue. Keep follow-up with [facility] Package Designer. 11/15/2024 Hypokalemia (ICD-10 - E87.6) Re-checking BMP. [...] - N39.3) Previously followed by [facility] who performed a botox shot per patient. [...] of life, referred back to [facility] at patient request. 01/09/2025 Fatigue, unspecified [...] of uterus (ICD-10 - N85.2) Follows with VAULT CLERK. History of ablation. 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 Otherwise, can give a good history of what specialists are doing for her, which is helpful. If her memory changes anymore from this baseline, consider work-up for her memory. 04/07/2024 Other Back Stretches: Exercises material was [...] B12 01/07/2024 M-Vitamin D 25 Hydroxy 01/07/2024 [id number] 03/23/2024 Physical Therapy Eval and Treat 04/04/20 Physical Therapy Eval and Treat 04/13/20 BASIC METABOLIC PANEL (42923) 10/28/2023 BASIC METABOLIC PANEL (86483) 11/15/2024 BASIC METABOLIC PANEL (90081) 12/02/2023 Next Appt Details Provider Name:Krissy Clifford, 03/29/2025 03:45:00 PM, [address], [address], [place], [address], Insurance Providers Payer Name Payer Address Payer Phone Subscriber Number Group Number Insured Name Patient Relationship to Insured Coverage Start Date Coverage End Date [employer] [place] [employer] [address] [address] [place] [address] [phone] [id number] Sera Saxena Self - patient is the [...]
--- OUTSIDE RECORDS SUMMARY | 2025-03-26 13:17 | XMS_ITS | Clinical Summary ---
Author Organization [facility] Address [address] [place] [phone] Phone Care Team Providers Care E Commerce Solution Architect Name Role Phone Unavailable Primary Care Provider [...] patient's age to complete this topic Insurance [facility] [id number] MDR [facility] [place] [id number]
--- OUTSIDE RECORDS SUMMARY | 2025-03-26 13:17 | XMS_ITS | Clinical Summary ---
Author Organization [facility] Address [address] [place] [address] Care Team Providers Care Academic Support Specialist Name Role Phone Provider, No [...] Description 01/10/2025 3:30 PM EDT Office Visit [facility] [address] [place] [address] Raul Yoon DO Shortness of breath (Primary Dx); Mucopurulent chronic bronchitis; Personal history of smoking 01/10/2025 2:55 PM EDT Hospital Encounter [facility] [address] [place] [address] 01/10/2025 Travel from Last 3 Months Social [...] Description 05/15/2025 2:45 PM EST Office Visit [facility] [address] [place] [address] Raul Yoon DO [address] [place] [address] Health Maintenance Due Date Last Done Comments [...] HEPATITIS C SCREENING 01/10/2025 INFLUENZA VACCINE 01/26/2025 TDAP/TD VACCINES (2 - Td or Tdap) [...] Narrative 01/10/2025 3:57 PM EDT Sera Saxena [id number] 01/10/2025 Chest X-Ray PA & Lateral Indication: [...] 3 Months Insurance [employer] Care Teams Academic Support Specialist Relationship Specialty Start Date End Date Provider, No Known [facility] [place] [address] PCP - General 01/10/25
--- NOTE | 2025-03-26 13:22 | CT_ITS ---
FINAL REPORT TECHNIQUE: Axial CT images were performed through the head. Coronal reformatted images were submitted. This study was performed with techniques to keep radiation doses as low as reasonably achievable (ALARA). Individualized dose reduction techniques using automated exposure control or adjustment of mA and/or kV according to the patient's size were employed. CLINICAL HISTORY: PEÑA, worsening COMPARISON: None FINDINGS: The ventricles are normal in size. There is no evidence of hemorrhage. There is no mass or edema identified. There is no abnormal extra-axial fluid seen. Hypoplastic right mastoid air cells are noted. IMPRESSION: No acute intracranial process. Reviewed, Interpreted and Dictated by Wilian Esquivel MD Transcribed by Gretchen Stephenson Authenticated and [facility]
[2025-03-26 13:25] VITALS: BP 151/101; PULSE 87; O2SAT 99
--- NOTE | 2025-03-26 13:25 | HMH.EDGENADL ---
Discharge Plan Disposition Patient Disposition: Home, Self-Care Condition: Good Prescriptions Prescriptions: New prochlorperazine maleate [Compazine] 5 mg tablet 5 mg PO Q8H PRN (Reason: nausea and vomiting) Qty: 14 0RF ketorolac 10 mg tablet 10 mg PO Q8H PRN (Reason: pain) 1 Days Qty: 14 0RF No Action paroxetine HCl 10 mg tablet 10 mg PO DAILY ibuprofen 800 mg tablet 800 mg PO ONCE PRN (Reason: Blood Pressure) Patient Comments: TAKE 1 TABLET BY MOUTH EVERY 8 HOURS albuterol sulfate [Proventil HFA] 90 mcg/actuation HFA aerosol inhaler 2 puff INHALATION Q6H PRN (Reason: shortness of breath or wheezing) Qty: 8.5 2RF promethazine-DM 6.25-15 mg/5 mL syrup 5 ml PO Q6H PRN Patient Comments: TAKE 5 ML BY MOUTH EVERY 6 HOURS NEEDED lidocaine [Lidoderm] 5 % adhesive patch,medicated 1 patch topical DAILY Rx Instructions: leave on most painful area for up to 12 hrs doxycycline hyclate 100 mg tablet 100 mg PO BID Patient Comments: TAKE 1 TABLET BY MOUTH TWICE DAILY Gemtesa 75 mg tablet 75 mg PO DAILY Breztri Aerosphere 160-9-4.8 mcg/actuation HFA aerosol inhaler 2 inh inhalation BID topiramate 100 mg tablet 100 mg PO HS Qty: 30 3RF Nurtec ODT 75 mg tablet,disintegrating 75 mg PO ONCE PRN (Reason: migraine headache) Qty: 8 3RF Nurtec ODT 75 mg tablet,disintegrating 0RF albuterol sulfate 1.25 mg/3 mL solution for nebulization 1.25 mg inhalation QID PRN (Reason: shortness of breath or wheezing) Qty: 90 0RF umeclidinium-vilanterol [Anoro Ellipta] 62.5-25 mcg/actuation blister with device See Rx Instructions .ROUTE .COMPLEX Rx Instructions: 1 PUFF ONCE DAILY carvedilol 12.5 mg tablet 12.5 mg PO DAILY Patient Comments: TAKE 1 TABLET BY MOUTH TWICE DAILY hydrochlorothiazide 12.5 mg tablet 12.5 mg PO DAILY Patient Comments: TAKE 1 TABLET BY MOUTH DAILY Referrals Follow up/Referrals: Krissy Bustamante APRN [Primary Care Provider, Medical] - See instructions Activity Restrictions/Add. Instructions Additional Instructions/Restrictions: You have been seen and evaluated in the emergency department. You been given prescriptions for Compazine and Toradol. Do not take Compazine with Zofran -these are both nausea medications. Do not take Toradol with Aleve or ibuprofen. Clinical Impressions Clinical Impression: Migraine Qualifiers: Migraine type: migraine (< 15 days per month) without aura Status migrainosus presence: without status migrainosus Intractability: not intractable Qualified Code(s): G43.009 - Migraine without aura, not intractable, without status migrainosus Stand Alone Forms Stand Alone Forms: Work/School Release Instructions Patient Instructions: Migraine -- Adult, DI for Migraine Print Language Print Language: Vietnamese Discharge ED Provider: Mary Abrams Adult HPI General Chief complaint: Headache Stated complaint: migraine Time Seen by Provider: 03/26/25 13:12 Mode of Arrival: Ambulatory Source of Information: Patient Description of Symptoms (Recalled from ER Triage Doc. by RN): pt presents to ED c/o headache since 229. pt reports hx of migraines and states she is a Dr. Hills patient. pt states she took her migraine medication with no relief. pt states she has not taken any of her other medications today, one being bp medication. History of Present Illness HPI narrative: 49-year-old female presented the emergency department with headache and nausea. She reports history of frequent migraines. She has never previously had head imaging. The headache has begun gradually this morning. No episodes of vomiting. No numbness or weakness of the extremities. No recent head trauma. She tried Nurtec earlier today without relief. No other medications. Related Data Home Medications ?Medication ?Instructions ?Recorded ?Confirmed umeclidinium 62.5 mcg-vilanterol See Rx Instructions .Route 07/09/22 03/11/25 25 mcg/actuation powdr for .COMPLEX Asthma inhalation (Anoro Ellipta) paroxetine HCl 10 mg tablet 10 mg PO DAILY 08/31/23 03/21/25 carvedilol 12.5 mg tablet 12.5 mg PO DAILY 01/20/24 03/21/25 hydrochlorothiazide 12.5 mg tablet 12.5 mg PO DAILY 01/20/24 03/21/25 ibuprofen 800 mg tablet 800 mg PO ONCE PRN Blood Pressure 03/17/24 03/21/25 budesonide 160 mcg-glycopyr 9 2 inh inhalation BID 03/21/25 03/21/25 mcg-formot 4.8 mcg/actuation HFA inhaler (Breztri Aerosphere) doxycycline hyclate 100 mg tablet 100 mg PO BID 03/21/25 03/21/25 lidocaine 5 % topical patch 1 patch topical DAILY 03/21/25 03/21/25 (Lidoderm) promethazine-DM 6.25 mg-15 mg/5 mL 5 ml PO Q6H PRN 03/21/25 03/21/25 oral syrup vibegron 75 mg tablet (Gemtesa) 75 mg PO DAILY 03/21/25 03/21/25 Previous Rx's ?Medication ?Instructions ?Recorded albuterol sulfate 90 mcg/actuation 2 puff inhalation Q6H PRN 07/02/21 aerosol inhaler (Proventil HFA) shortness of breath or wheezing #8.5 grams albuterol sulfate 1.25 mg/3 mL 1.25 mg (3 mL) inhalation QID PRN 11/29/23 solution for nebulization shortness of breath or wheezing #90 mL rimegepant 75 mg disintegrating 75 mg PO ONCE PRN migraine 03/21/25 tablet (Nurtec ODT) headache #8 tabs topiramate 100 mg tablet 100 mg PO HS #30 tabs 03/21/25 ketorolac 10 mg tablet 10 mg PO Q8H PRN pain 1 day #14 03/26/25 tabs prochlorperazine maleate 5 mg 5 mg PO Q8H PRN nausea and 03/26/25 tablet (Compazine) vomiting #14 tabs Allergies Allergy/AdvReac Type Severity Reaction Status Date / Time codeine Allergy Intermediate SOB Verified 03/21/25 10:20 aspirin Allergy Mild Hives Verified 03/21/25 10:20 Penicillins Allergy Unknown Hives Verified 03/21/25 10:20 PFS PFSH Disclaimer: The information contained in this section may have been updated after the patient was seen, as this information can be updated by other users. Medical History (Updated 03/26/25 @ 14:51 by Mary Abrams DO) Viral upper respiratory infection MIGUE (obstructive sleep apnea) Stenosis of cervix Menorrhagia with irregular cycle Migraine Costochondral chest pain Second degree burn Trichomonal vaginitis History of chlamydia Neuropathic pain Tobacco use Vitamin D deficiency (~01/23/18) Leg pain Hypertension Surgical History History of endometrial ablation H/O cervical polypectomy History of hysteroscopy History of colonoscopy History of dental surgery Hx of section History of tubal ligation Family History Other Asthma Cancer Coronary artery disease Family history of COPD (chronic obstructive pulmonary disease) Family history of cancer Family history of diabetes mellitus type II Family history of myocardial infarction Heart attack Hyperlipidemia Hypertension Social History Smoking Status: Current every day smoker tobacco type: cigarettes packs per day: 1 years smoked: 30 alcohol intake: former substance use type: former substance user and painkillers current occupational status: other Travel in the last 8 weeks?: None household members: significant other housing: house marital status: single number of children: 3 caffeine: Yes special sharron needs: No agree to transfusion: No do you feel safe at home: Yes victim of physical abuse: No victim of emotional abuse: No victim of sexual abuse: No would you like helpful sources: No Have you lived/traveled outside US in past 30 days?: No Contact w/someone who lives/traveled outside US past 30 days?: No Exposure to someone with infectious disease in past 14 days?: No Do you have a fever (greater than 100.4 F or 38 C)?: No Have you tested positive for COVID-19?: No Exposed to someone with COVID-19 in past 14 days?: No Do you have a sore throat?: No Do you have a cough?: No Do you have any weakness?: No Do you have any diarrhea?: No Are you experiencing any unusual bleeding?: No Do you have any muscle aches/pain?: No Do you have any abdominal pain?: No Are you experiencing loss of taste or smell?: No Other Medical History Have you received the Flu Vaccine for this season: No Have you received the Pneumonia Vaccine: No ROS Obtained: Yes All systems reviewed & no additional complaints except as documented Physical Exam General General appearance: alert and in no apparent distress Head Head exam: atraumatic Eye Eye exam: Present normal appearance, PERRL and EOMI ENT ENT exam: Present mucous membranes moist Neck Neck exam: Present normal inspection and full ROM; Absent tenderness Chest Chest inspection: Present symmetric chest wall rise; Absent tenderness Respiratory Respiratory exam: Absent respiratory distress, wheezes or accessory muscle use Cardiovascular Cardiovascular exam: Present regular rate and normal rhythm Abdominal Exam Abdominal exam: Present soft; Absent tenderness or guarding Extremities Exam Extremities exam: Present full ROM; Absent tenderness Neurological Exam Neurological exam: Present alert and oriented X3 Psychiatric Psychiatric exam: Present normal affect Skin Skin exam: Present warm and dry Medical Decision Making Medical Records Screening: Per USPSTF and CDC recommendations, given the prevalence of disease in our region, it is our hospital?s policy to screen for HIV and viral Hepatitis for all patients aged 18 and over and those with ongoing risk factors. Fernando Inquiry Pt receiving controlled substance: No Vital Signs: 03/26/25 13:04 03/26/25 13:25 03/26/25 13:36 Temperature 98.3 F Temperature Source Oral Pulse Rate 87 88 Pulse Rate [Right Radial] 85 Respiratory Rate 18 Blood Pressure 151/101 H 148/78 H Blood Pressure [Right Arm] 197/101 H Blood Pressure Mean 117 101 Blood Pressure Mean [Right Arm] 133 Blood Pressure Source Blood Pressure Source [Right Arm] Automatic Cuff Blood Pressure Position Blood Pressure Position [Right Arm] Sitting 02 Sat by Pulse Oximetry 98 99 99 Oxygen Delivery Method Room Air 03/26/25 13:40 03/26/25 13:50 03/26/25 15:13 Temperature 98.6 F Temperature Source Oral Pulse Rate 78 78 74 Pulse Rate [Right Radial] Respiratory Rate 16 Blood Pressure 148/102 H 163/96 H 115/86 Blood Pressure [Right Arm] Blood Pressure Mean 117 118 Blood Pressure Mean [Right Arm] Blood Pressure Source Automatic Cuff Blood Pressure Source [Right Arm] Blood Pressure Position Sitting Blood Pressure Position [Right Arm] 02 Sat by Pulse Oximetry 94 L 94 L Oxygen Delivery Method Room Air Orders (Tests/Meds): ED MEDICATIONS Discontinued Medications Generic Name Dose Route Start Last Admin Trade Name Freq PRN Reason Stop Dose Admin Acetaminophen 1,000 mg 03/26/25 13:22 03/26/25 13:44 Acetaminophen 500mg Tab PO 03/26/25 13:23 1,000 mg ONCE ONE Administration Ketorolac Tromethamine 15 mg 03/26/25 13:22 03/26/25 13:43 Ketorolac 15mg/Ml Vial IM 03/26/25 13:23 15 mg ONCE ONE Administration Prochlorperazine Maleate 5 mg 03/26/25 13:27 03/26/25 13:50 Prochlorperazine Maleate 5mg Tablet PO 03/26/25 13:28 5 mg ONCE ONE Administration ORDERS Category Date Time Status CT head/brain wo con Stat Cat Scan 03/26/25 13:22 Completed Medical Decision Narrative: 49-year-old female with reported history of frequent headaches who presents emergency department with headache. This headache is worse than her normal. And has associated nausea. Differential diagnose clues was not limited to migraine headache, tension headache, cervicogenic headache, intracranial hemorrhage, intracranial mass. On my initial assessment, the patient is mildly hypertensive with systolics in the 160s, however is otherwise hemodynamically stable. She has a nonfocal neurologic exam. Considering her recurrent headaches without any previous head imaging, we will proceed with a noncontrasted CT scan of the head in conjunction with migraine cocktail. CT scan with no acute findings, on my reassessment, the patient reports improvement in her headache from 8 out of 10 to now 5 out of 10. I offered an additional round of migraine medications, however the patient would like to proceed home. She was discharged home with prescriptions for Toradol and Tylenol. I encouraged her to keep her follow-up appointment for head MRI in early March Critical Care Critical Care Time Critical Care Time: No
[2025-03-26 13:36] VITALS: BP 148/78; PULSE 88; O2SAT 99
[2025-03-26 13:40] VITALS: BP 148/102; PULSE 78; O2SAT 94
[2025-03-26] MEDS: KETOROLAC 15MG/ML VIAL 15 MG IM (13:43)
[2025-03-26] MEDS: ACETAMINOPHEN 500MG TAB 1000 MG PO (13:44)
[2025-03-26 13:50] VITALS: BP 163/96; PULSE 78; O2SAT 94
[2025-03-26] MEDS: PROCHLORPERAZINE MALEATE 5MG TABLET 5 MG PO (13:50)
[2025-03-26 15:13] VITALS: BP 115/86; PULSE 74; RESP 16; TEMP 37; O2SAT 100
== END 2025-03-26 15:15 | disposition home or self-care (01) ==
PROVIDERS: Emergency Provider Student in an Organized Health Care Education/Training Program; PCP Nurse Practitioner Family
DX: G43.009 Migraine without aura, not intractable, without status migrainosus (principal); R11.0 Nausea; F17.210 Nicotine dependence, cigarettes, uncomplicated
CPT/HCPCS: 70450; 96372; 99284; J1885

== ENCOUNTER 2025-04-05 12:35 | Outpatient (CLI) | payer MEDICAID, SELFPAY ==
[2025-04-05 12:59] LABS: Hematocrit 38.8 % (37.0-47.0); Hemoglobin 13.0 g/dL (12.2-16.2); Immature Granulocytes % 0.3 %; Mean Corpuscular HGB Conc 33.5 g/dL (31.8-35.4); Mean Corpuscular Hemoglobin 30.2 pg (27.0-31.2); Mean Corpuscular Volume 90.2 fl (81-99); Nucleated Red Blood Cells % 0 %; Platelet Count 308 K/mm3 (142-424); Red Blood Count 4.30 M/mm3 (4.20-5.40); Red Cell Distribution Width-SD 44.2 fL; White Blood Count 7.4 K/mm3 (4.8-10.8)
[2025-04-05 14:09] LABS: Alanine Aminotransferase 16 U/L (12-78); Albumin Level 4.4 g/dl (3.5-5.0); Albumin/Globulin Ratio 1.6 (1.1-1.8); Alkaline Phosphatase 148 U/L (38-126); Anion Gap 14.9 mEq/L (5-15); Aspartate Amino Transferase 18 U/L (14-36); Bilirubin,Total 0.6 mg/dl (0.2-1.3); Blood Urea Nitrogen 22 mg/dl (7-17); Calcium 9.7 mg/dl (8.4-10.2); Carbon Dioxide 24 mmol/L (22.0-30.0); Chloride 106 mmol/L (98-107); Creatinine,Serum 1.10 mg/dl (0.52-1.04); Estimated Glomerular Filt Rate 53 ml/min (>60); GFR (African American) 64 ML/MIN (>60); Globulin 2.8 g/dL (1.3-3.2); Glucose 89 mg/dl (74-100); Potassium 4.9 mmoL/L (3.5-5.1); Sodium 140 mmol/L (136-145); Total Protein,Serum 7.2 g/dl (6.3-8.2)
[2025-04-05 14:59] LABS: Vitamin B12 740 pg/mL (239-931)
== END 2025-04-05 23:59 | disposition home or self-care (01) ==
LOC: LAB 12:37
PROVIDERS: PCP Nurse Practitioner Family; Visit Provider Specialist
DX: G43.909 Migraine, unspecified, not intractable, without status migrainosus (principal); G44.81 Hypnic headache; G44.52 New daily persistent headache (NDPH); G47.10 Hypersomnia, unspecified
CPT/HCPCS: 36415; 80053; 82607; 85025

== ENCOUNTER 2025-04-09 15:12 | Outpatient (CLI) | payer MEDICAID, SELFPAY ==
--- OUTSIDE RECORDS SUMMARY | 2020-02-29 03:20 | XMS_ITS | Continuity of Care Document ---
Author Organization [facility] Address [address] [place] [address] [address] [address] Care Team Providers Care Gettering Filament Machine Operator Name Role Phone [facility] Unavailable Unav ailable Procedures Procedure Date REPOSITION [...] Date Provider Providers Copied on Encounter [facility], [address] [place] [address], [place], [place], [facility], [facility] [place] No Information Sep-0 0 Surgical Center [facility]. [address] [place] [address], [place], [place], [id number], [place]. tel:[phone] Referring Provider: Jas Marin MD, [address] [facility], [place], [address] . tel:[phone] [facility] [place], [address] [place] [address] 100, [facility] [place] [address], [facility] [place] No Information Sep-0 0 Missy Gomez. [address] [place] [address], [facility] [place] [address], . tel:[phone] Referring Provider: Jas Marin MD, [address] [place] [address], [place], [address] . tel:[phone] [facility], [address] [place], [place] [address], [place], [place], [facility], [place] [facility] No Information 0 [facility]. [address] [place] [address], [address], [place], [id number], [place]. tel:[phone] Referring Provider: Jas Marin MD, [address] [place] [address], [place], [address] . tel:[phone] [facility], [address] [place], [place] [address], [place], [place], [facility], [facility] No Information 0 Missy Gomez. [address] [place] [address], [address], [place], [place], [facility], . tel:[phone] Referring Provider: Jas Marin MD, [address] [place] [address], [place], [address] . tel:[phone] [facility], [address] [place], [place] [address], [place], [facility], [facility] No Information 0 [facility]. [address] [place] [address], [address], [place], [id number], . tel:[phone] Referring Provider: Jas Marin MD, [address] [place] [address], [place], [address] . tel:[phone] [facility], [address] [place], [place] [address], [place], [address], [facility] No Information 0 Missy Gomez. [address] [place] [address], [address], [place], [address], . tel:[phone] Referring Provider: Jas Marin MD, [address] [place] [address], [place], [address] . tel:[phone] Family History Family Member Type Diagnosis Age At Onset No Information Payers Payer name Insurance type Covered democrat ID Pete lamas(komal Kendall CI [id number] [facility] CI [id number] Omidria Assure - DO NOT USE CI [id number] Social History Type Description Quantity Date Captured [...]
--- OUTSIDE RECORDS SUMMARY | 2025-01-10 14:55 | XMS_ITS | Encounter Summary ---
Author Organization [facility] Address [address] [place] [address] Care Team Providers Care Instructional Resource Teacher Name Role Phone Provider, No Known Primary Care Provider Unavail able Encounter Details Date Type Department Care Team (Late Contact Info) Description 01/10/2025 2:55 PM EDT Hospital Encounter [facility] PULMONARY & CRITICAL CARE MEDICINE [address] [place] [phone] Social History Tobacco Use Types Packs/Day Years Used Date Smoking Tobacco: Every Day Cigarettes 1 40.8 Started: 1984 Smokeless Tobacco: Never Alcohol Use [...] Upcoming Encounters Date Type Department Care Team ([facility] Contact Info) Description 05/15/2025 2:45 PM EST Office Visit [facility] PULMONARY & CRITICAL CARE MEDICINE [address] [place] [address] Raul oYon DO [address] [place] [address] documented as of this encounter Procedures Procedure Name Priority Date/Time Associated Diagnosis Comments XR CHEST PA AND LATERAL Routine 01/10/2025 2:56 PM EDT Shortness of breath documented in this encounter Results * XR Chest PA & Lateral (01/10/2025 2:56 PM EDT) Anatomical Region Laterality Modality Body, Chest N/A Radiographic Keerthi ging Narrative 01/10/2025 3:57 PM EDT Sera Saxena [id number] 01/10/2025 Chest X-Ray PA & Lateral Indication: [...] on filedocumented in this encounter Care Teams Instructional Resource Teacher Relationship Specialty Start Date End Date Provider, [place] [address] PCP - General 01/10/25 documented as of this encounter
--- OUTSIDE RECORDS SUMMARY | 2025-01-11 10:15 | XMS_ITS ---
Author Organization [facility] Address [address] [facility] [address] [place] [address] Care Team Providers Care Credit And Collections Analyst Name Role Phone Mike Rodrigues Primary Care Provider Barbie Bustamante Unavailable [phone] BARBIE Bustamante APRN Unavailable Unavailable Mary Santoyo Unavailable [phone] REASON FOR VISIT Labs Encounters Encounter Location Date Provider Diagnosis [facility] [address] [facility] [address] [place] [address] 01/11/2025 Mary Santoyo Plan Of Treatment Next Appt Details Provider Name:Barbie Clifford, 04/12/2025 03:15:00 PM, [address] [facility], [address], [place], [address], Progress Notes * SERGEY Sera DDOB: [birth year] (49 yo F)Acc No.[id number]:01/11/2025 LABS Patient: Sera HINTON Provider: BERNARDO Phipps :1975 A ge:49 Y S ex:Female Date:01/11/2025 [address] [facility] [id number] Pcp:Mike Rodrigues Subjective: * Chief Complaints: * 1 . Labs. * Medical History: Objective: * Vitals: Assessment: Plan: * Treatment: * * Electronic signature of Amelia Santoyo PA-C on 04/09/2025 at 03:16 PM EDT Sign off status: Pending * Provider: BERNARDO Phipps Date: 0 01/11/2025 Generated for Marycruz leonard/Aren/Sriram on: 1 03:16 PM EDT
--- OUTSIDE RECORDS SUMMARY | 2025-02-19 10:45 | XMS_ITS ---
Author Organization [facility] Address [address] [place] [address] Care Team Providers Care Child Welfare Consultant Name Role Phone Mike Rodrigues Primary Care Provider [phone] Barbie Bustamante Unavailable [phone] ABRBIE Bustamante APRN Unavailable Unavailable REASON FOR VISIT med ck Encounters Encounter Location Date Provider Diagnosis [facility] [address] [place], [place] [address] 02/19/2025 Mike Rodrigues Plan Of Treatment Next Appt Details Provider Name:Barbie Carlos Oli Marsh, 04/12/2025 03:15:00 PM, [address], [place], [address], Progress Notes * Sera RINCON DDOB: [birth year] (49 yo F)Acc No.[id number]:02/19/2025 Progress Notes Patient: Sera HINTON Provider: Rajiv Rodrigues MD :1975 A ge:49 Y S ex:Female Date:02/19/2025 [facility] [facility] [id number] Subjective: * Chief Complaints: * 1 . Med ck. * Medical History: Objective: * Vitals: Assessment: Plan: * Treatment: * * Electronic signature of Louie Rodrigues MD FAAP on 04/09/2025 at 03:17 PM EDT Sign off status: Pending * Provider: Rajiv Rodrigues MD Date: 0 02/19/2025 Generated for Marycruz leonard/Aren/Sriram on: 1 03:17 PM EDT
--- OUTSIDE RECORDS SUMMARY | 2025-03-09 07:30 | XMS_ITS ---
Author Organization [facility] CHRISTINA Cunningham MARINO Address [address] [place] [address] Care Team Providers Care Grades 7 And 8 Teacher Name Role Phone Mike Rodrigues Primary Care Provider [phone] McNees, Krissy Unavailable [phone] McNejuan HEALTH DIAGNOSTICS TEACHER, KRISSY Unavailable Unavailable Allergies Allergen (clinical [...] day; Duration: 30 days 09/13/2024 Active Nystatin 303695 UNIT/GM 1 application Ex ternally Twice a [...] 03/09/2025 Encounters Encounter Location Date Provider Diagnosis [address] [address] 03/09/2025 Krissy McNees Subacute cough R05.2 and [...] prn, Reason: Provider Name:Krissy Carlos Oli Marsh, 04/12/2025 03:15:00 PM, [address], [address], [place], [address], Medications Administered Medication Instructions Date of Administration Dosage Notes Dexamethasone 4mg Injection 03/09/2025 4 mg Progress Notes * Sera RINCON DDOB: [birth year] (49 yo F)Acc No.[id number]:03/09/2025 Progress Notes Patient: Sera HINTON Provider: Jaylon Bustamante APRN :1975 A ge:49 Y S ex:Female Date:03/09/2025 Address:[address] [place], [place] [id number] Pcp:Mike Rodrigues Subjective: * Chief Complaints: * [...] April 2023. * Medications: T aking Nystatin 500239 UNIT/GM Ointment 1 application Externally Twice a [...] *Please review and pick correct strength-formulation from Portero options. If intended option is not shown, [...] , J1100 Dexamethasone Sodium Phosphate 4mg Injection, 41615 THERAPEUTIC ADMINISTRATION * Follow Up: p rn * * Sign off status: Completed true * Provider: Jaylon Bustamante APRN Date: 0 03/09/2025 Generated for Mylenei ng/Faxing/eTransmitting on: 1 03:14 PM EDT History and Physical Notes * [...]
--- OUTSIDE RECORDS SUMMARY | 2025-03-12 10:45 | XMS_ITS ---
Author Organization [facility] CHRISTINA Cunningham MARINO Address [address] [place] [address] Care Team Providers Care Card Writer Hand Name Role Phone Mike Rodrigues Primary Care Provider McNees, Krissy Unavailable [phone] McNejuan OPERATIONS LEAD, KRISSY Unavailable Unavailable Allergies Allergen (clinical drug ingredient) Drug/Non Drug Allergy documented on EMR Reaction Allergy Type Onset Date Status Latex LATEX (uncoded) Unknown Allergy Acti ve TYLENOL #3 WITH CODEINE (uncoded) Unknown Allergy Active aspirin Aspirin Unknown Drug Allergy Active latanoprost Latanoprost Unknown Drug Allergy Act caty Penicillin Unknown Drug Allergy Active REASON FOR VISIT Feels worse, still congested Medications Medication SIG (Take, Route, Frequency, Duration) Notes Start Date End Date Status Gemtesa 75 MG 1 tab(s) orally once a day; Duration: 30 days 09/13/2024 Active Breztri Aerosphere 160-9-4.8 MCG/ACT 2 puffs Inhalation Twice a day; Duration: 30 days 10/31/2024 Active Ibuprofen 800 MG 1 tab(s) orally every 8 hours; Duration: 30 days As needed pain. prn Active Phenazopyridine HCl 200 MG 1 tablet afte r meals Orally Three times a day; Duration: 2 days 01/26/2025 Active predniSONE 20 MG 3 tabs orally once a day for two days, then 2 daily for 2 days, then one daily for two days; Duration: 6 day(s) 03/12/2025 Active Lidoderm 5 % APPLY 1 PATCH TOPICA LLY ONCE DAILY FOR 30 DAYS; Duration: 30 prn Active Ventolin HFA 108 (90 Base) MCG/ACT 2 INH inhaled every 6 hours prn Active Carvedilol 12.5 MG 1 tab(s) orally 2 ti mes a day; Duration: 30 days Active Doxycycline Hyclate 100 MG One tab PO tw ice daily; Duration: 10 days 03/12/2025 Active PARoxetine HCl 10 MG 1 tab(s) orally onc e a day; Duration: 30 days Active Topiramate 50 MG TAKE 1 TABLET BY DOMENICO TH AT BEDTIME; Duration: 30 Active Promethazine-DM 6.25-15 MG/5ML 5 mL as needed Orally every 6 hrs; Duration: 7 days As needed 03/09/2025 Active Nystatin 020694 UNIT/GM 1 application Ex ternally Twice a day; Duration: 7 days 01/09/2025 Active Vital Signs Temperature 98.0 degrees Fahrenheit 03/12/20 25 Heart Rate 80 /min 03/12/2025 Blood pressure systolic 150 mm Hg 03/12/20 25 Blood pressure diastolic 86 mm Hg 025 Height 63 in 03/12/2025 Weight 180 lbs 03/12/2025 BMI 31.88 kg/m2 03/12/2025 Encounters Encounter Location Date Provider Diagnosis [facility] MARINO [address] [facility] [address] [place] [address] 03/12/2025 Mike Ravi COPD exacerbation J44.1 and Hospital discharge follow-up Z09 Assessments Encounter Date Diagnosis (ICD Code) Assessment Notes Treatment Notes Treatment Clinical Notes Section Notes 03/12/2025 COPD exacerbation (ICD-10 - J44.1) Reviewed previous notes, reviewed notes from ER.Given worsening symptoms will escalate therapy to treat for COPD exacerbation. Side effects of meds discussed 03/12/2025 Hospital discharge follow-up (ICD-10 - Z09) I reviewed ER notes available from emergency department. Reviewed labs, reviewed discharge plan, personally reconciled medication. Plan Of Treatment Medication Medication Name Sig Start Date Stop Date Notes predniSONE 20 MG 3 tabs orally once a day for two days, then 2 daily for 2 days, then one daily for two days; Duration: 6 day(s) 03/12/2025 Doxycycline Hyclate 100 MG One tab PO tw ice daily; Duration: 10 days 03/12/2025 Treatment Notes Assessment Notes COPD exacerbation Reviewed previous notes, reviewed notes from ER.Given worsening symptoms will escalate therapy to treat for COPD exacerbation. Side effects of meds discussed Hospital discharge follow-up I reviewed ER notes available from emergency department. Reviewed labs, reviewed discharge plan, personally reconciled medication. Next Appt Details Follow Up: prn, Reason: Provider Name:Krissy Carlos Oli Marsh, 04/12/2025 03:15:00 PM, [address], [address], [place], [address], Progress Notes * Srea RINCON DDOB: [birth year] (49 yo F)Acc No.[id number]:03/12/2025 Progress Notes Patient: Sera HINTON Provider: Rajiv Rodrigues MD :1975 A ge:49 Y S ex:Female Date:03/12/2025 Address:[address] [place], [place] [id number] Subjective: * Chief Complaints: * 1 . Feels worse, still congested. * HPI: vamsi en: Has had a couple of different flu and COVID test that have been negative, and is now coughing up some green sputum and spite of dexamethasone injection and promethazine cough syrup. Feels like her chest is slightly tight. No chest pain or dyspnea at rest. Seen at [facility] and transferred to ER last weekend, chest x-ray and COVID and flu testing negative. * Medical History: a sthma/COPD, Depression, HTN, Arthritis, Seasonal Allergies, Endometriosis, Over extreme bladder, Adrenal adenomas, stable per MRI May 2024., 8 mm Sessile serrated adenoma on colonoscopy April 2023. * Medications: T aking Nystatin 283026 UNIT/GM Ointment 1 application Externally Twice a [...] 1 TABLET BY MOUTH AT BEDTIME , Taking Promethazine-DM 6.25-15 MG/5ML Syrup 5 mL as needed Orally every 6 hrs As needed, Medication List reviewed and reconciled with the patient * Allergies: P enicillin, Aspirin, TYLENOL #3 WITH CODEINE, Latanoprost, LATEX. Objective: * Vitals: N urse: be, Pain: 6, Temp: 98.0, RR: 16, HR: 80, BP: 150/86, Ht: 63, Wt: 180, BMI:31.88. * Examination: G eneral Examination: R honchi in the left middle and lower lung field. Right side clear. Oropharynx with green postnasal drainage. No sinus tenderness. Tympanic membrane is retracted but clear. Assessment: * Assessment: 1. C OPD exacerbation - J44.1 (Primary) 2 . H ospital discharge follow-up - Z09 Plan: * Treatment: 2. H ospital discharge follow-up Notes: I reviewed ER notes available from emergency department. Reviewed labs, reviewed discharge plan, personally reconciled medication. * Procedure Codes: 1 111F DSCHRG MED/CURRENT MED MERGE * Follow Up: p rn * * Sign off status: Completed true * Provider: Rajiv Rodrigues MD Date: 0 03/12/2025 Generated for Marycruz leonard/Aren/eTransmitting on: 1 03:17 PM EDT History and Physical Notes * HPI (History of Present Illness) Category Sub-Category Detail Notes Category Not es gen Has had a couple of different flu and COVID test that have been negative, and is now coughing up some green sputum and spite of dexamethasone injection and promethazine cough syrup. Feels like her chest is slightly tight. No chest pain or dyspnea at rest. Seen at [facility] and transferred to ER last weekend, chest x-ray and COVID and flu testing negative Examination Category Sub-Category Detail Notes Category Not es General Examination Rhonchi in the left middle and lower lung field. Right side clear. Oropharynx with green postnasal drainage. No sinus tenderness. Tympanic membrane is retracted but clear.
--- OUTSIDE RECORDS SUMMARY | 2025-03-15 11:45 | XMS_ITS ---
Author Organization [facility] CHRISTINA D MARINO Address [address] [place] [address] Care Team Providers Care Cafeteria Cook Name Role Phone Mike Rodrigues Primary Care Provider [phone] McNees, Barbie Unavailable [phone] McNees MOTORIZED SQUAD COMMANDING OFFICER, BARBIE Unavailable Unavailable Allergies Allergen (clinical drug ingredient) Drug/Non Drug Allergy documented on EMR Reaction Allergy Type Onset Date Status Latex LATEX (uncoded) Unknown Allergy Acti ve TYLENOL #3 WITH CODEINE (uncoded) Unknown Allergy Active aspirin Aspirin Unknown Drug Allergy Active latanoprost Latanoprost Unknown Drug Allergy Act caty Penicillin Unknown Drug Allergy Active Results Component Value Reference Range Notes X ray : Chest Reviewed date:03/19/2025 10:29:46 AM Interpretation: Performing Lab: Notes/Report: REASON FOR VISIT med ck, stopped Prednisone- making her nauseated (can you give her something else), is wanting a refill on Promethazine-DM Medications Medication SIG (Take, Route, Frequency, Duration) Notes Start Date End Date Status Topiramate 50 MG TAKE 1 TABLET BY DOMENICO TH AT BEDTIME; Duration: 30 Active Phenazopyridine HCl 200 MG 1 tablet afte r meals Orally Three times a day; Duration: 2 days 01/26/2025 Active Breztri Aerosphere 160-9-4.8 MCG/ACT 2 puffs Inhalation Twice a day; Duration: 30 days 10/31/2024 Active Doxycycline Hyclate 100 MG One tab PO tw ice daily; Duration: 10 days 03/12/2025 Active Carvedilol 12.5 MG 1 tab(s) orally 2 ti mes a day; Duration: 30 days Active Gemtesa 75 MG 1 tab(s) orally once a day; Duration: 30 days 09/13/2024 Active dexAMETHasone 4 MG 1 tablet Orally twic e a day; Duration: 3 days 03/15/2025 Active Promethazine-DM 6.25-15 MG/5ML 5 mL as needed Orally every 6 hrs; Duration: 7 days As needed 03/09/2025 Active Ibuprofen 800 MG 1 tab(s) orally every 8 hours; Duration: 30 days As needed pain. prn Active Lidoderm 5 % APPLY 1 PATCH TOPICA LLY ONCE DAILY FOR 30 DAYS; Duration: 30 prn Active Ventolin HFA 108 (90 Base) MCG/ACT 2 INH inhaled every 6 hours prn Active PARoxetine HCl 10 MG 1 tab(s) orally onc e a day; Duration: 30 days Active Nystatin 342676 UNIT/GM 1 application Ex ternally Twice a [...] User Modera te cigarette smoker (10-19 cigs/day) Vital Signs Temperature 97.6 degrees Fahrenheit 03/15/20 25 Heart Rate 92 /min 03/15/2025 Blood pressure systolic 152 mm Hg 03/15/20 25 Blood pressure diastolic 84 mm Hg 025 Height 63 in 03/15/2025 Weight 180.2 lbs 03/15/2025 BMI 31.92 kg/m2 03/15/2025 Encounters Encounter Location Date Provider Diagnosis [facility] [address] [place] [address] 03/15/2025 Barbie McNees Shortness of breath R06.02 and COPD exacerbation J44.1 Assessments Encounter Date Diagnosis (ICD Code) Assessment Notes Treatment Notes Treatment Clinical Notes Section Notes 03/15/2025 Shortness of breath (ICD-10 - R06.02) 03/15/2025 COPD exacerbation (ICD-10 - J44.1) Continues to have worsening symptoms despite antibiotics. Discussed supportive care with nebs, steroids, rest and increase oral hydration. Will obtain x-ray and consider changing antibiotics pending results. Has tolerated dexamethasone in the past, script sent Plan Of Treatment Medication Medication Name Sig Start Date Stop Date Notes dexAMETHasone 4 MG 1 tablet Orally twic e a day; Duration: 3 days 03/15/2025 Promethazine-DM 6.25-15 MG/5ML 5 mL as n eeded Orally every 6 hrs; Duration: 7 days 03/09/2025 Treatment Notes Assessment Notes COPD exacerbation Continues to have wo rsening symptoms despite antibiotics. Discussed supportive care with nebs, steroids, rest and increase oral hydration. Will obtain x-ray and consider changing antibiotics pending results. Has tolerated dexamethasone in the past, script sent Next Appt Details Follow Up: pending CXR, Reas on: Provider Name:Barbie Clifford, 04/12/2025 03:15:00 PM, [address] [facility], [address], [place], [address], Progress Notes * Sera RINCON DDOB: [birth year] (49 yo F)Acc No.[id number]:03/15/2025 Progress Notes Patient: Sera HINTON Provider: Jaylon Bustamante APRN :1975 A ge:49 Y S ex:Female Date:03/15/2025 Address:[address] [place] [id number] Pcp:Mike Rodrigues Subjective: * Chief Complaints: * 1 . Med ck. 2. stopped Prednisone- making her nauseated (can you give her something else). 3. is wanting a refill on Promethazine-DM. * HPI: g en: 49 y/o female presents for FU on COPD exac. Seen last week given dexamethasone. Seen again at [facility], no changes. Back on 03/12, started on prednisone and doxy. Today, reports she did not tolerate prednisone due to nausea, stopped taking it. SOA and chest congestion is worse. Now is hoarse. * ROS: C ONSTITUTIONAL: no L oss [...] Grand Mother: . P aternal uncle: alive, wiovg-jstbodlw-odmb cancer, diagnosed with Cancer. P aternal aunt: [...] active: yes. Travel outside [place]: no. 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 * Medications: T aking Nystatin 331021 UNIT/GM Ointment 1 application Externally Twice a [...] needed Orally every 6 hrs As needed, Taking Doxycycline Hyclate 100 MG Tablet One tab PO twice daily , Discontinued predniSONE 20 MG Tablet 3 tabs orally once a day for two days, then 2 daily for 2 days, then one daily for two days , Medication List reviewed and reconciled with the patient * Allergies: P enicillin, Aspirin, TYLENOL #3 WITH CODEINE, Latanoprost, LATEX. Objective: * Vitals: N urse: jl, Pain: 5, Temp: 97.6, RR: 20, HR: 92, BP: 152/84, Ht: 63, Wt: 180.2, BMI:31.92. * Examination: E NT/Respiratory: General Appearance : w ell nourished and hydrated, alert.? Nose : s tuffy . Oral Cavity n o erythema or exudate seen on pharynx. Neck : n o cervical lymphadenopathy. Heart : R RR, normal S1 S2, no murmurs. Lungs : r honchi and wheezes throughout. Abdomen : s oft, NT/ND, BS present. Skin : c lear without rashes. Assessment: * Assessment: 1. C OPD exacerbation - J44.1 (Primary) 2 . S hortness of breath - R06.02? Plan: * Treatment: 2. S hortness of breath I maging: X ray : Chest * * Follow Up: p ending CXR * * Sign off status: Completed true * Provider: Jaylon Bustamante APRN Date: 0 03/15/2025 Generated for Marycruz leonard/Aren/eTkimmieitting on: 1 03:16 PM EDT History and Physical Notes * HPI (History of Present Illness) Category Sub-Category Detail Notes Category Not es gen 49 y/o female p resents for FU on COPD exac. Seen last week given dexamethasone. Seen again at [facility], no changes. Back on 03/12, started on prednisone and doxy. Today, reports she did not tolerate prednisone due to nausea, stopped taking it. SOA and chest congestion is worse. Now is hoarse Examination Category Sub-Category Detail Notes Category Not es ENT/Respiratory Oral Cavity no erythema or exudate se en on pharynx Sinuses : Ears: Neck : no cervical lymphade nopathy Heart : RRR, normal S1 S2, n o murmurs Lungs : rhonchi and wheezes throughout Abdomen : soft, NT/ND, BS pres ent General Appearance : well nourished and hydrated, alert Nose : stuffy Skin : clear without rashes
--- OUTSIDE RECORDS SUMMARY | 2025-03-29 11:45 | XMS_ITS ---
Author Organization [facility] CHRISTINA D MARINO Address [address] [place] [address] Care Team Providers Care Mutuel Department Manager Name Role Phone Mike Rodrigues Primary Care Provider McNees, Barbie Unavailable [phone] McNejuan CHIEF TALENT OFFICER, BARBIE Unavailable Unavailable Allergies Allergen (clinical [...] day; Duration: 30 days 09/13/2024 Active Nystatin 085045 UNIT/GM 1 application Externally Twice a day; [...] Signs Temperature 97.7 degrees Fahrenheit 03/29/20 25 Heart Rate 72 /min 03/29/2025 Blood pressure systolic 118 mm Hg 03/29/20 25 Blood pressure diastolic 76 mm Hg 025 Height 63 in 03/29/2025 Weight 182 lbs 03/29/2025 BMI 32.24 kg/m2 03/29/2025 Encounters Encounter Location Date Provider Diagnosis [facility] MARINO [address] [facility] [address] [place] [address] 03/29/2025 Barbie Bustamante Essential (primary) hypertension I10 and COPD [...] Appt Details Follow Up: 2 Weeks, Reason: Provider Name:Barbie Clifford, 04/12/2025 03:15:00 PM, [address], [place], [address], Progress Notes * Sera RINCON DDOB: [birth year] (49 yo F)Acc No.[id number]:03/29/2025 Progress Notes Patient: Sera HINTON Provider: Jaylon Bustamante APRN :1975 A ge:49 Y S ex:Female Date:03/29/2025 Address:[address] [place], [place] [id number] Pcp:Mike Rodrigues Subjective: * Chief Complaints: * [...] Grand Mother: . P aternal uncle: alive, eemim-udpwukkk-ubzi cancer, diagnosed with Cancer. P aternal aunt: [...] active: yes. Travel outside [place]: no. 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 * Medications: T aking hydroCHLOROthiazide 12.5 MG Tablet 1 tablet in the morning Orally Once a day , Taking Nystatin 750006 UNIT/GM Ointment 1 application Externally Twice a [...] APRN Date: Generated for Marycruz leonard/Aren/Aldoitting on: 03:17 PM EDT History and Physical Notes [...]
--- OUTSIDE RECORDS SUMMARY | 2025-04-09 15:14 | XMS_ITS | Encounter Summary ---
Author Organization [email or web address] ([place], [place], [place], [place]) Address [address] [place] [address] Care Team Providers Care Deputy Sheriff Generalist Name Role Phone Mike Rodrigues MD Primary Care Provider [phone] Reason for Referral * Surgical (Routine) - Closed Specialty Diagnoses / Procedures Referred By Contac t Referred To Contact Neurosurgery / Neurology Diagnoses Cervical spondylosis Mike Rodrigues MD [address] [facility] [address] [place] [address] Phone: tel: fax: [facility] [address] Phone: tel: fax: Referral ID Status Reason Start Date Expiration Date V isits Requested Visits Authorized [id number] Closed Specialty Services Required 07/17/2024 07/17/2025 1 1 Encounter Details Date Type Department Care Team (Late st Contact Info) Description 07/17/[address] [facility] [address] [address] Mike Rodrigues MD [address] [facility] [address] [place] [address] Cervical spondylosis (Primary Dx) Social History Tobacco [...] myelopathy documented in this encounter Care Teams Deputy Sheriff Generalist Relationship Specialty Start Date End Date Mike Rodrigues MD [address] [place] [address] PCP - General Adolescent Medicine 07/17/24 documented as of this encounter
--- NOTE | 2025-04-09 15:15 | MR_ITS ---
FINAL REPORT TECHNIQUE: Multiplanar and multisequence imaging of the brain was obtained before and after contrast administration. CLINICAL HISTORY: worsening migraines FINDINGS: Brain parenchymal: There is no mass effect or midline shift. There are no areas of abnormal signal intensity.The cerebellum and brainstem are without acute abnormality. Ventricles: The ventricles are symmetric in size and configuration without hydrocephalus. Extra-axial spaces: No extra-axial fluid collections. Diffusion imaging: No areas of restricted diffusion to suggest acute infarct. Flow voids: Flow voids within the major intracranial vessels are preserved. Soft tissues: Soft tissues are without acute abnormality. Post contrast imaging: No abnormal enhancement. IMPRESSION: No acute intracranial abnormality and no pathologic contrast enhancement. Reviewed, Interpreted and Dictated by Nelia Philip MD Transcribed by Maritza Plaza Authenticated and . [facility]
--- OUTSIDE RECORDS SUMMARY | 2025-04-09 15:16 | XMS_ITS | Clinical Summary ---
Author Organization [facility] Address [address] [place] [address] Care Team Providers Care Chief School Finance Officer Name Role Phone Provider, No Known Primary [...] Description 01/10/2025 3:30 PM EDT Office Visit [facility] [address] [place] [address] Raul Yoon DO Shortness of breath (Primary Dx); Mucopurulent chronic bronchitis; Personal history of smoking 01/10/2025 2:55 PM EDT Hospital Encounter [facility] [address] [place] [address] 01/10/2025 Travel from Last 3 Months Social [...] Description 05/15/2025 2:45 PM EST Office Visit [facility] [address] [place] [address] Raul Yoon DO [address] [place] [address] Health Maintenance Due Date Last Done Comments [...] Narrative 01/10/2025 3:57 PM EDT Sera Saxena [id number] 01/10/2025 Chest X-Ray PA & Lateral Indication: Shortness of breath Comparison: None available Findings: Lungs are clear. No effusions. Heart and mediastinum unremarkable. No pneumothorax. Interpretation: No acute cardiopulmonary findings Owen Yoon DO Please note that portions of this note may have been completed with a voice recognition program. Efforts were made to edit the dictations, but occasionally words are mistranscribed. aRul Yoon DO IMG DIAGNOSTIC IMAG ING ORDERABLES Final Result from Last 3 Months Insurance [employer] Care Teams Chief School Finance Officer Relationship Specialty Start Date End Date Provider, No Known [facility] [place] [address] PCP - General 01/10/25
--- OUTSIDE RECORDS SUMMARY | 2025-04-09 15:17 | XMS_ITS | Patient Health Record ---
Author Organization [facility] Address [address] [place] [address] Care Team Providers Care Roller Stitcher Name Role Phone Mike Rodrigues Primary Care Provider [phone] McNees, Krissy Unavailable [phone] Dianna THIBODEAUX, KRISSY Unavailable Unavailable Mary Walters Unavailable [phone] Mary Santoyo Unavailable [phone] Migration, Provider Unavailable Unavailable Allergies Allergen (clinical [...] date:03/19/2025 10:29:46 AM Interpretation: Performing Lab: Notes/Report: CULTURE, URINE, ROUTINE (395 ) Reviewed date:01/29/2025 10:32:59 AM Interpretation: Performing Lab:CB, [facility]Raheem Rocke[address] [facility] CenterRaheemLraiQL[address] Ramon Quinones Notes/Report: NON-FASTING CULTURE, URINE, ROUTINE SEE NOTE CULTURE, URINE, ROUTINE Micro Number: [id number] Test Status: Final Specimen Source: Urine Specimen [...] 1.015 Ketone neg Bili neg Glucose neg Rapid Covid/Flu A-B Combo Reviewed date:03/09/2025 02:51:07 PM Interpretation: Performing Lab: Notes/Report: Rapid Covid neg Flu A neg Flu B neg VITAMIN D,25-OH,TOTAL,IA (17 306) Reviewed date:01/15/2025 11:35:55 AM Interpretation: Performing Lab:SADIE Looklet355 [employer], BambisaTalxRB[address] Ramon Quinones Notes/Report: NON-FASTING; NON-FASTING; NON-FASTING; NON-FASTING; [...] D, (D2,D3), LC/MS/MS is recommended: order code 43129 (patients >2yrs). See Note 1 Note 1 For additional information, please refer to http://education.Exaptive/faq/MLF763 (This link is being provided for informational/ educational purposes only.) TSH W/REFLEX TO FT4 (15180) Reviewed date:01/15/2025 11:35:55 AM Interpretation: Performing Lab:SADIE [employer], BambisaEcfvOH[address] Ramon Quinones Notes/Report: NON-FASTING; NON-FASTING; NON-FASTING; NON-FASTING; NON-FAST TSH W/REFLEX TO FT4 1.02 Reference Range > or = 20 Years 0.40-4.50 Ranges First trimester 0.26-2.66 Second trimester 0.55-2.73 Third trimester 0.43-2.91 HEMOGLOBIN A1c (496) Reviewed date:01/15/2025 11:35:55 AM Interpretation: Performing Lab:SADIE [facility] [employer] Hgil9869 [employer], [place] NtbyWR[address] Ramon Quinones Notes/Report: NON-FASTING; NON-FASTING; NON-FASTING; NON-FASTING; [...] diagnosis of diabetes in children. According to [place] Diabetes Association (ADA) guidelines, hemoglobin A1c <7.0% represents optimal control in non- diabetic patients. Different metrics may apply to specific patient populations. Standards of Medical Care in Diabetes(ADA). CBC (INCLUDES DIFF/PLT) (639 9) Reviewed date:01/15/2025 11:35:55 AM Interpretation: Performing Lab:SADIE [employer] Yzn[address], [place] EdgmKV[address] Ramon Quinones Notes/Report: NON-FASTING; NON-FASTING; NON-FASTING; NON-FASTING; [...] MPV 11.8 7.5-12.5 fL ABSOLUTE NEUTROPHILS 5420 9949-0690 cells/uL ABSOLUTE LYMPHOCYTES 2148 850-3900 cells/uL ABSOLUTE MONOCYTES 508 200-950 cells/uL ABSOLUTE EOSINOPHILS 90 15-500 cells/uL ABSOLUTE BASOPHILS 33 0-200 cells/uL NEUTROPHILS 66.1 LYMPHOCYTES 26.2 MONOCYTES 6.2 EOSINOPHILS 1.1 BASOPHILS 0.4 COMPREHENSIVE METABOLIC PANE L (84994) Reviewed date:01/15/2025 11:35:55 AM Interpretation: Performing Lab:SADIE [facility] [employer] [facility], [facility] InstituteAmsbYD[address] Ramon Quinones Notes/Report: NON-FASTING; NON-FASTING; NON-FASTING; NON-FASTING; [...] 13 10-35 U/L ALT 11 6-29 U/L LIPID PANEL, STANDARD (7600) Reviewed date:01/15/2025 11:35:55 AM Interpretation: Performing Lab:SADIE [facility] [employer] [facility], [facility] InstituteWvbzHD[address] Ramon Quinones Notes/Report: NON-FASTING; NON-FASTING; NON-FASTING; NON-FASTING; [...] of LDL-C. Mekhi CLEARY et al. RONALD. 2013;310(03): 5999-0722 (http://education.SIGFOX.Easyworks Universe/faq/NWK517) CHOL/HDLC RATIO 3.3 <5.0 (calc) NON HDL CHOLESTEROL 121 <130 mg/dL (calc) For patients with diabetes plus 1 major ASCVD risk factor, treating to a non-HDL-C goal of <100 mg/dL (LDL-C of <70 mg/dL) is considered a therapeutic option. MRI : Cervical spine without contrast Reviewed date:07/10/2024 01:47:58 PM Interpretation: Performing Lab: Notes/Report: Mammogram : Bilateral Reviewed date:01/19/2025 10:42:39 AM Interpretation: Performing Lab: Notes/Report: M-BUN & Creatinine Reviewed date:07/17/2024 02:56:45 PM Interpretation: Performing Lab: Notes/Report: BUN 24 7-17 mg/dl CREATT 1.10 0.52-1.04 mg/dl GFRAA 65 >60 ML/MIN EGFR 53 >60 ml/min MRI : Abdomen with & without Reviewed date:07/20/2024 11:25:59 AM Interpretation: Performing Lab: Notes/Report: BASIC METABOLIC PANEL (87903 ) Reviewed date:07/27/2024 03:09:24 PM Interpretation: Performing Lab:CB, [facility] Bzct0551 [facility], [facility] InstituteSfnlCU[address] Ramon Quinones Notes/Report: NON-FASTING GLUCOSE 91 65-99 [...] Flu A Neg Flu B Neg CT ABD WOW Reviewed date:01/29/2025 10:32:59 AM Interpretation: Performing Lab: Notes/Report: Reason For Referral Reason Bux- Upper back pain Referral Organization [facility] VICENTE MARINO Referring Provider First Name Mary Referring Provider Last Name Santoyo Referring Provider [facility] ctice Referral Priority Routine Reason Please arrange MRI C spine WO at [facility] for ongoing right neck pain, radicular symptoms intermittently, failed PT. Diagnosis 1 Neck pain on right s roshni (M54.2) Referral Organization [facility] PED MARINO Referring Provider First Name Mary Referring Provider Last Name Natanael Referring Provider [facility] ctice Referred Organization [facility] Referred Address [address] [facility] [address] [place], [place],[address],[place] Referred Provider Specialty Diagnostic R adiology General Notes Erma Kumar 2023 10:24:42 AM >Pending PrecertJosé Nickie 06/27/2024 09:44:21 AM >approved and order sent to [facility] scheduling. They will contact patient to schedule. Referral Priority Routine Reason Please refer to Neur osurgeon Dr. Meza for spondylosis, per MRI C spine, C4-C5 central protrusion which indents thecal sac and touches and mildly flattens the anterior surface of the cord. Diagnosis 1 Cervical spondylosis (M47.812) Referral Organization [facility] VICENTE PICHARDO Referring Provider First Name Mike Referring Provider Last Name Ravi [facility] Referred Organization [facility] Referred Address [address] [place], [place],[address],[place] Referred Provider Specialty Neurological Surgery General Notes Erma Kumar 2024 09:29:16 AM >Referral placed through the [facility] portal., Erma Kumar 07/12/2024 09:24:11 AM >[facility] and Dr Meza do not take [employer] however he sees people at [facility] and can see her there. The order was faxed to Caitlin at [place] [phone]. Her phone is [phone]. Clinical Notes Erma Kumar 2024 09:25:21 AM > Referral Priority Urgent Reason CT Adrenal Mass Prot ocol for 6 mth f/u Diagnosis 1 Adrenal mass (E27.8) Referral Organization [facility] VICENTE HART Referring Provider First Name Krissy Referring Provider Last Name Dianna Referring Provider [facility] ctice Referred Organization [facility] Referred Address [address] [facility] [address] [place], [place],[address], Referred Provider Specialty Diagnostic R adiology Referral Priority Routine Reason Can you please see i f this med needs a PA? Patient said her insurance doesn't cover it. Diagnosis 1 Stress incontinence (N39.3) Referral Organization [facility] PED MARINO Referring Provider First Name Mary Referring Provider Last Name Natanael Referring Provider [facility] ctice General Notes Efraín Jerome 03:13:47 PM > PA done on cover my meds Referral Priority Routine Reason Can you help with PA approval of Gemtesa and Trelegy. Failed Dulera and albut/iprat. Diagnosis 1 Stress incontinence (N39.3) Referral Organization [facility] Referring Provider First Name Mary Referring Provider Last Name Natanael Referring Provider [facility] ctice General Notes Efraín Jerome 12:00:55 PM > did PA on cover my meds Referral Priority Routine Reason Please refer to MESERET Roth for esophagitis, feels like something is in her throat when swallowing, history of choking on a Doxycycline pill. Diagnosis 1 Odynophagia (R13.10) Referral Organization [facility] Referring Provider First Name Mary Referring Provider Last Name Natanael Referring Provider [facility] ctice Referred Organization [facility] Referred Address [address] [facility] [address] [place], [place],[address],[place] Referred Provider Specialty Gastroentero logy General Notes Erma Kumar 2024 12:45:45 PM >faxed to Ira Referral Priority Routine Referral Appointment Date 11/27/2024 [facility]work related scanning clerk for COPD with reactive airway disease. Erma see notes Diagnosis 1 Chronic obstructive pulmonary disease, unspecified COPD type (J44.9) Referral Organization [facility] MAR[facility] Referring Provider First Name Mary Referring Provider Last Name Natanael Referring Provider [facility] ctice [facility] Referred Address [address] [facility], [place],[address],[place] Referred Provider Specialty Pulmonary Di seases General Notes Efraín Jerome 04:10:31 PM > faxed and they will call patient with appt, Erma Kumar 11/21/2024 11:08:46 AM >sent to Referral Priority Routine Reason CT adrenal mass prot ocol - Jenci this is pending with Liseth through [facility] After 01-17 Diagnosis 1 Adrenal mass, left ( E27.8) Diagnosis 2 Adrenal mass, right (E27.9) Referral Organization [facility] PED MARINO Referring Provider First Name Mary Referring Provider Last Name Natanael Referring Provider [facility] ctice Referred Organization [facility] Referred Address [address], [place], [place],[address],[place] Referred Provider Specialty Diagnostic R adiology General Notes Erma Kumar 2024 03:24:08 PM >pending precert with MICHAEL NAILS- Queenie Childers Jenci D 01/12/2025 02:51:08 PM > It won't let me see it because I didn't put it in, Erma Kumar 01/15/2025 10:29:28 AM >approved sent to [facility] to schedule appt Referral Priority Routine Reason Please refer to Neur ologist Dr. Hills for recurrent migraines. Diagnosis 1 Episodic migraine (G 43.909) Referral Organization [facility] MAR[facility] Referring Provider First Name Mary Referring Provider Last Name Natanael Referring Provider [facility] ctice General Notes Efraín Jerome 09:51:01 AM > faxed and they will call pt Referral Priority Routine Reason Please refer to Kim GAYTAN with [facility] for stress incontinence. Diagnosis 1 Stress incontinence (N39.3) Referral Organization [facility] MAR[facility] Referring Provider First Name Mary Referring Provider Last Name Santoyo Referring Provider [facility] ctice General Notes Efraín Jerome 10:04:56 AM [...] janusz yp of colon (D12.6) Referral Organization [facility] PED MARINO Referring Provider First Name Hartfield Referring Provider Last Name [place] Referring Provider [facility] Mike Gutiérrez 12/26 03:43:42 PM >pt notified Referral Priority Routine Referral Appointment Date 05/29/2025 Reason Please arrange annua l mammogram with [facility] for breast cancer screening. Diagnosis 1 Encounter for screen ing mammogram for malignant neoplasm of breast (Z12.31) Referral Organization [facility] PED MARINO Referring Provider First Name Mary Referring Provider Last Name Santoyo Referring Provider [facility] ctice General Notes Efraín Jerome 09:49:47 AM > faxed to [facility] and they will call pt Referral Priority Routine Reason Please refer to Dr. Regi [place] for routine pap smear for cervical cancer screening. Diagnosis 1 Cervical cancer scre ening (Z12.4) Referral Organization [facility] MAR[facility] Referring Provider First Name Mary Referring Provider Last Name Natanael Referring Provider [facility] ctice General Notes Efraín Jerome 09:47:23 AM > faxed and they will call pt Referral Priority Routine Reason Please refer to Derm atologist for routine skin cancer screening. Diagnosis 1 Skin cancer screenin g (Z12.83) Referral Organization [facility] PED MARINO Referring Provider First Name Mary Referring Provider Last Name Santoyo Referring Provider [facility] ctice General Notes Efraín Jerome 09:46:30 AM > faxed to [facility] and they will call her, Efraín Jerome 02/01/2025 03:37:52 PM > they do not accept insurance- faxed to [place] Referral Priority Routine Reason Can you possibly sen d me GI Dr. Roth note? No longer having acute symptoms, but would like to read their recommendation at that time. Diagnosis 1 History of odynophag ia (Z87.898) Referral Organization [facility] P[facility] MAR[facility] Referring Provider First Name Mary Referring Provider Last Name Natanael Referring Provider [facility] General Notes Efraín Jerome 12:30:28 PM > Referral Priority Routine Medications Medication SIG (Take, Route, Frequency, Duration) Notes Start Date End Date Status PARoxetine HCl 10 MG 1 tab(s) orally onc e a day; Duration: 30 days Active Lidoderm 5 % APPLY 1 PATCH TOPICALLY ONCE DAILY FOR 30 DAYS; Duration: 30 prn Active Propranolol HCl ER 60 MG 1 capsule Orall y Once a day; Duration: 30 days 03/29/2025 Active Ventolin HFA 108 (90 Base) MCG/ACT [...] a day; Duration: 2 days 01/26/2025 Active Nystatin 562680 UNIT/GM 1 application Externally Twice a day; Duration: 7 days 01/09/2025 Active hydroCHLOROthiazide 12.5 MG 1 tablet in the morning Orally Once a day Active Social History Tobacco Use: Social History [...] Status Risk Notes Problem Hypertrophy of uterus (053023208) Hypertrophy of uterus (N85.2) Active confirmed Problem Peripheral neuropathy (757128949) Peripheral neuropathy (G62.9) Active confirmed Problem Essential hypertension (81921263) Essential (primary) hypertension (I10) Active confirmed Problem Nicotine dependence (26496390) Personal history of nicotine dependence (Z87.891) Active confirmed Problem Anxiety (44810383) Anxiety (F41.9) Active confi rmed Problem Essential hypertension (92255815) Essential hypertension (I10) Active confirmed Problem Acute exacerbation of chronic obstructive airways disease (814237016) COPD exacerbation (J44.1) Active confirmed Problem Chronic pain (59366774) Other chronic pain (G89.29) Active confirmed Problem Lower abdominal pain (68132741) Lower abdominal pain (R10.30) Active confirmed Problem Neck pain (79855050) Neck pain on right side (M54.2) Active confirmed Problem Carpal tunnel syndrome (38245206) Right carpal tunnel syndrome (G56.01) Active confirmed Problem Neck pain (80035602) Neck pain (M54.2) Active confirmed Problem Heart murmur (08955614) Heart murmur (R01.1) Active confirmed Problem COPD - Chronic obstructive pulmonary disease (05427227) Chronic obstructive pulmonary disease, unspecified COPD type (J44.9) Active confirmed Problem Abnormal mammogram (076998130) Abnormal mammogram (R92.8) Active confirmed Problem Migraine without aura, not refractory (726747000) Migraine without aura and without status migrainosus, not intractable (G43.009) Active confirmed Problem Amenorrhea (90240603) Amenorrhea (N91.2) Active confirmed Problem Chronic obstructive pulmonary disease (38954052) Chronic obstructive pulmonary disease (J44.9) Active confirmed Problem SI - Stress incontinence (51392784) Stress incontinence (N39.3) Active confirmed Problem Hyperlipidaemia (26984657) Hyperlipidemia, unspecified hyperlipidemia type (E78.5) Active confirmed Problem Breathlessness on exertion (57756230) Breathlessness on exertion (R06.09) Active confirmed Problem Cervical radiculopathy (19564324) Cervical radiculopathy (M54.12) Active confirmed Problem History of nutritional deficiency (84720029920359) History of vitamin D deficiency (Z86.39) Active confirmed Problem Dysphagia (34980352) Dysphagia, unspecified type (R13.10) Active confirmed Problem Mass of right adrenal gland (finding) (98734297056733065 ) Adrenal mass, right (E27.9) Active confirmed Problem Sciatica (77885583) Acute left-sided low back pain with left-sided sciatica (M54.42) Active confirmed Problem Kyphoscoliosis deformity of spine (781702273) 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) Active confirmed Problem Solitary sacroiliitis (922137490) SI (sacroiliac) joint inflammation (M46.1) Active confirmed Problem Odynophagia (93412507) Odynophagia (R13.10) Active confirmed Problem Tobacco use (009709649) Tobacco use disorder (F17.200) Active confirmed Problem Mass of left adrenal gland (finding) (54818543607119250 ) Adrenal mass, left (E27.8) Active confirmed Problem Cervical spondylosis (150005273) Cervical spondylosis (M47.812) Active confirmed Problem Adrenal mass (156876662) Adrenal mass (E27.8) Active confirmed Problem Episodic migraine (143769795647821) Episodic migraine (G43.909) Active confirmed Problem Retrolisthesis (588332604) Retrolisthesis (M43.10) Active confirmed Problem Sciatica (63294980) Acute left-sided low back pain with right-sided sciatica (M54.41) Active confirmed Problem Sessile serrated polyp of colon (4064556160) Sessile serrated polyp of colon (D12.6) Active confirmed Problem Benign neoplasm of adrenal gland (47664772) Adrenal adenoma, unspecified laterality (D35.00) Active confirmed Vital Signs Heart Rate 72 /min 03/29/2025 Temperature 97.7 degrees Fahrenheit 03/29/2025 Blood pressure diastolic 76 mm Hg 03/29/2025 Height 63 in 03/29/2025 Blood pressure systolic 118 mm Hg 03/29/2025 Weight 182 lbs 03/29/2025 BMI 32.24 kg/m2 03/29/2025 Encounters Encounter Location Date Provider Diagnosis [facility] [address] [place] [address] 09/30/2024 Provider Migration COPD exacerbation J44.1 and Esophagitis K20.90 [facility] [address] [facility] [address] [place] [address] 01/11/2025 Mary Baigowell [facility] [address] [facility] [address] [place] [address] 06/22/2024 Mary Natanael Neck pain on right side M54.2 [facility] [address] [facility] [address] [place] [address] 07/25/2024 Mary Santoyo EWELINA (acute kidney injury) N17.9 and Essential (primary) hypertension I10 [facility] [address] [facility] [address] [place] [address] 09/11/2024 Mary Walters Episodic migraine G43.909 [facility] [address] [facility] [address] [place] [address] 09/13/2024 Mary Santoyo Acute cough R05.1 ; COPD exacerbation J44.1 and Stress incontinence N39.3 [facility] [address] [facility] [address] [place] [address] 09/18/2024 Mike Ravi Chronic obstructive pulmonary disease, unspecified COPD type J44.9 ; COPD exacerbation J44.1 and Episodic migraine G43.909 [facility] [address] [facility] [address] [place] [address] 09/22/2024 Mary Natanael COPD exacerbation J44.1 and Esophagitis K20.90 [facility] [address] [facility] [address] [place] [address] 10/12/2024 Mary Santoyo Essential (primary) hypertension I10 ; Chronic obstructive pulmonary disease, unspecified COPD type J44.9 ; Stress incontinence N39.3 and Odynophagia R13.10 [facility] [address] [facility] [address] [place] [address] 11/15/2024 Mary Santoyo Chronic obstructive pulmonary disease, unspecified COPD type J44.9 ; Essential (primary) hypertension I10 ; Hypokalemia E87.6 ; Cervical radiculopathy M54.12 and Dysphagia, unspecified type R13.10 [facility] [address] [address] 01/09/2025 Mary Santoyo Hyperlipidemia, unspecified hyperlipidemia type [...] unspecified laterality D35.00 and Poor historian Z78.9 [facility] [address] [address] 01/26/2025 Krissy McNees Dysuria R30.0 [facility] [address] [address] 03/09/2025 Krissy McNees Subacute cough R05.2 and COPD exacerbation J44.1 [facility] [address] [facility] [address] [place] [address] 03/12/2025 Mike Rodrigues COPD exacerbation J44.1 and Hospital discharge follow-up Z09 [facility] [address] [facility] [address] [place] [address] 03/15/2025 Krissy McNees Shortness of breath R06.02 and COPD exacerbation J44.1 [facility] [address] [facility] [address] [place] [address] 03/29/2025 Krissy McNees Essential (primary) hypertension I10 and COPD exacerbation J44.1 [facility] [address] [facility] [address] [place] [address] 04/13/2024 Mary Santoyo Neck pain M54.2 [facility] [address] [place] [address] 06/14/2024 Mary Santoyo Adrenal mass, left E27.8 and Adrenal mass, right E27.9 [facility] [address] [place] [address] 06/27/2024 Mary Santoyo Kyphoscoliosis deformity of spine M41.9 and Neck pain M54.2 [facility] [address] [place] [address] 07/10/2024 Mary Santoyo [facility] [address] [place] [address] 07/10/2024 Mary Santoyo Cervical spondylosis M47.812 [facility] [address] [place] [address] 07/19/2024 Mary Santoyo [facility] [address] [place] [address] 08/03/2024 Mary Santoyo [facility] [address] [place] [address] 09/21/2024 Mary Santoyo [facility] [address] [place] [address] 10/24/2024 Mary Santoyo [facility] [address] [place] [address] 11/15/2024 Mike Besson [facility] [address] [place] [address] 01/05/2025 Mary Santoyo Adrenal mass, right E27.9 and Adrenal mass, left E27.8 [facility] [address] [place] [address] 01/15/2025 Mike Besson [facility] [address] [place] [address] 01/10/2025 Mary Santoyo Anxiety F41.9 Assessments Encounter Date Diagnosis (ICD Code) Assessment Notes Treatment Notes Treatment Clinical Notes Section Notes 04/13/2024 Neck pain (ICD-10 - M54.2) 06/14/2024 [...] COPD. Discussed her need for smoking cessation. 09/30/2024 COPD exacerbation (ICD-10 - J44.1) 09/30/2024 [...] for Trelegy, sent script and have asked flight radio officer with PA approval. Follow-up in 1 month or sooner if needed. 11/15/2024 Essential (primary) hypertension (ICD-10 - I10) BP controlled on current regimen, continue. Follow-up at routine physical in 2 months. 11/15/2024 Chronic obstructive pulmonary disease, unspecified COPD type (ICD-10 - J44.9) Insurance denied Trelegy, will start Breztri. Smoking cessation discussed. Follow-up at physical in 2 months or sooner if needed. 01/10/2025 Anxiety (ICD-10 - F41.9) 01/26/2025 Dysuria [...] tolerated dexamethasone in the past, script sent 03/29/2025 Essential (primary) hypertension (ICD-10 - I10) Change to propranolol. RTC in 2 weeks for blood pressure check 03/29/2025 COPD exacerbation (ICD-10 - J44.1) Back to baseline. Stop smoking. Continue Breztri. 01/05/2025 Adrenal mass, right (ICD-10 - E27.9) 01/09/2025 Routine adult health maintenance (ICD-10 - Z00.00) Tdap December 2023. Declines pneumonia vaccine. She reports getting annual mammogram, November 2023, normal, due for next one, referral placed. She is followed by [facility] Dr. [place], unsure when she last had [...] personally will review all labs once final. 09/22/2024 COPD exacerbation (ICD-10 - J44.1) Unfortunately [...] with the plan of care above. 01/09/2025 Chronic obstructive pulmonary disease, unspecified COPD type (ICD-10 - J44.9) Well controlled on Breztri so will continue. Keep follow-up with [facility]. 01/05/2025 Adrenal mass, left (ICD-10 - E27.8) 11/15/2024 Hypokalemia (ICD-10 - E87.6) Re-checking BMP. I personally will review all labs once final. 10/12/2024 Stress incontinence (ICD-10 - N39.3) Keep follow-up with [facility]. Patient got second opinion by Dr. Valentine, still awaitng [facility] approval so have placed referral for help [...] incontinence (ICD-10 - N39.3) Previously followed by [facility] who performed a botox shot per patient. [...] of uterus (ICD-10 - N85.2) Follows with [facility]. History of ablation. 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 Otherwise, can give a good history of what specialists are doing for her, which is helpful. If her memory changes anymore from this baseline, consider work-up for her memory. 06/22/2024 Other Patient discuss ed with Attending [...] B12 01/07/2024 M-Vitamin D 25 Hydroxy 01/07/2024 [id number] 03/23/2024 Physical Therapy Eval and Treat 04/13/20 Physical Therapy Eval and Treat 04/04/20 BASIC METABOLIC PANEL (67011) 12/02/2023 BASIC METABOLIC PANEL (52314) 10/28/2023 BASIC METABOLIC PANEL (26886) 11/15/2024 Next Appt Details Provider Name:Krissy Carlos Mc Maximo, 04/12/2025 03:15:00 PM, [address], [address], [place], [address], Insurance Providers Payer Name Payer Address Payer Phone Subscriber Number Group Number Insured Name Patient Relationship to Insured Coverage Start Date Coverage End Date [facility] MEDICAID [address] [address] [place] [address] [id number] Sera Saxena Self - patient is the [...]
--- OUTSIDE RECORDS SUMMARY | 2025-04-09 15:18 | XMS_ITS | Clinical Summary ---
Author Organization [employer] ([place], [place], [place], [place]) Address [address] [place] [address] Care Team Providers Care Business Analyst Name Role Phone Mike Rodrigues MD Primary Care Provider + [phone] Allergies Active Allergy Reactions Criticality Noted Date [...] Panel 2022 COVID-19 VACCINE ( - season) 2025 Influenza Vaccine (#1) 2025 DTAP/TDAP/TD VACCINES (2 - Td or Tdap) 01/06/2034 Insurance Care Teams Business Analyst Relationship Specialty Start Date End Date Mike Rodrigues MD [address] [place] [phone] PCP - General Adolescent Medicine 07/17/24
--- OUTSIDE RECORDS SUMMARY | 2025-04-09 15:18 | XMS_ITS | Referral Summary ---
Author Organization [employer] ([place], [place], [place], [place]) Address [address] [place] [address] Care Team Providers Care Compounder Flavorings Name Role Phone Mike Rodrigues MD Primary Care Provider [phone] Allergies Active Allergy Reactions Criticality Noted Date [...] Plan of Treatment Not on file Insurance [facility] [place] [address] Care Teams Compounder Flavorings Relationship Specialty Start Date End Date Mike Rodrigues MD [address] [place] [phone] PCP - General Adolescent Medicine 07/17/24
[2025-04-09] MEDS: GADOTERIDOL INJ 20ML SYRINGE 17 ML IV (16:20)
== END 2025-04-09 23:59 | disposition home or self-care (01) ==
LOC: RAD 15:12
PROVIDERS: PCP Nurse Practitioner Family; Visit Provider Specialist
DX: G43.909 Migraine, unspecified, not intractable, without status migrainosus (principal); G44.81 Hypnic headache; G44.52 New daily persistent headache (NDPH); G47.10 Hypersomnia, unspecified
CPT/HCPCS: 70553; A9576

== ENCOUNTER 2025-05-20 11:35 | Emergency (ER) | payer MEDICAID, SELFPAY ==
--- OUTSIDE RECORDS SUMMARY | 2025-01-10 13:55 | XMS_ITS | Encounter Summary ---
[facility] Address [address] [place] [address] Care Team Providers Care Top Precipitator Operator Helper Name Role Phone Provider, No Known Primary Care Provider Unavail able Encounter Details Date Type Department Care Team (Late st Contact Info) Description 01/10/2025 2:55 PM EDT Hospital Encounter [facility] PULMONARY & CRITICAL CARE MEDICINE [address] [place] [id number] Social History Tobacco Use Types Packs/Day Years Used Date Smoking Tobacco: Every Day Cigarettes 1 40.9 Started: 1982 Smokeless Tobacco: Never Alcohol Use Standard Drinks/Week Comments Never 0 (1 standard drink = 0.6 oz pur e alcohol) Comments Unknown Sex and Gender Information Value Date Recorded Sex Assigned at Female 05/15/2025 12:28 PM EST Legal Sex Female 9:34 AM EDT Gender Identity Not on file Sexual Orientation Straight 05/15/2025 12 :28 PM EST documented as of this encounter Plan of Treatment Not on file documented as of this encounter Procedures Procedure Name Priority Date/Time Associated Diagnosis Comments XR CHEST PA AND LATERAL Routine 01/10/2025 2:56 PM EDT Shortness of breath documented in this encounter Results * XR Chest PA & Lateral (01/10/2025 2:56 PM EDT) Anatomical Region Laterality Modality Body, Chest N/A Radiographic Keerthi ging Narrative 01/10/2025 3:57 PM EDT Sera Saxena [id number] 01/10/2025 Chest X-Ray PA & Lateral Indication: Shortness of breath Comparison: None available Findings: Lungs are clear. No effusions. Heart and mediastinum unremarkable. No pneumothorax. Interpretation: No acute cardiopulmonary findings Owen Yoon, DO Please note that portions of this note may have been completed with a voice recognition program. Efforts were made to edit the dictations, but occasionally words are mistranscribed. Raul Yoon DO IMG DIAGNOSTIC IMAG ING ORDERABLES Final Result documented in this encounter Visit Diagnoses Not on filedocumented in this encounter Care Teams Top Precipitator Operator Helper Relationship Specialty Start Date End Date Provider, [place] [address] PCP - General 01/10/25 05/14/25 documented as of this encounter
--- OUTSIDE RECORDS SUMMARY | 2025-01-11 09:15 | XMS_ITS ---
Author Organization [facility] Address [address] [facility] [address] [place] [address] Care Team Providers Care Shoe Stitcher Name Role Phone Mike Rodrigues Primary Care Provider [phone] McNejuan, Barbie Unavailable [phone] Dianna THIBODEAUX BARBIE Unavailable Unavailable Mary Santoyo Unavailable [phone] REASON FOR VISIT Labs Encounters Encounter Location Date Provider Diagnosis [facility] [address] [facility] [address] [place] [address] 01/11/2025 Mary Santoyo Plan Of Treatment No Information Progress Notes * Sera RINCON DDOB: [birth year] (49 yo F)Acc No.[id number]:01/11/2025 LABS Patient: Sera HINTON Provider: BERNARDO Phipps :1975 A ge:49 Y S ex:Female Date:01/11/2025 Address:[address] [facility] [id number] Pcp:Mike Rodrigues Subjective: * Chief Complaints: * 1 . Labs. * Medical History: Objective: * Vitals: Assessment: Plan: * Treatment: * * Electronic signature of Amelia Santoyo PA-C on 05/20/2025 at 11:49 AM EST Sign off status: Pending * Provider: BERNARDO Phipps Date: 0 01/11/2025 Generated for Marycruz leonard/Aren/Sriram on: 1 07/20/2024 11:49 AM EST
--- OUTSIDE RECORDS SUMMARY | 2025-02-19 09:45 | XMS_ITS ---
Author Organization [facility] Address [address] [place] [address] Care Team Providers Care Refrigeration Operator Name Role Phone Mike Rodrigues Primary Care Provider [phone] McNees, Barbie Unavailable [phone] McNejuan LABORER YARD, BARBIE Unavailable Unavailable REASON FOR VISIT med ck Encounters Encounter Location Date Provider Diagnosis [facility] [address] [place] [address] 02/19/2025 Mike Rodrigues Plan Of Treatment No Information Progress Notes * Sera RINCON DDOB: [birth year] (49 yo F)Acc No.[id number]:02/19/2025 Progress Notes Patient: Sera HINTON Provider: Rajiv Rodrigues MD :1975 A ge:49 Y S ex:Female Date:02/19/2025 Address:[address] [facility] [place] Subjective: * Chief Complaints: * 1 . Med ck. * Medical History: Objective: * Vitals: Assessment: Plan: * Treatment: * * Electronic signature of Louie Rodirgues MD FAAP on 05/20/2025 at 11:50 AM EST Sign off status: Pending * Provider: Rajiv Rodrigues MD Date: 0 02/19/2025 Generated for [facility]/Aren/Sriram on: 1 07/20/2024 11:50 AM EST
--- OUTSIDE RECORDS SUMMARY | 2025-03-29 10:45 | XMS_ITS ---
Author Organization [facility] Address [address] [place] [address] Care Team Providers Care Petroleum Engineering Teacher Name Role Phone Mike Rodrigues Primary Care Provider McNees, Krissy Unavailable [phone] McNejuan ONLINE ADVERTISING ANALYST, KRISSY Unavailable Unavailable Allergies Allergen (clinical drug ingredient) Drug/Non Drug Allergy documented on EMR Reaction Allergy Type Onset Date Status Latex LATEX (uncoded) Unknown Allergy Acti ve TYLENOL #3 WITH CODEINE (uncoded) Unknown Allergy Active aspirin Aspirin Unknown Drug Allergy Active latanoprost Latanoprost Unknown Drug Allergy Act caty Penicillin Unknown Drug Allergy Active REASON FOR VISIT 2 week follow up. Has no idea what medications she should be taking, wants to go over those. Confused about what blood pressure med she should be taking Medications Medication SIG (Take, Route, Frequency, Duration) Notes Start Date End Date Status PARoxetine HCl 10 MG 1 tab(s) orally onc e a day; Duration: 30 days Active Lidoderm 5 % APPLY 1 PATCH TOPICALLY ONCE DAILY FOR 30 DAYS; Duration: 30 prn Active Ventolin HFA 108 (90 Base) MCG/ACT 2 INH inhaled every 6 hours prn Active Gemtesa 75 MG 1 tab(s) orally once a day; Duration: 30 days 09/13/2024 Active Nystatin 421846 UNIT/GM 1 application Externally Twice a day; Duration: 7 days 01/09/2025 Active Propranolol HCl ER 60 MG 1 capsule Orall y Once a day; Duration: 30 days 03/29/2025 Active hydroCHLOROthiazide 12.5 MG 1 tablet in the morning Orally Once a day Active Breztri Aerosphere 160-9-4.8 MCG/ACT 2 puffs Inhalation Twice a day; Duration: 30 days 10/31/2024 Active Ibuprofen 800 MG 1 tab(s) orally every 8 hours; Duration: 30 days As needed pain. prn Active Topiramate 100 MG TAKE 1 TABLET BY DOMENICO TH AT BEDTIME; Duration: 30 days Active Phenazopyridine HCl 200 MG 1 tablet afte r meals Orally Three times a day; Duration: 2 days 01/26/2025 Active Social History Tobacco Use: Social History [...] cigarette smoker (10-19 cigs/day) Vital Signs Temperature 97.7 degrees Fahrenheit 03/29/20 25 Blood pressure systolic 118 mm Hg 03/29/20 25 Blood pressure diastolic 76 mm Hg 025 Heart Rate 72 /min 03/29/2025 Height 63 in 03/29/2025 Weight 182 lbs 03/29/2025 BMI 32.24 kg/m2 03/29/2025 Encounters Encounter Location Date Provider Diagnosis [facility] [address] [facility] [address] [place] [id number] 03/29/2025 Krissy Bustamante Essential (primary) hypertension I10 and COPD exacerbation J44.1 Assessments Encounter Date Diagnosis (ICD Code) Assessment Notes Treatment Notes Treatment Clinical Notes Section Notes 03/29/2025 Essential (primary) hypertension (ICD-10 - I10) Change to propranolol. RTC in 2 weeks for blood pressure check 03/29/2025 COPD exacerbation (ICD-10 - J44.1) Back to baseline. Stop smoking. Continue Breztri. Plan Of Treatment Medication Medication Name Sig Start Date Stop Date Notes Carvedilol 12.5 MG 1 tab(s) orally 2 times a day Propranolol HCl ER 60 MG 1 capsule Orall y Once a day; Duration: 30 days 03/29/2025 Treatment Notes Assessment Notes Essential (primary) hypertension Change to propranolol. RTC in 2 weeks for blood pressure check COPD exacerbation Back to baseline. St op smoking. Continue Breztri. Next Appt Details Follow Up: 2 Weeks, Reason: Progress Notes * Sera RINCON DDOB: [birth year] (49 yo F)Acc No.[id number]:03/29/2025 Progress Notes Patient: Sera HINTON Provider: Jaylon Bustamante APRN :1975 A ge:49 Y S ex:Female Date:03/29/2025 Address:[address] [place] [address] [place], [id number] Pcp:Mike Rodrigues Subjective: * Chief Complaints: * 1 . 2 week follow up. Has no idea what medications she should be taking, wants to go over those. Confused about what blood pressure med she should be taking. * HPI: g en: 49 y/o female presents for FU on COPD exac and to discuss blood pressure medication. Reports SOA and wheezing has improved. Back to baseline. No fevers. Seen by Dr. Hills for migraines. Recommends changing carvedilol to propranolol. * ROS: C ONSTITUTIONAL: no L oss [...] Grand Mother: . P aternal uncle: alive, cwjtu-bmxktjkj-mlyq cancer, diagnosed with Cancer. P aternal aunt: alive. M aternal uncle: alive. M aternal aunt: alive, 1 aunt . S iblings: alive. Ralf trujillo: alive.?1 brother(s) , 1 sister(s) - healthy. [...] active: yes. Travel outside US: no. 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 * Medications: T aking hydroCHLOROthiazide 12.5 MG Tablet 1 tablet in the morning Orally Once a day , Taking Nystatin 033064 UNIT/GM Ointment 1 application Externally Twice a [...] Three times a day , Taking Topiramate 100 MG Tablet TAKE 1 TABLET BY MOUTH AT BEDTIME , Discontinued Doxycycline Hyclate 100 MG Tablet One tab PO twice daily , Discontinued Promethazine-DM 6.25-15 MG/5ML Syrup 5 mL as needed Orally every 6 hrs As needed, Discontinued dexAMETHasone 4 MG Tablet 1 tablet Orally twice a day , Medication List reviewed and reconciled with the patient * Allergies: P enicillin, Aspirin, TYLENOL #3 WITH CODEINE, Latanoprost, LATEX. Objective: * Vitals: N urse: KJ, Pain: 0, Temp: 97.7, RR: 18, HR: 72, BP: 118/76, Ht: 63, Wt: 182, BMI:32.24. * Examination: G eneral Examination: General P leasant and Cooperative, NAD on RA,. Chest: n ormal shape and expansion. Heart: R egular Rate and Rhythm, no murmur, rubs or gallops. Lungs: s parsely scattered wheeze. Skin: w ithout acute rashes. Psych N ormal Mood/Affect. Assessment: * Assessment: 1. E ssential (primary) hypertension - I10 (Primary) 2 . C OPD exacerbation - J44.1 Plan: * Treatment: 2. C OPD exacerbation Notes: Back to baseline. Stop smoking. Continue Breztri. * Follow Up: 2 Weeks * * Sign off status: Completed true * Provider: Jaylon Bustamante APRN Date: Generated for Marycruz leonard/Aren/Aldoitting on: 07/20/2024 11:50 AM EST History and Physical Notes * HPI (History of Present Illness) Category Sub-Category Detail Notes Category Not es gen 49 y/o female p resents for FU on COPD exac and to discuss blood pressure medication. Reports SOA and wheezing has improved. Back to baseline. No fevers. Seen by Dr. Hills for migraines. Recommends changing carvedilol to propranolol. Examination Category Sub-Category Detail Notes Category Not es General Examination Heart: Regular Rate and Rhythm, no murmur, rubs or gallops Lungs: sparsely scattered w heeze Skin: without acute rashes Chest: normal shape and exp ansion General Pleasant and Coopera tive, NAD on RA, Psych Normal Mood/Affect
--- OUTSIDE RECORDS SUMMARY | 2025-04-11 05:00 | XMS_ITS ---
Author Organization [facility] CHRISTINA Cunningham [place] Address [address] [place] [address] Care Team Providers Care Sociology Teacher Name Role Phone Mike Rodrigues Primary Care Provider [phone] McNees, Krissy Unavailable [phone] Dianna THIBODEAUX, KRISSY Unavailable Unavailable Mary Walters Unavailable [phone] Allergies Allergen (clinical drug ingredient) Drug/Non Drug Allergy documented on EMR Reaction Allergy Type Onset Date Status Latex LATEX (uncoded) Unknown Allergy Acti ve TYLENOL #3 WITH CODEINE (uncoded) Unknown Allergy Active aspirin Aspirin Unknown Drug Allergy Active latanoprost Latanoprost Unknown Drug Allergy Act caty Penicillin Unknown Drug Allergy Active REASON FOR VISIT Left ear throbbing since yesterday , swollen Medications Medication SIG (Take, Route, Frequency, Duration) Notes Start Date End Date Status Fluticasone Propionate 50 MCG/ACT 1 spray in each nostril Nasally Twice a day; Duration: 30 days 04/11/2025 Active predniSONE 20 MG 1 tablet with food o r milk Orally twice a day; Duration: 5 days 04/11/2025 Active hydroCHLOROthiazide 12.5 MG 1 tablet in the morning Orally Once a day Active Propranolol HCl ER 60 MG 1 capsule Orall y Once a day; Duration: 30 days 03/29/2025 Active Cetirizine HCl 10 MG 1 tablet Orally Onc e a day; Duration: 14 days 04/11/2025 Active Topiramate 100 MG TAKE 1 TABLET [...] 30 days As needed pain. prn Active Gemtesa 75 MG 1 tab(s) orally once a day; Duration: 30 days 09/13/2024 Active PARoxetine HCl 10 MG 1 tab(s) orally onc e a day; Duration: 30 days Active Nystatin 662155 UNIT/GM 1 application Externally Twice a day; Duration: 7 days 01/09/2025 Active Lidoderm 5 % APPLY 1 PATCH TOPICALLY ONCE DAILY FOR 30 DAYS; Duration: 30 prn Active Ventolin HFA 108 (90 Base) MCG/ACT 2 INH inhaled every 6 hours prn Active Vital Signs Temperature 98 degrees Fahrenheit 04/11/2025 Blood pressure systolic 124 mm Hg 04/11/20 25 Blood pressure diastolic 80 mm Hg 025 Heart Rate 78 /min 04/11/2025 Height 63 in 04/11/2025 Weight 184 lbs 04/11/2025 BMI 32.59 kg/m2 04/11/2025 Repeat BP 142/82 right arm, SLF Encounters Encounter Location Date Provider Diagnosis [address] [address] 04/11/2025 Mary Walters Arthralgia of left temporomandibular joint M26.622 ; Non-recurrent acute serous otitis media of both ears H65.03 and Essential hypertension I10 Assessments Encounter Date Diagnosis (ICD Code) Assessment Notes Treatment Notes Treatment Clinical Notes Section Notes 04/11/2025 Arthralgia of left temporomandibular joint (ICD-10 - M26.622) Temporomandibular Disorder: Care Instructions material was published She has been trying to avoid NSAIDs because of her hypertension and attempting to improve migraine control. Encouraged her to use Tylenol if needed, heat and ice, soft diet for several days until her symptoms completely resolved. She does note that she tends to clench her teeth and feels like this is secondary to the way that her dentures fit. Encouraged her not to wear her dentures when she is home and not eating. Short course of steroids. She has had several rounds of steroids recently because of her URI symptoms so we will try to minimize those. 04/11/2025 Non-recurrent acute serous otitis media of both ears (ICD-10 - H65.03) 04/11/2025 Essential hypertension (ICD-10 - I10) mildly elevated today but improving, keep scheduled FU Plan Of Treatment Medication Medication Name Sig Start Date Stop Date Notes Fluticasone Propionate 50 MCG/ACT 1 spray in each nostril Nasally Twice a day; Duration: 30 days 04/11/2025 predniSONE 20 MG 1 tablet with food o r milk Orally twice a day; Duration: 5 days 04/11/2025 Cetirizine HCl 10 MG 1 tablet Orally Onc e a day; Duration: 14 days 04/11/2025 Treatment Notes Assessment Notes Arthralgia of left temporomandibular frankie nt Temporomandibular Disorder: Care Instructions material was published Next Appt Details Follow Up: as scheduled, Ad[facility] son: Progress Notes * Sera RINCON DDOB: [birth year] (49 yo F)Acc No.[id number]:04/11/2025 Progress Notes Patient: Sera HINTON Provider: YENNI Cruz :1975 A ge:49 Y S ex:Female Date:04/11/2025 Address:[address] [place], [place] [id number] Pcp:Mike Rodrigues Subjective: * Chief Complaints: * 1 . Left ear throbbing since yesterday , swollen. * HPI: E NT/respiratory: 49-year-old female presents today with complaints of pain around her left ear that started yesterday morning but was worse today when she got up. Feels like it radiates to about the left side of her face and is triggering her to have some headaches on that side as well. She is getting over an upper respiratory infection, has had symptoms over the past 2 to 3 weeks which are improving but she does still have a cough and has had some popping in her ears intermittently. Has never had any issues with TMJ pain. She has no rashes in this area. No fevers recently. * ROS: C ONSTITUTIONAL: no L oss [...] colonoscopy April 2023. * Medications: T aking hydroCHLOROthiazide 12.5 MG Tablet 1 tablet in the morning Orally Once a day , Taking Nystatin 061667 UNIT/GM Ointment 1 application Externally Twice a day , Taking PARoxetine HCl 10 MG Tablet 1 tab(s) orally once a day , Taking Ventolin HFA 108 (90 Base) MCG/ACT Aerosol Solution 2 INH inhaled every 6 hours , Notes to Pharmacist: prn, Taking Lidoderm 5 % Patch APPLY 1 PATCH TOPICALLY ONCE DAILY FOR 30 DAYS , Notes to Pharmacist: prn, Taking Gemtesa 75 MG Tablet 1 tab(s) [...] TABLET BY MOUTH AT BEDTIME , Taking Propranolol HCl ER 60 MG Capsule Extended Release 24 Hour 1 capsule Orally Once a day , Medication List reviewed and reconciled with the patient * Allergies: P enicillin, Aspirin, TYLENOL #3 WITH CODEINE, Latanoprost, LATEX. Objective: * Vitals: N urse: dw, Pain: 8, Temp: 98, RR: 18, HR: 78, BP: 124/80, Ht: 63, Wt: 184, BMI:32.59. Repeat BP 142/82 right arm, SLF. * Examination: E NT/Respiratory: General Appearance : w ell nourished and hydrated, alert.? Ears: a uditory canals normal bilaterally, bilat serous effusions, no erythema. Nose : m ild congestion. Sinuses : n on tender bilaterally. Oral Cavity n o erythema or exudate seen on pharynx, edentulous, no oral lesions. Neck : n o cervical lymphadenopathy. Heart : R RR, normal S1 S2, no murmurs. Lungs : f aint wheezing and rhonchi bilat. Skin : c lear without rashes. t perri left TMJ to palpation and with manipulation of the joint, otherwise no rashes on the face, no temporal tenderness, no erythema or warmth. Assessment: * Assessment: 1. A rthralgia of left temporomandibular joint - M26.622 (Primary) 2 . N on-recurrent acute serous otitis media of both ears - H65.03 3 . E ssential hypertension - I10 Plan: * Treatment: 2. N on-recurrent acute serous otitis media of both ears Start Fluticasone Propionate Suspension, 50 MCG/ACT, 1 spray in each nostril, Nasally, Twice a day, 30 days, 1, Refills 1; S tart Cetirizine HCl Tablet, 10 MG, 1 tablet, Orally, Once a day, 14 days, 14 Tablet, Refills 0. 3. E ssential hypertension Clinical Notes: mildly elevated today but improving, keep scheduled FU * Follow Up: a s scheduled * * Sign off status: Completed true * Provider: YENNI Cruz Date: Generated for Marycruz leonard/Aren/Aldoitting on: 07/20/2024 11:49 AM EST History and Physical Notes * Examination Category Sub-Category Detail Notes Category Not es ENT/Respiratory Oral Cavity no erythema or e xudate seen on pharynx, edentulous, no oral lesions tender left TMJ to palpation and with manipulation of the joint, otherwise no rashes on the face, no temporal tenderness, no erythema or warmth Sinuses : non tender bilateral ly Ears: auditory canals norm al bilaterally, bilat serous effusions, no erythema Neck : no cervical lymphade nopathy Heart : RRR, normal S1 S2, n o murmurs Lungs : faint wheezing and r honchi bilat General Appearance : well nourished and hydrated, alert Nose : mild congestion Skin : clear without rashes
--- OUTSIDE RECORDS SUMMARY | 2025-04-14 04:45 | XMS_ITS ---
Author Organization [facility] [place] Address [address] [facility] [address] [facility] [address] [place] [address] Care Team Providers Care Credentialing Assistant Name Role Phone Mike Rodrigues Primary Care Provider [phone] Krissy Bustamante Unavailable [phone] KRISSY Bustamante APRN Unavailable Unavailable REASON FOR VISIT 2 Week F/U on B/P Encounters Encounter Location Date Provider Diagnosis [facility] [place] [address] [facility] [address] [place] [address] 04/14/2025 Krissy Bustamante Plan Of Treatment No Information Progress Notes * Sera RINCON DDOB: [birth year] (49 yo F)Acc No.[id number]:04/14/2025 Progress Notes Patient: Sera HINTON Provider: Jaylon Bustamante APRN :1975 A ge:49 Y S ex:Female Date:04/14/2025 Address:[address] [facility] [id number] Pcp:Mike Rodrigues Subjective: * Chief Complaints: * 1 . 2 Week F/U on B/P. * Medical History: Objective: * Vitals: Assessment: Plan: * Treatment: * * Electronic signature of Bello Bustamante APRN on 05/20/2025 at 11:49 AM EST Sign off status: Pending * Provider: Jaylon Bustamante APRN Date: 1 Generated for Marycruz leonard/Aren/Sriram on: 07/20/2024 11:49 AM EST
--- OUTSIDE RECORDS SUMMARY | 2025-04-23 10:45 | XMS_ITS ---
Author Organization [facility] CHRISTINA D [place] Address [address] [place] [address] Care Team Providers Care Prize Jacker Name Role Phone Mike Rodrigues Primary Care Provider [phone] McNees, Baribe Unavailable [phone] McNees DEPUTY SHERIFF K9 HANDLER, BARBIE Unavailable Unavailable Allergies Allergen (clinical drug ingredient) Drug/Non Drug Allergy documented on EMR Reaction Allergy Type Onset Date Status Latex LATEX (uncoded) Unknown Allergy Acti ve TYLENOL #3 WITH CODEINE (uncoded) Unknown Allergy Active aspirin Aspirin Unknown Drug Allergy Active latanoprost Latanoprost Unknown Drug Allergy Act caty Penicillin Unknown Drug Allergy Active Results Component Value Reference Range Notes Urinalysis Reviewed date:04/23/2025 04:39:24 PM Interpretation: Performing Lab: Notes/Report: Color/Clarity yellow Leuk neg Nitrite neg Urobili 0.2 Protein trace pH 5.5 Blood neg Sp. Gr. 1.025 Ketone neg Bili neg Glucose neg REASON FOR VISIT sharp pain in lower abdomen , trouble urinating and frequency, seen [place] had botoxin , has an appointment scheduled for Medications Medication SIG (Take, Route, Frequency, Duration) Notes Start Date End Date Status Topiramate 100 MG TAKE 1 TABLET BY MOUTH AT BEDTIME; Duration: 30 days Active Phenazopyridine HCl 200 MG 1 tablet afte r meals Orally Three times a day; Duration: 2 days 01/26/2025 Active Propranolol HCl ER 60 MG 1 capsule Orall y Once a day; Duration: 30 days 03/29/2025 Active Ventolin HFA 108 (90 Base) MCG/ACT 2 INH inhaled every 6 hours prn Active Gemtesa 75 MG 1 tab(s) orally once a day; Duration: 30 days 09/13/2024 Active Lidoderm 5 % APPLY 1 PATCH TOPICALLY ONCE DAILY FOR 30 DAYS; Duration: 30 prn Active PARoxetine HCl 10 MG 1 tab(s) orally onc e a day; Duration: 30 days Active hydroCHLOROthiazide 12.5 MG 1 tablet in the morning Orally Once a day Active Phenazopyridine HCl 200 MG 1 tablet afte r meals Orally Three times a day; Duration: 2 days 04/23/2025 Active Vital Signs Temperature 97.9 degrees Fahrenheit 04/23/20 25 Blood pressure systolic 145 mm Hg 04/23/20 25 Blood pressure diastolic 92 mm Hg 025 Heart Rate 82 /min 04/23/2025 Height 63 in 04/23/2025 Weight 183 lbs 04/23/2025 BMI 32.41 kg/m2 04/23/2025 Encounters Encounter Location Date Provider Diagnosis [address] [address] 04/23/2025 Barbie McNees Urinary frequency R35.0 and Bladder pain R39.89 Assessments Encounter Date Diagnosis (ICD Code) Assessment Notes Treatment Notes Treatment Clinical Notes Section Notes 04/23/2025 Urinary frequency (ICD-10 - R35.0) Reassurance, UA is normal. Multiple abd imaging in the last year, no indication to repeat. Pain likely related to bladder inflammation, spasms. Start Pyridium as below. Increase oral fluid intake. Keep FU with urology on . Sooner return precautions discussed. 04/23/2025 Bladder pain (ICD-10 - R39.89) Plan Of Treatment Medication Medication Name Sig Start Date Stop Date Notes Phenazopyridine HCl 200 MG 1 tablet afte r meals Orally Three times a day; Duration: 2 days 04/23/2025 Treatment Notes Assessment Notes Urinary frequency Reassurance, UA is n ormal. Multiple abd imaging in the last year, no indication to repeat. Pain likely related to bladder inflammation, spasms. Start Pyridium as below. Increase oral fluid intake. Keep FU with urology on . Sooner return precautions discussed. Next Appt Details Follow Up: prn, Reason: Progress Notes * Sera RINCON DDOB: [birth year] (49 yo F)Acc No.[id number]:04/23/2025 Progress Notes Patient: Sera HINTON Provider: Jaylon Bustamante, MORELIA :1975 A ge:49 Y S ex:Female Date:04/23/2025 Address:[address] [place], [place] [id number] Pcp:Mike Rodrigues Subjective: * Chief Complaints: * 1 . Sharp pain in lower abdomen , trouble urinating and frequency. 2. seen [place] had botox in , has an appointment scheduled for . * HPI: G astroenterology: 49 year old female presents with c/o abdominal pain. Denies : nausea. D enies : vomiting. D enies : constipation. D enies : diarrhea. D enies : fever. D enies : blood in stool. Presents with lower ABD pain that began 2 days ago. Acute onset of SP pain. States felt like I had to pee but was unable to urinate. Pain is moderate, intermittent, severe at times, relieves within minutes. Follows with urology, underwent Botox injection approx 6 months ago, did not FU at that time but has at FU scheduled on . * ROS: C ONSTITUTIONAL: no L oss of appetite. n o F ever. F EMALE REPRODUCTIVE: no D ysparaunia. S exually active yes. n o?Abnormal vaginal discharge. G ASTROENTEROLOGY: no N ausea. n o V omiting. n o D iarrhea.?no C onstipation. U ROLOGY: Dysuria n o. D ifficulty urinating yes. n o?Blood in urine. F requent urination yes. * Medical History: a sthma/COPD, Depression, HTN, Arthritis, Seasonal Allergies, Endometriosis, Over extreme bladder, Adrenal adenomas, stable per MRI May 2024., 8 mm Sessile serrated adenoma on colonoscopy April 2023. * Medications: T aking hydroCHLOROthiazide 12.5 MG Tablet 1 tablet in the morning Orally Once a day , Taking PARoxetine HCl 10 [...] tab(s) orally once a day , Taking Phenazopyridine HCl 200 MG Tablet 1 tablet after meals Orally Three times a day , Taking Topiramate 100 MG Tablet TAKE 1 TABLET BY MOUTH AT BEDTIME , Taking Propranolol HCl ER 60 MG Capsule Extended Release 24 Hour 1 capsule Orally Once a day , Discontinued Ibuprofen 800 MG Tablet 1 tab(s) orally every 8 hours As needed pain., Notes to Pharmacist: prn, Discontinued Breztri Aerosphere 160-9-4.8 MCG/ACT Aerosol 2 puffs Inhalation Twice a day , Discontinued predniSONE 20 MG Tablet 1 tablet with food or milk Orally twice a day , Discontinued Fluticasone Propionate 50 MCG/ACT Suspension 1 spray in each nostril Nasally Twice a day , Discontinued Cetirizine HCl 10 MG Tablet 1 tablet Orally Once a day , Discontinued Nystatin 515123 UNIT/GM Ointment 1 application Externally Twice a day , Medication List reviewed and reconciled with the patient * Allergies: P enicillin, Aspirin, TYLENOL #3 WITH CODEINE, Latanoprost, LATEX. Objective: * Vitals: N urse: dw, Pain: 8, Temp: 97.9, RR: 18, HR: 82, BP: 145/92, Ht: 63, Wt: 183, BMI:32.41. * Examination: G eneral Examination: General P leasant and Cooperative, NAD on RA,. Heart: R egular Rate and Rhythm, no murmur, rubs or gallops. Lungs: L CTAB, No wheezes, crackles or rhonchi, Good air movement,. Abdomen: S oft, SP tenderness, no guarding or rebound, ND, BSNA, No organomegaly or peritoneal signs.. Back: n o CVA tenderness, . Psych N ormal Mood/Affect. Assessment: * Assessment: 1. U rinary frequency - R35.0 (Primary) 2 . B ladder pain - R39.89 ? Plan: * Treatment: 2. B ladder pain Start Phenazopyridine HCl Tablet, 200 MG, 1 tablet after meals, Orally, Three times a day, 2 days, 6 Tablet, Refills 0. * Labs: * L ab: Urinalysis (Collection Date & Time - 04/23/2025) Value Reference Range C olor/Clarity yellow * L euk neg * N itrite neg * U robili 0.2 * P rotein trace * p H 5.5 * B lood neg * S p. Gr. 1.025 * K etone neg * B gaby neg * G lucose neg * Procedure Codes: 8 1002 URINALYSIS, Modifiers: QW * Follow Up: p rn * * Sign off status: Completed true * Provider: Jaylon Bustamante APRN Date: Generated for Marycruz leonard/Aren/eTransmitting on: 07/20/2024 11:50 AM EST History and Physical Notes * HPI (History of Present Illness) Category Sub-Category Detail Notes Category Not es Gastroenterology fever Presents wi th lower ABD pain that began 2 days ago. Acute onset of SP pain. States felt like I had to pee but was unable to urinate. Pain is moderate, intermittent, severe at times, relieves within minutes. Follows with urology, underwent Botox injection approx 6 months ago, did not FU at that time but has at FU scheduled on vomiting abdominal pain diarrhea blood in stool nausea constipation Examination Category Sub-Category Detail Notes Category Not es General Examination Heart: Regular Rate and Rhythm, no murmur, rubs or gallops Lungs: LCTAB, No wheezes, c rackles or rhonchi, Good air movement, Abdomen: Soft, SP tenderness, no guarding or rebound, ND, BSNA, No organomegaly or peritoneal signs. Back: no CVA tenderness, General Pleasant and Coopera tive, NAD on RA, Psych Normal Mood/Affect
--- OUTSIDE RECORDS SUMMARY | 2025-04-26 07:30 | XMS_ITS | Encounter Summary ---
Author Organization [place] [address] Care Team Providers Care Catalog Librarian Name Role Phone Unavailable Primary Care Provider Unavailabl e Reason for Visit * Reason Comments Follow-up Encounter Details Date Type Department Care Team (Latest Contact Info) Description 04/26/2025 8:30 AM EDT Office Visit [facility] Urogynecology [address] [address] Maritza Isabel PA-C [address] [place] [address] Urge incontinence of urine (Primary Dx); OAB (overactive bladder) Social History Tobacco Use Types Packs/Day Years [...] Taken Comments Blood Pressure - - Pulse 78 04/26/2025 8:34 AM EDT Temperature - - Respiratory Rate - - Oxygen Saturation 98% 04/26/2025 8:34 AM EDT Inhaled Oxygen Concentration - - Weight 80.3 kg (177 lb) 04/26/2025 8:34 AM EDT Height 160 cm (5' 3 ) 04/26/2025 8:34 AM EDT Body Mass Index 31.35 04/26/2025 8:34 AM EDT documented in this encounter Progress Notes * Maritza Isabel PA-C - 04/26/2025 8:30 AM EDT Images from the original note were not included. Maritza Isabel PA-C Follow Up Note Sera Saxena 1975 Assessment: 49 y.o. female with 1. Urge incontinence of urine 2. OAB (overactive bladder) Plan: 1) Urge urinary incontinence: We discussed the pathophysiology of UUI/OAB and management options. Idiscussed the pathophysiology of botox's effect on the bladder to reduce UUI symptoms, and that itseffect is not permament so the injections need to be repeated. Worsened s/p intradetrusor botox almost 1 year ago. Patient would like to proceed with repeat intradetrusor botox. -Can continue Gemtesa 75 mg (discussed that it will take atleast 6 weeks to start helping) until the botox procedure; no refills needed at this time 2) F/u for intradetrusor botox procedure then with me after to assess symptom improvement HPI: Sera Saxena is a 49 y.o. who is here for f/u UUI Patient states that the botox's effect only lasted for 3 months. She ended up seeing a Urologist closer to where she lives, but he didn't do anything to help. She states that she is leaking 'badly'. If she feels like she has to go pee, then she's already going. She only leaks with cough if it is a very hard cough. She is having to wear pull ups because of the leakage. She just started taking Gemtesa last week to see if it would help, but no improvement yet. She typically drink plain water, 1 coffee, and 1 tea throughout the day. No dysuria. Past Medical History[1] Surgical History[2] Family History[3] Review of Systems: Genitourinary: Denies dysuria, vaginal discharge, vaginal bleeding Focused Physical Exam: Vitals: 04/26/25 0834 Pulse: 78 SpO2: 98% Pelvic exam was deferred. Maritza Isabel PA-C [facility] Urogynecology [address] [address] 04/26/25 10:37 AM [1] Past Medical History: Diagnosis Date Hypertension [2] History reviewed. No pertinent surgical history. [3] History reviewed. No pertinent family history. documented in this encounter Plan of Treatment Upcoming Encounters Date Type Department Care Team (Late st Contact Info) Description 07/10/2025 2:45 PM EST Procedure visit [facility] Urogynecology [address] [address] Kirstin Campos MD [address] [place] [id number] 07/31/2025 2:30 PM EST Office Visit [facility] Urogynecology [address] [address] Maritza Isabel PA-C [address] [place] [id number] documented as of this encounter Visit Diagnoses Diagnosis Urge incontinence of urine- Primary Urge incontinence OAB (overactive bladder) Hypertonicity of bladder documented in this encounter
--- OUTSIDE RECORDS SUMMARY | 2025-05-15 14:45 | XMS_ITS | Encounter Summary ---
[facility] Organization [facility] Address [address] [place] [address] Care Team Providers Care Button Bradder Name Role Phone Mike Rodrigues MD Primary Care Provider [phone] Reason for Visit * Reason Comments Shortness of Breath Follow Up Encounter Details Date Type Department Care Team ([facility] Contact Info) Description 05/15/2025 2:45 PM EST Office Visit [facility] PUL[facility] CARE MEDICINE [address] [place] [address] Raul Yoon DO [address] [place], [place] [id number] Mucopurulent chronic bronchitis (Primary Dx); Personal history of smoking Social History Tobacco Use Types Packs/Day Years Used Date Smoking Tobacco: Every Day Cigarettes 1 40.9 Started: 1984 Smokeless Tobacco: Never Tobacco Cessation:Ready to Q uit: Not Asked; Counseling Given: Not Answered Alcohol Use Standard Drinks/Week Comments Never 0 (1 standard drink = 0.6 oz pur e alcohol) Comments Unknown Sex and Gender Information Value Date Recorded Sex Assigned at Female 05/15/2025 12:28 PM EST Legal Sex Female 9:34 AM EDT Gender Identity Not on file Sexual Orientation Straight 05/15/2025 12 :28 PM EST documented as of this encounter Last Filed Vital Signs Vital Sign Reading Time Taken Comments Blood Pressure 120/88 05/15/2025 2:35 PM EST Pulse 81 05/15/2025 2:35 PM EST Temperature 36.4 C (97.5 F) 05/15/2025 2:35 PM EST Respiratory Rate - - Oxygen Saturation 97% 05/15/2025 2:3 5 PM EST Room air at rest Inhaled Oxygen Concentration - - Weight 83.3 kg (183 lb 9.6 oz) 05/15/2025 2:35 PM EST Height 160 cm (5' 3 ) 05/15/2025 2:35 PM EST Body Mass Index 32.52 05/15/2025 2:35 PM EST documented in this encounter Progress Notes * Raul Yoon, DO - 05/15/2025 2:45 PM EST Follow Up Office Note Patient Name: Sera Saxena Referring Physician: No ref. provider found Chief Complaint: Chief Complaint Patient presents with Shortness of Breath Follow Up History of Present Illness: Sera Saxena is a 49 y.o. female who is here today to follow-up care with Pulmonary. Has a past medical history significant for tobacco abuse, depression, hypertension, allergic rhinitis, and arthritis. The patient is a 49-year-old female who presents today to follow up on COPD. She reports satisfactory respiratory function, attributing this to her consistent use of inhalers. She has not experienced any recent illnesses. She smokes cigarettes but has reduced her consumption and switched from full-flavor to extra-light cigarettes. She recalls an incident where she was unable to smoke during a 35-minute car journey, which she managed without difficulty. She expresses uncertainty about the use of Chantix for smoking cessation. She reports no cardiac issues, chest pain, orleg swelling. She is currently using Breztri, administered as 2 puffs twice daily, without any adverse effects. She has discontinued doxycycline and does not require albuterol. Review of Systems: Review of Systems Constitutional: Negative for chills, fatigue and fever. HENT: Negative for congestion and voice change. Eyes: Negative for blurred vision. Respiratory: Negative for cough, shortness of breath and wheezing. Cardiovascular: Negative for chest pain. Skin: Negative for dry skin. Hematological: Negative for adenopathy. Psychiatric/Behavioral: Negative for agitation and depressed mood. The following portions of the patient's history were reviewed and updated as appropriate: allergies, current medications, past family history, past medical history, past social history, past surgicalhistory and problem list. Physical Exam: Vital Signs: Vitals: 05/15/25 1435 BP: 120/88 Pulse: 81 Temp: 97.5 ??F (36.4 ??C) TempSrc: Temporal SpO2: 97% Comment: Room air at rest Weight: 83.3 kg (183 lb 9.6 oz) Height: 160 cm (63 ) Physical Exam [...] and oriented to person, place, and time. Immunization History Administered Date(s) Administered Tdap 01/07/2024 Results Review: - chest x-ray from 01/10/2025 showed no acute cardiopulmonary process - PFT from 01/10/2025 shows moderate obstruction without restriction, significant air trapping and normal DLCO. Assessment: Diagnoses and all orders for this visit: 1. Mucopurulent chronic bronchitis (Primary) 2. Personal history of smoking Plan: Chronic Obstructive Pulmonary Disease (COPD) Personal history of smoking - No issues with current medication, Breztri (2 puffs twice a day) - No recent infections or exacerbations - Reduced smoking but continues with extra light cigarettes - Advised to continue current regimen of Breztri and albuterol - Comprehensive discussion on smoking cessation, including potential triggers and strategies - Discussed nicotine patches, Wellbutrin, and Chantix, but patient not ready to start - Encouraged to identify smoking triggers and consider further reducing smoking habits - Medication dosage may need to be increased if recurring infections occur Follow-up - Patient to follow up in 1 year Follow Up: Return in about 1 year (around 05/15/2026). Owen Yoon DO Pulmonary and Critical Care Medicine Note Electronically Signed Part of this note may be an electronic cafeteria aide/translation of spoken language to printed textusing the [employer] System. Patient or patient direct marketing representative verbalized consent for the use of Ambient Listening during the visit with Raul Yoon DO for chart documentation. 05/15/2025 16:42 EST documented in this encounter Plan of Treatment Not on file documented as of this encounter Visit Diagnoses Diagnosis Mucopurulent chronic bronchitis- Primary Personal history of smoking Personal history of tobacco use, presenting hazards to health documented in this encounter Care Teams Button Bradder Relationship Specialty Start Date End Date Mike Rodrigues MD [address] [place] [address] [address] PCP - General Adolescent Medicine 05/15/25 documented as of this encounter
--- NOTE | 2025-05-20 11:43 | ECG_ITS ---
APPROVED REPORT Exam: Resting ECG HR:73 bpm ECG Measurements Heart Rate 73 AXES MO 155 P 52 QRSd 92 QRS 69 QT 373 T 45 QTc 399 Conclusion SINUS RHYTHM NORMAL ECG Electronically signed by : FARRUKH MCLAUGHLIN, 05/24/2025 13:58:50
--- NOTE | 2025-05-20 11:45 | CT_ITS ---
PROCEDURE INFORMATION: Exam: CT Head Without Contrast Exam date and time: 05/20/2025 12:18 PM Age: 49 years old Clinical indication: Dizziness and other: Headahce; Additional info: PEÑA bifrontal TECHNIQUE: Imaging protocol: Computed tomography of the head without contrast. Radiation optimization: All CT scans at this facility use at least one of these dose optimization techniques: automated exposure control; mA and/or kV adjustment per patient size (includes targeted exams where dose is matched to clinical indication); or iterative reconstruction. COMPARISON: MR HEAD/BRAIN WO/W CON 04/09/2025 3:17 PM FINDINGS: Brain: Head-white matter differentiation and sulcation pattern is normal. There is normal density in the basal ganglia and thalamus. There is no intracranial hemorrhage. There are no pathologic extra-axial fluid collections. Cerebral ventricles: No ventriculomegaly. Paranasal sinuses: Visualized sinuses are unremarkable. No fluid levels. Mastoid air cells: Visualized mastoid air cells are well aerated. Bones: Unremarkable. No acute fracture. Soft tissues: Unremarkable. IMPRESSION: No acute intracranial pathology.
--- NOTE | 2025-05-20 11:46 | HMH.EDGENADL ---
Discharge Plan Disposition Patient Disposition: Home, Self-Care Prescriptions Prescriptions: No Action paroxetine HCl 10 mg tablet 10 mg PO DAILY ibuprofen 800 mg tablet 800 mg PO ONCE PRN (Reason: Blood Pressure) Patient Comments: TAKE 1 TABLET BY MOUTH EVERY 8 HOURS methocarbamol 500 mg tablet 500 mg PO HS Qty: 30 2RF albuterol sulfate [Proventil HFA] 90 mcg/actuation HFA aerosol inhaler 2 puff INHALATION Q6H PRN (Reason: shortness of breath or wheezing) Qty: 8.5 2RF propranolol 60 mg capsule,extended release 24 hr PO Patient Comments: TAKE 1 CAPSULE BY MOUTH DAILY lidocaine [Lidoderm] 5 % adhesive patch,medicated 1 patch topical DAILY Rx Instructions: leave on most painful area for up to 12 hrs doxycycline hyclate 100 mg tablet 100 mg PO BID Patient Comments: TAKE 1 TABLET BY MOUTH TWICE DAILY Gemtesa 75 mg tablet 75 mg PO DAILY Breztri Aerosphere 160-9-4.8 mcg/actuation HFA aerosol inhaler 2 inh inhalation BID topiramate 100 mg tablet 100 mg PO HS Qty: 30 3RF Nurtec ODT 75 mg tablet,disintegrating 75 mg PO ONCE PRN (Reason: migraine headache) Qty: 8 3RF Nurtec ODT 75 mg tablet,disintegrating 0RF Clenpiq 10 mg-3.5 gram- 12 gram/175 mL solution 175 ml PO DAILY Qty: 350 0RF Rx Instructions: take first dose at 5-9PM evening before colonoscopy; 2nd dose the next day approximately 5 hrs before colonoscopy albuterol sulfate 1.25 mg/3 mL solution for nebulization 1.25 mg inhalation QID PRN (Reason: shortness of breath or wheezing) Qty: 90 0RF umeclidinium-vilanterol [Anoro Ellipta] 62.5-25 mcg/actuation blister with device See Rx Instructions .ROUTE .COMPLEX Rx Instructions: 1 PUFF ONCE DAILY ketorolac 10 mg tablet 10 mg PO Q8H PRN (Reason: pain) 1 Days Qty: 14 0RF Referrals Follow up/Referrals: Krissy Bustamante APRN [Primary Care Provider, Medical] - See instructions Activity Restrictions/Add. Instructions Additional Instructions/Restrictions: At this time it was felt you are safe to be discharged home. If new or worsening symptoms please do not hesitate to return the emergency department. Please follow-up with Dr. Hills as discussed so [facility] Clinical Impressions Clinical Impression: Headache, Paresthesias Print Language Print Language: Ukrainian Discharge ED Provider: Nile Fiore General Adult HPI General Chief complaint: Headache Stated complaint: dizzy, faint, vision, b/p Time Seen by Provider: 05/20/25 11:37 History of Present Illness HPI narrative: Patient is a 49-year-old female with past medical history of chronic headaches on Nurtec occurring once every 2 weeks who presents to the emergency department for evaluation of headache and feeling unwell. Patient has had a headache similar with her baseline bifrontal left greater than right moderate to severe in intensity with mild associated visual blurriness that occurred at approximately 1 AM this morning. It is refractory to ibuprofen and she is out of her Nurtec. The only thing that is different about her headache today is she has associated bilateral hand tingling and clamminess. No focal extremity weakness, no trauma. No vomiting. No neck pain or chest pain. No other acute complaints at this time. Please note that above description of symptoms, in this electronic medical record under categorization of recalled from ER triage doctor by RN are reflective of an initial nursing assessment, however, is not reflective of my full history and physical exam that was personally taken and clarified. Consequentially, this preceding description of symptoms, which may include the patient's categorized chief complaint in the EMR, do not reflect my personal clinical impression, and the ultimate description of history of present illness and patient stated complaints should be deferred to this section of the note. Unless stated otherwise or congruent with this section of the note, additional signs, symptoms, or incongruence should be interpreted as inaccurate with my clinical impression. Related Data Home Medications ?Medication ?Instructions ?Recorded ?Confirmed umeclidinium 62.5 mcg-vilanterol See Rx Instructions .Route 07/09/22 05/07/25 25 mcg/actuation powdr for .COMPLEX Asthma inhalation (Anoro Ellipta) paroxetine HCl 10 mg tablet 10 mg PO DAILY 08/31/23 05/07/25 ibuprofen 800 mg tablet 800 mg PO ONCE PRN Blood Pressure 03/17/24 05/07/25 budesonide 160 mcg-glycopyr 9 2 inh inhalation BID 03/21/25 05/07/25 mcg-formot 4.8 mcg/actuation HFA inhaler (Breztri Aerosphere) doxycycline hyclate 100 mg tablet 100 mg PO BID 03/21/25 05/07/25 lidocaine 5 % topical patch 1 patch topical DAILY 03/21/25 05/07/25 (Lidoderm) vibegron 75 mg tablet (Gemtesa) 75 mg PO DAILY 03/21/25 05/07/25 propranolol 60 mg capsule,24 mg PO 04/10/25 05/07/25 hr,extended release Previous Rx's ?Medication ?Instructions ?Recorded albuterol sulfate 90 mcg/actuation 2 puff inhalation Q6H PRN 07/02/21 aerosol inhaler (Proventil HFA) shortness of breath or wheezing #8.5 grams albuterol sulfate 1.25 mg/3 mL 1.25 mg (3 mL) inhalation QID PRN 11/29/23 solution for nebulization shortness of breath or wheezing #90 mL rimegepant 75 mg disintegrating 75 mg PO ONCE PRN migraine 03/21/25 tablet (Nurtec ODT) headache #8 tabs topiramate 100 mg tablet 100 mg PO HS #30 tabs 03/21/25 ketorolac 10 mg tablet 10 mg PO Q8H PRN pain 1 day #14 03/26/25 tabs methocarbamol 500 mg tablet 500 mg PO HS #30 tabs 05/07/25 sod picosulf 10 mg-magnes 3.5 175 ml PO DAILY 2 doses #350 mL 05/15/25 gram-citric 12 gram/175 mL oral solution (Clenpiq) Allergies Allergy/AdvReac Type Severity Reaction Status Date / Time codeine Allergy Intermediate SOB Verified 05/07/25 15:57 aspirin Allergy Mild Hives Verified 05/07/25 15:57 Penicillins Allergy Unknown Hives Verified 05/07/25 15:57 [facility] Disclaimer: The information contained in this section may have been updated after the patient was seen, as this information can be updated by other users. Medical History Viral upper respiratory infection MIGUE (obstructive sleep apnea) Stenosis of cervix Menorrhagia with irregular cycle Migraine Costochondral chest pain Second degree burn Trichomonal vaginitis History of chlamydia Neuropathic pain Tobacco use Vitamin D deficiency (~01/23/18) Leg pain Hypertension Surgical History History of endometrial ablation H/O cervical polypectomy History of hysteroscopy History of colonoscopy History of dental surgery Hx of section History of tubal ligation Family History Other Asthma Cancer Coronary artery disease Family history of COPD (chronic obstructive pulmonary disease) Family history of cancer Family history of diabetes mellitus type II Family history of myocardial infarction Heart attack Hyperlipidemia Hypertension Social History Smoking Status: Current every day smoker tobacco type: cigarettes packs per day: 1 years smoked: 30 alcohol intake: former substance use type: former substance user and painkillers current occupational status: other Travel in the last 8 weeks?: None household members: significant other housing: house marital status: single number of children: 3 caffeine: Yes special sharron needs: No agree to transfusion: No do you feel safe at home: Yes victim of physical abuse: No victim of emotional abuse: No victim of sexual abuse: No would you like helpful sources: No Have you lived/traveled outside [place] in past 30 days?: No Contact w/someone who lives/traveled outside [place] past 30 days?: No Exposure to someone with infectious disease in past 14 days?: No Do you have a fever (greater than 100.4 F or 38 C)?: No Have you tested positive for COVID-19?: No Exposed to someone with COVID-19 in past 14 days?: No Do you have a sore throat?: No Do you have a cough?: No Do you have any weakness?: No Do you have any diarrhea?: No Are you experiencing any unusual bleeding?: No Do you have any muscle aches/pain?: No Do you have any abdominal pain?: No Are you experiencing loss of taste or smell?: No Other Medical History Have you received the Flu Vaccine for this season: No Have you received the Pneumonia Vaccine: No ROS Obtained: Yes Systems reviewed as appropriate & no additional complaints except as documented Physical Exam General General appearance: alert and in no apparent distress Head Head exam: atraumatic and normocephalic Eye Eye exam: Present PERRL and EOMI ENT ENT exam: Present mucous membranes moist Neck Neck exam: Present normal inspection and full ROM Chest Chest inspection: Present normal inspection and symmetric chest wall rise Respiratory Respiratory exam: Present normal lung sounds bilaterally; Absent respiratory distress Cardiovascular Cardiovascular exam: Present regular rate and normal rhythm Abdominal Exam Abdominal exam: Present soft; Absent tenderness Extremities Exam Extremities exam: Present normal inspection Neurological Exam Neurological exam: Present alert and CN II-XII intact; Absent motor sensory deficit Psychiatric Psychiatric exam: Present normal affect Skin Skin exam: Present warm and dry Medical Decision Making Medical Records Screening: Per USPSTF and CDC recommendations, given the prevalence of disease in our region, it is our hospital?s policy to screen for HIV and viral Hepatitis for all patients aged 18 and over and those with ongoing risk factors. Fernando Inquiry Pt receiving controlled substance: No Vital Signs: 05/20/25 11:47 05/20/25 12:00 05/20/25 12:30 Temperature 97.6 F Temperature Source Oral Pulse Rate 69 Pulse Rate [Right Radial] 76 Respiratory Rate 15 18 12 Blood Pressure 174/97 H 149/90 H Blood Pressure [Right Arm] 159/86 H Blood Pressure Mean [Right Arm] 110 Blood Pressure Source [Right Arm] Automatic Cuff Blood Pressure Position [Right Arm] Supine 02 Sat by Pulse Oximetry 100 99 98 Oxygen Delivery Method Room Air Room Air Room Air Lab Data Lab Results 05/20/25 11:57: WBC 6.7, RBC 4.90, Hgb 14.4, Hct 44.4, MCV 90.6, MCH 29.4, MCHC 32.4, RDW 13.1, Plt Count 267, MPV 11.2 H, Neut % (Auto) 71.6, Lymph % (Auto) 20.6, Labette % (Auto) 6.3, Eos % (Auto) 1.0, Baso % (Auto) 0.4, Neut # (Auto) 4.8, Lymph # (Auto) 1.4, Labette # (Auto) 0.4, Eos # (Auto) 0.1, Baso # (Auto) 0.0, Sodium 138, Potassium 4.3, Chloride 106, Carbon Dioxide 25, Anion Gap 11.3, BUN 15, Creatinine 0.90, Estimated Creat Clear 96, Estimated GFR 67, Est GFR ( Amer) 81, Glucose 113 H, Calcium 9.9, Magnesium 2.1, Total Bilirubin 0.6, AST 23, ALT 18, Alkaline Phosphatase 128 H, Total Protein 8.5 H, Albumin 5.0, Globulin 3.5 H, Albumin/Globulin Ratio 1.4 05/20/25 11:57 05/20/25 11:57 Orders (Tests/Meds): ED MEDICATIONS Discontinued Medications Generic Name Dose Route Start Last Admin Trade Name Abundioq PRN Reason Stop Dose Admin Acetaminophen 1,000 mg 05/20/25 11:45 05/20/25 12:16 Acetaminophen 1,000mg/100ml Vial IV 05/20/25 11:46 1,000 mg ONCE ONE Administration Diphenhydramine HCl 50 mg 05/20/25 11:45 05/20/25 12:13 Diphenhydramine 50mg/Ml Vial IV 05/20/25 11:46 50 mg ONCE ONE Administration Lactated Ringer's 500 mls @ 999 mls/hr 05/20/25 11:46 05/20/25 12:11 Lactated Ringer's 500ml IV 05/20/25 12:16 999 mls/hr .Q31M ONE Administration Prochlorperazine Edisylate 5 mg 05/20/25 11:45 05/20/25 12:16 Prochlorperazine 10mg/2ml Vial IV 05/20/25 11:46 5 mg ONCE ONE Administration ORDERS Category Date Time Status CT head/brain wo con Stat Cat Scan 05/20/25 11:45 Completed CBC w/Auto Diff [Complete Blood Count Auto Diff] Stat Lab 05/20/25 11:57 Completed CMP [Comprehensive Metabolic Panel] Stat Lab 05/20/25 11:57 Completed HIV Combo Stat Lab 05/20/25 11:57 Received Hepatitis C Ab Qual. W/ RFX Stat Lab 05/20/25 11:57 Received MG [Magnesium] Stat Lab 05/20/25 11:57 Completed ECG Data Tracing #1: Independently interpreted by me rate is 73, rhythm is regular, axis is normal, no ST elevation in anatomical contiguous leads, QTc 399. Medical Decision Narrative: In summary patient is a 49-year-old female with past medical history described above who presents emergency department for evaluation of headache. Patient is hemodynamically stable and nontoxic-appearing upon arrival, afebrile. Nonfocal neurologic exam. Patient likely is just having headache in the setting of chronic headaches not being on her baseline abortifactant. However given new quality with bilateral hand tingling and bifrontal nature noncontrasted CT scan of the head will be ordered. I am less concerned about her mild visual blurriness given that it occurs typically with her baseline headaches. No trauma. Hematologic labs to be obtained rule out other causes of paresthesias. No focal deficits to suspect CVA so CT angiograms were considered but will be deferred. Initial interventions include crystalloid bolus, Tylenol, Compazine, Benadryl. Visual acuity 20/40 both eyes individually, 20/25 OU, patient has glasses but is not wearing them currently. Upon repeat evaluation patient is resting comfortably in bed with significant improvement of her symptoms with no new dynamic changes and continued nonfocal neurologic status. Given this patient is appropriate for discharge at this time was instructed to follow back up with Dr. Hills to get her Nurtec refilled and was given return precautions. Critical Care Critical Care Time Critical Care Time: No
[2025-05-20 11:47] VITALS: BP 159/86; PULSE 76; RESP 15; TEMP 36.4; O2SAT 100; BMI 30.6
--- OUTSIDE RECORDS SUMMARY | 2025-05-20 11:49 | XMS_ITS | Patient Health Record ---
Author Organization [facility] Address [address] [place] [address] Care Team Providers Care Photocopying Equipment Mechanic Name Role Phone Mike Rodrigues Primary Care Provider McNejuan, Krissy Unavailable [phone] Dianna THIBODEAUX, KRISSY Unavailable Unavailable Mary aWlters Unavailable [phone] Mary Santoyo Unavailable [phone] Migration, Provider Unavailable Unavailable Allergies Allergen (clinical [...] 10:32:59 AM Interpretation: Performing Lab:SADIE, [facility] [address], [place] RockPyxtBJ[address] Ramon Quinones Notes/Report: NON-FASTING CULTURE, URINE, ROUTINE SEE NOTE CULTURE, URINE, ROUTINE Micro Number: [id number] Test Status: Final Specimen Source: Urine Specimen Quality: Adequate Result: Mixed genital alexa isolated. These superficial bacteria are not indicative of a urinary tract infection. No further organism identification is warranted on this specimen. If clinically indicated, recollect clean-catch, mid-stream urine and transfer immediately to Urine Culture Transport Tube. BASIC METABOLIC PANEL (07799 ) Reviewed date:07/27/2024 03:09:24 PM Interpretation: Performing Lab:SADIE [facility] [id number] [employer], [facility] CenterSrkpTM[address] Ramon Quinones Notes/Report: NON-FASTING GLUCOSE 91 65-99 [...] 24 20-32 mmol/L CALCIUM 9.5 8.6-10.2 mg/dL Urinalysis Reviewed date:04/23/2025 04:39:24 PM Interpretation: Performing Lab: Notes/Report: Color/Clarity yellow Leuk neg Nitrite neg Urobili 0.2 Protein trace pH 5.5 Blood neg Sp. Gr. 1.025 Ketone neg Bili neg Glucose neg Rapid Covid/Flu A-B Combo Reviewed date:09/13/2024 04:18:27 PM Interpretation: Performing Lab: Notes/Report: Rapid Covid Neg Flu A Neg Flu B Neg LIPID PANEL, STANDARD (7600) Reviewed date:01/15/2025 11:35:55 AM Interpretation: Performing Lab:SADIE [facility] [id number] [facility], [facility] CenterBjeuOH[address] Ramon Quinones Notes/Report: NON-FASTING; NON-FASTING; NON-FASTING; NON-FASTING; NON-FAST CHOLESTEROL, TOTAL 174 <200 mg/dL HDL CHOLESTEROL 53 > OR = 50 mg/dL TRIGLYCERIDES 127 <150 mg/dL LDL-CHOLESTEROL 99 Reference range: <100 Desirable range <100 mg/dL for primary prevention; <70 mg/dL for patients with CHD or diabetic patients with > or = 2 CHD risk factors. LDL-C is now calculated using the Mekhi-Milka calculation, which is a validated novel method providing better accuracy than the Friedewald equation in the estimation of LDL-C. Mekhi SS et al. RONALD. 2013;310(19): 2356-9108 (http://education.LaunchGram.Xiaozhu.com/faq/WPP040) CHOL/HDLC RATIO 3.3 <5.0 (calc) NON HDL CHOLESTEROL 121 <130 mg/dL (calc) For patients with diabetes plus 1 major ASCVD risk factor, treating to a non-HDL-C goal of <100 mg/dL (LDL-C of <70 mg/dL) is considered a therapeutic option. COMPREHENSIVE METABOLIC PANE L (93909) Reviewed date:01/15/2025 11:35:55 AM Interpretation: Performing Lab:SADIE [facility] [id number] [facility] CenterpadminiSaint [facility] Hospital at DoverRaheemVlnhTA[address] Ramon Quinones Notes/Report: NON-FASTING; NON-FASTING; NON-FASTING; NON-FASTING; [...] Reviewed date:01/15/2025 11:35:55 AM Interpretation: Performing Lab:SADIE [facility] [address] [facility], [facility] HospitalIanbSG[address] Ramon Quinones Notes/Report: NON-FASTING; NON-FASTING; NON-FASTING; NON-FASTING; [...] MPV 11.8 7.5-12.5 fL ABSOLUTE NEUTROPHILS 5420 1790-8306 cells/uL ABSOLUTE LYMPHOCYTES 2148 850-3900 cells/uL ABSOLUTE MONOCYTES 508 200-950 cells/uL ABSOLUTE EOSINOPHILS 90 15-500 cells/uL ABSOLUTE BASOPHILS 33 0-200 cells/uL NEUTROPHILS 66.1 LYMPHOCYTES 26.2 MONOCYTES 6.2 EOSINOPHILS 1.1 BASOPHILS 0.4 HEMOGLOBIN A1c (496) Reviewed date:01/15/2025 11:35:55 AM Interpretation: Performing Lab:SADIE [facility] [id number] Translim[employer]el [facility], [facility] CenterCobgQN[address] Ramon Quinones Notes/Report: NON-FASTING; NON-FASTING; NON-FASTING; NON-FASTING; [...] diagnosis of diabetes in children. According to [place] Diabetes Association (ADA) guidelines, hemoglobin A1c <7.0% represents optimal control in non- diabetic patients. Different metrics may apply to specific patient populations. Standards of Medical Care in Diabetes(ADA). TSH W/REFLEX TO FT4 (91970) Reviewed date:01/15/2025 11:35:55 AM Interpretation: Performing Lab:SADIE, [facility] [address], [place] HqnkZN[address] Ramon Quinones Notes/Report: NON-FASTING; NON-FASTING; NON-FASTING; NON-FASTING; NON-FAST TSH W/REFLEX TO FT4 1.02 Reference Range > or = 20 Years 0.40-4.50 Ranges First trimester 0.26-2.66 Second trimester 0.55-2.73 Third trimester 0.43-2.91 VITAMIN D,25-OH,TOTAL,IA (17 306) Reviewed date:01/15/2025 11:35:55 AM Interpretation: Performing Lab:SADIE [facility] [address], [place] EmpireQcqmEE[address] Ramon Quinones Notes/Report: NON-FASTING; NON-FASTING; NON-FASTING; NON-FASTING; [...] D, (D2,D3), LC/MS/MS is recommended: order code 18588 (patients >2yrs). See Note 1 Note 1 For additional information, please refer to http://education.Prematics.Xiaozhu.com/faq/SML015 (This link is being provided for informational/ educational purposes only.) Mammogram : Bilateral Reviewed date:01/19/2025 10:42:39 AM Interpretation: Performing Lab: Notes/Report: X ray : Chest Reviewed date:03/19/2025 10:29:46 AM Interpretation: Performing Lab: Notes/Report: CT ABD WOW Reviewed date:01/29/2025 10:32:59 AM Interpretation: Performing Lab: Notes/Report: Rapid Covid/Flu A-B Combo Reviewed date:03/09/2025 02:51:07 PM Interpretation: Performing Lab: Notes/Report: Rapid Covid neg Flu A neg Flu B neg MRI : Abdomen with & without Reviewed date:07/20/2024 11:25:59 AM Interpretation: Performing Lab: Notes/Report: MRI : Cervical spine without contrast Reviewed date:07/10/2024 01:47:58 PM Interpretation: Performing Lab: Notes/Report: M-BUN & Creatinine Reviewed date:07/17/2024 02:56:45 PM Interpretation: Performing Lab: Notes/Report: BUN 24 7-17 mg/dl CREATT 1.10 0.52-1.04 mg/dl GFRAA 65 >60 ML/MIN EGFR 53 >60 ml/min Reason For Referral Reason Bux- Upper back pain Referral Organization [facility] VICENTE MARINO Referring Provider First Name Mary Referring Provider Last Name Natanael Referring Provider [facility] Referral Priority Routine Reason Please arrange MRI C spine WO at [facility] for ongoing right neck pain, radicular symptoms intermittently, failed PT. Diagnosis 1 Neck pain on right s roshni (M54.2) Referral Organization [facility] KANDY PICHARDO Referring Provider First Name Mary Referring Provider Last Name Natanael Referring Provider [facility] Referred Organization [facility] Referred Address [address] [place] [address],[address],[place] Referred Provider Specialty Diagnostic R adiology General Notes Erma Kumar 2023 10:24:42 AM >Pending PrecertJosé Nickie 06/27/2024 09:44:21 AM >approved and order sent to [facility] scheduling. They will contact patient to schedule. Referral Priority Routine Reason Please refer to Neur osurgeon Dr. Meza for spondylosis, per MRI C spine, C4-C5 central protrusion which indents thecal sac and touches and mildly flattens the anterior surface of the cord. Diagnosis 1 Cervical spondylosis (M47.812) Referral Organization [facility] PED MARINO Referring Provider First Name Mike Referring Provider Last Name Ravi Referring Provider Speciality Internal M edicine Referred Organization [facility] Referred Address [address] [place], [place],[address],[place] Referred Provider Specialty Neurological Surgery General Notes Erma Kumar 2024 09:29:16 AM >Referral placed through the [facility] portal., Erma Kumar 07/12/2024 09:24:11 AM >[facility] and Dr Meza do not take [employer] however he sees people at [facility] and can see her there. The order was faxed to Caitlin at [place] [phone]. Her phone is [phone]. Clinical Notes JoséErma 2024 09:25:21 AM > Referral Priority Urgent Reason CT Adrenal Mass Prot ocol for 6 mth f/u Diagnosis 1 Adrenal mass (E27.8) Referral Organization [facility] VICENTE HART Referring Provider First Name Krissy Referring Provider Last Name Dianna Referring Provider [facility] Referred Organization [facility] Referred Address [address] [facility] [address] [place], [place],[address], Referred Provider Specialty Diagnostic R adiology Referral Priority Routine Reason Can you please see i f this med needs a PA? Patient said her insurance doesn't cover it. Diagnosis 1 Stress incontinence (N39.3) Referral Organization [facility] Referring Provider First Name Mary Referring Provider Last Name Natanael Referring Provider [facility] General Notes Efraín Jerome 03:13:47 PM > PA done on cover my meds Referral Priority Routine Reason Can you help with PA approval of Gemtesa and Trelegy. Failed Dulera and albut/iprat. Diagnosis 1 Stress incontinence (N39.3) Referral Organization [facility] Referring Provider First Name Mary Referring Provider Last Name Natanael Referring Provider [facility] General Notes Efraín Jerome 12:00:55 PM > did PA on cover my meds Referral Priority Routine Reason Please refer to MESERET Roth for esophagitis, feels like something is in her throat when swallowing, history of choking on a Doxycycline pill. Diagnosis 1 Odynophagia (R13.10) Referral Organization [facility] Referring Provider First Name Mary Referring Provider Last Name Natanael Referring Provider [facility] Referred Organization [facility] Referred Address [address] [facility] [address] [place], [place],[address],[place] Referred Provider Specialty Gastroentero logy General Notes Erma Kumar 2024 12:45:45 PM >faxed to Roth Referral Priority Routine Referral Appointment Date 11/27/2024 Reason Please refer to [facility] ist Pulmonary Dr. Holguin/work related administration internship for COPD with reactive airway disease. Erma see notes Diagnosis 1 Chronic obstructive pulmonary disease, unspecified COPD type (J44.9) Referral Organization [facility] Referring Provider First Name Mary Referring Provider Last Name Natanael Referring Provider [facility] Referred Organization [facility] Referrals Referred Address [address],[place], [place],[address],[place] Referred Provider Specialty Pulmonary Siena lacy General Notes Efraín Jerome 04:10:31 PM > faxed and they will call patient with appt, Erma Kumar 11/21/2024 11:08:46 AM >sent to Referral Priority Routine Reason CT adrenal mass prot ocol - Jenci this is pending with Liseth through [facility] After 01-17 Diagnosis 1 Adrenal mass, left ( E27.8) Diagnosis 2 Adrenal mass, right (E27.9) Referral Organization [facility] Referring Provider First Name Mary Referring Provider Last Name Natanael Referring Provider [facility] Referred Organization [facility] Referred Address [address], [place], [place],[address],[place] Referred Provider Specialty Diagnostic R adiology General Notes Erma Kumar 2024 03:24:08 PM >pending precert with MICHAEL NAILS- Queenie Childers Jenci D 01/12/2025 02:51:08 PM > It won't let me see it because I didn't put it in, Erma Kumar 01/15/2025 10:29:28 AM >approved sent to [facility] to schedule appt Referral Priority Routine Reason Please refer to Neur ologist Dr. Hills for recurrent migraines. Diagnosis 1 Episodic migraine (G 43.779) Referral Organization [facility] PED MARINO Referring Provider First Name Mary Referring Provider Last Name Natanael Referring Provider [facility] General Notes Efraín Jerome 09:51:01 AM > faxed and they will call pt Referral Priority Routine Reason Please refer to Kim GAYTAN with [facility] for stress incontinence. Diagnosis 1 Stress incontinence (N39.3) Referral Organization [facility] Referring Provider First Name Mary Referring Provider Last Name Santoyo [facility] Efraín Jerome 10:04:56 AM > [...] of colon (D12.6) Referral Organization [facility] Referring Provider First Name Mary Referring Provider Last Name Santoyo Referring Provider [facility] Notes Mike Gutiérrez 12/26 03:43:42 PM >pt notified Referral Priority Routine Referral Appointment Date 05/29/2025 Reason Please arrange annua l mammogram with [facility] for breast cancer screening. Diagnosis 1 Encounter for screen ing mammogram for malignant neoplasm of breast (Z12.31) Referral Organization [facility] Referring Provider First Name Mary Referring Provider Last Name Natanael [facility] Efraín Jerome 09:49:47 AM > faxed to [facility] and they will call pt Referral Priority Routine Reason Please refer to Dr. Regi Martinez for routine pap smear for cervical cancer screening. Diagnosis 1 Cervical cancer scre ening (Z12.4) Referral Organization [facility] Referring Provider First Name Mary Referring Provider Last Name Santoyo Ref[facility] Notes Efraín Jerome 09:47:23 AM > faxed and they will call pt Referral Priority Routine Reason Please refer to Derm atologist for routine skin cancer screening. Diagnosis 1 Skin cancer screenin g (Z12.83) Referral Organization [facility] Referring Provider First Name Mary Referring Provider Last Name Sanotyo Referring Provider [facility] Notes Efraín Jerome 09:46:30 AM > faxed to [facility] and they will call her, Efraín Jerome 02/01/2025 03:37:52 PM > they do not accept insurance- faxed to [place] Referral Priority Routine Reason Can you possibly sen d me GI Dr. Roth note? No longer having acute symptoms, but would like to read their recommendation at that time. Diagnosis 1 History of odynophag ia (Z87.898) Referral Organization [facility] Referring Provider First Name Mary Referring Provider Last Name Natanael Referring Provider [facility] Notes Efraín Jerome 12:30:28 PM > Referral Priority Routine Medications Medication SIG (Take, Route, Frequency, Duration) Notes Start Date End Date Status PARoxetine HCl 10 MG 1 tab(s) orally onc e a day; Duration: 30 days Active Propranolol HCl ER 60 MG TAKE 1 CAPSULE BY MOUTH DAILY; Duration: 30 Active hydroCHLOROthiazide 12.5 MG 1 tablet in the morning Orally Once a day Active Ventolin HFA 108 (90 Base) MCG/ACT 2 INH inhaled every 6 hours prn Active Topiramate 100 MG TAKE 1 TABLET BY MOUTH AT BEDTIME; Duration: 30 days Active Phenazopyridine HCl 200 MG 1 tablet afte r meals Orally Three times a day; Duration: 2 days 01/26/2025 Active Phenazopyridine HCl 200 MG 1 tablet afte r meals Orally Three times a day; Duration: 2 days 04/23/2025 Active Gemtesa 75 MG 1 tab(s) orally once a day; Duration: 30 days 09/13/2024 Active Lidoderm 5 % APPLY 1 PATCH TOPICALLY ONCE DAILY FOR 30 DAYS; Duration: 30 prn Active Social History Tobacco Use: Social [...] Status Risk Notes Problem Hypertrophy of uterus (259118598) Hypertrophy of uterus (N85.2) Active confirmed Problem Peripheral neuropathy (831861300) Peripheral neuropathy (G62.9) Active confirmed Problem Nicotine dependence (39569658) Personal history of nicotine dependence (Z87.891) Active confirmed Problem Anxiety (98962564) Anxiety (F41.9) Active confi rmed Problem Essential hypertension (92925577) Essential hypertension (I10) Active confirmed Problem Acute exacerbation of chronic obstructive airways disease (342196469) COPD exacerbation (J44.1) Active confirmed Problem Chronic pain (71650777) Other chronic pain (G89.29) Active confirmed Problem Lower abdominal pain (36807671) Lower abdominal pain (R10.30) Active confirmed Problem Neck pain (45036942) Neck pain on right side (M54.2) Active confirmed Problem Carpal tunnel syndrome (48521300) Right carpal tunnel syndrome (G56.01) Active confirmed Problem Neck pain (81517637) Neck pain (M54.2) Active confirmed Problem Heart murmur (87243241) Heart murmur (R01.1) Active confirmed Problem COPD - Chronic obstructive pulmonary disease (55493739) Chronic obstructive pulmonary disease, unspecified COPD type (J44.9) Active confirmed Problem Abnormal mammogram (945838616) Abnormal mammogram (R92.8) Active confirmed Problem Migraine without aura, not refractory (323419632) Migraine without aura and without status migrainosus, not intractable (G43.009) Active confirmed Problem Amenorrhea (34840322) Amenorrhea (N91.2) Active confirmed Problem Chronic obstructive pulmonary disease (93036141) Chronic obstructive pulmonary disease (J44.9) Active confirmed Problem SI - Stress incontinence (95287074) Stress incontinence (N39.3) Active confirmed Problem Hyperlipidaemia (76221773) Hyperlipidemia, unspecified hyperlipidemia type (E78.5) Active confirmed Problem Breathlessness on exertion (68018787) Breathlessness on exertion (R06.09) Active confirmed Problem Cervical radiculopathy (83787826) Cervical radiculopathy (M54.12) Active confirmed Problem History of nutritional deficiency (37392168383406) History of vitamin D deficiency (Z86.39) Active confirmed Problem Dysphagia (12566220) Dysphagia, unspecified type (R13.10) Active confirmed Problem Mass of right adrenal gland (finding) (81985261287774013 ) Adrenal mass, right (E27.9) Active confirmed Problem Sciatica (12074351) Acute left-sided low back pain with left-sided sciatica (M54.42) Active confirmed Problem Kyphoscoliosis deformity of spine (037551010) 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) Active confirmed Problem Solitary sacroiliitis (013953106) SI (sacroiliac) joint inflammation (M46.1) Active confirmed Problem Odynophagia (61607311) Odynophagia (R13.10) Active confirmed Problem Tobacco use (474527063) Tobacco use disorder (F17.200) Active confirmed Problem Mass of left adrenal gland (finding) (21102085605990002 ) Adrenal mass, left (E27.8) Active confirmed Problem Cervical spondylosis (480272823) Cervical spondylosis (M47.812) Active confirmed Problem Adrenal mass (096713003) Adrenal mass (E27.8) Active confirmed Problem Episodic migraine (746644331226140) Episodic migraine (G43.909) Active confirmed Problem Retrolisthesis (449031661) Retrolisthesis (M43.10) Active confirmed Problem Sciatica (91625316) Acute left-sided low back pain with right-sided sciatica (M54.41) Active confirmed Problem Sessile serrated polyp of colon (1168858638) Sessile serrated polyp of colon (D12.6) Active confirmed Problem Benign neoplasm of adrenal gland (43041128) Adrenal adenoma, unspecified laterality (D35.00) Active confirmed Vital Signs Heart Rate 82 /min 04/23/2025 Temperature 97.9 degrees Fahrenheit 04/23/2025 Blood pressure diastolic 92 mm Hg 04/23/2025 Height 63 in 04/23/2025 Blood pressure systolic 145 mm Hg 04/23/2025 Weight 183 lbs 04/23/2025 BMI 32.41 kg/m2 04/23/2025 Encounters Encounter Location Date Provider Diagnosis [facility] [address] JUANITA Ferguson [address] 09/30/2024 Provider Migration COPD exacerbation J44.1 and Esophagitis K20.90 [facility] [address] [place] [address] 01/11/2025 Mary Baigowell [facility] [address] [place] [address] 06/22/2024 Mary Baigowell Neck pain on right s roshni M54.2 [facility] [address] [place] [address] 07/25/2024 Mary Baigowell EWELINA (acute kidney injury) N17.9 and Essential (primary) hypertension I10 [facility] [address] [place] [address] 09/11/2024 Mary Walters Episodic migraine G43.909 [facility] [address] [facility] [address] [place] [address] 09/13/2024 Mary Natanael Acute cough R05.1 ; COPD exacerbation J44.1 and Stress incontinence N39.3 [facility] [address] [facility] [address] [place] [address] 09/18/2024 Mike Rodrigues Chronic obstructive pulmonary disease, unspecified COPD type J44.9 ; COPD exacerbation J44.1 and Episodic migraine G43.909 [facility] [address] [facility] [address] [place] [address] 09/22/2024 Mary Natanael COPD exacerbation J4 4.1 and Esophagitis K20.90 [facility] [address] [place] [address] 10/12/2024 Mary Natanael Essential (primary) hypertension I10 ; Chronic obstructive pulmonary disease, unspecified COPD type J44.9 ; Stress incontinence N39.3 and Odynophagia R13.10 [facility] [address] [place] [address] 11/15/2024 Mary Natanael Chronic obstructive pulmonary disease, unspecified COPD type J44.9 ; Essential (primary) hypertension I10 ; Hypokalemia E87.6 ; Cervical radiculopathy M54.12 and Dysphagia, unspecified type R13.10 [facility] [address] [address] 01/09/2025 Mary Natanael Hyperlipidemia, unspecified hyperlipidemia type [...] unspecified laterality D35.00 and Poor historian Z78.9 [facility] [address] [address] 01/26/2025 Krissy McNees Dysuria R30.0 [facility] [address] [address] 03/09/2025 Krissy McNees Subacute cough R05.2 and COPD exacerbation J44.1 [facility] [address] [facility] [address] [place] [address] 03/12/2025 Mike Rodrigues COPD exacerbation J4 4.1 and Hospital discharge follow-up Z09 [facility] [address] [facility] [address] [place] [address] 03/15/2025 Krissy McNees Shortness of breath R06.02 and COPD exacerbation J44.1 [facility] [address] [facility] [address] [place] [address] 03/29/2025 Krissy McNees Essential (primary) hypertension I10 and COPD exacerbation J44.[address] [facility] [address] [address] 04/11/2025 Mary Walters Arthralgia of left temporomandibular joint M26.622 ; Non-recurrent acute serous otitis media of both ears H65.03 and Essential hypertension I10 [facility] [address] [place] [address] 04/23/2025 Krissy Bustamante Urinary frequency R3 5.0 and Bladder pain R39.89 [facility] [address] [place] [address] 06/14/2024 Mary Natanael Adrenal mass, left E 27.8 and Adrenal mass, right E27.9 [facility] [address] [place] [address] 06/27/2024 Mary Natanael Kyphoscoliosis defor mity of spine M41.9 and Neck pain M54.2 [facility] [address] [place] [address] 07/10/2024 Mary Santoyo [facility] [address] [place] [address] 07/10/2024 Mary Baigowell Cervical spondylosis M47.812 [facility] [address] [place] [address] 07/19/2024 Mary Santoyo [facility] [address] [place] [address] 08/03/2024 Mary Santoyo [facility] [address] [place] [address] 09/21/2024 Mary Santoyo [facility] [address] [place] [address] 10/24/2024 Mary Santoyo [facility] [address] [place] [address] 11/15/2024 Mike Ravi [facility] [address] [place] [id number] 01/05/2025 Mary Natanael Adrenal mass, right E27.9 and Adrenal mass, left E27.8 [facility] [address] [place], [place] [address] 01/15/2025 Mike Rodrigues [facility] [address] [place], [place] [address] 04/14/2025 Krissy Bustamante [facility] [address] [place], [place] [address] 01/10/2025 Mary Santoyo Anxiety F41.9 Assessments Encounter Date Diagnosis (ICD Code) Assessment Notes Treatment Notes Treatment Clinical Notes Section Notes 06/27/2024 Kyphoscoliosis deformity of spine (ICD-10 - [...] for Trelegy, sent script and have asked district resource officer with [place] approval. Follow-up in 1 [...] 01/05/2025 Adrenal mass, right (ICD-10 - E27.9) 06/14/2024 Adrenal mass, left (ICD-10 - E27.8) [...] and PRN voltaren gel. Continue heating pad. 01/09/2025 Routine adult health maintenance (ICD-10 - Z00.00) Tdap December 2023. Declines pneumonia vaccine. She reports getting annual mammogram, November 2023, normal, due for next one, referral placed. She is followed by [facility]. Martinez, unsure when she last [...] Back to baseline. Stop smoking. Continue Breztri. 04/11/2025 Arthralgia of left temporomandibular joint (ICD-10 [...] media of both ears (ICD-10 - H65.03) 04/23/2025 Urinary frequency (ICD-10 - R35.0) Reassurance, UA is normal. Multiple abd imaging in the last year, no indication to repeat. Pain likely related to bladder inflammation, spasms. Start Pyridium as below. Increase oral fluid intake. Keep FU with urology on . Sooner return precautions discussed. 04/23/2025 Bladder pain (ICD-10 - R39.89) 04/11/2025 Essential hypertension (ICD-10 - I10) mildly elevated today but improving, keep scheduled FU 01/09/2025 Chronic obstructive pulmonary disease, unspecified COPD type (ICD-10 - J44.9) Well controlled on Breztri so will continue. Keep follow-up with [facility]. 06/27/2024 Neck pain (ICD-10 - M54.2) 11/15/2024 Hypokalemia (ICD-10 - E87.6) Re-checking BMP. [...] - N39.3) Previously followed by [facility] who performed a botox shot per patient. [...] Keep follow-up with Urologist of her choice. 06/14/2024 Adrenal mass, right (ICD-10 - E27.9) [...] of uterus (ICD-10 - N85.2) Follows with [facility]. History of ablation. 01/09/2025 History of [...] Patient is at baseline a poor medical resident often forgetting names of her medications, which [...] B12 01/07/2024 M-Vitamin D 25 Hydroxy 01/07/2024 [id number] 03/23/2024 Physical Therapy Eval and Treat 04/04/20 Physical Therapy Eval and Treat 04/13/20 BASIC METABOLIC PANEL (19829) 11/15/2024 BASIC METABOLIC PANEL (17164) 12/02/2023 BASIC METABOLIC PANEL (89838) 10/28/2023 Insurance Providers Payer Name Payer Address Payer Phone Subscriber Number Group Number Insured Name Patient Relationship to Insured Coverage Start Date Coverage End Date [employer] [place] [employer] [address] [address] [place] [phone] [id number] Sera Saxena Self - patient is the [...]
--- OUTSIDE RECORDS SUMMARY | 2025-05-20 11:49 | XMS_ITS | Clinical Summary ---
Author Organization [facility] Address [address] [place] [phone] Phone Care Team Providers Care Forming Process Worker Name Role Phone Unavailable Primary Care Provider [...] Nebulization Take 2.5 mg by nebulization once. 07/06/19 24 Active meloxicam (MOBIC) 7.5 mg Oral Tablet Take 7.5 mg by mouth daily. 08/26/19 24 Active LIDODERM 5 % Top Adhesive Patch, Medicated Place 1 Patch onto the skin once. Active propranoloL (INDERAL) 20 mg Oral Tablet Take 20 mg by mouth once. Active ibuprofen (ADVIL;MOTRIN) 800 mg Oral Tablet Take 800 mg by mouth 3 times daily as needed. 08/23/19 24 Active cyclobenzaprine (FLEXERIL) 10 mg Oral Tablet Take 10 mg by mouth. 08/23/19 24 Active lisinopriL (PRINIVIL;ZESTR IL) 20 mg Oral Tablet tablet Take 20 mg by mouth daily. Active celecoxib (CELEBREX) 200 mg Oral Capsule Take 200 mg by mouth daily. 09/06/19 24 Active lisinopriL-hydr ochlorothiazide (PRINZIDE;ZESTO RETIC) 20-12.5 mg Oral Tablet Take 1 Tablet by mouth daily. 10/07/19 24 Active PARoxetine (PAXIL) 10 mg Oral Tablet Take 10 mg by mouth daily. 03/24/20 23 Active predniSONE (DELTASONE) 20 mg Oral Tablet Take 20 mg by mouth daily. 07/05/19 24 Active pantoprazole (PROTONIX) 40 mg Oral Tablet, Delayed Release (E.C.) Take 40 mg by mouth daily. Active Nebulizers Misc Misc as directed 07/06/19 24 Active NIFEdipine (PROCARDIA XL) 30 mg Oral Tablet Extended Rel 24 hr Take 30 mg by mouth daily. 11/05/19 24 Active losartan (COZAAR) 100 mg Oral Tablet Take 100 mg by mouth daily. 11/05/19 24 Active levoFLOXacin (LEVAQUIN) 500 mg Oral Tablet TAKE 1 TABLET BY MOUTH EVERY 24 HOURS FOR 7 DAYS 12/02/19 24 Active oxybutynin (DITROPAN-XL) 10 mg Oral Tablet Extended Rel 24 hrIndications:O AB (overactive bladder) TAKE 1 TABLET BY MOUTH DAILY 30 Tablet 6 04/24/20 24 Active nitrofurantoin, macrocrystal-mo nohydrate, (MACROBID) 100 mg Oral CapsuleIndicati ons:Therapeutic procedure Starting 3 days prior to procedure: take 1 tab PO bid x 7 days 14 Capsule 05/12/20 24 Active diazePAM (VALIUM) 2 mg Oral TabletIndicatio ns:Therapeutic procedure Take 1 tab 30-60 minutes prior to procedure. 1 Tablet 05/12/20 24 Active GEMTESA 75 mg Oral TabletIndicatio ns:Urge urinary incontinence,OA B (overactive bladder) TAKE 1 TABLET BY MOUTH DAILY 30 Tablet 5 05/14/20 25 Active vibegron 75 mg Oral TabletIndicatio ns:Urge urinary incontinence,OA B (overactive bladder) Take 1 Tablet by mouth daily. 30 Tablet 5 02/29/20 24 2024 Discontinued Active Problems Problem Noted Date Diagnosed Date Secondary hypertension 09/13/2023 OAB (overactive bladder) 09/13/2023 Mixed stress and urge urinary incontinence 09/12 Encounters Date Type Department Care Team Description 05/11/2025 Refill [facility] [place] [phone] Maritza Isabel PA-C Medication Refill 04/26/2025 8:30 AM EDT Office [facility] [address] [phone] Maritza Isabel PA-C Urge incontinence of urine (Primary Dx); OAB (overactive bladder) from Last 3 Months Medical History Medical History Date Comments Hypertension [...] AM EDT Temperature - - Respiratory Rate 16 12/09/2023 2:33 PM EDT Oxygen Saturation 98% 04/26/2025 8:34 AM EDT Inhaled Oxygen Concentration - - Weight 80.3 kg (177 lb) 04/26/2025 8:34 AM EDT Height 160 cm (5' 3 ) 04/26/2025 8:34 AM EDT Body Mass Index 31.35 04/26/2025 8:34 AM EDT Plan of Treatment Upcoming Encounters Date Type Department Care Team (Late st Contact Info) Description 07/10/2025 2:45 PM EST Procedure visit [facility] [address] [phone] Kirstin Campos MD [address] [place] [id number] 07/31/2025 2:30 PM EST Office Visit [facility] [address] [phone] Maritza Isabel PA-C [address] [place] [address] Health Maintenance Due Date Last Done Comments Annual Wellness Exam 1980 Hepatitis B Vaccine (1 of 3 - 19+ 3-dose series) 1996 Cervical Cancer Screening 1998 Pap Smear 1998 HPV/Pap Cotest 12/12/2007 Breast Cancer Screening 2017 Cologuard 2022 Colon Cancer Screening 2022 Colonoscopy 2022 FIT 2022 Sigmoidoscopy 2022 Virtual Colonography 2022 COVID-19 Vaccine (1 - 2024-2 6 season) 2025 Influenza Vaccine (#1) 2025 DTaP/TDaP/Td (2 - Td or Tdap) 01/06/2034 01/07/2024 Meningococcal B Vaccine Aged Out No l onger eligible based on patient's age to complete this topic Pneumococcal Vaccine 0-49 Aged Out No longer eligible based on patient's age to complete this topic Insurance MDR MDR
--- OUTSIDE RECORDS SUMMARY | 2025-05-20 11:49 | XMS_ITS | Clinical Summary ---
Author Organization [facility] Address [address] [place] [address] Care Team Providers Care Entry Examiner Name Role Phone Mike Rodrigues MD Primary Care Provider Allergies Active Allergy Reactions Criticality Noted Date [...] reaction when she was a baby Medications hydroCHLOROthiazi de 12.5 MG tablet Daily. Ac tive methocarbamol (ROBAXIN) 500 MG tablet TAKE 1 TABLET BY MOUTH AT BEDTIME EVERY NIGHT 12/27/19 25 Active topiramate (TOPAMAX) 50 MG tablet TAKE 1 TABLET BY MOUTH AT BEDTIME; Duration: 30 Active ipratropium-albut radha (DUO-NEB) 0.5-2.5 mg/3 ml nebulizer USE 3 ML VIA NEBULIZER EVERY 4 HOURS NEEDED FOR WHEEZING OR SHORTNESS OF BREATH 09/14/19 25 Active albuterol sulfate HFA 108 (90 Base) MCG/ACT inhalerIndication s:Mucopurulent chronic bronchitis Inhale 2 puffs Every 4 (Four) Hours As Needed for Wheezing. 01/11/20 25 Active Breztri Aerosphere 160-9-4.8 MCG/ACT aerosol inhalerIndication s:Mucopurulent chronic bronchitis Inhale 2 puffs 2 (Two) Times a Day. 10.7 g 11 01/11/20 25 Active propranolol LA (INDERAL LA) 60 MG 24 hr capsule 05/14/20 25 Active prochlorperazine (COMPAZINE) 5 MG tablet Take 1 tablet by mouth Every 8 (Eight) Hours As Needed for Nausea or Vomiting. 03/26/20 25 Active Vibegron (Gemtesa) 75 MG tablet Take 1 tablet by mouth Daily. 05/14/20 25 Active PARoxetine (PAXIL) 10 MG tablet Take 1 tablet by mouth Daily. 04/04/20 25 Active ketorolac (TORADOL) 10 MG tablet TAKE 1 TABLET BY MOUTH EVERY 8 HOURS FOR 1 DAY NEEDED FOR PAIN 03/26/20 25 Active ibuprofen (ADVIL,MOTRIN) 800 MG tablet Take 1 tablet by mouth Every 8 (Eight) Hours As Needed. for pain 04/04/20 25 Active rimegepant sulfate ODT (NURTEC-ODT) [address] 1 tablet under the tongue 1 (One) Time. Active doxycycline (VIBRAMYCIN) 100 MG capsule Take 1 capsule by mouth 2 (Two) Times a Day. 025 Discontinued Active Problems No known active problems Encounters Date Type Department Care Team Description 05/15/2025 2:45 PM EST Office Visit [facility] [address] [place] [address] Raul Yoon, Mucopurulent chronic bronchitis (Primary Dx); Personal history of smoking 05/15/2025 Travel from Last 3 Months Immunizations Immunization Administration Dates Next Due Flu Vaccine Intradermal Quad 18-64YR 05/15/2025( Deferred: Patient Refused) Tdap 01/07/2024 Social History Tobacco Use Types Packs/Day Years [...] Orientation Straight 05/15/2025 12 :28 PM EST Last Filed Vital Signs Vital Sign Reading [...] Mass Index 32.52 05/15/2025 2:35 PM EST Plan of Treatment Health Maintenance Due Date Last Done Comments Annual Gynecologic Pelvic an d Breast Exam 1977 Pneumococcal Vaccine 0-49 (1 of 2 - PCV) 1996 PAP SMEAR 1998 MAMMOGRAM 2017 COLOGUARD 2022 COLON CANCER SCREENING 5 YEA R SIGMOIDOSCOPY 2022 COLONOSCOPY 2022 [address] CANCER SCREENING 2022 CT COLONOGRAPHY 2022 FECAL OCCULT BLOOD TEST 2022 FIT Testing (1 year) 2022 ANNUAL PHYSICAL 01/10/2025 HEPATITIS C SCREENING 01/10/2025 INFLUENZA VACCINE 11/11/2025 Postponed from 01/26/2025 (Patient Refused) TDAP/TD VACCINES (2 - Td or Tdap) 01/06/2034 024 Insurance [facility] MEDICAID Care Teams Entry Examiner Relationship Specialty Start Date End Date Mike Rodrigues MD [address] [facility] [address] [address] PCP - General Adolescent Medicine 05/15/25
--- OUTSIDE RECORDS SUMMARY | 2025-05-20 11:50 | XMS_ITS | Referral Summary ---
Author Organization [employer] ([place], [place], [place], [place], [place]) Address [address] [place] [address] Care Team Providers Care District Sales Leader Name Role Phone Mike Rodrigues MD Primary Care Provider + [phone] Allergies Active Allergy Reactions Criticality Noted Date [...] Plan of Treatment Not on file Insurance [facility] Care Teams District Sales Leader Relationship Specialty Start Date End Date Mike Rodrigues MD [address] [place] [address] PCP - General Adolescent Medicine 07/17/24
--- OUTSIDE RECORDS SUMMARY | 2025-05-20 11:50 | XMS_ITS | Clinical Summary ---
Author Organization [employer] ([place], [place], [place], [place], [place]) Address [address] [place] [address] Care Team Providers Care Insurance Analyst Name Role Phone Mike Rodrigues MD Primary Care Provider + [phone] Allergies Active Allergy Reactions Criticality Noted Date [...] 2017 Lipid Panel 2022 COVID-19 VACCINE ( season) 2025 Influenza Vaccine (#1) 2025 DTAP/TDAP/TD VACCINES (2 - Td or Tdap) 01/06/2034 Insurance Care Teams Insurance Analyst Relationship Specialty Start Date End Date Mike Rodrigues MD [address] [place] [address] PCP - General Adolescent Medicine 07/17/24
--- OUTSIDE RECORDS SUMMARY | 2025-05-20 11:50 | XMS_ITS | Encounter Summary ---
[facility] Organization [facility] Address [address] [place] [address] Care Team Providers Care Day Habilitation Supervisor Name Role Phone Mike Rodrigues MD Primary Care Provider [phone] Encounter Details Date Type Department Care Team (Latest Contact Info) Description 05/15/2025 Travel Social History Tobacco Use Types Packs/Day [...] on filedocumented in this encounter Care Teams Day Habilitation Supervisor Relationship Specialty Start Date End Date Mike Rodrigues MD [address] [place] [address] [place] [address] PCP - General Adolescent Medicine 05/15/25 documented as of this encounter
--- OUTSIDE RECORDS SUMMARY | 2025-05-20 11:50 | XMS_ITS | Encounter Summary ---
Author Organization [place] [address] Care Team Providers Care Synthetic Chemist Name Role Phone Unavailable Primary Care Provider Unavailabl e Reason for Referral * Medication Prior Authorization - Denied Specialty Diagnoses / Procedures Referred By Contmarya t Referred To Contact Diagnoses Urge urinary incontinence OAB (overactive bladder) Maritza Isabel PA-C [address] [place] [address] Phone: tel: fax: Referral ID Status Reason Start Date Expiration Date Visits Re quested Visits Authorized [id number] Denied 1 1 Reason for Visit * Reason Comments Medication Refill Encounter Details Date Type Department Care Team (Late st Contact Info) Description 05/11/2025 Refill [facility] [address] [phone] Maritza Isabel PA-C [address] [place] [address] Medication Refill Social History Tobacco Use Types Packs/Day Years Used Date Smoking Tobacco: Former Cigarettes Smokeless Tobacco: Never Comments No Sex and Gender Information Value Date Recorded Sex Assigned at Not on file Legal Sex Female 11:25 AM EDT Gender Identity Not on file Sexual Orientation Not on file documented as of this encounter Ordered Prescriptions Prescription Sig Dispense Quantity Refills Last Filled Start Date End Date GEMTESA 75 mg Oral TabletIndications:U rge urinary incontinence,OAB (overactive bladder) TAKE 1 TABLET BY MOUTH DAILY 30 Tablet 5 05/14/2025 documented in this encounter Miscellaneous Notes * Telephone Encounter - Gretchen Alcala MA - 05/16/2025 10:06 AM EST PA denied. Appeal and supporting documentation faxed to [facility]. * Telephone Encounter - Zandra Angeles MA - 05/14/2025 1:30 PM EST Completed PA for Gemtesa. Awaiting determination. documented in this encounter Plan of Treatment Upcoming Encounters Date Type Department Care Team (Late st Contact Info) Description 07/10/2025 2:45 PM EST Procedure visit [facility] [address] [phone] Kirstin Campos MD [address] [place] [phone] 07/31/2025 2:30 PM EST Office Visit [facility] [address] [phone] Maritza Isabel PA-C [address] [place] [address] documented as of this encounter Visit Diagnoses Diagnosis Urge urinary incontinence Urge incontinence OAB (overactive bladder) Hypertonicity of bladder documented in this encounter Discontinued Medications Medication Sig Discontinue Reason Start Date End Da te vibegron 75 mg Oral TabletIndications:Urge urinary incontinence,OAB (overactive bladder) Take 1 Tablet by mouth daily. 02/29/2024 05/14/2025 documented as of this encounter
[2025-05-20 12:00] VITALS: BP 174/97; PULSE 69; RESP 18; O2SAT 99
[2025-05-20] MEDS: RINGERS SOLUTION,LACTATED 500 ML 999 ML IV (12:11)
[2025-05-20] MEDS: ACETAMINOPHEN 1,000MG/100ML VIAL 1000 MG IV (12:16)
[2025-05-20] MEDS: PROCHLORPERAZINE 10MG/2ML VIAL 5 MG IV (12:16)
[2025-05-20 12:20] LABS: Hematocrit 44.4 % (37.0-47.0); Hemoglobin 14.4 g/dL (12.2-16.2); Immature Granulocytes % 0.1 %; Mean Corpuscular HGB Conc 32.4 g/dL (31.8-35.4); Mean Corpuscular Hemoglobin 29.4 pg (27.0-31.2); Mean Corpuscular Volume 90.6 fl (81-99); Nucleated Red Blood Cells % 0 %; Platelet Count 267 K/mm3 (142-424); Red Blood Count 4.90 M/mm3 (4.20-5.40); Red Cell Distribution Width-SD 43.6 fL; White Blood Count 6.7 K/mm3 (4.8-10.8)
[2025-05-20 12:21] LABS: Alanine Aminotransferase 18 U/L (12-78); Albumin Level 5.0 g/dl (3.5-5.0); Albumin/Globulin Ratio 1.4 (1.1-1.8); Alkaline Phosphatase 128 U/L (38-126); Anion Gap 11.3 mEq/L (5-15); Aspartate Amino Transferase 23 U/L (14-36); Bilirubin,Total 0.6 mg/dl (0.2-1.3); Blood Urea Nitrogen 15 mg/dl (7-17); Calcium 9.9 mg/dl (8.4-10.2); Carbon Dioxide 25 mmol/L (22.0-30.0); Chloride 106 mmol/L (98-107); Creatinine Clearance Estimated 96 mL/min (50-200); Creatinine,Serum 0.90 mg/dl (0.52-1.04); Estimated Glomerular Filt Rate 67 ml/min (>60); GFR (African American) 81 ML/MIN (>60); Globulin 3.5 g/dL (1.3-3.2); Glucose 113 mg/dl (74-100); Magnesium 2.1 mg/dl (1.6-2.3); Potassium 4.3 mmoL/L (3.5-5.1); Sodium 138 mmol/L (136-145); Total Protein,Serum 8.5 g/dl (6.3-8.2)
[2025-05-20 12:30] VITALS: BP 149/90; RESP 12; O2SAT 98
[2025-05-20 13:01] VITALS: BP 145/65; PULSE 73; RESP 15; TEMP 36.6; O2SAT 99
[2025-05-21 10:07] LABS: Hepatitis C Ab Qual. W/ RFX NEGATIVE (Negative)
== END 2025-05-20 13:01 | disposition home or self-care (01) ==
PROVIDERS: Emergency Provider Emergency Medicine; PCP Nurse Practitioner Family
DX: R51.9 Headache, unspecified (principal); R20.2 Paresthesia of skin; R42 Dizziness and giddiness; H53.8 Other visual disturbances; F17.210 Nicotine dependence, cigarettes, uncomplicated; I10 Essential (primary) hypertension
CPT/HCPCS: 70450; 80053; 83735; 85025; 86803; 87389; 93005; 96374; 96375; 99285; J0131; J0780; J1200; J7120